=== PATIENT | female | born 1940 | race Caucasian/White ===

== ENCOUNTER 2019-09-23 06:00 | Outpatient (RCR) | payer MEDICARE, OTHER, SELFPAY | END 2019-10-19 00:01 | LOC: APT 06:00 | PROVIDERS: Family Provider Nurse Practitioner; Visit Provider Nurse Practitioner | DX: Z96.651 Presence of right artificial knee joint (principal); Z47.1 Aftercare following joint replacement surgery | CPT/HCPCS: 97110 ×4; 97163 ==

== ENCOUNTER 2019-10-20 13:42 | Outpatient (RCR) | payer MEDICARE, OTHER, SELFPAY | END 2019-11-19 23:59 | disposition home or self-care (01) | LOC: SPT 13:42 | PROVIDERS: Family Provider Nurse Practitioner; PCP Nurse Practitioner; Visit Provider Nurse Practitioner | DX: Z47.1 Aftercare following joint replacement surgery (principal); Z96.651 Presence of right artificial knee joint ==

== ENCOUNTER 2019-10-27 09:00 | Outpatient (CLI) | payer MEDICARE, OTHER, SELFPAY ==
--- NOTE | 2019-10-27 09:10 | FL_ITS ---
WS: [id number] ESOPHAGRAM TECHNIQUE: Double contrast examination was performed with thin and thick barium. Upright and GROSS imag es were obtained. CLINICAL INFORMATION: ASPIRATION PNEUMONIA COMPARISON: None. FINDINGS: Swallowing: Normal oropharyngeal phase. No evidence of aspiration or penetration. Esophagus: Moderate esophageal dysmotility with tertiary contractions and presbyesophagus. Delayed es ophageal emptying on the upright and supine position. Reflux is visualized the midesophagus. Small hi atal hernia. No evidence of high-grade stricture or mass. Gastroesophageal reflux: Present Fluoroscopy time: 2.7 minutes. FL/FL barium swallow [id number] IMPRESSION: 1. No evidence of aspiration penetration. 2. Moderate esophageal dysmotility with tertiary contractions and delayed empt john. This is seen on the upright and supine imaging. 3. Active reflux is visualized to the midesophagus. Small hiatal hernia.
== END 2019-10-27 09:01 | disposition home or self-care (01) ==
LOC: RAD 09:06
PROVIDERS: Family Provider Nurse Practitioner; PCP Nurse Practitioner; Visit Provider Internal Medicine Critical Care Medicine
DX: J69.0 Pneumonitis due to inhalation of food and vomit (principal); K44.9 Diaphragmatic hernia without obstruction or gangrene; K21.9 Gastro-esophageal reflux disease without esophagitis
CPT/HCPCS: 74220

== ENCOUNTER 2019-11-09 12:40 | Outpatient (CLI) | payer MEDICARE, OTHER, SELFPAY ==
--- NOTE | 2019-11-09 13:36 | MM_ITS ---
WS: [id number] RIGHT DIGITAL MAMMOGRAPHY WITH CAD CLINICAL INFORMATION: HX OF BREAST CA - LT MASTECTOMY Family history of breast cancer. COMPARISON: TECHNIQUE: 4 views of the right breast were obtained. FINDINGS: Scattered fibroglandular densities of the right breast. Lucent centered calcifications No suspicious focal mass, asymmetry, calcifications, or architectural distortion. No evidence of nhan gnancy. MM/[place] [id number] IMPRESSION: BI-RADS: 2-Benign FOLLOW UP: 1 Year Follow-up Recommend return to annual diagnostic mammography.
== END 2019-11-09 12:41 | disposition home or self-care (01) ==
LOC: RADSHAW 12:45
PROVIDERS: Family Provider Nurse Practitioner; PCP Nurse Practitioner; Visit Provider Nurse Practitioner
DX: Z85.3 Personal history of malignant neoplasm of breast (principal); Z90.12 Acquired absence of left breast and nipple
CPT/HCPCS: 77065

== ENCOUNTER 2019-11-10 08:46 | Outpatient (CLI) | payer MEDICARE, OTHER, SELFPAY | END 2019-11-10 08:47 | disposition home or self-care (01) | LOC: RAD 08:47 | PROVIDERS: Family Provider Nurse Practitioner; PCP Nurse Practitioner; Visit Provider Internal Medicine Critical Care Medicine | DX: J39.8 Other specified diseases of upper respiratory tract (principal); J69.0 Pneumonitis due to inhalation of food and vomit | CPT/HCPCS: 94010 ==

== ENCOUNTER 2019-12-01 13:24 | Outpatient (CLI) | payer MEDICARE, OTHER, SELFPAY ==
--- NOTE | 2019-12-01 13:41 | CT_ITS ---
WS: [id number] CT ABDOMEN PELVIS TECHNIQUE: Noncontrast CT of the abdomen and pelvis with coronal and sagittal reformatted images. CLINICAL INFORMATION: Generalized abdmen pain COMPARISON: CT April 21, 2017 DLP: 1197.[address] scans at [facility] use at least one of these dose optimization techniques: automat ed exposure control; mA and/or kV adjustment per patient size (includes targeted exams where dose is matched to clinical indication); or iterative reconstruction. FINDINGS: Noncontrast liver is normal. Normal gallbladder. Normal spleen. Normal GE junction. Slight atelectasi s in the lung bases. Several noncalcified pulmonary nodules in the right middle lobe and right lower lobe the largest measuring 4 mm. These are stable in appearance since April 2017. Calcific granuloma r ight lung base. Diffuse fatty atrophy of the pancreas. Moderate diffuse atheromatous disease involving the abdominal aorta with calcification. Mesenteric and splenic artery calcification. No upper abdominal lymphadenop athy. Slightly aneurysmal infrarenal abdominal aorta measuring 2.3 cm maximum AP dimension unchanged. Beam hardening artifact from left hip prosthesis obscures images in the pelvis. Sigmoid colon is norm al in appearance. Scattered stool in the colon. No evidence of small or large bowel obstruction. No i nguinal lymphadenopathy. Lumbar curve. Moderate spondylitic changes lumbar spine. IMPRESSION: 1. Noncontrast liver and gallbladder are normal in appearance. 2. A few noncalcified pulmonary nodules in the right middle lobe and right lung base appear stable s 2016 with the largest measuring 4 mm. Recommend 12 month follow-up. 3. Slightly aneurysmal infrarenal abdominal aorta measuring 2.3 cm in maximum AP dimension unchanged . 4. No abdominal or pelvic lymphadenopathy. 5. Left hip prosthesis obscures images in the pelvis.
[2019-12-01] MEDS: iohexol 300 mg/mL 50 mL Btl PO (14:35)
== END 2019-12-01 13:25 | disposition home or self-care (01) ==
LOC: RADWPI 13:30
PROVIDERS: Family Provider Nurse Practitioner; PCP Nurse Practitioner; Visit Provider Nurse Practitioner
DX: R91.8 Other nonspecific abnormal finding of lung field (principal); I71.4 Abdominal aortic aneurysm, without rupture
CPT/HCPCS: 74176

== ENCOUNTER → 2019-12-29 10:37 | Outpatient (BNVA) | payer MEDICARE, OTHER, SELFPAY | PROVIDERS: Family Provider Nurse Practitioner; PCP Nurse Practitioner; Visit Provider Nurse Practitioner | DX: M25.561 Pain in right knee (principal); M25.562 Pain in left knee; Z96.651 Presence of right artificial knee joint; Z89.512 Acquired absence of left leg below knee | CPT/HCPCS: 73562 ==

== ENCOUNTER → 2019-12-31 11:24 | Outpatient (BNVA) | payer MEDICARE, OTHER, SELFPAY | PROVIDERS: Family Provider Nurse Practitioner; PCP Nurse Practitioner; Visit Provider Family Medicine | DX: M21.611 Bunion of right foot (principal); M20.41 Other hammer toe(s) (acquired), right foot; S93.104A Unspecified dislocation of right toe(s), initial encounter; X58.XXXA Exposure to other specified factors, initial encounter; M81.0 Age-related osteoporosis without current pathological fracture | CPT/HCPCS: 73630; 80053; 84550; 85025 ==

== ENCOUNTER 2020-01-31 15:50 | Inpatient (IN) | payer MEDICARE, OTHER, SELFPAY ==
[2020-01-31] VITALS (8 sets, daily range): BP systolic 153–172; BP diastolic 81–113; PULSE 102–157; RESP 16–20; TEMP 36.6; O2SAT 94–98; BMI 38.9
--- NOTE | 2020-01-31 16:16 | XR_ITS ---
WS: [id number] PORTABLE CHEST HISTORY: SOB COMPARISON: 07/23/2019 Interval development of atelectasis at the LEFT lung base and a small LEFT pleural effusion. Pulmonar y vasculature is normal. No pneumothorax. Cardiac size: Mildly enlarged cardiac silhouette. Mediastinum/Aorta: Mild atherosclerosis aorta. Advanced degenerative changes at the glenohumeral joints. Prior LEFT axillary zac dissection. XR/XR chest 1V portable [id number] IMPRESSION: 1. LEFT basilar atelectasis with new small LEFT pleural effusion. 2. Mild cardiomegaly and atherosclerosis aorta.
--- NOTE | 2020-01-31 16:17 | ECG_ITS ---
Measurements Intervals [place] Rate: 98 P: [place]: 0 QRS: 4 QRSD: 91 T: 99 QT: 382 QTc: 489 ATRIAL FLUTTER with occasional PVC POSSIBLE ANTERIOR MYOCARDIAL INFARCTION , OF INDETERMINATE AGE [30 ms Q WAVE IN V3 V3/V4, OR R < 0.2 mV IN V4] Compared to ECG 07/23/2019 13:57:01 Myocardial infarct finding now present T-wave abnormality no longer present Electronically Signed On 02-01-2020 19:39:21 CDT by Lynne Starks M.D. [id number] kaitlin
--- NOTE | 2020-01-31 16:19 | ED_ITS ---
HPI - SOB/Dyspnea General: Chief Complaint: Shortness of Breath/Dyspnea Stated Complaint: chf Time Seen by Provider: 01/31/20 16:03 Source: patient Mode of arrival: EMS Limitations: no limitations History of Present Illness: HPI Narrative: 79-year-old female patient with a history of diabetes, A. fib, but who denies a history of congestive heart failure presents to the emergency department with concerns of difficulty breathing. She has had shortness of breath for the last 3 days and it is progressively worsening. She denies a fever, denies sick contacts. She has an occasional cough. This morning she has also been having very fleeting intermittent left-sided chest pain that is nonradiating. She reports weight gain from 221 pounds at the end of December to 244 pounds today. She also notices right lower extremity swelling. She has an amputation of left lower extremity. MD elicited complaint: shortness of breath Pertinent past history: COPD Onset (ago): day(s) (3) Timing: constant and progressively worsening Severity: moderate Exacerbating factors: nothing Relieving factors: nothing Known history of: COPD Associated symptoms: Reports chest pain (fleeting intermittent chest pain that started this morning.); Deny abdominal pain, dizziness, extremity pain, fever(s), hemoptysis, lightheadedness, nausea, palpitations, syncope or vomiting Review of Systems General: Reports: 10 or more systems reviewed and unremarkable except in HPI and below Const: Denies: fever Card: Reports: chest pain (fleeting intermittent chest pain that started this morning.), edema and swelling of feet/ankles; Denies: palpitations, lightheadedness, syncope or pre-syncope Resp: Reports: shortness of breath, non-productive cough and wheezing; Denies: productive cough or coughing up blood GI: Denies: abdominal pain, nausea, vomiting or difficulty swallowing : Denies: flank pain, difficulty urinating, painful urination, urinary frequency or urinary urgency Musc: Denies: extremity pain Neuro: Denies: headache, numbness in extremities, weakness in extremities, changes in sensation or dizziness PFS ED PFSH: Social History Smoking and tobacco status: never smoked Alcohol intake: never Lives independently: No Housing: Assisted Living Facility Marital status: / Current occupational status: retired History of recent travel: No Current gender identity: Female Physical Exam Const: COMMON NORMALS: no apparent distress, oriented x3 and no limitations GENERAL APPEARANCE: cooperative Resp: COMMON NORMALS: negative for clear to auscultation bilaterally AUSCULTATION: not clear to auscultation bilaterally, rales bilateral 1/[address] way up, no rhonchi and no wheezes Cardio: COMMON NORMALS: regular rhythm, S1 normal heart sound, S2 normal heart sound, no gallops and no murmurs RATE: tachycardic RHYTHM: regular rhythm HEART SOUNDS: S1 normal and S2 normal GI: COMMON NORMALS: normal to inspection, nondistended, normoactive bowel sounds, soft to palpation, non-tender and no hepatosplenomegaly PALPATION: Yes soft and Yes no hepatosplenomegaly : COMMON NORMALS: Yes no CVA tenderness BLADDER/KIDNEY EXAM: Yes no CVA tenderness Back/Pelvis: COMMON NORMALS: no CVA tenderness Extremity: GENERAL: Yes amputation (LLE) and Yes edema (2+ pitting pedal edema, RLE) Neuro: COMMON NORMALS: oriented x3 Course Consultations: Consultation #1: Dr. Nunez, hospitalist. He kindly accepted the patient to his service. Time: 20:00 Vital Signs: Vital signs: Vital Signs Temperature 97.8 F 01/31/20 15:56 Pulse Rate 125 H 01/31/20 19:51 Respiratory Rate 20 H 01/31/20 19:51 Blood Pressure 172/113 01/31/20 19:51 Pulse Oximetry 94 01/31/20 19:51 MDM - SOB/Dyspnea MDM Narrative: Medical decision making narrative: 79-year-old female patient who is a resident of an assisted living facility who presents to the emergency department with a 3-day history of shortness of breath that has been gradually worsening. She also endorses significant weight gain, about 23 pounds over a 3- week period. Evaluation in the emergency department is consistent with congestive heart failure. She is admitted for further evaluation and work-up as well as management of her condition. Medical Records: Attestation: I reviewed the patient's medical records. Lab Data: Labs: Lab Results 01/31/20 01/31/20 01/31/20 Range/Units 16:40 16:40 16:40 WBC 5.7 (4.0-10.0) 10^3/ uL RBC 4.59 (4.1-5.3) 10^6/u L Hgb 12.5 (11.5-15.3) g/dL Hct 42.3 (37.0-47.0) % MCV 92.2 (81-99) fL MCH 27.2 L (28.0-34.0) pg MCHC 29.6 L (30.0-36.0) g/dL RDW 17.1 H (12.1-15.1) % Plt Count 145 (130-400) 10^3/c mm MPV 11.0 H (7.4-10.4) fL Neut % (Auto) 75.4 % Lymph % (Auto) 16.1 % Villalba % (Auto) 7.0 % Eos % (Auto) 0.3 % Baso % (Auto) 0.9 % Neut # (Auto) 4.3 (1.8-7.7) 10^3/u L Lymph # (Auto) 0.9 (0.8-4.8) 10^3/u L Villalba # (Auto) 0.4 (0.2-0.9) 10^3/u L Eos # (Auto) 0.0 (0.0-0.8) 10^3/u L Baso # (Auto) 0.1 (0.0-0.1) 10^3/u L Nucleated RBC % (a uto) 0 % Nucleated RBCs # 0.0 /100WBC Sodium 138 (136-145) mmol/L Potassium 4.3 (3.5-5.1) mmol/L Chloride 98 (98-107) mmol/L Carbon Dioxide 28 (22-29) mmol/L Anion Gap 16.3 (5-19) BUN 11 (8-23) mg/dL Creatinine 0.8 (0.5-0.9) mg/dL Glucose 139 H (65-115) mg/dL Calculated Osmolal ity 284 L (285-295) mOsm/k g Calcium 9.3 (8.5-10.5) mg/dL Total Bilirubin 1.2 (0.15-1.2) mg/dL AST 19 (0-32) U/L ALT 9 (0-33) U/L Alkaline Phosphata se 93 (35-105) IU/L Troponin T Baselin e 18 H (0-10) ng/mL Troponin T 120 Min [place] (0-10) ng/mL Delta Troponin T (0-10) ABS# NT-Pro-B Natriuret Pep 8912 H (0-450) pg/mL Total Protein 7.2 (6.6-8.7) g/dL Albumin 3.8 (3.5-5.2) g/dL Globulin 3.4 (1.3-4.6) g/dL Influenza Type A A g (Negative) Influenza Type B A g (Negative) 01/31/20 01/31/20 Range/Units 17:07 18:11 WBC (4.0-10.0) 10^3/ uL RBC (4.1-5.3) 10^6/u L Hgb (11.5-15.3) g/dL Hct (37.0-47.0) % MCV (81-99) fL MCH (28.0-34.0) pg MCHC (30.0-36.0) g/dL RDW (12.1-15.1) % Plt Count (130-400) 10^3/c mm MPV (7.4-10.4) fL Neut % (Auto) % Lymph % (Auto) % Villalba % (Auto) % Eos % (Auto) % Baso % (Auto) % Neut # (Auto) (1.8-7.7) 10^3/u L Lymph # (Auto) (0.8-4.8) 10^3/u L Villalba # (Auto) (0.2-0.9) 10^3/u L Eos # (Auto) (0.0-0.8) 10^3/u L Baso # (Auto) (0.0-0.1) 10^3/u L Nucleated RBC % (a uto) % Nucleated RBCs # /100WBC Sodium (136-145) mmol/L Potassium (3.5-5.1) mmol/L Chloride (98-107) mmol/L Carbon Dioxide (22-29) mmol/L Anion Gap (5-19) BUN (8-23) mg/dL Creatinine (0.5-0.9) mg/dL Glucose (65-115) mg/dL Calculated Osmolal ity (285-295) mOsm/k g Calcium (8.5-10.5) mg/dL Total Bilirubin (0.15-1.2) mg/dL AST (0-32) U/L ALT (0-33) U/L Alkaline Phosphata se (35-105) IU/L Troponin T Baselin e (0-10) ng/mL Troponin T 120 Min [place] 18.07 H (0-10) ng/mL Delta Troponin T 0.07 (0-10) ABS# NT-Pro-B Natriuret Pep (0-450) pg/mL Total Protein (6.6-8.7) g/dL Albumin (3.5-5.2) g/dL Globulin (1.3-4.6) g/dL Influenza Type A A g Negative (Negative) Influenza Type B A g Negative (Negative) EKG Data^: EKG 1: Attestation: I personally reviewed and interpreted this EKG as follows: EKG Interpretation Date: 01/31/20 EKG interpretation time: 17:00 Prior EKG tracings: not available for review Interpretation: atrial fibrillation HR [address] changes EKG 2: Attestation: I personally reviewed and interpreted this EKG as follows: EKG Interpretation Date: 01/31/20 EKG interpretation time: 18:38 Prior EKG tracings: available for review Computer Generated Interpretation: unchanged from earlier, other than tachycardia EKG 3: Attestation: I personally reviewed and interpreted this EKG as follows: EKG Interpretation Date: 01/31/20 EKG interpretation time: 19:47 Prior EKG tracings: available for review Interpretation: unchanged from earlier Discharge Plan Discharge Patient Disposition: Admitted As Inpatient Clinical Impression: Congestive heart failure Condition: Stable Referrals: Rose Lester, [employer] [Primary Care Provider] - Interventions: ED Discharge Assessment Last Done: 01/31/20 20:46 Coding Level of Care Code ED Marine Engine Machinist Apprentice for Chg Fwd Exam Detailed
[2020-01-31 16:55] LABS: Basophils # 0.1 10^3/uL (0.0-0.1); Basophils % 0.9 %; Eosinophils % 0.3 %; Hematocrit 42.3 % (37.0-47.0); Hemoglobin 12.5 g/dL (11.5-15.3); Lymphocytes # 0.9 10^3/uL (0.8-4.8); Lymphocytes % 16.1 %; Mean Corpuscular HGB Conc 29.6 g/dL (30.0-36.0); Mean Corpuscular Hemoglobin 27.2 pg (28.0-34.0); Mean Corpuscular Volume 92.2 fL (81-99); Monocytes # 0.4 10^3/uL (0.2-0.9); Neutrophils # 4.3 10^3/uL (1.8-7.7); Neutrophils % 75.4 %; Nucleated Red Blood Cells % 0 %; Platelet Count 145 10^3/cmm (130-400); Red Blood Count 4.59 10^6/uL (4.1-5.3); Red Cell Distribution Width 17.1 % (12.1-15.1); White Blood Count 5.7 10^3/uL (4.0-10.0)
[2020-01-31 17:13] LABS: Troponin(5th) Baseline 18 ng/mL (0-10)
[2020-01-31 17:22] LABS: Alanine Aminotransferase 9 U/L (0-33); Albumin Level 3.8 g/dL (3.5-5.2); Alkaline Phosphatase 93 IU/L (35-105); Anion Gap 16.3 (5-19); Aspartate Amino Transferase 19 U/L (0-32); Blood Urea Nitrogen 11 mg/dL (8-23); Calcium 9.3 mg/dL (8.5-10.5); Carbon Dioxide 28 mmol/L (22-29); Chloride 98 mmol/L (98-107); Globulin 3.4 g/dL (1.3-4.6); Glucose 139 mg/dL (65-115); NT Pro B Type Natriuretic Pept 8912 pg/mL (0-450); Osmolality Calculated 284 mOsm/kg (285-295); Potassium 4.3 mmol/L (3.5-5.1); Sodium 138 mmol/L (136-145); Total Bilirubin 1.2 mg/dL (0.15-1.2); Total Protein 7.2 g/dL (6.6-8.7)
[2020-01-31 17:40] LABS: Influenza A by IFA Negative (Negative); Influenza B by IFA Negative (Negative)
--- NOTE | 2020-01-31 18:17 | ECG_ITS ---
Measurements Intervals [place] Rate: 94 P: [place]: 0 QRS: 9 QRSD: 88 T: 94 QT: 374 QTc: 469 ATRIAL FIBRILLATION WITH ABERRANT CONDUCTION OR VENTRICULAR PREMATURE COMPLEXES POSSIBLE ANTERIOR MYOCARDIAL INFARCTION , PROBABLY OLD Compared to ECG 07/23/2019 13:57:01 Aberrant conduction of supraventricular beat(s) now present Myocardial infarct finding now present Atrial flutter no longer present T-wave abnormality no longer present Electronically Signed On 02-01-2020 10:57:43 CDT by Lynne Starks M.D. [id number] kaitlin
[2020-01-31 18:35] LABS: Troponin 5 2HR 18.07 ng/mL (0-10); Troponin 5 2HR Delta 0.07 ABS# (0-10)
[2020-01-31] MEDS: FUROsemide 10 mg/mL SDV 4mL 40 MG IVP (18:47)
--- NOTE | 2020-01-31 19:56 | PC.NURSE ---
informed of pt. increased HR and HTN no orders recieved
--- NOTE | 2020-01-31 20:36 | PC.NURSE ---
assisted pt. to the bed side norma he SPO2 dropped to the 70's
--- NOTE | 2020-01-31 20:44 | PC.NURSE ---
report called to Oma STEWART on the M/S floor
--- NOTE | 2020-01-31 20:48 | PC.NURSE ---
ordered by the to hold the pr. in the ER untill he orders a CT of the chest and it is compleated.
--- NOTE | 2020-01-31 20:53 | CTR_ITS ---
PROCEDURE INFORMATION: Exam: CT Chest With Contrast Exam date and time: 01/31/2020 9:20 PM Age: 79 years old Clinical indication: Shortness of breath; Prior surgery; Surgery date: 6+ months; Additional info: SOB TECHNIQUE: Imaging protocol: Computed tomography of the chest with intravenous contrast. Total DLP: 948.83 mGy-cm Radiation optimization: All CT scans at this facility use at least one of these dose optimization techniques: automated exposure control; mA and/or kV adjustment per patient size (includes targeted exams where dose is matched to clinical indication); or iterative reconstruction. Contrast material: OMNIPAQUE 300; Contrast volume: 95 ml; Contrast route: IV; COMPARISON: CTA Chest-Pulmonary Emb [id number] 07/23/2019 12:20 PM FINDINGS: Lungs: Bibasilar atelectasis versus infiltrate. Pleural space: Moderate bilateral pleural effusions. Heart: Mild cardiomegaly. Coronary artery atherosclerotic calcifications. Aorta: Unremarkable. No aortic aneurysm. Lymph nodes: Unremarkable. No enlarged lymph nodes. Bones/joints: Right distal clavicle chronic fracture. Soft tissues: Unremarkable. CT/CT chest w con* [id number] IMPRESSION: 1. Moderate bilateral pleural effusions. 2. Bibasilar atelectasis versus infiltrate. 3. Mild cardiomegaly. 4. Coronary artery atherosclerotic calcifications. Radiation Dose CTDIVOL = (mGy): DLP = 948.83 (mGy-cm)
--- NOTE | 2020-01-31 20:54 | PM.HP ---
Providers/Chief Complaint Primary Care Provider: Rose Lester, NADYAC Chief Complaint: chf History of Present Illness Nicole Gordon is a 79 year old female with past medical history of heart failure with preserved ejection fraction echo on 05/08/2019 (showed LVH, ejection fraction 55%), mild aortic stenosis, chronic atrial fibrillation on anticoagulation with Eliquis, [id number] type 2 diabetes mellitus, hypertension, hyperlipidemia, obstructive sleep apnea on CPAP, status post left BKA with Charcot's arthropathy, GERD, history of breast cancer status post mastectomy, morbid obesity, chronic kidney disease stage II, history of aspiration pneumonitis, tracheobronchial malacia, who presents to the emergency room from assisted living facility in [facility] for complaints of shortness of breath. Patient states that she has been having shortness of breath with exertion, progressing to shortness of breath less than 10 feet, no shortness of breath at rest, has orthopnea, has paroxysmal nocturnal dyspnea, states that she has occasional wheezing, no cough, no fevers, no URI symptoms, no recent travel, no sick contacts, no known exposure to covid19. Patient states that this morning she had one episode of left-sided chest pain, lasted a few seconds, sharp, nonradiating, associate with shortness of breath, no lightheadedness, no dizziness, no nausea, no vomiting, no history of CAD, no history of stenting. Denies history of calf pain or calf swelling on the right, no history of pulmonary embolism,, no history of DVT In the emergency room, patient had episodes of A. fib with RVR, heart rates in the 120s, now is examining her, heart rates were 100-1 10, A. fib, she is requiring up to 3-4 L of oxygen, no tachypnea, no nasal flaring, no retractions, chest x-ray shows pulmonary vascular congestion BNP in the 8000 Review of Systems Const: Denies: fever, chills, fatigue or malaise Eyes: Denies: change in vision or blurry vision ENMT: Denies: nasal congestion Resp: Reports: shortness of breath and wheezing; Denies: productive cough or non-productive cough GI: Denies: abdominal pain, nausea, vomiting, vomiting blood, diarrhea, constipation, blood in stool or black tarry stool : Denies: flank pain, painful urination or urinary frequency Musc: Denies: neck pain or back pain Skin/Breast: Denies: rash Neuro: Denies: headache, dizziness or vertigo Psych: Denies: anxiety or depression Endo: Denies: excessive urination or excessive thirst Medications/Allergies Allergies Allergy/AdvReac Type Severity Reaction Status Date / Time chlorthalidone Allergy Unknown Verified 01/31/20 16:09 metformin AdvReac Severe ADR-Diarrhe Verified 12/31/19 10:25 a celecoxib [From Celebrex] AdvReac GI Verified 12/31/19 10:25 PFSH Acute PFSH: Social History Smoking and tobacco status: never smoked Alcohol intake: never Lives independently: No Housing: Assisted Living Facility Marital status: / Current occupational status: retired History of recent travel: No Current gender identity: Female Vitals/I&O/Wt Last Vital Signs Temp 97.8 F 01/31/20 15:56 Pulse 104 H 01/31/20 20:46 Resp 20 H 01/31/20 20:46 BP 168/112 01/31/20 20:46 Pulse Ox 94 01/31/20 19:51 Weight last 48 hrs Weight 109.316 kg Physical Exam Const: COMMON NORMALS: no apparent distress and oriented x3 GENERAL APPEARANCE: cooperative and comfortable HENMT: COMMON NORMALS: normocephalic HEAD & SCALP: normocephalic Eye: COMMON NORMALS: PERRL, EOMs intact bilaterally and no papilledema GENERAL EYE: normal appearance of both eyes PUPIL: Yes PERRL DIRECT OPHTHALMOSCOPY: Yes no papilledema Neck/C-Spine: COMMON NORMALS: full ROM, no lymphadenopathy, no JVD and thyroid normal THYROID: thyroid normal Lymph: LYMPHATIC: no lymphadenopathy noted Resp: COMMON NORMALS: normal respiratory effort, no retractions, no use of accessory muscles and clear to auscultation bilaterally AUSCULTATION: clear to auscultation bilaterally Cardio: COMMON NORMALS: no JVD, regular rate, regular rhythm, S1 normal heart sound, S2 normal heart sound, no gallops, no clicks and no murmurs RATE: regular rate RHYTHM: regular rhythm HEART SOUNDS: S1 normal and S2 normal GI: COMMON NORMALS: normal to inspection, nondistended, normoactive bowel sounds, soft to palpation, non-tender and no hepatosplenomegaly PALPATION: Yes soft and Yes no hepatosplenomegaly Extremity: COMMON NORMALS: normal to inspection and full ROM NARRATIVE EXTREMITY EXAM: Left BKA GENERAL: Yes edema Neuro: COMMON NORMALS: oriented x3, CN's II-XII intact bilaterally, moves all extremities and no focal motor deficits Psych: COMMON NORMALS: mental status grossly normal, thought process normal and cooperative THOUGHT PROCESS: normal thought process Data : 01/31/20 16:40 01/31/20 16:40 A&P Assessment and plan (1) Acute respiratory failure with hypoxia: -Secondary to exacerbation of heart failure with preserved ejection fraction, atrial fibrillation with RVR -Chest x-ray showing pulmonary vascular congestion, BNP 8000 Plan: -Strict I's and O's -Fluid restrictions less than 1500 cc -Daily weights -Lasix 40 mg IV twice daily -We will order CT of the chest -We will order cardiac echocardiogram -Wean oxygen as needed -PT OT Status: Acute (2) AF (atrial fibrillation): -Continue Eliquis 2.5 twice daily -Continue metoprolol 50 twice daily -I have elected not to start drip as patient's heart rates are 100s to 110s, A. fib -Start amiodarone 400 mg daily, monitor heart rates overnight, continue telemetry monitoring Status: Acute (3) Edema of amputation stump of left lower extremity: Status: Acute (4) Lives in assisted living facility: Status: Chronic (5) History of thyroid cancer: Status: Chronic (6) Tracheobronchomalacia: Status: Acute (7) Obstructive sleep apnea: Status: Chronic (8) Controlled diabetes mellitus with hyperglycemia, without long-term current use of insulin: Low-dose sliding scale Status: Chronic Qualifiers: Diabetes mellitus type: type 2 Qualified Code(s): E11.65 - Type 2 diabetes mellitus with hyperglycemia (9) Essential (primary) hypertension: Status: Chronic (10) Heart failure with preserved ejection fraction: Status: Acute Attestations Medical Necessity Statement*: Patient requires hospitalization, inpatient, greater than 2 midnights, for acute respiratory failure secondary to CHF, A. fib Coding Level of Care Code Acute Diagnostic Radiologic Technologist for [facility] Diagnoses Acute respiratory failure with hypoxia J96.01 AF (atrial fibrillation) I48.91 Edema of amputation stump of left lower extremity T87.89 Lives in assisted living facility Z59.3 History of thyroid cancer Z85.850 Tracheobronchomalacia J39.8 Obstructive sleep apnea G47.33 Controlled diabetes mellitus with hyperglycemia, without long-term current use of insulin E11.65 Diabetes mellitus type: type 2 Essential (primary) hypertension I10 Heart failure with preserved ejection fraction I50.30
--- NOTE | 2020-01-31 22:17 | ECG_ITS ---
Measurements Intervals [place] Rate: 126 P: [place]: 0 QRS: 44 QRSD: 90 T: 92 QT: 328 QTc: 476 ATRIAL FIBRILLATION WITH RAPID VENTRICULAR RESPONSE POSSIBLE ANTERIOR MYOCARDIAL INFARCTION , PROBABLY OLD Compared to ECG 07/23/2019 13:57:01 Myocardial infarct finding now present Atrial flutter no longer present Ventricular premature complex(es) no longer present T-wave abnormality no longer present Electronically Signed On 02-02-2020 10:35:18 CDT by Lynne Starks M.D. [id number]
[2020-01-31] MEDS: atorvastatin 40 mg Tablet 20 MG PO (22:29)
[2020-01-31] MEDS: gabapentin 300 mg Capsule 600 MG PO (22:29)
[2020-01-31] MEDS: aspirin 81 mg EC Tablet PO (22:29)
[2020-01-31] MEDS: amiodarone 200 mg Tablet 400 MG PO (22:29)
[2020-01-31 22:37] LABS: Troponin 5 6HR 19.79 ng/mL (0-10); Troponin 5 6HR Delta 1.79 ng/L (0-12)
[2020-01-31 22:45] LABS: Thyroid Stimulating Hormone 1.63 uIU/mL (0.27-4.20)
[2020-01-31] MEDS: HYDROcodone-acetaminophen 10-325 mg Tablet 1 TAB PO (22:53)
[2020-01-31] MEDS: trazodone 50 mg Tablet PO (22:54)
[2020-02-01] VITALS (10 sets, daily range): BP systolic 131–161; BP diastolic 73–100; PULSE 78–104; RESP 16–22; TEMP 36.6–37; O2SAT 86–97
[2020-02-01 05:17] LABS: Basophils # 0.1 10^3/uL (0.0-0.1); Basophils % 0.9 %; Eosinophils % 0.1 %; Hematocrit 43.6 % (37.0-47.0); Hemoglobin 12.7 g/dL (11.5-15.3); Lymphocytes # 1.2 10^3/uL (0.8-4.8); Lymphocytes % 17.8 %; Mean Corpuscular HGB Conc 29.1 g/dL (30.0-36.0); Mean Corpuscular Hemoglobin 27.2 pg (28.0-34.0); Mean Corpuscular Volume 93.4 fL (81-99); Mean Platelet Volume 12.3 fL (7.4-10.4); Monocytes # 0.5 10^3/uL (0.2-0.9); Monocytes % 7.8 %; Neutrophils # 4.9 10^3/uL (1.8-7.7); Neutrophils % 73.1 %; Nucleated Red Blood Cells % 0 %; Platelet Count 57 10^3/cmm (130-400); Red Blood Count 4.67 10^6/uL (4.1-5.3); White Blood Count 6.8 10^3/uL (4.0-10.0)
[2020-02-01 05:34] LABS: Estmated Average Glucose 131; Hemoglobin A1C 6.2 % (4.0-6.0)
[2020-02-01 05:35] LABS: Alanine Aminotransferase 8 U/L (0-33); Albumin Level 3.5 g/dL (3.5-5.2); Alkaline Phosphatase 87 IU/L (35-105); Anion Gap 18.6 (5-19); Blood Urea Nitrogen 9 mg/dL (8-23); Calcium 9.4 mg/dL (8.5-10.5); Carbon Dioxide 26 mmol/L (22-29); Chloride 95 mmol/L (98-107); Chol HDL Ratio 2.64 mg/dL (0.0-4.40); Cholesterol 95 mg/dL (0-200); Globulin 3.6 g/dL (1.3-4.6); Glucose 113 mg/dL (65-115); HDL Cholesterol 36 mg/dL (60-100); LDL Cholesterol Calculated 39 mg/dL (50-129); LDL HDL Ratio 1.08 RATIO (0.00-3.22); Magnesium 2.1 mg/dL (1.7-2.3); Osmolality Calculated 279 mOsm/kg (285-295); Phosphorus 3.8 mg/dL (2.5-4.5); Potassium 3.6 mmol/L (3.5-5.1); Sodium 136 mmol/L (136-145); Total Bilirubin 1.5 mg/dL (0.15-1.2); Total Protein 7.1 g/dL (6.6-8.7); Triglycerides 98 mg/dL (0-150)
[2020-02-01 05:49] LABS: Aspartate Amino Transferase 23 U/L (0-32)
--- NOTE | 2020-02-01 07:59 | P.PN_ITS ---
Subjective Subjective: Interval history: Patient known to me from previous visit, chart reviewed, had 200 mL urine output overnight. AM labs noted, including thrombocytopenia. Sitting in chair by bedside, reports poor sleep last night so trying to take a nap, otherwise no complaints though she still feels like she has quite a bit of water weight on her. Medications: Reviewed: Yes Medication Review Details: Active Medications Generic Name Dose Route Start Last Admin Trade Name Freq PRN Reason Stop Dose Admin Acetaminophen 650 mg 01/31/20 21:55 Tylenol PO Q6H PRN Mild/Mod Pain Or Temp >/= 101 Hydrocodone Bitart /Acetaminophen 1 tab 01/31/20 21:55 01/31/20 22:53 [place] 10-325 Mg PO 1 tab Q4H PRN Administration Pain Albuterol Sulfate 2.5 mg 01/31/20 21:55 01/31/20 23:20 Albuterol INHALATION 2.5 mg TID.RESPIRATORY S CH Administration Allopurinol 300 mg 02/01/20 09:00 Zyloprim PO DAILY [facility] Amiodarone HCl 400 mg 01/31/20 21:55 01/31/20 22:29 Cordarone PO 400 mg DAILY RAMÓN Administration Apixaban 2.5 mg 02/01/20 09:00 Eliquis PO BID [facility] Aspirin 81 mg 01/31/20 21:55 01/31/20 22:29 Aspirin Ec PO 81 mg DAILY [facility] Administration Atorvastatin Calci um 20 mg 01/31/20 21:55 01/31/20 22:29 Lipitor PO 20 mg BEDTIME RAMÓN Administration Atorvastatin Calci um 40 mg 01/31/20 21:55 01/31/20 22:27 Lipitor PO Not Given DAILY [facility] Calcium Carbonate 1 each 02/01/20 09:00 Oyster Shell 500 mg-Vit D 200unit PO DAILY [facility] Chlorthalidone 25 mg 02/01/20 09:00 Thalitone PO BID [facility] Dextrose 25 ml 01/31/20 22:00 D50w IVP ONCE PRN hypoglycemia prot ocol Protocol Dextrose 50 ml 01/31/20 22:00 D50w IVP PRN PRN hypoglycemia prot ocol Protocol Docusate Sodium 100 mg 02/01/20 09:00 Colace PO BID [facility] Furosemide 40 mg 02/01/20 09:00 Lasix IVP BID [facility] Gabapentin 600 mg 01/31/20 21:55 01/31/20 22:29 Neurontin PO 600 mg TID RAMÓN Administration Glucagon 1 mg 01/31/20 22:00 Glucagen IM ONCE PRN Adult Acute Hypog lycemia Prot. Protocol Dextrose 500 mls @ 100 mls /hr 01/31/20 22:00 D5w IV ONCE PRN Adult Acute Hypog lycemia Prot Protocol Insulin Aspart 0 unit 02/01/20 08:00 Novolog SUBCUT TIDWM [facility] Protocol Lisinopril 10 mg 02/01/20 09:00 Prinivil PO DAILY [facility] Metoprolol Succina te 50 mg 02/01/20 09:00 Toprol Xl PO BID [facility] Non-Formulary Medi cation 250 mg 02/01/20 09:00 Magnesium PO BID [facility] Nystatin 1 applic 01/31/20 21:55 Nystatin Powder TOPICAL QID PRN yeast Ondansetron HCl 4 mg 01/31/20 21:55 Zofran IVP Q8H PRN vomiting, or N/V if npo Potassium Chloride 10 meq 02/01/20 09:00 Klor-Con 10 PO BID [facility] Trazodone HCl 50 mg 01/31/20 22:45 01/31/20 22:54 Desyrel PO 50 mg BEDTIME RAMÓN Administration chlorthalidone Allergy (Verified 01/31/20 16:09) Unknown metformin Adverse Reaction (Severe, Verified 12/31/19 10:25) ADR-Diarrhea celecoxib [From Celebrex] Adverse Reaction (Verified 12/31/19 10:25) GI Vitals/I&O/Wt Last Vital Signs Temp 98.2 F 02/01/20 07:17 Pulse 80 02/01/20 07:17 Resp 20 H 02/01/20 07:17 BP 131/93 02/01/20 07:17 Pulse Ox 92 02/01/20 07:17 01/31/20 02/01/20 02/01/20 22:59 06:59 14:59 Intake Total 480 / 480 50 / 530 Output Total 200 / 200 Balance 480 / 480 -150 / 330 Weight last 48 hrs Weight 109.316 kg Physical Exam Const: COMMON NORMALS: no apparent distress and oriented x3 GENERAL APPEARANCE: cooperative and comfortable; not ill appearing NUTRITIONAL APPEARANCE: obese morbidly obese ORIENTATI ON/CONSCIOUSNESS: Yes awake HENMT: COMMON NORMALS: normocephalic, head/scalp atraumatic, hearing grossly normal bilaterally and moist oral mucous membranes HEAD & SCALP: normocephalic and atraumatic Eye: COMMON NORMALS: PERRL, EOMs intact bilaterally and conjunctivae normal CONJUNCTIVA: Yes conjunctivae normal PUPIL: Yes PERRL Neck/C-Spine: COMMON NORMALS: full ROM GENERAL: Yes normal visual inspection and Yes trachea midline Resp: COMMON NORMALS: normal respiratory effort, no retractions and no use of accessory muscles EFFORT & INSPECTION: Yes able to speak in complete sentences, Yes symmetric chest movement and No tachypneic AUSCULTATION: crackles OTHER: -on 2 L NC Cardio: COMMON NORMALS: regular rate, regular rhythm, S1 normal heart sound and S2 normal heart sound RATE: regular rate RHYTHM: regular rhythm HEART SOUNDS: S1 normal, S2 normal and murmur systolic GI: COMMON NORMALS: normal to inspection, nondistended, normoactive bowel sounds, soft to palpation and non-tender INSPECTION: Yes central obesity PALPATION: Yes soft Extremity: NARRATIVE EXTREMITY EXAM: -s/p L BKA, prosthetic on Neuro: COMMON NORMALS: oriented x3, moves all extremities, no focal motor deficits and no sensory deficits noted Psych: COMMON NORMALS: mental status grossly normal, thought process normal, cooperative, affect normal and speech normal SPEECH: Yes normal speech THOUGHT PROCESS: normal thought process Skin: COMMON NORMALS: no rashes or lesions noted, no jaundice, no petechiae and no mottling GENERAL SKIN EXAM: no rashes or lesions noted Data : 02/01/20 04:28 02/01/20 04:28 A&P Assessment and plan (1) Heart failure with preserved ejection fraction: -Acutely decompensated diastolic CHF as evidenced by elevated BNP, orthopnea, dyspnea, evidence of fluid overload on imaging -Repeat echo: EF=55%, moderate , moderate TR; last echo in April 2019 showed ejection fraction of 55%, mild concentric LVH, mild , trace to mild TR -Imaging reviewed including chest x-ray and CT -Continue IV diuresis with Lasix -Close monitoring of renal function and electrolytes -Vital signs stable; continue to monitor -Telemetry monitoring -Cardiac diet as tolerated -Troponins noted with no significant delta -Abrasive Grader is Dr. Starks Status: Acute Qualifiers: Heart failure chronicity: acute on chronic Qualified Code(s): I50.33 - Acute on chronic diastolic (congestive) heart failure (2) AF (atrial fibrillation): -Has known history of chronic atrial fibrillation, on admission was quite tachycardic, currently rate controlled -Telemetry monitoring -Echo as noted above -Continue to monitor vital signs -On Eliquis 2.5 twice daily for anticoagulation -Continue amiodarone and metoprolol Status: Chronic Qualifiers: Atrial fibrillation type: unspecified Qualified Code(s): I48.91 - Unspecified atrial fibrillation (3) Essential (primary) hypertension: -Vital signs currently stable, continue to monitor -Continue oral antihypertensives Status: Chronic (4) Obstructive sleep apnea: -On CPAP qhs Status: Chronic Additional A&P Information -NIDDM type II: A1c-6.2, at goal -Hyperlipidemia; on statin -OA; pain control as needed -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 Yeh -cardiac diet as tolerated -DVT ppx not needed as on Eliquis -PT/OT evaluations appreciated; recommended -Dispo: [facility] -Code status: FULL code Attestations Medical Necessity Statement*: Patient requires hospitalization for continued IV diuresis secondary to acutely decompensated CHF. Time Spent in Patient Care: Greater than 35 minutes (>than 50% of time spent in counselling and/or direct pt care on unit) . Coding Level of Care Code Acute Informatica Developer for [facility] Fwd Exam Comprehensive Diagnoses Heart failure with preserved ejection fraction I50.33 Heart failure chronicity: acute on chronic AF (atrial fibrillation) I48.91 Atrial fibrillation type: unspecified Essential (primary) hypertension I10 Obstructive sleep apnea G47.33
[2020-02-01 08:45] LABS: Glucose Point of Care 182 mg/dL (70-110)
[2020-02-01] MEDS: FUROsemide 10 mg/mL SDV 4mL 40 MG IVP ×2 (09:03→18:12)
[2020-02-01] MEDS: aspirin 81 mg EC Tablet PO (09:05)
[2020-02-01] MEDS: duloxetine 60 mg Capsule PO (09:05)
[2020-02-01] MEDS: allopurinol 300 mg Tablet PO (09:05)
[2020-02-01] MEDS: gabapentin 300 mg Capsule 600 MG PO ×3 (09:05→20:02)
[2020-02-01] MEDS: lisinopril 10 mg Tablet PO (09:05)
[2020-02-01] MEDS: amiodarone 200 mg Tablet 400 MG PO (09:05)
[2020-02-01] MEDS: docusate sodium 100 mg Capsule PO ×2 (09:05→18:12)
[2020-02-01] MEDS: metoprolol succinate ER (24 HR) 50 mg Tablet PO ×2 (09:05→18:12)
[2020-02-01] MEDS: calcium carb-vit d 500mg-200unit 1 Tablet 1 EACH PO (09:05)
[2020-02-01] MEDS: apixaban 5 mg Tablet 2.5 MG PO ×2 (09:06→18:12)
[2020-02-01] MEDS: HYDROcodone-acetaminophen 10-325 mg Tablet 1 TAB PO ×3 (09:12→20:01)
[2020-02-01 11:35] LABS: Glucose Point of Care 127 mg/dL (70-110)
--- NOTE | 2020-02-01 11:53 | PC.CHAP ---
Pastoral Care Encounter/Spiritual Assessment Type of Contact [] Declined filtering machine tender visit [] Patient/Family/Request visit [] Outpatient visit [] Follow-up visit [] Physician referral [] Code/Alert [x] Routine visit [] Staff referral [] Actively dying [] Patient sleeping [] Family support [] [] Out of room [] Palliative care [] [] Receiving care in room [] Pre-surgical visit [] Trauma [] Long length of stay [] ICU visit [] Other: Relational/Emotional Strength [] Patient feels connected with others/family/visitors/staff [] Distress [] Loneliness/isolation [] Abandonment Spirituality of Patient [x] Person of Paulina [] Attends Adventist of their Paulina [x] Believes in Prayer [] Reads Bible or Evangelical materials [] There are Spiritual issues to be addressed Sheet Cutting Operator Interventions [x] Prayer [] Active listening [] Non-anxious presence [] Spiritual/emotional support [] Crisis/trauma care [] Spiritual counseling [] Bereavement support [] Provided bereavement packet [] Provided Bible/devotional materials [] Provided toy/stuffed animal, coloring book to patient or family member [] Provided Communion [] Anointing/[place] [] Salvation [x] Completed spiritual assessment [] Other: Impact on Illness or Injury [] Angry [] Fearful [] Anxious [] Often cries [] Exhaustion [] Unable to work [] Unable to attend moravian [] Unable to walk/stand [] Unable to read [] Unable to drive [] Unable to eat/drink [] Unable to sleep [] Unable to be with family [] Patient intubated [] Other: Summary Patient feeling much stronger than yesterday. Time spent with patient 10 min
[2020-02-01 16:41] LABS: Glucose Point of Care 117 mg/dL (70-110)
[2020-02-01] MEDS: atorvastatin 40 mg Tablet 20 MG PO (20:02)
[2020-02-01] MEDS: trazodone 50 mg Tablet PO (20:03)
[2020-02-01 20:29] LABS: Glucose Point of Care 192 mg/dL (70-110)
--- NOTE | 2020-02-01 21:55 | USCV_ITS ---
Nicole Gordon Age: 79 Gender: F : 1940 Exam Date: 02/01/2020 09:03 Ordering Phys: Victor M Nunez MD Technologist: Shala Pizarro [place] [facility] [place]: [place]F BP: / HR: 87 Rhythm: Atrial fibrillation Technical Quality: Adequate MEASUREMENTS (Male / Female) Normal Values 2D ECHO LV Diastolic Diameter PLAX 2.9 cm 4.2 - 5.9 / 3.9 - 5.3 cm LV Systolic Diameter PLAX 2.4 cm LV Chamber Size 3.7 cm IVS Diastolic Thickness 1.3 cm 0.6 - 1.0 / 0.6 - 0.9 cm IVS Systolic Thickness 1.7 cm LVPW Diastolic Thickness 1.2 cm 0.6 - 1.0 / 0.6 - 0.9 cm LVPW Systolic Thickness 1.2 cm RV Chamber Size 2.6 cm LVOT Diameter 2.0 cm LV Ejection Fraction 2D Teich 33.8 % LV Ejection Fraction MOD 2C 53.4 % LV Ejection Fraction 2C AL 55.3 % LA Diameter 3.9 cm LA Width 3.5 cm LA Height 4.5 cm RA Width 3.3 cm RA Height 5.0 cm Aorta at Sinotubular Diameter 3.0 cm M-MODE LV Diastolic Diameter MM 4.2 cm 4.2 - 5.9 / 3.9 - 5.3 cm LV Systolic Diameter MM 2.8 cm LV Ejection Fraction MM Teich 62.1 % IVS Diastolic Thickness MM 1.7 cm 0.6 - 1.0 / 0.6 - 0.9 cm IVS Systolic Thickness MM 2.2 cm LVPW Diastolic Thickness MM 1.7 cm 0.6 - 1.0 / 0.6 - 0.9 cm LVPW Systolic Thickness MM 2.2 cm RV Diastolic Diameter MM 1.7 cm Aortic Annulus Diameter 3.6 cm LA Ao Ratio MM 1.1 MV E Point Septal Separation 1.0 cm DOPPLER AV Peak Velocity 188.0 cm/s LVOT Peak Velocity 70.0 cm/s AV Area Cont Eq vti 1.6 cm squared AV Area Cont Eq pk 1.2 cm squared MV Area PHT 4.8 cm squared MV E' Velocity 8.0 cm/s Mitral E to MV E' Ratio 14.4 Mitral E to LV E' Lateral Ratio 15.2 Mitral E to LV E' Septal Ratio 13.9 TR Peak Velocity 252.1 cm/s TR Peak Gradient 25.4 mmHg TR Mean Velocity 188.4 cm/s TR Mean Gradient 15.8 mmHg TR Velocity Time Integral 82.4 cm TV Peak E Velocity 75.0 cm/s Right Atrial Pressure 3.0 mmHg Pulmonary Artery Systolic Pressu 28.4 mmHg PV Peak Velocity 60.0 cm/s RV Acceleration Time 0.1 s RV Ejection Time 0.3 s RV AcT/ET 0.3 FINDINGS Left Ventricle Normal left ventricular cavity size. Normal left ventricular systolic function. Left ventricular ejection fraction is estimated at 55 %. In the presence of atrial fibrillation diastolic function cannot be assessed accurately. Right Ventricle The right ventricle is normal in size and function. Right Atrium The right atrium is normal in size. Left Atrium Moderately increased left atrial size. Mitral Valve Moderately thickened mitral valve. Severe mitral annular calcification. No mitral valve stenosis. No mitral valve regurgitation. Aortic Valve Moderate aortic valve calcification. Moderate aortic valve stenosis, mean gradient 6.9 mmHg, GARY 1.6 cm squared. No aortic valve regurgitation. Tricuspid Valve Moderate tricuspid valve regurgitation. Pulmonic Valve Structurally normal pulmonic valve without significant stenosis. There is no pulmonic regurgitation. Pericardium Normal pericardium without effusion. Aorta Normal ascending aorta dimension. CONCLUSIONS 1-Normal left ventricular cavity size. Normal left ventricular systolic function. Left ventricular ejection fraction is estimated at 55 %. In the presence of atrial fibrillation diastolic function cannot be assessed accurately. 2-Moderately increased left atrial size. 3-Moderate aortic valve calcification. Moderate aortic valve stenosis, mean gradient 6.9 mmHg, GARY 1.6 cm squared. No aortic valve regurgitation. Velocity across the aortic valve is 1.6m/s. 4-Moderately thickened mitral valve. Severe mitral annular calcification. No mitral valve stenosis. No mitral valve regurgitation. 5-Moderate tricuspid valve regurgitation. 6-There is no pericardial effusion. 7-Pulmonary artery systolic pressure is within normal limits. 8-Right atrial pressure is around 5 mm of mercury. 9-No significant change since the prior echocardiogram study of 05/10/2019. Shagufta Renee MD (Electronically Signed) Final Date: 01 February 2020 15:43 S
[2020-02-02] VITALS (13 sets, daily range): BP systolic 114–146; BP diastolic 64–84; PULSE 74–103; RESP 16–22; TEMP 36.4–37.1; O2SAT 90–97
[2020-02-02 04:28] LABS: Platelet Count 147 10^3/cmm (130-400)
[2020-02-02 04:47] LABS: Alanine Aminotransferase 8 U/L (0-33); Albumin Level 3.7 g/dL (3.5-5.2); Alkaline Phosphatase 82 IU/L (35-105); Anion Gap 14.1 (5-19); Aspartate Amino Transferase 17 U/L (0-32); Blood Urea Nitrogen 12 mg/dL (8-23); Calcium 9.4 mg/dL (8.5-10.5); Carbon Dioxide 36 mmol/L (22-29); Chloride 93 mmol/L (98-107); Glucose 88 mg/dL (65-115); Magnesium 1.9 mg/dL (1.7-2.3); Osmolality Calculated 286 mOsm/kg (285-295); Phosphorus 4.5 mg/dL (2.5-4.5); Potassium 3.1 mmol/L (3.5-5.1); Sodium 140 mmol/L (136-145); Total Bilirubin 1.6 mg/dL (0.15-1.2); Total Protein 6.7 g/dL (6.6-8.7)
[2020-02-02 06:36] LABS: Glucose Point of Care 97 mg/dL (70-110)
[2020-02-02] MEDS: allopurinol 300 mg Tablet PO (09:21)
[2020-02-02] MEDS: gabapentin 300 mg Capsule 600 MG PO ×3 (09:21→20:10)
[2020-02-02] MEDS: apixaban 5 mg Tablet 2.5 MG PO ×2 (09:21→17:23)
[2020-02-02] MEDS: metoprolol succinate ER (24 HR) 50 mg Tablet PO ×2 (09:22→17:23)
[2020-02-02] MEDS: FUROsemide 10 mg/mL SDV 4mL 40 MG IVP ×2 (09:22→17:22)
[2020-02-02] MEDS: docusate sodium 100 mg Capsule PO (09:22)
[2020-02-02] MEDS: aspirin 81 mg EC Tablet PO (09:22)
[2020-02-02] MEDS: duloxetine 60 mg Capsule PO (09:22)
[2020-02-02] MEDS: amiodarone 200 mg Tablet 400 MG PO (09:22)
[2020-02-02] MEDS: calcium carb-vit d 500mg-200unit 1 Tablet 1 EACH PO (09:22)
[2020-02-02] MEDS: lisinopril 10 mg Tablet PO (09:22)
[2020-02-02] MEDS: sennosides-docusate Tablet 2 TAB PO ×2 (10:13→17:23)
[2020-02-02] MEDS: polyethylene glycol 3350 Pkt 17 gm PO (10:13)
[2020-02-02] MEDS: lanolin oint 7 gm 1 APPLIC TOPICAL (10:14)
--- NOTE | 2020-02-02 10:44 | PC.CHAP ---
Pastoral Care Encounter/Spiritual Assessment Type of Contact [] Declined transistor tester visit [] Patient/Family/Request visit [] Outpatient visit [] Follow-up visit [] Physician referral [] Code/Alert [x] Routine visit [] Staff referral [] Actively dying [] Patient sleeping [] Family support [] [] Out of room [] Palliative care [] [] Receiving care in room [] Pre-surgical visit [] Trauma [] Long length of stay [] ICU visit [] Other: Relational/Emotional Strength [] Patient feels connected with others/family/visitors/staff [] Distress [] Loneliness/isolation [] Abandonment Spirituality of Patient [] Person of Paulina [] Attends Judaism of their Paulina [] Believes in Prayer [] Reads Bible or Scientology materials [] There are Spiritual issues to be addressed Nicker And Breaker Interventions [] Prayer [] Active listening [] Non-anxious presence [] Spiritual/emotional support [] Crisis/trauma care [] Spiritual counseling [] Bereavement support [] Provided bereavement packet [] Provided Bible/devotional materials [] Provided toy/stuffed animal, coloring book to patient or family member [] Provided Communion [] Anointing/[place] [] Salvation [x] Completed spiritual assessment [] Other: Impact on Illness or Injury [] Angry [] Fearful [] Anxious [] Often cries [] Exhaustion [] Unable to work [] Unable to attend religion [] Unable to walk/stand [] Unable to read [] Unable to drive [] Unable to eat/drink [] Unable to sleep [] Unable to be with family [] Patient intubated [] Other: Summary Checked in on Patient. Doing much better today, walked a little Time spent with patient
[2020-02-02 11:25] LABS: Glucose Point of Care 235 mg/dL (70-110)
--- NOTE | 2020-02-02 13:22 | P.PN_ITS ---
Subjective Subjective: Interval history: Had 1000 mL urine output overnight. AM labs noted, normal platelet count, slight hypokalemia. Patient seen and examined, resting in bed, no apparent distress, no acute overnight events reported. Reports feeling better but still has a bit of water weight on her. Has had some difficulty having BM so will escalate bowel regimen. Medications: Reviewed: Yes Medication Review Details: Active Medications Generic Name Dose Route Start Last Admin Trade Name Freq PRN Reason Stop Dose Admin Acetaminophen 650 mg 01/31/20 21:55 Tylenol PO Q6H PRN Mild/Mod Pain Or Temp >/= 101 Hydrocodone Bitart /Acetaminophen 1 tab 01/31/20 21:55 02/01/20 20:01 [place] 10-325 Mg PO 1 tab Q4H PRN Administration Pain Albuterol Sulfate 2.5 mg 01/31/20 21:55 02/02/20 08:21 Albuterol INHALATION 2.5 mg TID.RESPIRATORY S CH Administration Allopurinol 300 mg 02/01/20 09:00 02/02/20 09:21 Zyloprim PO 300 mg DAILY RAM[facility]N Administration Amiodarone HCl 400 mg 01/31/20 21:55 02/02/20 09:22 Cordarone PO 400 mg DAILY [facility]N Administration Apixaban 2.5 mg 02/01/20 09:00 02/02/20 09:21 Eliquis PO 2.5 mg BID RAM[facility]N Administration Aspirin 81 mg 01/31/20 21:55 02/02/20 09:22 Aspirin Ec PO 81 mg DAILY [facility]N Administration Atorvastatin Calci um 20 mg 01/31/20 21:55 02/01/20 20:02 Lipitor PO 20 mg BEDTIME RAMÓN Administration Calcium Carbonate 1 each 02/01/20 09:00 02/02/20 09:22 Oyster Shell 500 mg-Vit D 200unit PO 1 each DAILY [facility]N Administration Chlorthalidone 25 mg 02/01/20 09:00 Thalitone PO BID [facility] Dextrose 25 ml 01/31/20 22:00 D50w IVP ONCE PRN hypoglycemia prot ocol Protocol Dextrose 50 ml 01/31/20 22:00 D50w IVP PRN PRN hypoglycemia prot ocol Protocol Furosemide 40 mg 02/01/20 09:00 02/02/20 09:22 Lasix IVP 40 mg BID [facility]N Administration Gabapentin 600 mg 01/31/20 21:55 02/02/20 09:21 Neurontin PO 600 mg TID RAM[facility]N Administration Glucagon 1 mg 01/31/20 22:00 Glucagen IM ONCE PRN Adult Acute Hypog lycemia Prot. Protocol Dextrose 500 mls @ 100 mls /hr 01/31/20 22:00 D5w IV ONCE PRN Adult Acute Hypog lycemia Prot Protocol Insulin Aspart 0 unit 02/01/20 08:00 02/02/20 11:41 Novolog SUBCUT 6 unit TIDWM RAMÓN Administration Protocol Lanolin 1 applic 02/02/20 09:44 02/02/20 10:14 Lanolin Oint TOPICAL 1 applic PRN PRN Administration DRYNESS Lisinopril 10 mg 02/01/20 09:00 02/02/20 09:22 Prinivil PO 10 mg DAILY [facility]N Administration Metoprolol Succina te 50 mg 02/01/20 09:00 02/02/20 09:22 Toprol Xl PO 50 mg BID RAMÓN Administration Non-Formulary Medi cation 250 mg 02/01/20 09:00 02/02/20 09:23 Magnesium PO Not Given BID [facility]N Nystatin 1 applic 01/31/20 21:55 Nystatin Powder TOPICAL QID PRN yeast Ondansetron HCl 4 mg 01/31/20 21:55 Zofran IVP Q8H PRN vomiting, or N/V if npo Polyethylene Glyco l 17 gm 02/02/20 09:45 02/02/20 10:13 Miralax PO 17 gm DAILY RAMÓN Administration Potassium Chloride 20 meq 02/02/20 18:00 Klor-Con 10 PO BID RAMÓN Senna/Docusate Sod ium 2 tab 02/02/20 09:45 02/02/20 10:13 Senna-S PO 2 tab BID RAMÓN Administration Trazodone HCl 50 mg 01/31/20 22:45 02/01/20 20:03 Desyrel PO 50 mg BEDTIME RAMÓN Administration chlorthalidone Allergy (Verified 01/31/20 16:09) Unknown metformin Adverse Reaction (Severe, Verified 12/31/19 10:25) ADR-Diarrhea celecoxib [From Celebrex] Adverse Reaction (Verified 12/31/19 10:25) GI Vitals/I&O/Wt Last Vital Signs Temp 98.7 F 02/02/20 11:08 Pulse 79 02/02/20 11:08 Resp 18 02/02/20 11:08 BP 124/76 02/02/20 11:08 Pulse Ox 94 02/02/20 11:08 02/01/20 02/02/20 02/02/20 22:59 06:59 14:59 Intake Total 480 / 1200 240 / 1440 120 / 120 Output Total 600 / 2100 400 / 2500 Balance -120 / -900 -160 / -1060 120 / 120 Weight last 48 hrs Weight 102.739 kg Weight 109.316 kg Physical Exam Const: COMMON NORMALS: no apparent distress and oriented x3 GENERAL APPEARANCE: cooperative and comfortable; not ill appearing NUTRITIONAL APPEARANCE: obese morbidly obese ORIENTATION/CONSCIOUSNESS: Yes awake HENMT: COMMON NORMALS: normocephalic, head/scalp atraumatic, hearing grossly normal bilaterally and moist oral mucous membranes HEAD & SCALP: normocephalic and atraumatic Eye: COMMON NORMALS: PERRL, EOMs intact bilaterally and conjunctivae normal CONJUNCTIVA: Yes conjunctivae normal PUPIL: Yes PERRL Neck/C-Spine: COMMON NORMALS: full ROM GENERAL: Yes normal visual inspection and Yes trachea midline Resp: COMMON NORMALS: normal respiratory effort, no retractions and no use of accessory muscles EFFORT & INSPECTION: Yes able to speak in complete sentences, Yes symmetric chest movement and No tachypneic AUSCULTATION: crackles OTHER: -on 2 L NC Cardio: COMMON NORMALS: regular rate, regular rhythm, S1 normal heart sound and S2 normal heart sound RATE: regular rate RHYTHM: regular rhythm HEART SOUNDS: S1 normal, S2 normal and murmur systolic GI: COMMON NORMALS: normal to inspection, nondistended, normoactive bowel sounds, soft to palpation and non-tender INSPECTION: Yes central obesity PALPATION: Yes soft Extremity: NARRATIVE EXTREMITY EXAM: -s/p L BKA, prosthetic on Neuro: COMMON NORMALS: oriented x3, moves all extremities, no focal motor deficits and no sensory deficits noted Psych: COMMON NORMALS: mental status grossly normal, thought process normal, cooperative, affect normal and speech normal SPEECH: Yes normal speech THOUGHT PROCESS: normal thought process Skin: COMMON NORMALS: no rashes or lesions noted, no jaundice, no petechiae and no mottling GENERAL SKIN EXAM: no rashes or lesions noted Data : 02/02/20 04:05 02/02/20 04:05 A&P Assessment and plan (1) Heart failure with preserved ejection fraction: -Acutely decompensated diastolic CHF as evidenced by elevated BNP, orthopnea, dyspnea, evidence of fluid overload on imaging -Repeat echo: EF=55%, moderate , moderate TR; last echo in April 2019 showed ejection fraction of 55%, mild concentric LVH, mild , trace to mild TR -Imaging reviewed including chest x-ray and CT -Continue IV diuresis with Lasix -Close monitoring of renal function and electrolytes -Vital signs stable; continue to monitor -Telemetry monitoring -Cardiac diet as tolerated -Troponins noted with no significant delta -Die Casting Machine Operator is Dr. Starks Status: Acute Qualifiers: Heart failure chronicity: acute on chronic Qualified Code(s): I50.33 - Acute on chronic diastolic (congestive) heart failure (2) AF (atrial fibrillation): -Has known history of chronic atrial fibrillation, on admission was quite tachycardic, currently rate controlled -Telemetry monitoring -Echo as noted above -Continue to monitor vital signs -On Eliquis 2.5 twice daily for anticoagulation -Continue amiodarone and metoprolol Status: Chronic Qualifiers: Atrial fibrillation type: unspecified Qualified Code(s): I48.91 - Unspecified atrial fibrillation (3) Essential (primary) hypertension: -Vital signs currently stable, continue to monitor -Continue oral antihypertensives Status: Chronic (4) Obstructive sleep apnea: -On CPAP qhs Status: Chronic Additional A&P Information -NIDDM type II: A1c-6.2, at goal -Hyperlipidemia; on statin -OA; pain control as needed -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 Yeh -cardiac diet as tolerated -DVT ppx not needed as on Eliquis -PT/OT evaluations appreciated; HH recommended -Dispo: [facility] -Code status: FULL code Attestations Medical Necessity Statement*: Patient requires hospitalization for continued IV diuresis for management of acute CHF exacerbation. Time Spent in Patient Care: 16 - 35 minutes (>than 50% of time spent in counselling and/or direct pt care on unit) . Coding Level of Care Code Acute Policy Writer Sales for [facility] Fwd Exam Comprehensive Diagnoses Heart failure with preserved ejection fraction I50.33 Heart failure chronicity: acute on chronic AF (atrial fibrillation) I48.91 Atrial fibrillation type: unspecified Essential (primary) hypertension I10 Obstructive sleep apnea G47.33
[2020-02-02 16:58] LABS: Glucose Point of Care 125 mg/dL (70-110)
[2020-02-02] MEDS: atorvastatin 40 mg Tablet 20 MG PO (20:09)
[2020-02-02] MEDS: trazodone 50 mg Tablet PO (20:10)
[2020-02-02] MEDS: HYDROcodone-acetaminophen 10-325 mg Tablet 1 TAB PO (20:10)
[2020-02-02 21:26] LABS: Glucose Point of Care 203 mg/dL (70-110)
[2020-02-03] VITALS (8 sets, daily range): BP systolic 119–157; BP diastolic 74–82; PULSE 74–103; RESP 16–22; TEMP 36.4–36.9; O2SAT 84–96
[2020-02-03 05:20] LABS: Potassium 3.4 mmol/L (3.5-5.1)
[2020-02-03 06:54] LABS: Glucose Point of Care 122 mg/dL (70-110)
--- NOTE | 2020-02-03 08:58 | PC.SOCIAL ---
IM initialed explained and copy provided. Pt verbalized understanding no questions voiced.
[2020-02-03] MEDS: amiodarone 200 mg Tablet 400 MG PO (09:49)
[2020-02-03] MEDS: apixaban 5 mg Tablet 2.5 MG PO (09:52)
[2020-02-03] MEDS: aspirin 81 mg EC Tablet PO (09:52)
[2020-02-03] MEDS: gabapentin 300 mg Capsule 600 MG PO (09:53)
[2020-02-03] MEDS: allopurinol 300 mg Tablet PO (09:53)
[2020-02-03] MEDS: metoprolol succinate ER (24 HR) 50 mg Tablet PO (09:53)
[2020-02-03] MEDS: duloxetine 60 mg Capsule PO (09:53)
[2020-02-03] MEDS: FUROsemide 10 mg/mL SDV 4mL 40 MG IVP (09:54)
[2020-02-03] MEDS: lisinopril 10 mg Tablet PO (09:54)
[2020-02-03] MEDS: sennosides-docusate Tablet 2 TAB PO (09:58)
--- NOTE | 2020-02-03 10:09 | PM.DCS ---
Discharge Providers Date of Admission: 01/31/20 20:15 Date of Discharge: February 03, 2020 Attending Provider at Admission: Victor M Nunez MD Attending Provider at Discharge: Sherri Larry MD Primary Care Provider: JANET Harvey Diagnoses at Discharge Discharge Diagnosis (1) Heart failure with preserved ejection fraction: Status: Acute Qualifiers: Heart failure chronicity: acute on chronic Qualified Code(s): I50.33 - Acute on chronic diastolic (congestive) heart failure (2) AF (atrial fibrillation): Status: Chronic Qualifiers: Atrial fibrillation type: unspecified Qualified Code(s): I48.91 - Unspecified atrial fibrillation (3) Essential (primary) hypertension: Status: Chronic (4) Obstructive sleep apnea: Status: Chronic Reason for Visit Reason for Visit: Reason For Visit: chf Hospital Course Hospital Course: Patient was admitted to the medical surgical floor and started on IV diuresis secondary to acutely decompensated CHF. She has responded well to IV Lasix as evidenced by symptomatic improvement and weight loss. She has required supplemental oxygen support which she is not on at baseline so has had a home oxygen evaluation done prior to discharge. She had a repeat echo done showing an ejection fraction of 55% with moderate and moderate TR. She typically follows up with Dr. Starks as her primary authorizer and should continue to do so after discharge. She has had some issues with fitting her prosthetic on her left lower extremity stump with recommendations made by physical therapy to allow better stabilization particularly with ambulation and decrease fall risk. Plan was to continue physical therapy and occupational therapy on her return to assisted living facility but due to current coronavirus precautions this will have to hold. Patient had some mild constipation so bowel regimen escalated and continued on discharge. She was noted to have thrombocytopenia which resolved on repeat platelet count check. Patient will need to continue daily weight checks and if noted weight gain of 3-5 pounds within 24 hrs is to take extra dose of oral lasix. Discharge Summary: -Patient to follow up with primary care provider within 1 week -Patient to continue to follow up with Dr. Starks as scheduled. Physical Exam Const: COMMON NORMALS: no apparent distress and oriented x3 GENERAL APPEARANCE: cooperative and comfortable; not ill appearing NUTRITIONAL APPEARANCE: obese morbidly obese ORIENTATION/CONSCIOUSNESS: Yes awake HENMT: COMMON NORMALS: normocephalic, head/scalp atraumatic, hearing grossly normal bilaterally and moist oral mucous membranes HEAD & SCALP: normocephalic and atraumatic Eye: COMMON NORMALS: PERRL, EOMs intact bilaterally and conjunctivae normal CONJUNCTIVA: Yes conjunctivae normal PUPIL: Yes PERRL Neck/C-Spine: COMMON NORMALS: full ROM GENERAL: Yes normal visual inspection and Yes trachea midline Resp: COMMON NORMALS: normal respiratory effort, no retractions and no use of accessory muscles EFFORT & INSPECTION: Yes able to speak in complete sentences, Yes symmetric chest movement and No tachypneic AUSCULTATION: crackles OTHER: -on 2 L NC Cardio: COMMON NORMALS: regular rate, regular rhythm, S1 normal heart sound and S2 normal heart sound RATE: regular rate RHYTHM: regular rhythm HEART SOUNDS: S1 normal, S2 normal and murmur systolic GI: COMMON NORMALS: normal to inspection, nondistended, normoactive bowel sounds, soft to palpation and non-tender INSPECTION: Yes central obesity PALPATION: Yes soft Extremity: NARRATIVE EXTREMITY EXAM: -s/p L BKA, prosthetic on Neuro: COMMON NORMALS: oriented x3, moves all extremities, no focal motor deficits and no sensory deficits noted Psych: COMMON NORMALS: mental status grossly normal, thought process normal, cooperative, affect normal and speech normal SPEECH: Yes normal speech THOUGHT PROCESS: normal thought process Skin: COMMON NORMALS: no rashes or lesions noted, no jaundice, no petechiae and no mottling GENERAL SKIN EXAM: no rashes or lesions noted Discharge Data Data Completed and Pending: Completed Studies During Hospitalization Category Date Time Status CT chest w con* 7 [id number] Urgent Cat Scan 01/31/20 20:53 Completed XR chest 1V robert ble [id number] Urgent Exams 01/31/20 16:16 Completed CV echo complete* [id number] Routine Ultrasound 02/01/20 21:55 Completed Labs from last 24 hours 02/03/20 02/03/20 02/02/20 06:22 04:19 20:38 Potassium 3.4 L POC Glucose 122 203 02/02/20 02/02/20 16:39 11:06 Potassium POC Glucose 125 235 Vitals: Last Vital Signs Temp 98.4 F 02/03/20 07:26 Pulse 85 02/03/20 09:13 Resp 22 H 02/03/20 09:13 BP 157/82 04/16/20 07:26 Pulse Ox 96 02/03/20 09:13 Discharge Plan Discharge Patient Disposition: Home Health Service Condition: Stable Prescriptions: New Miralax 17 gram Powder In Packet 17 g PO DAILY 30 Days Qty: 30 RF: 0 sennosides-docusate sodium 8.6-50 mg Tablet 2 tab PO BID 30 Days Qty: 120 RF: 0 Continued albuterol sulfate 2.5 mg /3 mL (0.083 %) solution for nebulization 2.5 mg INHALATION TID RF: 0 atorvastatin 20 mg tablet 20 mg PO .at bed time RF: 0 Bystolic 5 mg tablet 5 mg PO BID RF: 0 Calcium 600 with Vitamin D3 600 mg(1,500mg) -400 unit tablet,chewable 1 tab PO DAILY RF: 0 chlorthalidone 25 mg tablet 25 mg PO BID RF: 0 docusate sodium [DOK] 100 mg capsule 100 mg PO BID RF: 0 duloxetine 60 mg capsule,delayed release(DR/EC) 60 mg PO DAILY RF: 0 glipizide 5 mg tablet 5 mg PO BID RF: 0 metoprolol succinate 50 mg tablet extended release 24 hr 50 mg PO BID RF: 0 Prenatabs FA 29-1 mg tablet 1 tab PO DAILY RF: 0 trazodone 50 mg tablet 50 mg PO DAILY RF: 0 vitamin B complex [B Complex-Vitamin B12] Tablet See Rx Instructions PO DAILY RF: 0 dextromethorphan-guaifenesin [Diabetic Tussin DM] 10-100 mg/5 mL liquid 10 ml PO Q4H PRN (Reason: Cough) RF: 0 hydrocodone-acetaminophen [Leighton] 10-325 mg tablet 1 tab PO Q4H PRN (Reason: Pain) RF: 0 nystatin 100,000 unit/gram powder 1 applic TOPICAL QID PRN (Reason: yeast) Qty: 60 RF: 2 magnesium 250 mg tablet 250 mg PO BID Qty: 60 RF: 0 lisinopril 10 mg tablet 10 mg PO DAILY Qty: 90 RF: 1 allopurinol 300 mg tablet 300 mg PO DAILY Qty: 20 RF: 0 gabapentin 300 mg capsule 600 mg PO TID RF: 0 (DME) OneTouch Ultra Blue Test Strip Strip See Rx Instructions .ROUTE .MEDSUPPLY Qty: 100 RF: 0 Eliquis 2.5 mg tablet 2.5 mg PO BID Qty: 60 RF: 2 Changed Lasix 20 mg tablet 40 mg PO DAILY 30 Days Qty: 60 RF: 0 potassium chloride [Klor-Con 10] 10 mEq tablet extended release 20 meq PO BID Qty: 60 RF: 2 Discontinued levofloxacin [Levaquin] 500 mg tablet 500 mg PO DAILY Qty: 7 RF: 0 Discharge Orders: Discharge Order (Routine); Ordered 02/03/20 Ordered By: Sherri Larry Referrals: [facility] ([facility]) [Outside] [facility] [Outside] Rose Lester, CLINICAL LABORATORY TECHNICIAN-C [Primary Care Provider] - 4-7 days (Post hospital discharge follow up. Treated for acute CHF exacerbation) Discharge Diet: Cardiac Discharge Activity: As per PT/OT instructions Patient Instructions: Polyethylene Glycol 3350 (By mouth), Laxative, Stimulant Combination (By mouth), Heart Failure (DC) Activity Restrictions/Additional Instructions: -Please weigh resident daily and if noted weight gain of 3-5 pounds within 24 hrs, please give extra 20 mg dose of oral Lasix -Resident needs continued fall precautions Discharge Attestations Time Spent in Discharge Care*: greater than 30 min Specific Discharge Activities: Specific discharge activities: educating patient, discussing with foster care case manager/social workers/dc planners, documenting/other paperwork and evaluating patient/reviewing data Status at Discharge: Cognitive status at discharge: cognitively intact, Behavioral status at discharge: cooperative, Functional status at discharge: other assisted ambulation (has prosthetic for LLE BKA) Overall status at discharge: patient is progressing back to baseline Quality Metrics Clinical Quality Measures During this hospital stay, did patient experience: None Coding Level of Care Code Acute Partition Assembly Machine Operator for Tracy Fwwang Diagnoses Heart failure with preserved ejection fraction I50.33 Heart failure chronicity: acute on chronic AF (atrial fibrillation) I48.91 Atrial fibrillation type: unspecified Essential (primary) hypertension I10 Obstructive sleep apnea G47.33
[2020-02-03] MEDS: HYDROcodone-acetaminophen 10-325 mg Tablet 1 TAB PO (10:25)
[2020-02-03 10:59] LABS: Glucose Point of Care 225 mg/dL (70-110)
--- NOTE | 2020-02-03 14:14 | PC.OT ---
OT NOTE: OT TREATMENT ATTEMPTED IN A.M. PATIENT STATES THAT SHE IS TIRED AND DID NOT SLEEP WELL. REQUESTED P.M. TREATMENT. OT TREATMENT ATTEMPTED IN P.M.; PATIENT IS IN PROCESS OF D/C BACK TO ASSISTED LIVING FACILITY. THEREFORE, NO THERAPY PROVIDED TODAY.
== END 2020-02-03 14:45 | disposition home health service (06) | DRG 291 ==
LOC: ER 20:53 → MEDSURG 21:10
PROVIDERS: Admitting Provider Family Medicine; Emergency Provider Family Medicine; Family Provider Nurse Practitioner; PCP Nurse Practitioner; Visit Provider Family Medicine
DX: I13.0 Hypertensive heart and chronic kidney disease with heart failure and stage 1 through stage 4 chronic kidney disease, or unspecified chronic kidney disease (principal); I50.33 Acute on chronic diastolic (congestive) heart failure; J96.01 Acute respiratory failure with hypoxia; I48.20 Chronic atrial fibrillation, unspecified; N18.2 Chronic kidney disease, stage 2 (mild); E11.22 Type 2 diabetes mellitus with diabetic chronic kidney disease; E11.65 Type 2 diabetes mellitus with hyperglycemia; I08.2 Rheumatic disorders of both aortic and tricuspid valves; Z79.01 Long term (current) use of anticoagulants; E78.5 Hyperlipidemia, unspecified; G47.33 Obstructive sleep apnea (adult) (pediatric); Z89.512 Acquired absence of left leg below knee; K21.9 Gastro-esophageal reflux disease without esophagitis; Z85.3 Personal history of malignant neoplasm of breast; Z90.12 Acquired absence of left breast and nipple; E66.01 Morbid (severe) obesity due to excess calories; Z68.37 Body mass index [BMI] 37.0-37.9, adult; T87.89 Other complications of amputation stump; Z85.850 Personal history of malignant neoplasm of thyroid; Z79.891 Long term (current) use of opiate analgesic; H40.9 Unspecified glaucoma; M19.90 Unspecified osteoarthritis, unspecified site; D69.6 Thrombocytopenia, unspecified; J39.8 Other specified diseases of upper respiratory tract
CPT/HCPCS: 12345; 36415; 36416; 71045; 71260; 80053; 80061; 82962; 83036; 83735; 83880; 84100; 84132; 84443; 84484; 85025; 85049; 87804; 93005; 93306; 94640; 94660; 96372; 96374; 96375; 97110; 97116; 97162; 97166; 97535; 99284; A9281; J1815; J1940; J7611

== ENCOUNTER 2020-02-11 12:25 | Emergency (ER) | payer MEDICARE, OTHER, SELFPAY ==
[2020-02-11 12:32] VITALS: BP 169/100; PULSE 94; RESP 16; TEMP 36.9; O2SAT 96; BMI 35.6
--- NOTE | 2020-02-11 12:39 | W.ED.SOB ---
HPI - SOB/Dyspnea General: Chief Complaint: Shortness of Breath/Dyspnea Stated Complaint: SOB Time Seen by Provider: 02/11/20 12:39 Source: patient Mode of arrival: ambulatory Limitations: no limitations History of Present Illness: HPI Narrative: Patient comes in today for complaints of an episode of significant shortness of breath. Patient states she had gotten up went to the bathroom, came back and sat down, took her regular morning medication, and then was doing her albuterol breathing treatment. While taking the albuterol breathing treatment patient became shaky and felt disoriented. At that time patient notified nursing staff in the residential care center that she lives. Patient then reports that she does not recall what happened until then EMS arrived. As the patient came to the emergency room she became more aware and has returned to normal. Patient has a history of coronary artery disease, CHF, diabetes, takes routine anticoagulant, takes medication for gout. Patient was recently in the hospital and was discharged on the for exacerbation of CHF and A. fib with RVR. Patient appears well. Patient appears in no pain at this time. Review of Systems General: Reports: 10 or more systems reviewed and unremarkable except in HPI and below PFS ED PFSH: Social History Smoking and tobacco status: never smoked Alcohol intake: never Lives independently: No Housing: Assisted Living Facility Marital status: / Current occupational status: retired History of recent travel: No Current gender identity: Female Physical Exam Const: COMMON NORMALS: no apparent distress and oriented x3 GENERAL APPEARANCE: cooperative HENMT: COMMON NORMALS: normocephalic, TM's normal bilaterally and external nose normal HEAD & SCALP: normal to inspection and normocephalic NOSE: external nose normal TYMPANIC MEMBRANE: TM's normal bilaterally MOUTH: oral and palatal mucosa normal THROAT: posterior oropharynx normal Eye: GENERAL EYE: normal appearance of both eyes Neck/C-Spine: COMMON NORMALS: full ROM Lymph: LYMPHATIC: no lymphadenopathy noted Chest: COMMONS NORMALS: inspection of chest normal Resp: COMMON NORMALS: normal respiratory effort EFFORT & INSPECTION: Yes able to speak in complete sentences Cardio: COMMON NORMALS: regular rate and regular rhythm RATE: regular rate RHYTHM: regular rhythm GI: COMMON NORMALS: non-tender : COMMON NORMALS: Yes no CVA tenderness BLADDER/KIDNEY EXAM: Yes no CVA tenderness Back/Pelvis: COMMON NORMALS: no CVA tenderness and thoracic and lumbar spine normal to inspection Extremity: COMMON NORMALS: normal to inspection (left lower leg amputee) Neuro: COMMON NORMALS: oriented x3 and moves all extremities Psych: COMMON NORMALS: mental status grossly normal and cooperative Skin: COMMON NORMALS: no rashes or lesions noted GENERAL SKIN EXAM: no rashes or lesions noted Course Vital Signs: Vital signs: Vital Signs Temperature 98.5 F 02/11/20 12:32 Pulse Rate 85 02/11/20 13:40 Respiratory Rate 16 02/11/20 13:40 Blood Pressure 144/79 02/11/20 13:40 Pulse Oximetry 99 02/11/20 13:40 MDM - SOB/Dyspnea MDM Narrative: Medical decision making narrative: Ms. Nicole Gordon comes in today for complaints of an episode of near syncope. Patient is described an event after going to the bathroom and then coming back and sitting down and doing a breathing treatment. After that patient became shaky and lost consciousness. Patient recovered prior to arrival to the emergency department. Patient denied any chest pain or difficulty breathing. Patient has had a recent adjustment of her furosemide for an exacerbation of CHF. Exam was normal for patient. Patient had good lung sounds. Normal vital signs. EKG showed atrial fib which is normal for patient. Patient does use oxygen routinely at 2 L per nasal cannula and her O2 sats were in the upper 90s. Differential diagnosis includes but not limited to ACS, CVA, syncope or near syncope, adverse drug effect. Chest x-ray was normal. CT scan of the head was normal for age. Laboratory values noted a sodium 135 potassium of 3.3 glucose 193. Hemoglobin hematocrit was 14 and 47. Troponin remains level at 25, at 0 and 2-hour marlene. Suspect patient had a vasovagal event most likely due to her change in her furosemide on the increased dose. I recommended that the patient decrease her furosemide back to 20 mg/day. And follow-up with primary care in 1 week. Patient reported understanding of care plan and need for follow-up. Lab Data: Labs: Lab Results 02/11/20 02/11/20 02/11/20 Range/Units 13:22 13:22 13:22 WBC 7.7 (4.0-10.0) 10^3/ uL RBC 5.48 H (4.1-5.3) 10^6/u L Hgb 14.6 (11.5-15.3) g/dL Hct 47.5 H (37.0-47.0) % MCV 86.7 (81-99) fL MCH 26.6 L (28.0-34.0) pg MCHC 30.7 (30.0-36.0) g/dL RDW 15.0 (12.1-15.1) % Plt Count 166 (130-400) 10^3/c mm MPV 10.7 H (7.4-10.4) fL Neut % (Auto) 78.6 % Lymph % (Auto) 12.7 % [place] % (Auto) 7.3 % Eos % (Auto) 0.5 % Baso % (Auto) 0.5 % Neut # (Auto) 6.0 (1.8-7.7) 10^3/u L Lymph # (Auto) 1.0 (0.8-4.8) 10^3/u L [place] # (Auto) 0.6 (0.2-0.9) 10^3/u L Eos # (Auto) 0.0 (0.0-0.8) 10^3/u L Baso # (Auto) 0.0 (0.0-0.1) 10^3/u L Nucleated RBC % (a uto) 0 % Nucleated RBCs # 0.0 /100WBC Sodium 135 L (136-145) mmol/L Potassium 3.3 L (3.5-5.1) mmol/L Chloride 89 L (98-107) mmol/L Carbon Dioxide 32 H (22-29) mmol/L Anion Gap 17.3 (5-19) BUN 17 (8-23) mg/dL Creatinine 1.0 H (0.5-0.9) mg/dL Glucose 163 H (65-115) mg/dL Calculated Osmolal ity 280 L (285-295) mOsm/k g Calcium 9.4 (8.5-10.5) mg/dL Total Bilirubin 0.8 (0.15-1.2) mg/dL AST 21 (0-32) U/L ALT 10 (0-33) U/L Alkaline Phosphata se 99 (35-105) IU/L Troponin T Baselin e 25 H (0-10) ng/mL Troponin T 120 Min tlingit & haida (0-10) ng/mL NT-Pro-B Natriuret Pep 1389 H (0-450) pg/mL Total Protein 7.5 (6.6-8.7) g/dL Albumin 3.8 (3.5-5.2) g/dL Globulin 3.7 (1.3-4.6) g/dL 02/11/20 Range/Units 15:25 WBC (4.0-10.0) 10^3/ uL RBC (4.1-5.3) 10^6/u L Hgb (11.5-15.3) g/dL Hct (37.0-47.0) % MCV (81-99) fL MCH (28.0-34.0) pg MCHC (30.0-36.0) g/dL RDW (12.1-15.1) % Plt Count (130-400) 10^3/c mm MPV (7.4-10.4) fL Neut % (Auto) % Lymph % (Auto) % [place] % (Auto) % Eos % (Auto) % Baso % (Auto) % Neut # (Auto) (1.8-7.7) 10^3/u L Lymph # (Auto) (0.8-4.8) 10^3/u L [place] # (Auto) (0.2-0.9) 10^3/u L Eos # (Auto) (0.0-0.8) 10^3/u L Baso # (Auto) (0.0-0.1) 10^3/u L Nucleated RBC % (a uto) % Nucleated RBCs # /100WBC Sodium (136-145) mmol/L Potassium (3.5-5.1) mmol/L Chloride (98-107) mmol/L Carbon Dioxide (22-29) mmol/L Anion Gap (5-19) BUN (8-23) mg/dL Creatinine (0.5-0.9) mg/dL Glucose (65-115) mg/dL Calculated Osmolal ity (285-295) mOsm/k g Calcium (8.5-10.5) mg/dL Total Bilirubin (0.15-1.2) mg/dL AST (0-32) U/L ALT (0-33) U/L Alkaline Phosphata se (35-105) IU/L Troponin T Baselin e (0-10) ng/mL Troponin T 120 Min tling[place] & haida 25.30 H (0-10) ng/mL NT-Pro-B Natriuret Pep (0-450) pg/mL Total Protein (6.6-8.7) g/dL Albumin (3.5-5.2) g/dL Globulin (1.3-4.6) g/dL EKG Data^: EKG 1: Attestation: I personally reviewed and interpreted this EKG as follows: (Compared to ECG 01/31/2020 19:46:58 T-wave abnormality now present Possible ischemia now present Myocardial infarct finding still present) EKG 2: Attestation: I personally reviewed and interpreted this EKG as follows: (1426, a-fib, irregular 86 bpm, no ST elevation, occasion pvc, no change from prior EKG) Discharge Plan Discharge Patient Disposition: Home, Self-Care Clinical Impression: Vasovagal near syncope Adverse effect of drug or medicament Qualifiers: Encounter type: initial encounter Qualified Code(s): T50.905A - Adverse effect of unspecified drugs, medicaments and biological substances, initial encounter Condition: Stable Prescriptions: New furosemide 20 mg tablet 20 mg PO DAILY Qty: 30 RF: 0 No Action albuterol sulfate 2.5 mg /3 mL (0.083 %) solution for nebulization 2.5 mg INHALATION TID RF: 0 atorvastatin 20 mg tablet 20 mg PO BEDTIME RF: 0 Bystolic 5 mg tablet 5 mg PO BID RF: 0 Calcium 600 with Vitamin D3 600 mg(1,500mg) -400 unit tablet,chewable 1 tab PO DAILY RF: 0 chlorthalidone 25 mg tablet 25 mg PO BID RF: 0 docusate sodium [DOK] 100 mg capsule 100 mg PO BID RF: 0 duloxetine 60 mg capsule,delayed release(DR/EC) 60 mg PO DAILY RF: 0 glipizide 5 mg tablet 5 mg PO BID RF: 0 Prenatabs FA 29-1 mg tablet 1 tab PO DAILY RF: 0 trazodone 50 mg tablet 50 mg PO DAILY RF: 0 vitamin B complex [B Complex-Vitamin B12] Tablet See Rx Instructions PO DAILY RF: 0 dextromethorphan-guaifenesin [Diabetic Tussin DM] 10-100 mg/5 mL liquid 10 ml PO Q4H PRN (Reason: Cough) RF: 0 hydrocodone-acetaminophen [Trinity] 10-325 mg tablet 1 tab PO Q4H PRN (Reason: Pain) RF: 0 nystatin 100,000 unit/gram powder 1 applic TOPICAL QID PRN (Reason: yeast) Qty: 60 RF: 2 magnesium 250 mg tablet 250 mg PO BID Qty: 60 RF: 0 lisinopril 10 mg tablet 10 mg PO DAILY Qty: 90 RF: 1 allopurinol 300 mg tablet 300 mg PO DAILY Qty: 20 RF: 0 Eliquis 2.5 mg tablet 2.5 mg PO BID Qty: 60 RF: 2 Klor-Con 10 10 mEq tablet extended release 20 meq PO BID 90 Days Qty: 360 RF: 1 gabapentin 300 mg capsule 600 mg PO TID 90 Days Qty: 540 RF: 0 acetaminophen 325 mg Tablet 325 mg PO QID PRN (Reason: Pain) RF: 0 pantoprazole 20 mg Tablet,Delayed Release (Dr/Ec) 20 mg PO BID RF: 0 peg 3350-electrolytes 240-22.72-6.72 -5.84 gram Recon Soln See Rx Instructions .ROUTE .COMPLEX RF: 0 sennosides-docusate sodium 8.6-50 mg Tablet 2 tab PO BID 30 Days Qty: 120 RF: 0 furosemide [Lasix] 20 mg tablet 40 mg PO DAILY 30 Days Qty: 60 RF: 0 Discharge Orders: Discharge Order (Routine); Ordered 02/11/20 Ordered By: Charli Finnegan Referrals: Rose Lester, ELECTRICAL DISCHARGE MACHINE OPERATOR-C [Primary Care Provider] - Discharge Diet: Usual diet Discharge Activity: Increase activity as tolerated Patient Instructions: Syncope (ED) Activity Restrictions/Additional Instructions: Stop furosemide 40 mg. Start furosemide 20 mg daily. Maintain routine medications otherwise as directed. Take time getting up and moving slowly. Use walker with ambulation. Activity as tolerated. Return to the emergency room for chest pain or shortness of breath, or new concerns. Follow-up with primary care in 1 week. Coding Level of Care Code ED Grab Jack Worker for Martg Fwd Exam Comprehensive
--- NOTE | 2020-02-11 12:40 | ECG_ITS ---
Measurements Intervals [place] Rate: 92 P: NC: 0 QRS: -32 QRSD: 94 T: 145 QT: 380 QTc: 470 ATRIAL FIBRILLATION WITH ABERRANT CONDUCTION OR VENTRICULAR PREMATURE COMPLEXES MINIMAL VOLTAGE CRITERIA FOR LVH, CONSIDER NORMAL VARIANT [MEETS CRITERIA IN ONE OF: R(aVL), S(V1), R(V5), R(V5/V6)+S(V1)] POSSIBLE ANTERIOR MYOCARDIAL INFARCTION [30 ms Q WAVE IN V3/V4, OR R < 0.2 mV V4], OF INDETERMINATE AGE INFERIOR MYOCARDIAL INFARCTION [40+ ms Q WAVE AND/OR ST/T ABNORMALITY IN II/aV II/aVF] MODERATE T-WAVE ABNORMALITY, CONSIDER LATERAL ISCHEMIA [-0.1+ mV T WAVE IN I/ Compared to ECG 01/31/2020 19:46:58 T-wave abnormality now present Possible ischemia now present Myocardial infarct finding still present Electronically Signed On 02-11-2020 15:01:54 CDT by Santana Silva M.D. [id number] f
--- NOTE | 2020-02-11 12:40 | XR_ITS ---
WS: [id number] CHEST XRAY TECHNIQUE: Portable chest. CLINICAL INFORMATION: sob COMPARISON: January 31, 2020 FINDINGS: Heart: Cardiomegaly. Lungs: Mild chronic emphysematous changes. Surgical clips left axilla. Improved small left pleural ef fusion. No focal pneumonia. Bones: Osteopenia. Degenerative arthritis bilateral shoulders. XR/XR chest 1V portable [id number] IMPRESSION: 1. Cardiomegaly with improved tiny left pleural effusion.
[2020-02-11 12:41] VITALS: BP 151/81; PULSE 96; RESP 18; O2SAT 96
--- NOTE | 2020-02-11 12:52 | CT_ITS ---
WS: [id number] CT HEAD TECHNIQUE: Noncontrast CT of the head obtained from the skullbase to the vertex. CLINICAL INFORMATION: syncope COMPARISON: December 29, 2018 DLP: 726.[address] scans at [facility] use at least one of these dose optimization techniques: automat ed exposure control; mA and/or kV adjustment per patient size (includes targeted exams where dose is matched to clinical indication); or iterative reconstruction. FINDINGS: No evidence of intracranial hemorrhage or mass effect. Ventricular system and basal cisterns are ramirez nt. Mild small vessel changes with moderate parenchymal volume loss. Chronic lacunar infarcts in the left lateral basal ganglia. No extra-axial fluid collections. No evidence of mass or mass effect. Nor mal jara-white differentiation. Paranasal sinuses and mastoid air cells are well aerated. .Normal visualized soft tissues. CT/CT head wo con* [id number] IMPRESSION: 1. No evidence of intracranial hemorrhage or mass effect. 2. Mild small vessel changes with moderate parenchymal volume loss. 3. No acute intracranial findings.
[2020-02-11 13:27] LABS: Basophils % 0.5 %; Eosinophils % 0.5 %; Hematocrit 47.5 % (37.0-47.0); Hemoglobin 14.6 g/dL (11.5-15.3); Lymphocytes % 12.7 %; Mean Corpuscular HGB Conc 30.7 g/dL (30.0-36.0); Mean Corpuscular Hemoglobin 26.6 pg (28.0-34.0); Mean Corpuscular Volume 86.7 fL (81-99); Mean Platelet Volume 10.7 fL (7.4-10.4); Monocytes # 0.6 10^3/uL (0.2-0.9); Monocytes % 7.3 %; Neutrophils % 78.6 %; Nucleated Red Blood Cells % 0 %; Platelet Count 166 10^3/cmm (130-400); Red Blood Count 5.48 10^6/uL (4.1-5.3); White Blood Count 7.7 10^3/uL (4.0-10.0)
[2020-02-11 13:40] VITALS: BP 144/79; PULSE 85; RESP 16; O2SAT 99
[2020-02-11 13:49] LABS: Troponin(5th) Baseline 25 ng/mL (0-10)
[2020-02-11 13:58] LABS: Alanine Aminotransferase 10 U/L (0-33); Albumin Level 3.8 g/dL (3.5-5.2); Alkaline Phosphatase 99 IU/L (35-105); Anion Gap 17.3 (5-19); Aspartate Amino Transferase 21 U/L (0-32); Blood Urea Nitrogen 17 mg/dL (8-23); Calcium 9.4 mg/dL (8.5-10.5); Carbon Dioxide 32 mmol/L (22-29); Chloride 89 mmol/L (98-107); Creatinine Clr Calc Pharmacy 52.7116; Globulin 3.7 g/dL (1.3-4.6); Glucose 163 mg/dL (65-115); NT Pro B Type Natriuretic Pept 1389 pg/mL (0-450); Osmolality Calculated 280 mOsm/kg (285-295); Potassium 3.3 mmol/L (3.5-5.1); Sodium 135 mmol/L (136-145); Total Bilirubin 0.8 mg/dL (0.15-1.2); Total Protein 7.5 g/dL (6.6-8.7)
--- NOTE | 2020-02-11 14:40 | ECG_ITS ---
Measurements Intervals [place] Rate: 86 P: HI: 0 QRS: -32 QRSD: 98 T: 145 QT: 388 QTc: 466 ATRIAL FIBRILLATION WITH ABERRANT CONDUCTION OR VENTRICULAR PREMATURE COMPLEXES MINIMAL VOLTAGE CRITERIA FOR LVH, CONSIDER NORMAL VARIANT [MEETS CRITERIA IN ONE OF: R(aVL), S(V1), R(V5), R(V5/V6)+S(V1)] SEPTAL MYOCARDIAL INFARCTION , PROBABLY OLD [40+ ms Q WAVE IN V1/V2] INFERIOR MYOCARDIAL INFARCTION , PROBABLY OLD [40+ ms Q WAVE AND/OR ST/T ABN ABNORMALITY IN II/aVF] MODERATE T-WAVE ABNORMALITY, CONSIDER LATERAL ISCHEMIA [-0.1+ mV T WAVE IN I/ I/aVL/V5/V6] Compared to ECG 01/31/2020 19:46:58 T-wave abnormality now present Possible ischemia now present Myocardial infarct finding still present Electronically Signed On 02-11-2020 15:04:44 CDT by Santana Silva M.D. [id number]
[2020-02-11 16:27] VITALS: BP 151/98; PULSE 94; RESP 16; O2SAT 98
== END 2020-02-11 17:15 | disposition home or self-care (01) ==
PROVIDERS: Emergency Provider Nurse Practitioner Family; Family Provider Nurse Practitioner; PCP Nurse Practitioner
DX: R55 Syncope and collapse (principal); T50.905A Adverse effect of unspecified drugs, medicaments and biological substances, initial encounter; Z79.01 Long term (current) use of anticoagulants; Z79.84 Long term (current) use of oral hypoglycemic drugs
CPT/HCPCS: 12345; 36415; 70450; 71045; 80053; 83880; 84484; 85025; 93005; 99282; 99284

== ENCOUNTER → 2020-02-24 10:35 | Outpatient (BNVA) | payer MEDICARE, OTHER, SELFPAY | PROVIDERS: Family Provider Nurse Practitioner; PCP Nurse Practitioner; Visit Provider Podiatrist Foot & Ankle Surgery | DX: M79.671 Pain in right foot (principal); M77.31 Calcaneal spur, right foot | CPT/HCPCS: 73630 ==

== ENCOUNTER 2020-02-24 14:17 | Outpatient (CLI) | payer MEDICARE, OTHER, SELFPAY | END 2020-02-24 14:18 | disposition home or self-care (01) | LOC: SPT 14:19 | PROVIDERS: Family Provider Nurse Practitioner; PCP Nurse Practitioner; Visit Provider Podiatrist Foot & Ankle Surgery | DX: Z46.89 Encounter for fitting and adjustment of other specified devices (principal); S93.324D Dislocation of tarsometatarsal joint of right foot, subsequent encounter; X58.XXXD Exposure to other specified factors, subsequent encounter; M79.671 Pain in right foot; M77.31 Calcaneal spur, right foot | CPT/HCPCS: 73630; L4361 ==

== ENCOUNTER → 2020-03-09 14:36 | Outpatient (BNVA) | payer MEDICARE, OTHER, SELFPAY | PROVIDERS: Family Provider Nurse Practitioner; PCP Nurse Practitioner; Visit Provider Podiatrist Foot & Ankle Surgery | DX: S93.324D Dislocation of tarsometatarsal joint of right foot, subsequent encounter (principal); X58.XXXD Exposure to other specified factors, subsequent encounter; M25.374 Other instability, right foot; Z91.81 History of falling; R60.0 Localized edema | CPT/HCPCS: 73630 ==

== ENCOUNTER → 2020-04-20 10:56 | Outpatient (BNVA) | payer MEDICARE, OTHER, SELFPAY | PROVIDERS: Family Provider Nurse Practitioner; PCP Nurse Practitioner; Visit Provider Podiatrist Foot & Ankle Surgery | DX: M19.071 Primary osteoarthritis, right ankle and foot (principal); M25.374 Other instability, right foot; M79.671 Pain in right foot | CPT/HCPCS: 73630 ==

== ENCOUNTER → 2020-05-11 12:50 | Outpatient (BNVA) | payer MEDICARE, OTHER, SELFPAY | PROVIDERS: Family Provider Nurse Practitioner; PCP Nurse Practitioner; Visit Provider Internal Medicine Cardiovascular Disease | DX: I50.9 Heart failure, unspecified (principal); E11.65 Type 2 diabetes mellitus with hyperglycemia; I48.91 Unspecified atrial fibrillation; G47.33 Obstructive sleep apnea (adult) (pediatric); I11.0 Hypertensive heart disease with heart failure; E87.6 Hypokalemia | CPT/HCPCS: 80053; 80061; 83036; 83735; 83880 ==

== ENCOUNTER → 2020-06-01 13:51 | Outpatient (BNVA) | payer MEDICARE, OTHER, SELFPAY | PROVIDERS: Family Provider Nurse Practitioner; PCP Nurse Practitioner; Visit Provider Podiatrist Foot & Ankle Surgery | DX: S93.324A Dislocation of tarsometatarsal joint of right foot, initial encounter (principal); S93.326A Dislocation of tarsometatarsal joint of unspecified foot, initial encounter; M25.374 Other instability, right foot; Z91.81 History of falling; Z89.512 Acquired absence of left leg below knee | CPT/HCPCS: 73630 ==

== ENCOUNTER → 2020-06-05 10:33 | Outpatient (BNVA) | payer MEDICARE, OTHER, SELFPAY | PROVIDERS: Family Provider Nurse Practitioner; PCP Nurse Practitioner; Visit Provider Nurse Practitioner | DX: M25.511 Pain in right shoulder (principal); E11.65 Type 2 diabetes mellitus with hyperglycemia; E87.6 Hypokalemia; I10 Essential (primary) hypertension; M25.512 Pain in left shoulder | CPT/HCPCS: 73030; 80048 ==

== ENCOUNTER → 2020-06-28 14:13 | Outpatient (BNVA) | payer MEDICARE, OTHER, SELFPAY | PROVIDERS: Family Provider Nurse Practitioner; PCP Nurse Practitioner; Referring Provider Nurse Practitioner; Visit Provider Dermatology | DX: L57.0 Actinic keratosis (principal); Z12.83 Encounter for screening for malignant neoplasm of skin; L82.1 Other seborrheic keratosis; D18.01 Hemangioma of skin and subcutaneous tissue; Z85.828 Personal history of other malignant neoplasm of skin | CPT/HCPCS: 17000; 17003; 99203 ==

== ENCOUNTER → 2020-09-06 13:35 | Outpatient (BNVA) | payer MEDICARE, OTHER, SELFPAY | PROVIDERS: Family Provider Nurse Practitioner; PCP Nurse Practitioner; Visit Provider Nurse Practitioner | DX: E11.65 Type 2 diabetes mellitus with hyperglycemia (principal); I10 Essential (primary) hypertension | CPT/HCPCS: 80053; 80061; 83036; 83735; 84443 ==

== ENCOUNTER → 2020-11-06 15:55 | Outpatient (BNVA) | payer MEDICARE, OTHER, SELFPAY | PROVIDERS: Family Provider Nurse Practitioner; PCP Nurse Practitioner; Visit Provider Internal Medicine Cardiovascular Disease | DX: I48.91 Unspecified atrial fibrillation (principal); I50.33 Acute on chronic diastolic (congestive) heart failure; I95.2 Hypotension due to drugs; E78.5 Hyperlipidemia, unspecified; R19.7 Diarrhea, unspecified; G47.33 Obstructive sleep apnea (adult) (pediatric); E11.65 Type 2 diabetes mellitus with hyperglycemia | CPT/HCPCS: 80048; 83735 ==

== ENCOUNTER → 2020-11-28 11:13 | Outpatient (BNVA) | payer MEDICARE, OTHER, SELFPAY | PROVIDERS: Family Provider Nurse Practitioner; PCP Nurse Practitioner; Visit Provider Nurse Practitioner | DX: E11.65 Type 2 diabetes mellitus with hyperglycemia (principal) | CPT/HCPCS: 80048 ==

== ENCOUNTER 2020-12-18 17:05 | Outpatient (CLI) | payer MEDICARE, OTHER, SELFPAY ==
--- NOTE | 2020-12-18 17:30 | MR_ITS ---
WS: [id number] MRI RIGHT SHOULDER HISTORY: M25.511 - Pain in right shoulder COMPARISON: 12/18/2009, radiograph 06/05/2020. TECHNIQUE: Multiplanar sequences of the shoulder joint are submitted. Severe degenerative changes at the AC joint. Loss of the normal cortex along the joint surfaces along with increased soft tissue and fluid and hypertrophic bone formation. Deformity of the distal clavic le from a prior fracture which is only partially healed. There is fibrous connection and partial bony healing across the clavicle fracture. Hypertrophic bone extends towards the rotator cuff with signif icant impingement from both the AC joint hypertrophy and the healing fracture hypertrophic response. Normal biceps tendon at the bicipital groove is no longer present. There is increase fluid in the bic eps tendon sheath. Biceps tendon appears torn and/or displaced. There is marked bony hypertrophy surr ounding the entire humeral head. This includes the bicipital groove. Severe narrowing of the glenohumeral joint with remodeling. Severe hypertrophic bone formation surrou nding the humeral head. Moderate joint effusion with numerous loose bodies. Complete loss of the norm al glenoid. Torn retracted supraspinatus tendon medial to the superior humeral head. There is no iden tifiable distal supraspinatus, infraspinatus or subscapularis tendons. MR/MR shoulder RT wo con* [id number] IMPRESSION: 1. Severe degenerative changes at the glenohumeral joint. There is marked bony hypertrophy surrounding the humeral head with remodeling of the humeral head a nd glenoid. 2. Complete tears with retraction involving the tendons of the rotator cuff. T hese findings were also described in 2010. 3. Dislocated and/or torn biceps tendon with tenosynovitis. 4. Joint effusion with loose bodies and synovial hypertrophy. 5. Partial remodeling of the distal clavicle fracture. Hypertrophic bone forma tion and also encroaching upon the rotator cuff.
== END 2020-12-18 17:06 | disposition home or self-care (01) ==
LOC: RADSHAW 17:10
PROVIDERS: PCP Nurse Practitioner; Visit Provider Nurse Practitioner
DX: S42.031A Displaced fracture of lateral end of right clavicle, initial encounter for closed fracture (principal); M25.411 Effusion, right shoulder; S46.011A Strain of muscle(s) and tendon(s) of the rotator cuff of right shoulder, initial encounter; X58.XXXA Exposure to other specified factors, initial encounter
CPT/HCPCS: 73221

== ENCOUNTER 2021-01-15 11:37 | Outpatient (CLI) | payer MEDICARE, OTHER, SELFPAY ==
--- NOTE | 2021-01-15 11:56 | MM_ITS ---
WS: [id number] DIAGNOSTIC RIGHT DIGITAL MAMMOGRAM WITH CAD HISTORY: HX OF BREAST CA;LT MAST COMPARISON: 11/09/2019, 08/18/2018 Technique: CC, MLO and ML views. Breast composition: There are scattered areas of fibroglandular density. No suspicious masses or joy cifications or interval change. There is a benign calcification in the lateral RIGHT breast. MM/[place] [id number] IMPRESSION: BI-RADS: 2-Benign FOLLOW UP: 1 Year Follow-up
== END 2021-01-15 11:38 | disposition home or self-care (01) ==
PROVIDERS: PCP Nurse Practitioner; Visit Provider Nurse Practitioner
DX: Z85.3 Personal history of malignant neoplasm of breast (principal); Z90.12 Acquired absence of left breast and nipple
CPT/HCPCS: 77065

== ENCOUNTER → 2021-02-07 13:15 | Outpatient (BNVA) | payer MEDICARE, OTHER, SELFPAY | PROVIDERS: PCP Nurse Practitioner; Visit Provider Nurse Practitioner | DX: E11.65 Type 2 diabetes mellitus with hyperglycemia (principal); M79.18 Myalgia, other site | CPT/HCPCS: 80053; 80061; 83036; 84443 ==

== ENCOUNTER → 2021-04-25 09:51 | Outpatient (BNVA) | payer MEDICARE, OTHER, SELFPAY | PROVIDERS: PCP Nurse Practitioner; Visit Provider Podiatrist Foot & Ankle Surgery | DX: M79.671 Pain in right foot (principal); M21.41 Flat foot [pes planus] (acquired), right foot; M20.41 Other hammer toe(s) (acquired), right foot; E11.65 Type 2 diabetes mellitus with hyperglycemia; Z89.512 Acquired absence of left leg below knee; M25.374 Other instability, right foot; S93.324D Dislocation of tarsometatarsal joint of right foot, subsequent encounter; X50.1XXD Overexertion from prolonged static or awkward postures, subsequent encounter | CPT/HCPCS: 73630 ==

== ENCOUNTER → 2021-05-02 14:55 | Outpatient (BNVA) | payer MEDICARE, OTHER, SELFPAY | PROVIDERS: PCP Nurse Practitioner; Visit Provider Nurse Practitioner | DX: I11.0 Hypertensive heart disease with heart failure (principal); I50.9 Heart failure, unspecified; R60.9 Edema, unspecified; E11.65 Type 2 diabetes mellitus with hyperglycemia; E87.6 Hypokalemia | CPT/HCPCS: 80053; 83036; 83880; 85025 ==

== ENCOUNTER → 2021-05-23 14:47 | Outpatient (BNVA) | payer MEDICARE, OTHER, SELFPAY | PROVIDERS: PCP Nurse Practitioner; Visit Provider Podiatrist Foot & Ankle Surgery | DX: M79.671 Pain in right foot (principal); M20.41 Other hammer toe(s) (acquired), right foot; M21.41 Flat foot [pes planus] (acquired), right foot; M25.374 Other instability, right foot; S93.324D Dislocation of tarsometatarsal joint of right foot, subsequent encounter; X50.1XXD Overexertion from prolonged static or awkward postures, subsequent encounter; E11.65 Type 2 diabetes mellitus with hyperglycemia | CPT/HCPCS: 73630 ==

== ENCOUNTER → 2021-07-18 13:45 | Outpatient (BNVA) | payer MEDICARE, OTHER, SELFPAY | PROVIDERS: PCP Nurse Practitioner; Visit Provider Podiatrist Foot & Ankle Surgery | DX: M79.671 Pain in right foot (principal); M20.41 Other hammer toe(s) (acquired), right foot; M21.41 Flat foot [pes planus] (acquired), right foot; M25.374 Other instability, right foot; S93.324A Dislocation of tarsometatarsal joint of right foot, initial encounter; X58.XXXA Exposure to other specified factors, initial encounter | CPT/HCPCS: 73630 ==

== ENCOUNTER → 2021-07-26 14:27 | Outpatient (BNVA) | payer MEDICARE, OTHER, SELFPAY | PROVIDERS: PCP Nurse Practitioner; Visit Provider Nurse Practitioner | DX: E11.65 Type 2 diabetes mellitus with hyperglycemia (principal); I10 Essential (primary) hypertension | CPT/HCPCS: 80053; 83036; 84443 ==

== ENCOUNTER 2021-08-05 22:22 | Emergency (ER) | payer MEDICARE, OTHER, SELFPAY ==
[2021-08-05 22:29] VITALS: BP 147/88; PULSE 89; RESP 22; TEMP 37.4; O2SAT 95; BMI 35.5
--- NOTE | 2021-08-05 22:38 | ECG_ITS ---
[facility] Test Date: 2021-08-05 Pat Name: Nicole Gordon Department: Room: Gender: Female Senior Graphic Designer: : 1940 Requested By: Young Ya Order Number: [id number] Debra MD: Lynne Starks M.D. Measurements Intervals [place] Rate: 83 P: 84 [place]: 207 QRS: -33 QRSD: 89 T: 58 QT: 385 QTc: 453 Interpretive Statements SINUS RHYTHM LEFT AXIS DEVIATION [QRS AXIS < -30] LOW QRS VOLTAGE IN PRECORDIAL LEADS [QRS DEFLECTION < 1.0 mV IN CHEST LEADS] POSSIBLE ANTERIOR MYOCARDIAL INFARCTION , OF INDETERMINATE AGE Compared to ECG 02/11/2020 14:26:45 Left-axis deviation now present Low QRS voltage now present Atrial fibrillation no longer present Ventricular premature complex(es) no longer present T-wave abnormality no longer present Possible ischemia no longer present Myocardial infarct finding still present Electronically Signed On 08-06-2021 19:22:52 CDT by Lynne Starks M.D. [id number]
--- NOTE | 2021-08-05 22:38 | XRR_ITS ---
PROCEDURE INFORMATION: Exam: XR Chest Exam date and time: 08/05/2021 10:38 PM Age: 81 years old Clinical indication: Dyspnea; Patient HX: Covid +; Additional info: SOB TECHNIQUE: Imaging protocol: XR of the chest. Views: 1 view. COMPARISON: CR XR chest 1V portable [id number] 02/11/2020 12:42 PM FINDINGS: Lungs: Some strandy opacities are present in the lower hemithoraces, left more prominent than right likely representing atelectasis. Pleural spaces: The left hemidiaphragm is obscured likely secondary to a small left pleural effusion. Heart/Mediastinum: Unremarkable. No cardiomegaly. Bones/joints: Degenerative joint disease of the glenohumeral joints bilaterally. Probable posttraumatic changes of the right clavicle. XR/XR chest 1V portable [id number] IMPRESSION: 1. Probable small left pleural effusion 2. Strandy opacities in lower hemithoraces, left prominent than right likely representing atelectasis. Radiation Dose CTDIVOL = (mGy): DLP = (mGy-cm)
[2021-08-05 22:39] VITALS: O2SAT 94
--- NOTE | 2021-08-05 22:41 | ED_ITS ---
HPI - COVID General: Chief Complaint: COVID symptoms Stated Complaint: low o2, covid positive Time Seen by Provider: 08/05/21 22:23 Source: patient Mode of arrival: ambulatory Limitations: no limitations Triage information: Has fever, cough or shortness of breath . Exposure to COVID + person last 14 days History of Present Illness: HPI Narrative: 81-year-old female states that over the last 2 days had a slight cough body aches and some dyspnea. States she had a positive rapid Covid test at assisted living today. States they checked her oxygen with a spot check tonight was 88%. So she decided to come in. Her pulse ox here is 87% on room air. She is in no distress. She denies any vomiting or diarrhea. Denies any chest pain. COVID 19 common symptoms: positive chills, non-productive cough, dyspnea and body aches; negative fever(s), headache(s), throat pain, nausea, vomiting or diarrhea COVID 19 other sytmptoms: negative chest pain COVID Results: SARS-CoV-2 Antigen (Rapid) Positive (Negative) H 08/05/21 23:30 08/05/21 Review of Systems Const: Reports: chills and body aches; Denies: fever(s) Eyes: Denies: blurry vision or eye discomfort ENMT: Denies: throat pain or dental pain Card: Denies: chest pain Resp: Reports: dyspnea and non-productive cough GI: Denies: abdominal pain, nausea, vomiting or diarrhea : Denies: dysuria Musc: Denies: neck pain or back pain Skin/Breast: Denies: rash Neuro: Denies: headache(s) Psych: Denies: depression Zain/Lymph: Denies: easy bruising All/Imm: Denies: urticaria PFS ED PFSH: Medical History Acute respiratory failure with hypoxia Adverse effect of drug or medicament AF (atrial fibrillation) Arteriosclerotic coronary artery disease Aspiration pneumonia Bronchospasm Thais infection Chronic GERD Controlled diabetes mellitus with hyperglycemia, without long-term current use of insulin A1C 8.22 April 2020 A1C 6.20 August 2020 A1C 7.23 January 2021 Dyslipidemia Essential (primary) hypertension Gastroparesis due to secondary diabetes Generalized abdominal tenderness History of nonmelanoma skin cancer Irritable bowel syndrome with diarrhea Lives in assisted living facility Myofascial pain syndrome Neuropathic pain Obstructive sleep apnea CPAP Vasovagal near syncope Vitamin D insufficiency Surgical History H/O left mastectomy H/O partial thyroidectomy LEFT SIDE History of amputation of left foot History of arthroplasty of right knee History of colonoscopy 2018 at [facility] History of thyroid cancer TSH 2.56 07/2019 History of total left hip arthroplasty Family History Other CAD (coronary artery disease) Cancer Chronic kidney disease (CKD) Diabetes Social History Smoking and tobacco status: never smoked Second hand smoke exposure: No Smoking risk assessment/counseling performed?: No Alcohol intake: never Desire information about alcohol rehabilitation?: No Counseling given: No Desire information about substance/drug rehabilitation?: No Counseling given: No Adopted: No Caregiver/support person: Yes Lives independently: No Household members: other Housing: Assisted Living Facility Marital status: / Number of children: 2 service: No Current occupational status: retired Pets and animals: No History of recent travel: No Current gender identity: Female Physical Exam Const: COMMON NORMALS: no acute distress, patient oriented x3 and healthy appearing HENMT: COMMON NORMALS: normocephalic and atraumatic HEAD & SCALP: normocephalic and atraumatic Eye: COMMON NORMALS: Equal, round and reactive pupils present and EOMs intact bilaterally PUPIL: Yes Equal, round and reactive pupils present Neck/C-Spine: COMMON NORMALS: full ROM and supple Chest: COMMONS NORMALS: normal inspection of the chest and normal palpation of entire chest wall Resp: COMMON NORMALS: normal respiratory effort, No retractions, No use of accessory muscles and clear to auscultation bilaterally AUSCULTATION: clear to auscultation bilaterally Cardio: COMMON NORMALS: regular rate, regular rhythm and No murmurs present (Cardio) RATE: regular rate RHYTHM: regular rhythm GI: COMMON NORMALS: Normal to inspection, nondistended, normoactive bowel sounds present, Soft to palpation, non-tender and no masses PALPATION: Yes Soft to palpation Extremity: COMMON NORMALS: normal to inspection and full ROM Neuro: COMMON NORMALS: patient oriented x3, moves all extremities and no focal motor deficits Psych: COMMON NORMALS: mental status grossly normal, Normal thought process present and cooperative THOUGHT PROCESS: Normal thought process present Skin: COMMON NORMALS: no rashes or lesions noted and no wounds GENERAL SKIN EXAM: no rashes or lesions noted Course Vital Signs: Vital signs: Vital Signs Temperature 99.0 F 08/05/21 23:38 Pulse Rate 86 08/06/21 02:00 Respiratory Rate 22 H 08/06/21 02:00 Blood Pressure 142/80 08/06/21 02:00 Pulse Oximetry 94 08/06/21 02:00 MDM - COVID MDM Narrative: Medical decision making narrative: Patient presents here with COVID-19. Patient is requiring 3 L oxygen but is in no distress. Her D-dimer here is negative chest x-ray shows no infiltrates at this time. Will prescribe her albuterol inhaler at home and discharged on home oxygen. She is return if she has any worsening. She understands agrees the plan. Lab Data: Labs: Lab Results 08/05/21 08/05/21 08/05/21 22:47 23:10 23:10 WBC Cancelled Corrected WBC Cancelled RBC Cancelled Hgb Cancelled Hct Cancelled MCV Cancelled MCH Cancelled MCHC Cancelled RDW Cancelled Plt Count Cancelled MPV Cancelled Gran % Cancelled Neut % (Auto) Cancelled Lymph % (Auto) Cancelled [place] % (Auto) Cancelled Eos % (Auto) Cancelled Baso % (Auto) Cancelled Neut # (Auto) Cancelled Lymph # (Auto) Cancelled [place] # (Auto) Cancelled Eos # (Auto) Cancelled Baso # (Auto) Cancelled Absolute Gran (aut o) Cancelled Nucleated RBC % (a uto) Cancelled Nucleated RBCs # Cancelled PT INR D-Dimer Specimen Type Arterial Sample Site Radial, right ABG pH 7.46 H (7.35-7.45) ABG pCO2 42.5 mmHg mmHg (35-45) ABG pO2 64.6 mmHg L mmHg (80.0-100.0) ABG HCO3 30.2 mmol/L H mmo l/L (22-26) ABG Base Excess 5.7 mmol/L H mmol /L (-2.0-2.0) Jose Test Pos Hematocrit 40.1 % % (37-47) O2 Delivery Device Nc O2 Liters/Min 2.0 % % Multicultural Services Librarian ID ellpe Sodium Cancelled Potassium Cancelled Chloride Cancelled Carbon Dioxide Cancelled Anion Gap Cancelled BUN Cancelled Creatinine Cancelled GFR Calculation Cancelled Glucose Cancelled Calculated Osmolal ity Cancelled Calcium Cancelled Total Bilirubin Cancelled AST Cancelled ALT Cancelled Alkaline Phosphata se Cancelled C-Reactive Protein Cancelled NT-Pro-B Natriuret Pep Cancelled Total Protein Cancelled Albumin Cancelled Globulin Cancelled SARS-CoV-2 Ag (Rap id) 08/05/21 08/05/21 08/06/21 23:10 23:30 00:05 WBC 5.0 10^3/uL 10^3/ uL (4.0-10.0) Corrected WBC RBC 4.36 10^6/uL 10^6 /uL (4.1-5.3) Hgb 12.7 g/dL g/dL (11.5-15.3) Hct 41.3 % % (37.0-47.0) MCV 94.7 fl fl (81-99) MCH 29.1 pg pg (28.0-34.0) MCHC 30.8 g/dL g/dL (30.0-36.0) RDW 13.4 % % (12.1-15.1) Plt Count 113 10^3/cmm L 10 ^3/cmm (130-400) MPV 11.6 fL H fL (7.4-10.4) Gran % Neut % (Auto) 61.4 % % Lymph % (Auto) 23.9 % % [place] % (Auto) 12.5 % % Eos % (Auto) 1.4 % % Baso % (Auto) 0.6 % % Neut # (Auto) 3.09 10^3/uL 10^3 /uL (1.8-7.7) Lymph # (Auto) 1.2 10^3/uL 10^3/ uL (0.8-4.8) [place] # (Auto) 0.6 10^3/uL 10^3/ uL (0.2-0.9) Eos # (Auto) 0.1 10^3/uL 10^3/ uL (0.0-0.8) Baso # (Auto) 0.0 10^3/uL 10^3/ uL (0.0-0.1) Absolute Gran (aut o) Nucleated RBC % (a uto) 0 % % Nucleated RBCs # 0.0 /100WBC /100W BC PT 16.80 SECONDS H S ECONDS (12.1-14.9) INR 1.33 H (0.8-1.2) D-Dimer 0.58 ug/mIFEU ug/ mIFEU (0-0.59) Specimen Type Sample Site ABG pH ABG pCO2 ABG pO2 ABG HCO3 ABG Base Excess Jose Test Hematocrit O2 Delivery Device O2 Liters/Min Multicultural Services Librarian ID Sodium Potassium Chloride Carbon Dioxide Anion Gap BUN Creatinine GFR Calculation Glucose Calculated Osmolal ity Calcium Total Bilirubin AST ALT Alkaline Phosphata se C-Reactive Protein NT-Pro-B Natriuret Pep Total Protein Albumin Globulin SARS-CoV-2 Ag (Rap id) Positive H (Negative) 08/06/21 00:05 WBC Corrected WBC RBC Hgb Hct MCV MCH MCHC RDW Plt Count MPV Gran % Neut % (Auto) Lymph % (Auto) [place] % (Auto) Eos % (Auto) Baso % (Auto) Neut # (Auto) Lymph # (Auto) [place] # (Auto) Eos # (Auto) Baso # (Auto) Absolute Gran (aut o) Nucleated RBC % (a uto) Nucleated RBCs # PT INR D-Dimer Specimen Type Sample Site ABG pH ABG pCO2 ABG pO2 ABG HCO3 ABG Base Excess Jose Test Hematocrit O2 Delivery Device O2 Liters/Min Multicultural Services Librarian ID Sodium 134 mmol/L L mmol /L (136-145) Potassium 4.1 mmol/L mmol/L (3.5-5.1) Chloride 95 mmol/L L mmol/ L (98-107) Carbon Dioxide 29 mmol/L mmol/L (22-29) Anion Gap 14.1 (5-19) BUN 14 mg/dL mg/dL (8-23) Creatinine 0.9 mg/dL mg/dL (0.5-0.9) GFR Calculation Not Reportable Glucose 152 mg/dL H mg/dL (65-115) Calculated Osmolal ity 281 mOsm/kg L mOs m/kg (285-295) Calcium 8.2 mg/dL L mg/dL (8.5-10.5) Total Bilirubin 0.5 mg/dL mg/dL (0.15-1.2) AST 16 U/L U/L (0-32) ALT 9 U/L U/L (0-33) Alkaline Phosphata se 99 IU/L IU/L (35-105) C-Reactive Protein 48.7 mg/L H mg/L (0.0-4.9) NT-Pro-B Natriuret Pep 1022 pg/mL H pg/m L (0-450) Total Protein 5.9 g/dL L g/dL (6.6-8.7) Albumin 3.8 g/dL g/dL (3.5-5.2) Globulin 2.1 g/dL g/dL (1.3-4.6) SARS-CoV-2 Ag (Rap id) Imaging Data: CXR: Attestation: I personally reviewed and interpreted this imaging study as follows: Radiologist's impression: [address] [address] XRay Report Signed Patient: Nicole Gordon Unit #: [id number] : 1940 Age/Sex: 81 / F ADM Date: 08/05/21 Loc: ER Room/Bed: Attending Dr: Ordering Provider/Ordering MD: Young Ya MD Date of Service: 08/05/21 Procedure(s): XR chest 1V portable [id number] Accession Number(s): [id number] Report Number: [id number] PROCEDURE INFORMATION: Exam: XR Chest Exam date and time: 08/05/2021 10:38 PM Age: 81 years old Clinical indication: Dyspnea; Patient HX: Covid +; Additional info: SOB TECHNIQUE: Imaging protocol: XR of the chest. Views: 1 view. COMPARISON: CR XR chest 1V portable [id number] 02/11/2020 12:42 PM FINDINGS: Lungs: Some strandy opacities are present in the lower hemithoraces, left more prominent than right likely representing atelectasis. Pleural spaces: The left hemidiaphragm is obscured likely secondary to a small left pleural effusion. Heart/Mediastinum: Unremarkable. No cardiomegaly. Bones/joints: Degenerative joint disease of the glenohumeral joints bilaterally. Probable posttraumatic changes of the right clavicle. XR/XR chest 1V portable [id number] IMPRESSION: 1. Probable small left pleural effusion 2. Strandy opacities in lower hemithoraces, left prominent than right likely representing atelectasis. Radiation Dose CTDIVOL = (mGy): DLP = (mGy-cm) Dictated By: Michele Pathak MD Signed By: Michele Pathak MD Signed Date/Time: 08/06/217 DD/ EKG Data: EKG 1: Attestation: I personally reviewed and interpreted this EKG as follows: EKG interpretation date: 08/05/21 EKG interpretation time: 23:06 Interpretation: nsr hr [address] or t wave abnormalities qrs 89 qtc 425 COVID Results: SARS-CoV-2 Antigen (Rapid) Positive (Negative) H 08/05/21 23:30 08/05/21 Discharge Plan Discharge Patient Disposition: Home Clinical Impression: COVID-19 Condition: Stable Prescriptions: New albuterol sulfate 90 mcg/actuation HFA aerosol inhaler 2 inh INHALATION Q6H PRN (Reason: shortness of breath or wheezing) Qty: 8 RF: 0 No Action Calcium 600 with Vitamin D3 600 mg(1,500mg) -400 unit tablet,chewable 1 tab PO DAILY RF: 0 Prenatabs FA 29-1 mg tablet 1 tab PO DAILY RF: 0 vitamin B complex [B Complex-Vitamin B12] Tablet See Rx Instructions PO DAILY RF: 0 dextromethorphan-guaifenesin [Diabetic Tussin DM] 10-100 mg/5 mL liquid 10 ml PO Q4H PRN (Reason: Cough) RF: 0 (DME) CAM WALKER Qty: 1 RF: 0 (DME) [place] boot Qty: 1 RF: 0 (DME) Diabetic shoes See Rx Instructions .Route .MEDSUPPLY Qty: 1 RF: 0 (DME) Diabetic shoes See Rx Instructions .ROUTE .MEDSUPPLY Qty: 1 RF: 0 polyethylene glycol 3350 [Miralax] 17 gram/dose powder 17 gm PO DAILY PRN (Reason: constipation) RF: 0 omega-3 fatty acids [Fish Oil Concentrate] 1,000 mg capsule 1,000 mg PO DAILY RF: 0 nystatin 100,000 unit/gram powder 1 applic TOPICAL QID PRN (Reason: yeast) Qty: 60 RF: 2 lidocaine 5 % adhesive patch,medicated 2 patch topical DAILY Qty: 180 RF: 1 trazodone 50 mg tablet 50 mg PO DAILY Qty: 90 RF: 1 allopurinol 300 mg tablet 300 mg PO DAILY Qty: 90 RF: 1 atorvastatin 20 mg tablet 20 mg PO BEDTIME Qty: 90 RF: 1 duloxetine 60 mg capsule,delayed release(DR/EC) 60 mg PO BID Qty: 180 RF: 1 furosemide [Lasix] 20 mg tablet 40 mg PO DAILY 90 Days Qty: 180 RF: 1 gabapentin 300 mg capsule 600 mg PO TID 90 Days Qty: 540 RF: 1 glipizide 5 mg tablet 5 mg PO BID Qty: 180 RF: 1 Bystolic 5 mg tablet 5 mg PO BID Qty: 180 RF: 1 pantoprazole 20 mg tablet,delayed release (DR/EC) 20 mg PO BID Qty: 180 RF: 1 Lumigan 0.01 % drops 1 drp ophthalmic (eye) .at bedtime RF: 0 (DME) CAM Boot to the right See Rx Instructions .Route .MEDSUPPLY Qty: 1 RF: 0 sennosides-docusate sodium 8.6-50 mg tablet 2 tab PO BID 30 Days Qty: 120 RF: 2 Hold Instructions: Order Change (DME) [id number] repair prosthetic See Rx Instructions .Route .MEDSUPPLY Qty: 1 RF: 0 diphenhydramine HCl [Benadryl] 25 mg capsule 25 mg PO Q6H PRN (Reason: itching) Qty: 30 RF: 0 albuterol sulfate 2.5 mg /3 mL (0.083 %) solution for nebulization 2.5 mg continuous nebulization TID Qty: 75 RF: 2 (DME) nebulizers Misc See Rx Instructions .ROUTE .MEDSUPPLY Qty: 1 RF: 0 triamcinolone acetonide 0.1 % ointment 1 applic TOPICAL TID Qty: 80 RF: 0 spironolactone 25 mg tablet 25 mg PO DAILY Qty: 90 RF: 3 IBgard 90 mg capsule,delayed,extend.release 90 mg PO TID PRN (Reason: abdominal discomfort) Qty: 90 RF: 0 (DME) DipityTouch Ultra Blue Test Strip Strip See Rx Instructions .ROUTE .MEDSUPPLY Qty: 100 RF: 5 potassium chloride 10 mEq capsule, extended release 20 meq PO DAILY Qty: 360 RF: 0 Ozempic 0.25 mg or 0.5 mg(2 mg/1.5 mL) pen injector 0.25 mg SUBCUT .weekly Qty: 1.5 RF: 2 Eliquis 2.5 mg tablet 2.5 mg PO BID Qty: 180 RF: 3 acetaminophen 325 mg Tablet 325 mg PO QID PRN (Reason: Pain) RF: 0 Discharge Orders: Discharge ED (Routine); Ordered 08/06/21 Ordered By: Young Ya Other Ambulatory Orders: DME: Oxygen (Order) Location: None Selected Ordered By: Young Ya Referrals: Rose Lester, ANIMAL ASSISTANT-C [Primary Care Provider] - Discharge Diet: Advance as tolerated Discharge Activity: Resume usual activity Patient Instructions: Viral Syndrome (ED) Coding Level of Care Code ED Shipper for Tracy Fwd Exam Comprehensive
[2021-08-05] MEDS: acetaminophen 325 mg Tablet 650 MG PO (23:00)
[2021-08-05] MEDS: albuterol 8 gm MDI 2 PUFF INHALATION (23:06)
[2021-08-05 23:07] VITALS: PULSE 85; RESP 20; O2SAT 96
[2021-08-05 23:13] LABS: ABG PCO2 42.5 mmHg (35-45); ABG PH Result 7.46 (7.35-7.45); Arterial Blood Gas Hematocrit 40.1 % (37-47); Base Excess ABG 5.7 mmol/L (-2.0-2.0); Blood Gas Allen Test Pos; Blood Gas Sample Site Radial, right; Blood Gas Sample Type Arterial; HCO3 ABG 30.2 mmol/L (22-26); Oxygen Device NC; PO2 ABG 64.6 mmHg (80.0-100.0)
[2021-08-05] MEDS: dexamethasone 4 mg/mL INJ 6 MG IVP (23:15)
[2021-08-05 23:38] VITALS: BP 146/88; PULSE 94; RESP 22; TEMP 37.2; O2SAT 94
[2021-08-06 00:19] LABS: INR 1.33 (0.8-1.2)
[2021-08-06 00:22] LABS: D Dimer 0.58 ug/mIFEU (0-0.59)
[2021-08-06 00:24] LABS: Basophils % 0.6 %; Eosinophils # 0.1 10^3/uL (0.0-0.8); Eosinophils % 1.4 %; Hematocrit 41.3 % (37.0-47.0); Hemoglobin 12.7 g/dL (11.5-15.3); Lymphocytes # 1.2 10^3/uL (0.8-4.8); Lymphocytes % 23.9 %; Mean Corpuscular HGB Conc 30.8 g/dL (30.0-36.0); Mean Corpuscular Hemoglobin 29.1 pg (28.0-34.0); Mean Corpuscular Volume 94.7 fl (81-99); Mean Platelet Volume 11.6 fL (7.4-10.4); Monocytes # 0.6 10^3/uL (0.2-0.9); Monocytes % 12.5 %; Neutrophils # 3.09 10^3/uL (1.8-7.7); Neutrophils % 61.4 %; Nucleated Red Blood Cells % 0 %; Platelet Count 113 10^3/cmm (130-400); Red Blood Count 4.36 10^6/uL (4.1-5.3); Red Cell Distribution Width 13.4 % (12.1-15.1)
[2021-08-06 00:42] LABS: SARS Covid-2 Antigen Positive (Negative)
[2021-08-06 00:46] LABS: Alanine Aminotransferase 9 U/L (0-33); Albumin Level 3.8 g/dL (3.5-5.2); Alkaline Phosphatase 99 IU/L (35-105); Anion Gap 14.1 (5-19); Aspartate Amino Transferase 16 U/L (0-32); Blood Urea Nitrogen 14 mg/dL (8-23); C Reactive Protein 48.7 mg/L (0.0-4.9); Calcium 8.2 mg/dL (8.5-10.5); Carbon Dioxide 29 mmol/L (22-29); Chloride 95 mmol/L (98-107); Globulin 2.1 g/dL (1.3-4.6); Glucose 152 mg/dL (65-115); NT Pro B Type Natriuretic Pept 1022 pg/mL (0-450); Osmolality Calculated 281 mOsm/kg (285-295); Potassium 4.1 mmol/L (3.5-5.1); Sodium 134 mmol/L (136-145); Total Bilirubin 0.5 mg/dL (0.15-1.2); Total Protein 5.9 g/dL (6.6-8.7)
[2021-08-06 02:00] VITALS: BP 142/80; PULSE 86; RESP 22; O2SAT 94
== END 2021-08-06 02:05 | disposition home or self-care (01) ==
PROVIDERS: Emergency Provider Emergency Medicine; PCP Nurse Practitioner
DX: U07.1 COVID-19 (principal); Z79.84 Long term (current) use of oral hypoglycemic drugs; Z79.01 Long term (current) use of anticoagulants; E11.9 Type 2 diabetes mellitus without complications; E78.5 Hyperlipidemia, unspecified; I10 Essential (primary) hypertension; Z85.850 Personal history of malignant neoplasm of thyroid
CPT/HCPCS: 36600; 71045; 80053; 82803; 83880; 85025; 85378; 85610; 86140; 87426; 93005; 94640; 96374; 99283; J1100; J3535

== ENCOUNTER → 2021-08-13 13:35 | Outpatient (BNVA) | payer MEDICARE, OTHER, SELFPAY | PROVIDERS: PCP Nurse Practitioner; Visit Provider Nurse Practitioner | DX: R04.2 Hemoptysis (principal); Z90.12 Acquired absence of left breast and nipple; R91.8 Other nonspecific abnormal finding of lung field | CPT/HCPCS: 71046; 80053; 85025 ==

== ENCOUNTER 2021-08-31 09:50 | Outpatient (CLI) | payer MEDICARE, OTHER, SELFPAY ==
--- NOTE | 2021-08-31 10:30 | CT_ITS ---
WS: [id number] CTA scan of the chest with IV contrast. Additional two-dimensional coronal and sagittal reconstructio n and MIP images was performed. 08/31/2021 Clinical Data: U07.1 - COVID-19 Comparison: CT chest, 01/31/2020. DLP: 770.[address] scans at [facility] use at least one of these dose optimization techniques: automated e xposure control; mA and/or kV adjustment per patient size (includes targeted exams where dose is matc hed to clinical indication); or iterative reconstruction. Findings: The central pulmonary arteries and peripheral pulmonary arteries fill normally with no evidence of in traluminal filling defects. No pulmonary embolic disease is noted. There is minimal bilateral patchy opacity which may represent improving pneumonia or atelectasis. No nodules, masses or effusions are seen. The heart is enlarged with no pericardial effusion. There is coronary artery calcification The pulmonary arterial system and thoracic aorta demonstrate no dila tations. There is calcification in the wall of the descending thoracic aorta. There is no axillary or significant mediastinal adenopathy. The thyroid gland shows normal enhancement. The trachea bifurcat es into the bronchi. 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 There is degenerative change of the thoracic vertebral bodies. The upper abdomen shows no abnormalities. The visualized liver, spleen, pancreas, gallbladder, adrena l glands and superior poles of the kidneys are not remarkable. CT/CT angio chest PE protcl [id number] Impression: 1. Patchy atelectasis or minimal groundglass pneumonia which has improved. 2. Negative for pulmonary embolic disease. 3. Cardiomegaly.
[2021-08-31] MEDS: iohexol 350 mg/mL 100 mL Btl IV (11:15)
== END 2021-08-31 09:51 | disposition home or self-care (01) ==
PROVIDERS: PCP Nurse Practitioner; Visit Provider Nurse Practitioner
DX: U07.1 COVID-19 (principal); I51.7 Cardiomegaly
CPT/HCPCS: 71275; Q9967

== ENCOUNTER → 2021-12-26 12:04 | Outpatient (BNVA) | payer MEDICARE, OTHER, SELFPAY | PROVIDERS: PCP Nurse Practitioner; Visit Provider Nurse Practitioner | DX: E11.65 Type 2 diabetes mellitus with hyperglycemia (principal); I10 Essential (primary) hypertension | CPT/HCPCS: 80053; 80061; 83036 ==

== ENCOUNTER → 2022-01-29 13:52 | Outpatient (BNVA) | payer MEDICARE, OTHER, SELFPAY | PROVIDERS: PCP Nurse Practitioner; Visit Provider Internal Medicine Cardiovascular Disease | DX: E78.5 Hyperlipidemia, unspecified (principal); G47.33 Obstructive sleep apnea (adult) (pediatric); E11.65 Type 2 diabetes mellitus with hyperglycemia; Z79.84 Long term (current) use of oral hypoglycemic drugs; I48.91 Unspecified atrial fibrillation; I50.33 Acute on chronic diastolic (congestive) heart failure; I50.9 Heart failure, unspecified | CPT/HCPCS: 99214 ==

== ENCOUNTER 2022-02-20 15:02 | Outpatient (CLI) | payer MEDICARE, OTHER, SELFPAY ==
--- NOTE | 2022-02-20 15:14 | MM_ITS ---
WS: [id number] RIGHT 3D TOMOSYNTHESIS DIGITAL MAMMOGRAPHY WITH CAD CLINICAL INFORMATION: Z85.3 - Personal history of malignant neoplasm of breast COMPARISON: January 15, 2021 TECHNIQUE: 3 views of the right breast were obtained. FINDINGS: Scattered fibroglandular densities of the right breast. Punctate and lucent centered calcifications. Vascular calcification. No suspicious focal mass, asymmetry, calcifications, or architectural distortion. No evidence of nhan gnancy. MM/[place] [id number] IMPRESSION: BI-RADS: 2-Benign FOLLOW UP: 1 Year Follow-up Recommend return to annual screening mammography.
== END 2022-02-20 15:03 | disposition home or self-care (01) ==
LOC: RAD 15:09
PROVIDERS: PCP Nurse Practitioner; Visit Provider Nurse Practitioner
DX: Z85.3 Personal history of malignant neoplasm of breast (principal)
CPT/HCPCS: 77061

== ENCOUNTER → 2022-03-04 11:41 | Outpatient (BNVA) | payer MEDICARE, OTHER, SELFPAY | PROVIDERS: PCP Nurse Practitioner; Visit Provider Nurse Practitioner | DX: E11.65 Type 2 diabetes mellitus with hyperglycemia (principal); R58 Hemorrhage, not elsewhere classified | CPT/HCPCS: 80053; 83036; 85025 ==

== ENCOUNTER → 2022-03-07 15:19 | Outpatient (BNVA) | payer MEDICARE, OTHER, SELFPAY | PROVIDERS: PCP Nurse Practitioner; Visit Provider Podiatrist Foot & Ankle Surgery | DX: M79.671 Pain in right foot (principal); M25.571 Pain in right ankle and joints of right foot; E11.65 Type 2 diabetes mellitus with hyperglycemia; I10 Essential (primary) hypertension; I48.91 Unspecified atrial fibrillation; Z89.512 Acquired absence of left leg below knee | CPT/HCPCS: 73600; 73630; 99214 ==

== ENCOUNTER → 2022-04-17 11:41 | Outpatient (BNVA) | payer MEDICARE, OTHER, SELFPAY | PROVIDERS: PCP Nurse Practitioner; Visit Provider Podiatrist Foot & Ankle Surgery | DX: M79.671 Pain in right foot (principal); E11.65 Type 2 diabetes mellitus with hyperglycemia; I10 Essential (primary) hypertension; I48.91 Unspecified atrial fibrillation; Z89.512 Acquired absence of left leg below knee; K21.9 Gastro-esophageal reflux disease without esophagitis; E78.5 Hyperlipidemia, unspecified | CPT/HCPCS: 99213 ==

== ENCOUNTER → 2022-05-22 08:25 | Outpatient (BNVA) | payer MEDICARE, OTHER, SELFPAY | PROVIDERS: PCP Nurse Practitioner; Visit Provider Nurse Practitioner | DX: E11.65 Type 2 diabetes mellitus with hyperglycemia (principal); I10 Essential (primary) hypertension; I50.9 Heart failure, unspecified | CPT/HCPCS: 80053; 80061; 83036; 85025 ==

== ENCOUNTER → 2022-05-29 14:32 | Outpatient (BNVA) | payer MEDICARE, OTHER, SELFPAY | PROVIDERS: PCP Nurse Practitioner; Visit Provider Nurse Practitioner | DX: M25.551 Pain in right hip (principal) | CPT/HCPCS: 73502 ==

== ENCOUNTER → 2022-06-18 13:01 | Outpatient (BNVA) | payer MEDICARE, OTHER, SELFPAY | PROVIDERS: PCP Nurse Practitioner; Visit Provider Podiatrist Foot & Ankle Surgery | DX: E11.65 Type 2 diabetes mellitus with hyperglycemia (principal); Z89.512 Acquired absence of left leg below knee | CPT/HCPCS: 99213; 99214 ==

== ENCOUNTER → 2022-11-05 13:42 | Outpatient (BNVA) | payer MEDICARE, OTHER, SELFPAY | PROVIDERS: PCP Nurse Practitioner; Visit Provider Internal Medicine Cardiovascular Disease | DX: E11.65 Type 2 diabetes mellitus with hyperglycemia (principal); Z79.84 Long term (current) use of oral hypoglycemic drugs; Z89.512 Acquired absence of left leg below knee; R55 Syncope and collapse; I48.91 Unspecified atrial fibrillation; I11.0 Hypertensive heart disease with heart failure; I50.30 Unspecified diastolic (congestive) heart failure; Z79.01 Long term (current) use of anticoagulants | CPT/HCPCS: 99214; Q3014 ==

== ENCOUNTER → 2022-11-08 11:47 | Outpatient (BNVA) | payer MEDICARE, OTHER, SELFPAY | PROVIDERS: PCP Nurse Practitioner; Visit Provider Family Medicine | DX: E11.65 Type 2 diabetes mellitus with hyperglycemia (principal); I10 Essential (primary) hypertension | CPT/HCPCS: 80053; 80061; 83036; 84443; 85025 ==

== ENCOUNTER → 2022-11-11 12:32 | Outpatient (BNVA) | payer MEDICARE, OTHER, SELFPAY | PROVIDERS: PCP Nurse Practitioner; Visit Provider Nurse Practitioner Family | DX: M25.571 Pain in right ankle and joints of right foot (principal) | CPT/HCPCS: 73610; 73630 ==

== ENCOUNTER → 2023-01-16 13:52 | Outpatient (BNVA) | payer MEDICARE, OTHER, SELFPAY | PROVIDERS: PCP Nurse Practitioner; Visit Provider Podiatrist Foot & Ankle Surgery | DX: E11.65 Type 2 diabetes mellitus with hyperglycemia (principal); Z89.512 Acquired absence of left leg below knee | CPT/HCPCS: 11720 ==

== ENCOUNTER → 2023-03-25 11:11 | Outpatient (BNVA) | payer MEDICARE, OTHER, SELFPAY | PROVIDERS: PCP Nurse Practitioner; Visit Provider Nurse Practitioner | DX: N39.0 Urinary tract infection, site not specified (principal) | CPT/HCPCS: 81000; 87077; 87086; 87184 ==

== ENCOUNTER → 2023-04-02 09:11 | Outpatient (BNVA) | payer MEDICARE, OTHER, SELFPAY | PROVIDERS: PCP Nurse Practitioner; Visit Provider Nurse Practitioner | DX: E11.65 Type 2 diabetes mellitus with hyperglycemia (principal) | CPT/HCPCS: 80053; 80061; 83036; 84443; 85025 ==

== ENCOUNTER → 2023-04-28 15:52 | Outpatient (BNVA) | payer MEDICARE, OTHER, SELFPAY | PROVIDERS: PCP Nurse Practitioner; Visit Provider Podiatrist Foot & Ankle Surgery | DX: E11.8 Type 2 diabetes mellitus with unspecified complications (principal); L60.3 Nail dystrophy; E11.65 Type 2 diabetes mellitus with hyperglycemia; M14.671 Charcot's joint, right ankle and foot; Z89.512 Acquired absence of left leg below knee | CPT/HCPCS: 11720; 73630; 99214 ==

== ENCOUNTER 2023-05-05 11:34 | Outpatient (CLI) | payer MEDICARE, OTHER, SELFPAY ==
--- NOTE | 2023-05-05 11:42 | MM_ITS ---
WS: [id number] VIEWS: MLO, CC, and ML views of the right breast. 3D digital tomosynthesis is also included in this exam. Comparison made with prior exam of . Findings: There appears to be a new partially obscured 8 mm nodular density in the lateral right breast at abou t the 9:00 position. This nodule is at mid depth level. No suspicious calcification or architectural distortion is seen. No other changes in the right breast since the prior study. Regional ultrasound a s well as spot compression views of the right breast are suggested for clarification.There are scatte red areas of fibroglandular density in the right breast. The left breast is surgically absent. MM/[place] [id number] Impression: BI-RADS: 0-Incomplete: Need additional imaging evaluation FOLLOW-UP: See Report This mammogram was also analyzed by the Computer Aided Detection System R2 Imag e Medical Billing Coder.
== END 2023-05-05 11:35 | disposition home or self-care (01) ==
PROVIDERS: PCP Nurse Practitioner; Visit Provider Nurse Practitioner
DX: Z85.3 Personal history of malignant neoplasm of breast (principal); Z90.12 Acquired absence of left breast and nipple; N63.15 Unspecified lump in the right breast, overlapping quadrants; R42 Dizziness and giddiness; Z79.899 Other long term (current) drug therapy; I48.91 Unspecified atrial fibrillation; I50.9 Heart failure, unspecified; E78.5 Hyperlipidemia, unspecified; G47.33 Obstructive sleep apnea (adult) (pediatric); E11.65 Type 2 diabetes mellitus with hyperglycemia; Z79.01 Long term (current) use of anticoagulants; Z79.84 Long term (current) use of oral hypoglycemic drugs; Z89.512 Acquired absence of left leg below knee; I10 Essential (primary) hypertension
CPT/HCPCS: 77061; 85025; 99214; G0279

== ENCOUNTER 2023-06-02 11:49 | Outpatient (CLI) | payer MEDICARE, OTHER, SELFPAY ==
--- NOTE | 2023-06-02 11:53 | MM_ITS ---
WS: [id number] RIGHT 3D TOMOSYNTHESIS DIGITAL MAMMOGRAPHY WITH CAD CLINICAL INFORMATION: ABNORMAL MAMMO HISTORY: Additional views. Callback. COMPARISON: 05/05/2023 TECHNIQUE: 2 views of the right breast were obtained. FINDINGS: Scattered fibroglandular densities of the right breast. Incidental punctate calcification. Stable juan earing 5 mm nodule just lateral to the nipple anterior depth right breast. Ultrasound is pending. ULTRASOUND BREAST RIGHT TECHNIQUE: Ultrasound right breast focused area of concern. CLINICAL INFORMATION: ABNORMAL MAMMO FINDINGS: Ultrasound right breast 9 o'clock and 10:00 position at the [place]. Shadowing irregular hypoechoic le ike measuring 8.8 x 4.0 x 5.7 mm 4 cm from the nipple. This is indeterminate and recommend further e valuation with ultrasound-guided biopsy. IMPRESSION: MM/[place] [id number] BI-RADS: 4-Suspicious Finding-Biopsy Should Be Considered FOLLOW UP: US Guided Biopsy Recommended Recommend further evaluation with ultrasound-guided biopsy
== END 2023-06-02 11:50 | disposition home or self-care (01) ==
PROVIDERS: PCP Nurse Practitioner; Visit Provider Nurse Practitioner
DX: R92.8 Other abnormal and inconclusive findings on diagnostic imaging of breast (principal)
CPT/HCPCS: 76642; 77061; G0279

== ENCOUNTER 2023-06-18 14:16 | Outpatient (CLI) | payer MEDICARE, OTHER, SELFPAY ==
--- NOTE | 2023-06-18 14:45 | US_ITS ---
WS: [id number] ULTRASOUND-GUIDED RIGHT BREAST BIOPSY CLINICAL INFORMATION: R92.8 - Other abnormal and inconclusive findings on diagn... COMPARISON: 06/02/2023 FINDINGS: The procedure including risks, benefits, and complications were discussed with the patient who agreed to proceed. Using sterile technique patient was prepped and draped in the usual sterile fashion. Aft er 1% lidocaine utilizing real-time ultrasound guidance 6 14-gauge cores were obtained of the RIGHT b reast lesion at the 10 o'clock position 4 cm from the nipple. Subsequently a titanium clip was placed in the biopsy cavity. No immediate complications. Pathology demonstrates Right breast, mass at 10:00 position, 4.0 cm from nipple, needle core biopsy: 1. Infiltrating carcinoma, moderately differentiated. 2. Approximately 60% of tissue volume submitted involved by invasive neoplasm. 3. Nuclear Grade 2. 4. Suspicious for lymphovascular invasion. IMPRESSION: 1. Uncomplicated ultrasound-guided RIGHT breast biopsy. 2. The pathology demonstrates moderately differentiated infiltrating carcinoma. 3. Recommend Breast surgery consultation. 4. Breast prognostic profile is pending. US/[place] [id number] BI-RADS: 6-Known Biopsy-Proven Malignancy FOLLOW UP: Surgical Biopsy Recommended
[2023-06-26 07:16] LABS: Breast Profile ER,PR,HER2,Ki-6 See Report
== END 2023-06-18 14:17 | disposition home or self-care (01) ==
LOC: RAD 14:17
PROVIDERS: PCP Nurse Practitioner; Visit Provider Nurse Practitioner
DX: C50.411 Malignant neoplasm of upper-outer quadrant of right female breast (principal); R92.8 Other abnormal and inconclusive findings on diagnostic imaging of breast
CPT/HCPCS: 19083; 88305; 88361; 88374

== ENCOUNTER 2023-07-15 15:08 | Oncology outpatient (recurring) (ONCR) | payer MEDICARE, OTHER, SELFPAY | END 2023-07-19 23:59 | disposition home or self-care (01) | PROVIDERS: PCP Nurse Practitioner; Visit Provider Internal Medicine Medical Oncology | DX: C50.911 Malignant neoplasm of unspecified site of right female breast (principal); Z17.0 Estrogen receptor positive status [ER+]; Z90.11 Acquired absence of right breast and nipple | CPT/HCPCS: 99205 ==

== ENCOUNTER 2023-08-11 13:32 | Outpatient (CLI) | payer MEDICARE, OTHER, SELFPAY ==
[2023-08-11 13:57] LABS: Add Urine Microscopic? NO; Charge for UA Resulting for Rev
--- NOTE | 2023-08-11 14:00 | US_ITS ---
WS: [id number] RENAL ULTRASOUND HISTORY: R35.0 - Frequency of micturition COMPARISON: 09/15/2016 TECHNIQUE: 2-D and color Doppler imaging of the kidney submitted. Right kidney: 9.4 cm x 4.4 cm x 4.8 cm. Cortex: 1.2 cm Normal size kidney. There is very minimal cortical thinning in the upper pole. No hydronephrosis. No mass. Left kidney: 10.7 cm x 4.7 cm x 4.2 cm. Cortex: 1.2 cm Normal echogenicity with no hydronephrosis or mass. Aorta: Normal. Urinary Bladder: Nondistended. IMPRESSION: 1. Normal size kidneys with no hydronephrosis. 2. Very minimal cortical thinning upper pole RIGHT kidney. Similar to the prior examination from 2015 .
[2023-08-11 14:08] LABS: Bilirubin Urine Neg (Negative); Blood Urine Neg (Negative); Glucose Urine UA Norm (Normal); Ketones Urine Negative (Negative); Leukocyte Esterase Urine Negative (Negative); Nitrate Urine Negative (Negative); Protein Urine Neg (Negative); Urine Appearance Clear (CLEAR); Urine Color Yellow (Yellow); Urobilinogen Urine Norm (Negative); pH Urine 5 (5-7)
[2023-08-11 14:21] LABS: Estmated Average Glucose 134; Hemoglobin A1C 6.3 % (4.0-6.0)
[2023-08-11 14:35] LABS: Alanine Aminotransferase 11 U/L (0-33); Albumin Level 4.3 g/dL (3.5-5.2); Alkaline Phosphatase 111 U/L (35-105); Anion Gap 10.6 (5-19); Aspartate Amino Transferase 15 U/L (0-32); Blood Urea Nitrogen 13 mg/dL (8-23); Calcium 9.6 mg/dL (8.5-10.5); Carbon Dioxide 33 mmol/L (22-29); Chloride 98 mmol/L (98-107); Chol HDL Ratio 2.85 mg/dL (0.0-4.40); Cholesterol 114 mg/dL (0-200); Globulin 2.4 g/dL (1.3-4.6); Glucose 163 mg/dL (65-115); HDL Cholesterol 40 mg/dL (60-100); LDL Cholesterol Calculated 26 mg/dL (50-129); Osmolality Calculated 288 mOsm/kg (285-295); Potassium 4.6 mmol/L (3.5-5.1); Sodium 137 mmol/L (136-145); Total Bilirubin 0.4 mg/dL (0.15-1.2); Total Protein 6.7 g/dL (6.6-8.7); Triglycerides 239 mg/dL (0-150); VLDL Cholestrol Calculation 48 mg/dL (0-30)
== END 2023-08-11 13:33 | disposition home or self-care (01) ==
LOC: RAD 13:35
PROVIDERS: PCP Nurse Practitioner; Visit Provider Nurse Practitioner
DX: R35.0 Frequency of micturition; E11.65 Type 2 diabetes mellitus with hyperglycemia; Z79.899 Other long term (current) drug therapy
CPT/HCPCS: 36415; 76770; 80053; 80061; 81003; 83036; 84443

== ENCOUNTER 2023-09-10 13:01 | Oncology outpatient (recurring) (ONCR) | payer MEDICARE, OTHER, SELFPAY ==
[2023-08-26 13:32] VITALS: BP 95/58; PULSE 52; RESP 16; TEMP 36.3; O2SAT 90
[2023-08-26 13:51] LABS: Basophils % 0.3 %; Eosinophils # 0.1 10^3/uL (0.0-0.8); Hematocrit 41.2 % (36-47); Lymphocytes # 1.6 10^3/uL (0.8-4.8); Lymphocytes % 26.8 %; Mean Corpuscular HGB Conc 30.8 g/dL (30-55); Mean Corpuscular Hemoglobin 27.9 pg (27-33); Mean Corpuscular Volume 90.5 fl (85-98); Monocytes # 0.5 10^3/uL (0.2-0.9); Monocytes % 7.7 %; Neutrophils # 3.83 10^3/uL (1.8-7.7); Neutrophils % 63.7 %; Nucleated Red Blood Cells % 0 %; Platelet Count 144 10^3/cmm (157-399); Red Blood Count 4.55 10^6/uL (3.85-5.65); Red Cell Distribution Width 14.2 % (12.1-15.1); White Blood Count 6.01 10^3/uL (3.29-11.43)
[2023-08-26 14:10] LABS: Alanine Aminotransferase 8 U/L (0-33); Albumin Level 3.8 g/dL (3.5-5.2); Alkaline Phosphatase 110 U/L (35-105); Anion Gap 12.6 (5-19); Aspartate Amino Transferase 16 U/L (0-32); Blood Urea Nitrogen 15 mg/dL (8-23); Calcium 9.5 mg/dL (8.5-10.5); Carbon Dioxide 34 mmol/L (22-29); Chloride 99 mmol/L (98-107); Globulin 2.4 g/dL (1.3-4.6); Glucose 107 mg/dL (65-115); Osmolality Calculated 293 mOsm/kg (285-295); Potassium 4.6 mmol/L (3.5-5.1); Sodium 141 mmol/L (136-145); Total Bilirubin 0.4 mg/dL (0.15-1.2); Total Protein 6.2 g/dL (6.6-8.7)
== END 2023-09-18 23:59 | disposition home or self-care (01) ==
PROVIDERS: Internal Medicine Medical Oncology; PCP Nurse Practitioner; Visit Provider Specialist
DX: Z53.9 Procedure and treatment not carried out, unspecified reason (principal)
CPT/HCPCS: 36415; 80053; 85025; 99214

== ENCOUNTER 2023-09-23 14:37 | Outpatient (CLI) | payer MEDICARE, OTHER, SELFPAY ==
--- NOTE | 2023-09-23 12:30 | PETR_ITS ---
PROCEDURE INFORMATION: Exam: PET/CT Skull Base to Mid-thigh Exam date and time: 09/23/2023 1:08 PM Age: 83 years old Clinical indication: Symptoms: Breast cancer right. History of ultrasound guided right breast biopsy 06/18/2023. LABS AND CLINICAL REPORTS: Glucose: 103 mg/dl Treatment strategy for malignancy (PET staging): Initial Staging (PI) TECHNIQUE: Imaging protocol: Following at least four-hour fasting and following the injection of radiopharmaceutical, low dose CT images were obtained. Then, PET images were obtained. Attenuation corrected images were constructed using the CT scan. Fused images of PET and CT were reviewed. The standardized uptake values (SUV) reported below are maximum values within a region of interest, expressed in gm/ml. Exam includes orbital meatal line to mid-thigh. Radiopharmaceutical: 12.84 mCi F-18 FDG (Fluorodeoxyglucose), IV. Time of imaging post radiopharmaceutical administration: 1 hour Injection site: Right antecubital COMPARISON: CT angio chest PE protcl [id number] 08/31/2021 11:05 AM, right breast ultrasound-guided biopsy 06/18/2023 FINDINGS: Limitations: The examination is slightly technically suboptimal secondary to the scan to injection time outside of recommended parameters (45-75 minutes). Reported scan to injection time of 40.45 minutes. Injection to scan times outside of recommended parameters can result in decreased PET sensitivity and limit the utility of comparison of SUV values to prior or subsequent exams. Brain: Visualized brain has normal physiologic uptake. Paranasal sinuses: Elevated uptake within mild mucosal thickening in the ethmoid sinuses on the left is noted, likely inflammatory or infectious in origin, SUV max 5.0. Salivary glands: No abnormal uptake. Elevated uptake in the bilateral palatine tonsils is noted, likely infectious or inflammatory. Pharynx: Uptake in the bilateral palatine tonsils is noted, SUV max 9.2 on the right and 7.5 on the left, likely inflammatory or infectious in etiology. Larynx: No abnormal uptake. Thyroid: The right thyroid lobe is absent. A non radiotracer avid nodule in the left thyroid lobe measuring less than 1 cm is present. No abnormal uptake. Lungs, pleura and trachea: No abnormal uptake within the lungs. A solid non radiotracer avid 3 mm right upper lobe nodule on series 3, image 70 is present and there is a non radiotracer avid solid right lower lobe 5-6 mm nodule on series 3, image 88. A 3-4 mm nodule in the right middle lobe is noted posteriorly and inferiorly on series 3, image 97 without abnormal uptake. A non radiotracer avid similar 2-3 mm left apical nodule is noted medially on series 3, image 60. These nodules are similar compared with 08/31/2021 Heart: Normal physiologic uptake. Mediastinal space: No abnormal uptake. Liver: No abnormal uptake. Gallbladder and bile ducts: No abnormal uptake. Pancreas: No abnormal uptake. Spleen: No abnormal uptake. Adrenal glands: No abnormal uptake. Kidneys and ureters: Normal physiologic uptake. Stomach and bowel: No abnormal uptake. Vasculature: No abnormal uptake. Lymph nodes: Elevated uptake in lymph nodes posterior to the bilateral submandibular glands is noted measuring 1.2 x 0.6 cm on the right on series 3 image 33, SUV max 3.3 and 9 mm on the left on series 3, image 29, SUV max 3.4. Bones/joints: No abnormal uptake in the visualized axial and appendicular skeleton. Postoperative changes of lateral plate and screw fixation and intramedullary shantanu placement in the left femur are noted with postoperative changes of total left hip arthroplasty.The bones appear demineralized. Degenerative changes in the spine are present. Extensive appearing bilateral glenohumeral joint primary osteoarthritic changes. Old ununited fracture of the distal right clavicle. Soft tissues: Postoperative changes of left mastectomy and left axillary lymph node dissection are present. Surgical clips in the right breast are present adjacent to an ovoid region of non radiotracer avid soft tissue density measuring 2.4 x 1.3 cm on series 3, image 100. Benign-appearing right pterygoid muscle uptake is noted, SUV max 4.6, likely inflammatory. Asymmetric uptake in the anterior muscular compartment of the right thigh is noted without evidence of a discrete lesion on the CT images, SUV max 5.7. Muscular uptake in the inferior neck is noted posteriorly and appears physiologic or inflammatory without evidence of a discrete lesion on the CT images. There is benign-appearing uptake in the deltoid musculature on the left. METRICS: Mediastinal blood pool: SUV max 2.3 PET/PET skulltothigh INITIAL [id number] IMPRESSION: 1. Postoperative changes in the right breast are noted without elevated uptake and postoperative changes of left mastectomy are noted with no evidence of abnormal uptake in the operative bed. 2. Small mildly radiotracer avid cervical lymph nodes are noted bilaterally. Although malignancy cannot be entirely excluded, this uptake may be related to infectious or inflammatory involvement. 3. Small bilateral non radiotracer avid solid pulmonary nodules are similar in appearance compared with at least 08/31/2021. Lack of uptake favors a benign etiology however assessment of small nodules can be limited by PET-CT. 4. Additional nonurgent findings as detailed above.
== END 2023-09-23 14:38 | disposition home or self-care (01) ==
LOC: RAD 14:37
PROVIDERS: PCP Nurse Practitioner; Visit Provider Specialist
DX: C50.911 Malignant neoplasm of unspecified site of right female breast (principal); Z90.12 Acquired absence of left breast and nipple; R93.89 Abnormal findings on diagnostic imaging of other specified body structures; R91.8 Other nonspecific abnormal finding of lung field
CPT/HCPCS: 78815; A9552

== ENCOUNTER 2023-09-25 12:29 | Oncology outpatient (recurring) (ONCR) | payer MEDICARE, OTHER, SELFPAY ==
[2023-09-25 12:43] VITALS: BP 113/65; PULSE 81; TEMP 36.2; O2SAT 93
[2023-09-25 12:58] LABS: Basophils % 0.5 %; Eosinophils # 0.1 10^3/uL (0.0-0.8); Eosinophils % 1.3 %; Hematocrit 43.5 % (36-47); Lymphocytes # 1.8 10^3/uL (0.8-4.8); Lymphocytes % 20.4 %; Mean Corpuscular Hemoglobin 27.7 pg (27-33); Mean Corpuscular Volume 89.3 fl (85-98); Mean Platelet Volume 10.2 fL (7.4-10.4); Monocytes # 0.7 10^3/uL (0.2-0.9); Monocytes % 8.3 %; Neutrophils # 5.98 10^3/uL (1.8-7.7); Nucleated Red Blood Cells % 0 %; Platelet Count 198 10^3/cmm (157-399); Red Blood Count 4.87 10^6/uL (3.85-5.65); White Blood Count 8.66 10^3/uL (3.29-11.43)
[2023-09-25 13:15] LABS: Alanine Aminotransferase 9 U/L (0-33); Alkaline Phosphatase 108 U/L (35-105); Anion Gap 13.1 (5-19); Aspartate Amino Transferase 16 U/L (0-32); Blood Urea Nitrogen 14 mg/dL (8-23); Calcium 9.7 mg/dL (8.5-10.5); Carbon Dioxide 32 mmol/L (22-29); Chloride 96 mmol/L (98-107); Globulin 3.1 g/dL (1.3-4.6); Glucose 170 mg/dL (65-115); Osmolality Calculated 286 mOsm/kg (285-295); Potassium 5.1 mmol/L (3.5-5.1); Sodium 136 mmol/L (136-145); Total Bilirubin 0.4 mg/dL (0.15-1.2); Total Protein 7.1 g/dL (6.6-8.7)
[2023-09-25 15:10] LABS: CA 15-3 31.3 U/mL (0-25)
== END 2023-10-19 23:59 | disposition home or self-care (01) ==
LOC: ONCMED 12:30
PROVIDERS: Internal Medicine Hematology & Oncology; PCP Nurse Practitioner; Visit Provider Specialist
DX: C50.911 Malignant neoplasm of unspecified site of right female breast (principal); Z85.3 Personal history of malignant neoplasm of breast; Z17.0 Estrogen receptor positive status [ER+]; Z79.899 Other long term (current) drug therapy; Z78.0 Asymptomatic menopausal state; I48.91 Unspecified atrial fibrillation
CPT/HCPCS: 36415; 80053; 85025; 86300; 99204; 99214

== ENCOUNTER 2023-11-12 14:24 | Outpatient (CLI) | payer MEDICARE, OTHER, SELFPAY ==
--- NOTE | 2023-11-12 14:30 | XR_ITS ---
WS: [id number] DEXA (DUAL ENERGY X-RAY ABSORPTIOMETRY) Bone mineral density was performed using a [employer] machine. HISTORY: screening COMPARISON: 04/04/2014 Lumbar spine BMD (L1-L4): 1.491 g/cm2 T score: 2.6 Z score: 3.6 Total hip BMD: Right: 1.081. T score: 0.6 Z score: 2.3 10 year probability of a major osteoporotic fracture is 16.0%. Compared to the prior study from 04/04/2014. Lumbar spine bone mineral density has increased by 8.9%. Bilateral hips bone mineral density has decreased by 0.4%. IMPRESSION: NORMAL BONE MINERAL DENSITY based upon the WHO classification for females.
== END 2023-11-12 14:25 | disposition home or self-care (01) ==
LOC: RAD 14:25
PROVIDERS: PCP Nurse Practitioner; Visit Provider Internal Medicine Hematology & Oncology
DX: Z13.820 Encounter for screening for osteoporosis (principal); Z78.0 Asymptomatic menopausal state; C50.411 Malignant neoplasm of upper-outer quadrant of right female breast; I48.91 Unspecified atrial fibrillation; E11.40 Type 2 diabetes mellitus with diabetic neuropathy, unspecified; I10 Essential (primary) hypertension; Z85.850 Personal history of malignant neoplasm of thyroid; Z90.12 Acquired absence of left breast and nipple; Z85.3 Personal history of malignant neoplasm of breast; Z17.0 Estrogen receptor positive status [ER+]; Z79.811 Long term (current) use of aromatase inhibitors; Z79.01 Long term (current) use of anticoagulants; Z79.899 Other long term (current) drug therapy; Z89.612 Acquired absence of left leg above knee
CPT/HCPCS: 77080; 99214

== ENCOUNTER → 2023-11-24 13:27 | Outpatient (BNVA) | payer MEDICARE, OTHER, SELFPAY | PROVIDERS: PCP Nurse Practitioner; Visit Provider Nurse Practitioner Family | DX: I48.91 Unspecified atrial fibrillation (principal); Z79.01 Long term (current) use of anticoagulants; I11.0 Hypertensive heart disease with heart failure; I50.33 Acute on chronic diastolic (congestive) heart failure; I25.10 Atherosclerotic heart disease of native coronary artery without angina pectoris | CPT/HCPCS: 99214 ==

== ENCOUNTER → 2024-01-07 09:37 | Outpatient (BNVA) | payer MEDICARE, OTHER, SELFPAY | PROVIDERS: PCP Nurse Practitioner; Visit Provider Nurse Practitioner Family | DX: D48.5 Neoplasm of uncertain behavior of skin (principal); L57.0 Actinic keratosis; L82.0 Inflamed seborrheic keratosis; L57.8 Other skin changes due to chronic exposure to nonionizing radiation; D22.4 Melanocytic nevi of scalp and neck; L81.4 Other melanin hyperpigmentation; Z85.828 Personal history of other malignant neoplasm of skin | CPT/HCPCS: 11102; 17000; 17110; 99213 ==

== ENCOUNTER → 2024-01-19 10:12 | Outpatient (BNVA) | payer MEDICARE, OTHER, SELFPAY | PROVIDERS: PCP Nurse Practitioner; Visit Provider Surgery | DX: L98.9 Disorder of the skin and subcutaneous tissue, unspecified (principal) | CPT/HCPCS: 99204 ==

== ENCOUNTER 2024-02-05 08:31 | Day surgery (SDC) | payer MEDICARE, OTHER, SELFPAY ==
[2024-02-05] VITALS (7 sets, daily range): BP systolic 111–145; BP diastolic 59–71; PULSE 75–80; RESP 16–18; TEMP 36.5–36.6; O2SAT 94–99; BMI 31.9
--- NOTE | 2024-02-05 08:57 | ANES.PREANE2 ---
Pre-Anesthetic Assessment Height/Weight: Height 1.68 m Operation Date: 02/05/24 10:00 Proposed Procedures p Excision Mass/Lesion/Cyst Lower Extremit/ excision of right leg malignant lesion 85633, Z85.828(Right) - Ray Rueda, DO Social No alcohol and No tobacco Exam alert, oriented x 3, clear to auscultation bilaterally and regular rate & rhythm Airway Submandibular: within normal limits Cervical ROM: within normal limits Mallampati: Class I Dentition: false Pulmonary None reported CV/HEM Atrial Fibrillation Hepatic None reported Metabolic Diabetes Mellitus Anesthetic Plan ASA status: 3 Anesthesia: MAC Risk of > 500 ml blood loss (7ml/kg in children): No Medications/Allergies Home Medications Medication Instructions Recorded Confirmed Last Taken Type vits,calcium no.78-iron 1 tab PO DAILY 11/05/19 02/04/24 02/04/24 History fumarate-folic acid 29 mg-1 mg tablet (Prenatabs FA) vitamin B complex (B 500 tab PO DAILY 11/05/19 02/04/24 02/04/24 History Complex-Vitamin B12 tablet) acetaminophen 325 mg tablet 325 mg PO QID PRN Pain 02/11/20 02/04/24 Unknown History omega-3 fatty acids 1,000 mg 1,000 mg PO DAILY 11/06/20 02/04/24 02/04/24 History capsule (Fish Oil Concentrate) polyethylene glycol 3350 17 17 gm PO DAILY PRN constipation 11/15/20 02/04/24 02/04/24 History gram/dose oral powder (Miralax) bimatoprost 0.01 % eye drops 1 drp ophthalmic (eye) .at bedtime 03/21/21 02/04/24 02/03/24 History (Lumigan) hydrocodone 10 mg-acetaminophen 1 tab PO BID PRN Pain 01/29/22 02/04/24 02/04/24 History 325 mg tablet blood sugar diagnostic (OneTouch #100 strips 08/20/22 01/23/24 Unknown Rx Ultra Test strips) triamcinolone acetonide 0.1 % 1 applic topical TID PRN itching 09/25/22 02/04/24 Unknown Rx topical ointment #80 grams Heavy Duty Wheelchair K0006 #1 ea 10/26/22 01/23/24 Unknown Rx sennosides 8.6 mg-docusate sodium 2 tab PO BID 30 days #120 tabs 10/26/22 02/04/24 02/04/24 Rx 50 mg tablet Diabetic shoes with inserts #1 ea 11/05/22 01/23/24 Unknown Rx Lactobacillus rhamnosus GG 20 20 cell (0 x 20 billion cell) PO 03/28/23 02/04/24 02/04/24 Rx billion cell capsule (Probiotic .2 times day 30 days #60 caps [employer]) spironolactone 25 mg tablet 25 mg PO DAILY #90 tabs 05/06/23 02/04/24 02/04/24 Rx lidocaine 5 % topical patch 2 patch topical DAILY #180 ea 05/28/23 02/04/24 02/04/24 Rx nebivolol 5 mg tablet (Bystolic) 2.5 mg (1/2 x 5 mg) PO .PM #90 tabs 05/28/23 02/04/24 02/04/24 Rx nystatin 100,000 unit/gram topical 1 applic topical QID PRN yeast #60 10/31/23 02/04/24 Unknown Rx powder grams [id number] repair prosthetic #1 ea 11/11/23 01/23/24 Unknown Rx [id number] repair prosthetic #1 ea 11/11/23 01/23/24 Unknown Rx allopurinol 300 mg tablet 300 mg PO DAILY #90 tabs 11/23/23 02/04/24 02/04/24 Rx apixaban 2.5 mg tablet (Eliquis) 2.5 mg PO BID #180 tabs 11/23/23 02/04/24 02/02/24 Rx atorvastatin 20 mg tablet 20 mg PO BEDTIME #90 tabs 11/23/23 02/04/24 02/03/24 Rx duloxetine 60 mg capsule,delayed 60 mg PO BID #180 caps 11/23/23 02/04/24 02/04/24 Rx release furosemide 20 mg tablet (Lasix) See Rx Instructions PO .COMPLEX 11/23/23 02/04/24 02/04/24 Rx #135 tabs gabapentin 300 mg capsule 600 mg (2 x 300 mg) PO TID 90 days 11/23/23 02/04/24 02/04/24 Rx #540 caps pantoprazole 20 mg tablet,delayed 20 mg PO BID #180 tabs 02/02/1002/04/24 02/04/24 Rx release potassium chloride 10 mEq 20 meq (2 x 10 mEq) PO BID #360 11/23/23 02/04/24 02/04/24 Rx capsule,extended release caps semaglutide 0.25 mg or 0.5 mg (2 0.5 mg (0.374 mL) SUBCUT .weekly 11/23/23 02/04/24 01/28/24 Rx mg/1.5 mL) subcutaneous pen #9 mL injector (Ozempic) sucralfate 1 gram tablet (Carafate) 1 g PO .COMPLEX #360 tabs 12/24/23 02/04/24 02/04/24 Rx ascorbic acid (vitamin C) 500 mg 500 mg PO BID 02/04/24 02/04/24 02/04/24 History tablet (Vitamin C) cholecalciferol (vitamin D3) 50 50 mcg PO DAILY 02/04/24 02/04/24 02/04/24 History mcg (2,000 unit) capsule (Vitamin D3) trazodone 50 mg tablet 50 mg PO BEDTIME 02/04/24 02/04/24 02/03/24 History zinc 15 mg tablet 15 mg PO DAILY 02/04/24 02/04/24 02/04/24 History Allergies Allergy/AdvReac Type Severity Reaction Status Date / Time chlorthalidone Allergy Unknown Verified 02/04/24 11:34 metformin AdvReac Severe ADR-Diarrhe Verified 02/04/24 11:34 a celecoxib [From Celebrex] AdvReac GI Verified 02/04/24 11:34 [facility] Anesthesia Medical History Difficulty sleeping Gastroparesis due to secondary diabetes Myofascial pain syndrome Bronchospasm History of nonmelanoma skin cancer Neuropathic pain Adverse effect of drug or medicament Vasovagal near syncope Acute respiratory failure with hypoxia Lives in assisted living facility Generalized abdominal tenderness Obstructive sleep apnea CPAP Aspiration pneumonia Arteriosclerotic coronary artery disease AF (atrial fibrillation) Vitamin D insufficiency Controlled diabetes mellitus with hyperglycemia, without long-term current use of insulin A1C 8.22 April 2020 A1C 6.20 August 2020 A1C 7.23 January 2021 Chronic GERD Essential (primary) hypertension Dyslipidemia Irritable bowel syndrome with diarrhea Thais infection Surgical History History of lumpectomy of right breast 2022 [facility] History of thyroid cancer TSH 2.56 07/2019 History of colonoscopy 2018 at [facility] History of arthroplasty of right knee History of amputation of left foot H/O left mastectomy H/O partial thyroidectomy LEFT SIDE History of total left hip arthroplasty Family History Other CAD (coronary artery disease) Cancer Chronic kidney disease (CKD) Diabetes History of thyroid cancer Social History Smoking and tobacco/nicotine status: never used tobacco/nicotine Second hand smoke exposure: No Alcohol intake: never Substance/Drug Use: never Adopted: No Caregiver/support person: Yes Lives independently: No Household members: other Housing: Assisted Living Facility Marital status: / Number of children: 2 service: No Current occupational status: retired Pets and animals: No Do you think of yourself as: Straight/Heterosexual Current gender identity: Female Data Anesthesia Cardiac Studies: Echocardiogram Ultrasound 02/01/20
[2024-02-05 08:59] LABS: Glucose Point of Care 150 mg/dL (70-110)
[2024-02-05] MEDS: sodium chloride 0.9% 1,000 ML 30 ML IV (09:07)
--- NOTE | 2024-02-05 09:09 | W.PM.OPSUD ---
Surgery/Procedure H&P Update DATE OF PROCEDURE: February 05, 2024 DATE H&P PERFORMED: 01/19/24 H&P UPDATE INFORMATION: I have reviewed H&P completed within last 30 days, I have examined patient prior to procedure and No changes to prior documentation PLANNED PROCEDURE: Operation Date: 02/05/24 10:00 Proposed Procedures p Excision Mass/Lesion/Cyst Lower Extremit/ excision of right leg malignant lesion 92604, Z85.828(Right) - Ray Rueda DO
[2024-02-05] MEDS: ceFAZolin 2,000 MG in sodium chloride 0.9% (plus) 50 ML 100 MG IV (09:18)
[2024-02-05] MEDS: lidocaine-epi 2% PF 1:200,000 20 mL SDV 40 ML XX (10:08)
--- NOTE | 2024-02-05 13:57 | ANE.PACU2 ---
Inpatient post-anesthesia follow up: Vital signs: Temperature 97.7 F Pulse Rate 75 Respiratory Rate 18 Blood Pressure 145/71 Pulse Oximetry 94 Oxygen Delivery Me thod Room Air Oxygen Flow Rate Fraction of Inspir ed Oxygen Hydration adequate: Yes Nausea and vomiting: No Mental status: Baseline Additional Comments: no apparent anesthetic complications noted
--- NOTE | 2024-02-19 05:09 | P.OP_ITS ---
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 This type of carcinoma has a high recurrence risk and requires wide local excision. The risks and benefits of the procedure, including but not limited to, bleeding, infection, scar, numbness, pain, recurrence, poor wound healing, were explained to the patient. She is understanding of the risks and wished to proceed. Procedure: Patient was wheeled operative room placed in OR table in the supine position. General endotracheal intubation was achieved by department anesthesia. A timeout was performed. All present were in agreement. The right leg was inspected prepped and draped in usual sterile fashion. Pretibial region of the right leg there was a 2.5 cm scar from previous shave biopsy of a pilomatrix carcinoma. An excision was marked to have a 1 cm margin. 2% lidocaine with epinephrine was used to anesthetize the planned incision area. An elliptical excision measuring 4.5 x 7.5 cm was made with a 10 blade scalpel. Electrocautery was used and cut mode to cut through the dermis and an cautery mode to cut through the subcutaneous fascia. Anterior was marked with a stitch and specimen was passed off to go to pathology and permanent formalin. Hemostasis was achieved electrocautery. This was a large excision and required a complex closure. Fasciocutaneous flaps were created x2 with electrocautery, superiorly and inferiorly, 4 cm in each direction, creating flaps thick enough to maintain good blood flow, approximately 1 cm in thickness. Still the skin came together under tension. 2-0 nylon sutures were used in a vertical mattress fashion to attempt to approximate the tissue. Originally the tissue did not come together all the way. Temporary sutures were placed to allow for creep of the tissue. 3-0 nylon sutures were then used to approximate the edges of the excision in a vertical mattress interrupted fashion. As I got closer to the center of the closure, the tissue had sufficient laxity for closure. The stay sutures were removed and 2-0 nylon sutures were used to approximate the tissue in the center in an interrupted vertical mattress fashion. A few simple sutures were placed with 3- 0 nylon. The edges of the skin came together well and the area was washed and dried. Sterile bandage was applied. Patient tolerated procedure well.
== END 2024-02-05 11:53 | disposition home or self-care (01) ==
PROVIDERS: Family Provider Dermatology; PCP Nurse Practitioner; Visit Provider Surgery
PROC: (CPT 14301; principal; 2024-02-05 09:50)
DX: C44.792 Other specified malignant neoplasm of skin of right lower limb, including hip (principal); I48.91 Unspecified atrial fibrillation; K21.9 Gastro-esophageal reflux disease without esophagitis; G47.33 Obstructive sleep apnea (adult) (pediatric); I10 Essential (primary) hypertension; E11.65 Type 2 diabetes mellitus with hyperglycemia; E78.5 Hyperlipidemia, unspecified
CPT/HCPCS: 14301; 36416; 82962; 88304; J0690; J2704; J3010; J3490; J7030

== ENCOUNTER 2024-02-11 11:28 | Oncology outpatient (recurring) (ONCR) | payer MEDICARE, OTHER, SELFPAY ==
[2024-02-11 12:23] LABS: Basophils % 0.5 %; Eosinophils # 0.1 10^3/uL (0.0-0.8); Eosinophils % 1.1 %; Hematocrit 40.7 % (36-47); Lymphocytes # 1.8 10^3/uL (0.8-4.8); Lymphocytes % 27.8 %; Mean Corpuscular HGB Conc 30.7 g/dL (30-55); Mean Corpuscular Volume 91.3 fl (85-98); Mean Platelet Volume 10.5 fL (7.4-10.4); Monocytes # 0.5 10^3/uL (0.2-0.9); Monocytes % 7.8 %; Neutrophils # 4.08 10^3/uL (1.8-7.7); Neutrophils % 62.5 %; Nucleated Red Blood Cells % 0 %; Platelet Count 150 10^3/cmm (157-399); Red Blood Count 4.46 10^6/uL (3.85-5.65); Red Cell Distribution Width 14.6 % (12.1-15.1); White Blood Count 6.52 10^3/uL (3.29-11.43)
[2024-02-11 12:53] LABS: Alanine Aminotransferase 10 U/L (0-33); Albumin Level 3.8 g/dL (3.5-5.2); Alkaline Phosphatase 121 U/L (35-105); Anion Gap 10.7 (5-19); Aspartate Amino Transferase 20 U/L (0-32); Blood Urea Nitrogen 12 mg/dL (8-23); CA 15-3 31.2 U/mL (0-25); Carbon Dioxide 32 mmol/L (22-29); Chloride 98 mmol/L (98-107); Globulin 2.6 g/dL (1.3-4.6); Glucose 131 mg/dL (65-115); Osmolality Calculated 284 mOsm/kg (285-295); Potassium 4.7 mmol/L (3.5-5.1); Sodium 136 mmol/L (136-145); Total Bilirubin 0.5 mg/dL (0.15-1.2); Total Protein 6.4 g/dL (6.6-8.7)
== END 2024-02-17 23:59 | disposition home or self-care (01) ==
PROVIDERS: Nurse Practitioner Family; Family Provider Dermatology; PCP Nurse Practitioner; Visit Provider Specialist
DX: C50.911 Malignant neoplasm of unspecified site of right female breast (principal); Z85.3 Personal history of malignant neoplasm of breast; Z17.0 Estrogen receptor positive status [ER+]; Z79.899 Other long term (current) drug therapy; Z78.0 Asymptomatic menopausal state; I48.91 Unspecified atrial fibrillation; Z53.9 Procedure and treatment not carried out, unspecified reason
CPT/HCPCS: 36415; 80053; 85025; 86300; 99214

== ENCOUNTER → 2024-02-20 10:28 | Outpatient (BNVA) | payer MEDICARE, OTHER, SELFPAY | PROVIDERS: Family Provider Dermatology; PCP Nurse Practitioner; Visit Provider Surgery | DX: Z85.828 Personal history of other malignant neoplasm of skin (principal) | CPT/HCPCS: 99214 ==

== ENCOUNTER 2024-02-20 23:24 | Emergency (ER) | payer MEDICARE, OTHER, SELFPAY ==
[2024-02-20 23:26] VITALS: BP 139/73; PULSE 88; RESP 16; TEMP 36.9; O2SAT 96; BMI 32.4
--- NOTE | 2024-02-20 23:59 | ED_ITS ---
HPI - Wound/Laceration General: Chief Complaint: Wound/Laceration Stated Complaint: right leg open wound Time Seen by Provider: 02/20/24 23:29 Source: patient Mode of arrival: EMS Limitations: no limitations History of Present Illness: Patient is a nice 83-year-old female who presents to the ED today for evaluation of a wound dehiscence. 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 Patient was seen by her surgeon, Dr. Rueda earlier today and had her drain and sutures removed. Patient states later that evening she was going to the restroom and believes when she pulled down her pants she accidentally rubbed the wound causing it to dehisce. Onset (ago): hour(s) Extremity Location: Right: lower leg Place: home Patient tetanus UTD: Yes Context: accidental Associated symptoms: Reports no associated symptoms Treatments prior to arrival: bandage Review of Systems Skin/Breast: Reports: other (right lower leg wound dehiscence) [facility] ED PFSH: Medical History Difficulty sleeping Gastroparesis due to secondary diabetes Myofascial pain syndrome Bronchospasm History of nonmelanoma skin cancer Neuropathic pain Adverse effect of drug or medicament Vasovagal near syncope Acute respiratory failure with hypoxia Lives in assisted living facility Generalized abdominal tenderness Obstructive sleep apnea CPAP Aspiration pneumonia Arteriosclerotic coronary artery disease AF (atrial fibrillation) Vitamin D insufficiency Controlled diabetes mellitus with hyperglycemia, without long-term current use of insulin A1C 8.22 April 2020 A1C 6.20 August 2020 A1C 7.23 January 2021 Chronic GERD Essential (primary) hypertension Dyslipidemia Irritable bowel syndrome with diarrhea Thais infection Surgical History History of lumpectomy of right breast 2022 [facility] History of thyroid cancer TSH 2.56 07/2019 History of colonoscopy 2017 at [facility] History of arthroplasty of right knee History of amputation of left foot H/O left mastectomy H/O partial thyroidectomy LEFT SIDE History of total left hip arthroplasty Family History Other CAD (coronary artery disease) Cancer Chronic kidney disease (CKD) Diabetes History of thyroid cancer Social History Smoking and tobacco/nicotine status: never used tobacco/nicotine Second hand smoke exposure: No Alcohol intake: never Substance/Drug Use: never Adopted: No Caregiver/support person: Yes Lives independently: No Household members: other Housing: Assisted Living Facility Marital status: / Number of children: 2 service: No Current occupational status: retired Pets and animals: No Do you think of yourself as: Straight/Heterosexual Current gender identity: Female Physical Exam Const: COMMON NORMALS: no acute distress, patient oriented x3, no limitations, alert and well nourished Extremity: RIGHT LOWER EXTREMITY: Yes lower leg OTHER: Large wound dehiscence right lateral aspect lower leg Neuro: COMMON NORMALS: patient oriented x3 SENSORIUM/ORIENTATION: Yes alert Procedures Laceration Laceration 1: Site: lower extremity Side (If applicable): right Size (cm): 8.0 Description: clean and other (large incisional wound) Depth: involves muscle layer Local Anesthetic: lidocaine 1% and lidocaine 2% Amount of anesthesia used (mL): 6.0 Pre-repair: wound explored and irrigated extensively Skin layer closed with: nylon Size (cm): 3-0 Number of sutures: 11 Technique: simple, interrupted Course 2 Consultations: Consultation #1: Dr. Rueda-recommends copious irrigation with chlorhexidine and repair with 3- 0 nylon sutures with large margin bites to attempt to reapproximate tissue; recommends placing her on Bactrim DS Vital Signs: Vital signs: Vital Signs Temperature 98.4 F 02/20/24 23:26 Pulse Rate 80 02/21/24 00:00 Respiratory Rate 18 02/21/24 00:00 Blood Pressure 128/66 02/21/24 00:00 Pulse Oximetry 94 02/21/24 00:00 Oxygen Delivery Me thod Room Air 02/21/24 00:00 MDM - Wound/Laceration Medical Decision Making Wound was copiously irrigated with an entire bottle of sterile water/chlorhexidine. Wound was approximated as best as possible with 3-0 nylon sutures as recommended by general surgeon. Will have her follow-up with his office next week. She will be placed on Bactrim. Strict precautions given at home to attempt prevention of another wound dehiscence. No radiology studies performed this visit Discharge Plan Discharge Patient Disposition: Home Clinical Impression: Dehiscence of wound of skin Qualifiers: Encounter type: initial encounter Qualified Code(s): T81.30XA - Disruption of wound, unspecified, initial encounter Condition: Stable Prescriptions: New Bactrim DS 800-160 mg tablet 1 tab PO BID 7 Days Qty: 14 0RF No Action Prenatabs FA 29-1 mg tablet 1 tab PO DAILY Hold Instructions: Patient No Longer Taking vitamin B complex [B Complex-Vitamin B12] Tablet 500 tab PO DAILY Hold Instructions: Patient No Longer Taking polyethylene glycol 3350 [Miralax] 17 gram/dose powder 17 gm PO DAILY PRN (Reason: constipation) omega-3 fatty acids [Fish Oil Concentrate] 1,000 mg capsule 1,000 mg PO DAILY Hold Instructions: Patient No Longer Taking Lumigan 0.01 % drops 1 drp ophthalmic (eye) .at bedtime hydrocodone-acetaminophen 10-325 mg tablet 1 tab PO BID PRN (Reason: Pain) Hold Instructions: Resume on 02/10/24. (DME) Diabetic shoes with inserts See Rx Instructions .Route .MEDSUPPLY Qty: 1 0RF Rx Instructions: As directed by HOME Probiotic Digestive Care 20 billion cell capsule 20 cell PO .2 times day 30 Days Qty: 60 0RF Bystolic 5 mg tablet 2.5 mg PO .PM Qty: 90 0RF triamcinolone acetonide 0.1 % ointment 1 applic TOPICAL TID PRN (Reason: itching) Qty: 80 1RF Rx Instructions: apply on arms, back and legs (DME) Heavy Duty Wheelchair K0006 See Rx Instructions .Route .MEDSUPPLY Qty: 1 0RF Rx Instructions: As directed sennosides-docusate sodium 8.6-50 mg tablet 2 tab PO BID 30 Days Qty: 120 2RF Hold Instructions: Order Change allopurinol 300 mg tablet 300 mg PO DAILY Qty: 90 1RF Eliquis 2.5 mg tablet 2.5 mg PO BID Qty: 180 1RF Hold Instructions: Resume on 02/08/24. atorvastatin 20 mg tablet 20 mg PO BEDTIME Qty: 90 1RF duloxetine 60 mg capsule,delayed release(DR/EC) 60 mg PO BID Qty: 180 1RF furosemide [Lasix] 20 mg tablet See Rx Instructions PO .COMPLEX Qty: 135 1RF Hold Instructions: Patient No Longer Taking Rx Instructions: alternate 40mg with 20mg daily PO; gabapentin 300 mg capsule 600 mg PO TID 90 Days Qty: 540 1RF pantoprazole 20 mg tablet,delayed release (DR/EC) 20 mg PO BID Qty: 180 1RF potassium chloride 10 mEq capsule, extended release 20 meq PO BID Qty: 360 1RF Ozempic 0.25 mg or 0.5 mg(2 mg/1.5 mL) pen injector 0.5 mg SUBCUT .weekly Qty: 9 2RF sucralfate [Carafate] 1 gram tablet 1 g PO .COMPLEX Qty: 360 1RF Rx Instructions: 1 g PO before meals and bedtime; (DME) OneTouch Ultra Test Strip See Rx Instructions .ROUTE .COMPLEX Qty: 100 5RF Dose Instruction: USE ONE STRIP DAILY Rx Instructions: USE ONE STRIP DAILY spironolactone 25 mg tablet 25 mg PO DAILY Qty: 90 3RF nystatin 100,000 unit/gram powder 1 applic TOPICAL QID PRN (Reason: yeast) Qty: 60 2RF (DME) l7520 repair prosthetic See Rx Instructions .Route .MEDSUPPLY Qty: 1 0RF Rx Instructions: As directed repair and supply's of prosthetic of leg npi [id number] 99 months (DME) l7520 repair prosthetic See Rx Instructions .Route .MEDSUPPLY Qty: 1 0RF Rx Instructions: As directed repair and supply's of prosthetic of leg npi [id number] 99 months lidocaine 5 % adhesive patch,medicated 2 patch topical DAILY Qty: 180 1RF Rx Instructions: leave on most painful area for up to 12 hrs anastrozole 1 mg tablet See Rx Instructions .ROUTE .COMPLEX Qty: 30 2RF Dose Instruction: TAKE ONE TABLET BY MOUTH DAILY Rx Instructions: TAKE ONE TABLET BY MOUTH DAILY acetaminophen 325 mg Tablet 325 mg PO QID PRN (Reason: Pain) Hold Instructions: Resume on 02/10/24. trazodone 50 mg tablet 50 mg PO BEDTIME Vitamin C 500 mg Tablet 500 mg PO BID Vitamin D3 50 mcg (2,000 unit) Capsule 50 mcg PO DAILY zinc 15 mg Tablet 15 mg PO DAILY hydrocodone-acetaminophen 10-325 mg tablet 1 tab PO Q4H PRN (Reason: pain) Qty: 30 0RF Discharge Orders: Discharge ED (Routine); Ordered 02/21/24 Ordered By: Rita Mccarthy Referrals: Rose Lester, [employer] [Primary Care Provider] - Patient Instructions: Wound Dehiscence (ED) Activity Restrictions/Additional Instructions: Keep wound clean with warm soap and water and monitor for signs of infection such as redness, swelling, purulent drainage, fevers. Please seek medical reevaluation if these occur. You need to be extremely careful over the next week in regards to your wound/sutures to another wound dehiscence. We will have case management set you up with a follow-up appointment with Dr. Rueda to again reassess your wound and remove sutures when appropriate. I have sent an antibiotic to [facility] (pharmacy on file). You need to pick this up tomorrow and start immediately. Coding Level of Care Code ED Machine Shorthand Reporter for Tracy Jerry
[2024-02-21] VITALS: BP 128/66; PULSE 80; RESP 18; O2SAT 94
[2024-02-21 01:27] VITALS: BP 125/76; PULSE 78; RESP 20; O2SAT 96
--- NOTE | 2024-02-23 07:37 | DCPLANNER ---
Message sent to General Surgery for Follow up Wound -Dehiscence
== END 2024-02-21 01:30 | disposition home or self-care (01) ==
PROVIDERS: Emergency Provider Physician Assistant; PCP Nurse Practitioner
DX: T81.31XA Disruption of external operation (surgical) wound, not elsewhere classified, initial encounter (principal); Z79.01 Long term (current) use of anticoagulants; Z79.85 Long-term (current) use of injectable non-insulin antidiabetic drugs; Z85.850 Personal history of malignant neoplasm of thyroid; I25.10 Atherosclerotic heart disease of native coronary artery without angina pectoris; E11.9 Type 2 diabetes mellitus without complications; I10 Essential (primary) hypertension; E78.5 Hyperlipidemia, unspecified
CPT/HCPCS: 12004; 99283

== ENCOUNTER → 2024-02-26 10:21 | Outpatient (BNVA) | payer MEDICARE, OTHER, SELFPAY | PROVIDERS: PCP Nurse Practitioner; Visit Provider Surgery | DX: Z85.828 Personal history of other malignant neoplasm of skin (principal) | CPT/HCPCS: 99024 ==

== ENCOUNTER → 2024-03-05 09:00 | Outpatient (BNVA) | payer MEDICARE, OTHER, SELFPAY | PROVIDERS: PCP Nurse Practitioner; Visit Provider Thoracic Surgery (Cardiothoracic Vascular Surgery) | DX: T81.31XD Disruption of external operation (surgical) wound, not elsewhere classified, subsequent encounter (principal); Y83.8 Other surgical procedures as the cause of abnormal reaction of the patient, or of later complication, without mention of misadventure at the time of the procedure | CPT/HCPCS: 11042; 99213 ==

== ENCOUNTER → 2024-03-12 10:41 | Outpatient (BNVA) | payer MEDICARE, OTHER, SELFPAY | PROVIDERS: PCP Nurse Practitioner; Visit Provider Thoracic Surgery (Cardiothoracic Vascular Surgery) | DX: I96 Gangrene, not elsewhere classified (principal); T81.31XD Disruption of external operation (surgical) wound, not elsewhere classified, subsequent encounter; Y83.8 Other surgical procedures as the cause of abnormal reaction of the patient, or of later complication, without mention of misadventure at the time of the procedure | CPT/HCPCS: 11042 ==

== ENCOUNTER → 2024-03-19 11:06 | Outpatient (BNVA) | payer MEDICARE, OTHER, SELFPAY | PROVIDERS: PCP Nurse Practitioner; Visit Provider Thoracic Surgery (Cardiothoracic Vascular Surgery) | DX: I96 Gangrene, not elsewhere classified (principal); T81.31XD Disruption of external operation (surgical) wound, not elsewhere classified, subsequent encounter; Y83.8 Other surgical procedures as the cause of abnormal reaction of the patient, or of later complication, without mention of misadventure at the time of the procedure | CPT/HCPCS: 11042; A6237; A6250 ==

== ENCOUNTER → 2024-03-23 09:18 | Outpatient (BNVA) | payer MEDICARE, OTHER, SELFPAY | PROVIDERS: PCP Nurse Practitioner; Visit Provider Thoracic Surgery (Cardiothoracic Vascular Surgery) | DX: T81.31XD Disruption of external operation (surgical) wound, not elsewhere classified, subsequent encounter (principal); Y83.8 Other surgical procedures as the cause of abnormal reaction of the patient, or of later complication, without mention of misadventure at the time of the procedure | CPT/HCPCS: 97597; 97605 ==

== ENCOUNTER → 2024-03-26 09:16 | Outpatient (BNVA) | payer MEDICARE, OTHER, SELFPAY | PROVIDERS: PCP Nurse Practitioner; Visit Provider Thoracic Surgery (Cardiothoracic Vascular Surgery) | DX: T81.31XD Disruption of external operation (surgical) wound, not elsewhere classified, subsequent encounter (principal); Y83.8 Other surgical procedures as the cause of abnormal reaction of the patient, or of later complication, without mention of misadventure at the time of the procedure | CPT/HCPCS: A6237; A6250 ==

== ENCOUNTER → 2024-04-02 10:23 | Outpatient (BNVA) | payer MEDICARE, OTHER, SELFPAY | PROVIDERS: PCP Nurse Practitioner; Visit Provider Thoracic Surgery (Cardiothoracic Vascular Surgery) | DX: T81.31XD Disruption of external operation (surgical) wound, not elsewhere classified, subsequent encounter (principal); Y83.8 Other surgical procedures as the cause of abnormal reaction of the patient, or of later complication, without mention of misadventure at the time of the procedure | CPT/HCPCS: 97597; A6237; A6250 ==

== ENCOUNTER 2024-04-06 16:30 | Oncology outpatient (recurring) (ONCR) | payer MEDICARE, OTHER, SELFPAY ==
[2024-04-06] MEDS: iohexol 350 mg/mL 500 mL Btl (per mL) PO (16:08)
[2024-04-06] MEDS: iohexol 350 mg/mL 500 mL Btl (per mL) IV (16:29)
--- NOTE | 2024-04-06 16:30 | CTR_ITS ---
PROCEDURE INFORMATION: Exam: CT Abdomen And Pelvis With Contrast Exam date and time: 04/06/2024 4:23 PM Age: 83 years old Clinical indication: Patient HX: HX of breast and skin cancer, . change in bowel habit, diarrhea and blood in stool x 2 weeks; Additional info: R19.4 - change in bowel habit TECHNIQUE: Imaging protocol: Computed tomography of the abdomen and pelvis with contrast. Radiation optimization: All CT scans at this facility use at least one of these dose optimization techniques: automated exposure control; mA and/or kV adjustment per patient size (includes targeted exams where dose is matched to clinical indication); or iterative reconstruction. Contrast material: OMNI 350; Contrast volume: 100 ml; Contrast route: INTRAVENOUS (IV); COMPARISON: PT PET skull to thigh INIT [id number] 09/23/2023 1:08 PM RADIATION DOSE METRICS: Total DLP (mGy-cm): 750.16 FINDINGS: Lungs: Bibasilar atelectasis. Liver: Normal appearance of the liver. Gallbladder and bile ducts: Cholelithiasis. Pancreas: No ductal dilation. Spleen: Unremarkable. Adrenal glands: Unremarkable. Kidneys and ureters: Scattered low density foci in the kidneys, too small to accurately characterize but statistically favored benign. No hydronephrosis. Stomach and bowel: No obstruction. No mucosal thickening. Appendix: No evidence of appendicitis. Intraperitoneal space: No free air. No significant fluid collection. Vasculature: Severe atherosclerotic calcifications. Lymph nodes: No enlarged lymph nodes. Urinary bladder: Unremarkable as visualized. Reproductive: Unremarkable as visualized. Bones/joints: Status post left hip arthroplasty and ORIF. No acute fracture. Moderate degenerative changes of the spine. Soft tissues: Unremarkable. CT/CT abdomen pelvis w con* [id number] IMPRESSION: No acute findings.
== END 2024-04-18 23:59 | disposition home or self-care (01) ==
LOC: RAD 04-08 08:47 → ONCMED 05-04 07:31
PROVIDERS: PCP Nurse Practitioner; Visit Provider Nurse Practitioner
DX: C50.911 Malignant neoplasm of unspecified site of right female breast (principal); Z85.3 Personal history of malignant neoplasm of breast; Z17.0 Estrogen receptor positive status [ER+]; Z79.899 Other long term (current) drug therapy; Z78.0 Asymptomatic menopausal state; I48.91 Unspecified atrial fibrillation; Z53.9 Procedure and treatment not carried out, unspecified reason; R19.4 Change in bowel habit
CPT/HCPCS: 74177; Q9967

== ENCOUNTER → 2024-04-09 10:09 | Outpatient (BNVA) | payer MEDICARE, OTHER, SELFPAY | PROVIDERS: PCP Nurse Practitioner; Visit Provider Thoracic Surgery (Cardiothoracic Vascular Surgery) | DX: T81.31XD Disruption of external operation (surgical) wound, not elsewhere classified, subsequent encounter (principal); Y83.8 Other surgical procedures as the cause of abnormal reaction of the patient, or of later complication, without mention of misadventure at the time of the procedure | CPT/HCPCS: 97597; 97605; A6237; A6250 ==

== ENCOUNTER → 2024-04-16 10:27 | Outpatient (BNVA) | payer MEDICARE, OTHER, SELFPAY | PROVIDERS: PCP Nurse Practitioner; Visit Provider Thoracic Surgery (Cardiothoracic Vascular Surgery) | DX: T81.31XD Disruption of external operation (surgical) wound, not elsewhere classified, subsequent encounter (principal); Y83.8 Other surgical procedures as the cause of abnormal reaction of the patient, or of later complication, without mention of misadventure at the time of the procedure | CPT/HCPCS: 97597; A6021 ==

== ENCOUNTER → 2024-04-23 11:00 | Outpatient (BNVA) | payer MEDICARE, OTHER, SELFPAY | PROVIDERS: PCP Nurse Practitioner; Visit Provider Nurse Practitioner Family | DX: T81.31XD Disruption of external operation (surgical) wound, not elsewhere classified, subsequent encounter (principal); Y83.8 Other surgical procedures as the cause of abnormal reaction of the patient, or of later complication, without mention of misadventure at the time of the procedure | CPT/HCPCS: 97597; A6021 ==

== ENCOUNTER → 2024-05-04 09:13 | Outpatient (BNVA) | payer MEDICARE, OTHER, SELFPAY | PROVIDERS: PCP Nurse Practitioner; Visit Provider Nurse Practitioner | DX: E11.65 Type 2 diabetes mellitus with hyperglycemia (principal) | CPT/HCPCS: 80053; 80061; 82607; 83036; 84439; 84443; 84481 ==

== ENCOUNTER → 2024-05-07 11:31 | Outpatient (BNVA) | payer MEDICARE, OTHER, SELFPAY | PROVIDERS: PCP Nurse Practitioner; Visit Provider Thoracic Surgery (Cardiothoracic Vascular Surgery) | DX: Z09 Encounter for follow-up examination after completed treatment for conditions other than malignant neoplasm (principal); Z87.2 Personal history of diseases of the skin and subcutaneous tissue | CPT/HCPCS: 99212 ==

== ENCOUNTER 2024-05-28 11:40 | Outpatient (CLI) | payer MEDICARE, OTHER, SELFPAY ==
--- NOTE | 2024-05-28 11:54 | XRR_ITS ---
PROCEDURE INFORMATION: Exam: XR Lumbosacral Spine Exam date and time: 05/28/2024 11:59 AM Age: 84 years old Clinical indication: Low back pain; Prior surgery; Surgery date: 6+ months; Surgery type: Left hip replaced, left femur orif; Patient HX: HX of breast cancer; Additional info: M54.50 - low back pain, unspecified TECHNIQUE: Imaging protocol: Radiologic exam of the lumbosacral spine. Views: 2 or 3 views. COMPARISON: CR XR hip RT 2-3V wo/w pel* [id number] 05/28/2024 11:59 AM FINDINGS: Bones/joints: Paia leftward mid lumbar curvature. Previous left hip replacement. Diffuse degenerative disc disease and facet arthropathy. Mild retrolisthesis L3-L4 and L4-L5. No acute fracture. Soft tissues: Unremarkable. XR/XR lumbar spine 2-3V* [id number] IMPRESSION: Diffuse degenerative changes but no acute bony abnormality seen.
--- NOTE | 2024-05-28 11:54 | XRR_ITS ---
PROCEDURE INFORMATION: Exam: XR Right Hip Exam date and time: 05/28/2024 11:59 AM Age: 84 years old Clinical indication: Hip pain; Right hip; Additional info: M54.50 - low back pain, unspecified TECHNIQUE: Imaging protocol: Radiologic exam of the right hip. Views: 1 view hip with pelvis when performed. COMPARISON: CT abdomen pelvis w con* [id number] 04/06/2024 4:23 PM FINDINGS: Bones/joints: Previous left hip replacement. Mild degenerative changes of the right hip. Degenerative changes visualized lower lumbar spine. No fracture. Soft tissues: Unremarkable. XR/XR hip RT 2-3V wo/w pel* [id number] IMPRESSION: No acute findings.
== END 2024-05-28 11:41 | disposition home or self-care (01) ==
LOC: RAD 11:46
PROVIDERS: PCP Nurse Practitioner; Visit Provider Nurse Practitioner
DX: M54.50 Low back pain, unspecified (principal); Z96.642 Presence of left artificial hip joint; M51.36 Other intervertebral disc degeneration, lumbar region; M47.816 Spondylosis without myelopathy or radiculopathy, lumbar region; M43.16 Spondylolisthesis, lumbar region
CPT/HCPCS: 72100; 73502

== ENCOUNTER 2024-06-02 12:56 | Oncology outpatient (recurring) (ONCR) | payer MEDICARE, OTHER, SELFPAY ==
[2024-06-02 13:30] LABS: Basophils % 0.6 %; Eosinophils # 0.1 10^3/uL (0.0-0.8); Eosinophils % 1.1 %; Hematocrit 40.9 % (36-47); Lymphocytes # 1.6 10^3/uL (0.8-4.8); Lymphocytes % 24.6 %; Mean Corpuscular HGB Conc 30.8 g/dL (30-55); Mean Corpuscular Hemoglobin 28.2 pg (27-33); Mean Corpuscular Volume 91.5 fl (85-98); Mean Platelet Volume 10.8 fL (7.4-10.4); Monocytes # 0.5 10^3/uL (0.2-0.9); Monocytes % 7.6 %; Neutrophils # 4.34 10^3/uL (1.8-7.7); Neutrophils % 65.8 %; Nucleated Red Blood Cells % 0 %; Platelet Count 149 10^3/cmm (157-399); Red Blood Count 4.47 10^6/uL (3.85-5.65); Red Cell Distribution Width 14.3 % (12.1-15.1); White Blood Count 6.59 10^3/uL (3.29-11.43)
[2024-06-02 13:53] LABS: Alanine Aminotransferase 10 U/L (0-33); Albumin Level 3.8 g/dL (3.5-5.2); Alkaline Phosphatase 120 U/L (35-105); Aspartate Amino Transferase 16 U/L (0-32); Blood Urea Nitrogen 13 mg/dL (8-23); CA 15-3 28.3 U/mL (0-25); Calcium 9.2 mg/dL (8.5-10.5); Carbon Dioxide 31 mmol/L (22-29); Chloride 99 mmol/L (98-107); Globulin 2.6 g/dL (1.3-4.6); Glucose 142 mg/dL (65-115); Osmolality Calculated 289 mOsm/kg (285-295); Sodium 138 mmol/L (136-145); Total Bilirubin 0.6 mg/dL (0.15-1.2); Total Protein 6.4 g/dL (6.6-8.7)
[2024-06-02 13:54] LABS: Anion Gap 12.4 (5-19); Potassium 4.4 mmol/L (3.5-5.1)
== END 2024-06-19 23:59 | disposition home or self-care (01) ==
PROVIDERS: Nurse Practitioner Family; PCP Nurse Practitioner; Visit Provider Nurse Practitioner
DX: C50.911 Malignant neoplasm of unspecified site of right female breast (principal); Z85.3 Personal history of malignant neoplasm of breast; Z79.899 Other long term (current) drug therapy; Z78.0 Asymptomatic menopausal state
CPT/HCPCS: 36415; 80053; 85025; 86300; 99214

== ENCOUNTER → 2024-06-23 10:47 | Outpatient (BNVA) | payer MEDICARE, OTHER, SELFPAY | PROVIDERS: PCP Nurse Practitioner; Visit Provider Nurse Practitioner | DX: N39.0 Urinary tract infection, site not specified (principal); E11.65 Type 2 diabetes mellitus with hyperglycemia | CPT/HCPCS: 81000; 87086 ==

== ENCOUNTER 2024-06-24 13:37 | Inpatient (IN) | payer MEDICARE, OTHER, SELFPAY ==
[2024-06-24] VITALS (8 sets, daily range): BP systolic 88–126; BP diastolic 53–77; PULSE 88–125; RESP 16–30; TEMP 37.1–37.2; O2SAT 90–96; BMI 37.0; BMI 34.7
--- NOTE | 2024-06-24 13:40 | ECG_ITS ---
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 Measurements Intervals [place] Rate: 126 P: 0 IA: 0 QRS: -32 QRSD: 89 T: 70 QT: 286 QTc: 415 Interpretive Statements ATRIAL FIBRILLATION WITH RAPID VENTRICULAR RESPONSE LOW QRS VOLTAGE IN PRECORDIAL LEADS [QRS DEFLECTION < 1.0 mV IN CHEST LEADS] INFERIOR MYOCARDIAL INFARCTION , PROBABLY OLD [40+ ms Q WAVE AND/OR ST/T ABNORMALITY IN II/aVF] ANTEROSEPTAL MYOCARDIAL INFARCTION , OF INDETERMINATE AGE [40+ ms Q WAVE IN V1-V4] Compared to ECG 08/05/2021 23:06:21 Sinus rhythm no longer present Left-axis deviation no longer present Myocardial infarct finding still present Electronically Signed On 06-24-2024 14:41:50 CDT by Andrew Raman M.D. [id number]
--- NOTE | 2024-06-24 13:40 | XR_ITS ---
WS: [id number] Examination: XR chest 1V portable [id number] Reason for Exam: dyspnea/cough Date: 06/24/2024 Comparison: 08/13/2021 Findings: The heart is enlarged. The mediastinum not widened. There is no pulmonary edema. There is no pleural effusion. No dense consolidation is identified Previous surgical changes of the left mastectomy are noted. Surgical clips are also noted in the left axilla and over the right breast Severe chronic changes of the shoulders are noted. XR/XR chest 1V portable [id number] Impression: There is cardiomegaly without acute lung process.
--- NOTE | 2024-06-24 13:41 | ED_ITS ---
HPI - Weakness 2 General: Chief complaint: Weakness Stated complaint: weakness Time Seen by Provider: 06/24/24 13:40 History of Present Illness: 84-year-old female presents emergency ro om from the group home increasingly weak for the last couple of days. She has not been getting up and getting around normally she does do some of her own transfers and ambulation. Patient has some mild right lower right leg edema in addition to generalized weakness she states for the last 2 days she has had a rapid heart rate. She has a known history of atrial fibrillation is on Eliquis. She is on Bystolic as well as the anticoagulant. No other negative ionotropic. No chest pain at this time. Associated symptoms: Denies chest pain, chills, dysuria or fever(s) Review of Systems 2 Const: Reports: fatigue and malaise; Denies: fever(s) or chills Card: Reports: palpitations and dyspnea on exertion; Denies: chest pain Resp: Denies: dyspnea GI: Denies: abdominal pain : Denies: dysuria, urinary frequency or urinary urgency Musc: Denies: neck pain or back pain Skin/Breast: Denies: rash PFSH ED 2 PFSH: Medical History Difficulty sleeping Gastroparesis due to secondary diabetes Myofascial pain syndrome Bronchospasm History of nonmelanoma skin cancer Neuropathic pain Adverse effect of drug or medicament Vasovagal near syncope Acute respiratory failure with hypoxia Lives in assisted living facility Generalized abdominal tenderness Obstructive sleep apnea CPAP Aspiration pneumonia Arteriosclerotic coronary artery disease AF (atrial fibrillation) Vitamin D insufficiency Controlled diabetes mellitus with hyperglycemia, without long-term current use of insulin A1C 8.22 April 2020 A1C 6.20 August 2020 A1C 7.23 January 2021 Chronic GERD Essential (primary) hypertension Dyslipidemia Irritable bowel syndrome with diarrhea Thais infection Surgical History History of lumpectomy of right breast 2022 [facility] History of thyroid cancer TSH 2.56 07/2019 History of colonoscopy 2018 at [facility] History of arthroplasty of right knee History of amputation of left foot H/O left mastectomy H/O partial thyroidectomy LEFT SIDE History of total left hip arthroplasty Family History Other CAD (coronary artery disease) Cancer Chronic kidney disease (CKD) Diabetes History of thyroid cancer Social History Smoking and tobacco/nicotine status: never used tobacco/nicotine Second hand smoke exposure: No Alcohol intake: never Substance/Drug Use: never Adopted: No Caregiver/support person: Yes Lives independently: No Household members: other Housing: Assisted Living Facility Marital status: / Number of children: 2 service: No Current occupational status: retired Pets and animals: No Do you think of yourself as: Straight/Heterosexual Current gender identity: Female Physical Exam 2 Const: GENERAL APPEARANCE: cooperative ORIENTATION/CONSCIOUSNESS: Yes awake, Yes oriented to person, Yes oriented to place and Yes oriented to time HENMT: COMMON NORMALS: normocephalic, atraumatic and hearing grossly normal bilaterally HEAD & SCALP: normocephalic and atraumatic Resp: COMMON NORMALS: normal respiratory effort, No retractions, No use of accessory muscles and clear to auscultation bilaterally AUSCULTATION: clear to auscultation bilaterally Cardio: COMMON NORMALS: No murmurs present (Cardio) RATE: tachycardic R HYTHM: abnormal rhythm irregularly irregular GI: COMMON NORMALS: Soft to palpation and No hepatosplenomegaly present A USCULTATION: Yes normoactive bowel sounds PALPATION: Yes Soft to palpation, No Tenderness to palpation present (GI), No Guarding due to palpation present (GI) and Yes No hepatosplenomegaly present Extremity: COMMON NORMALS: normal to inspection, capillary refill normal and no calf tenderness OTHER: 1+ edema lower extremities Neuro: SENSORIUM/ORIENTATION: Yes oriented to person, Yes oriented to place and Yes oriented to time Skin: COMMON NORMALS: no rashes or lesions noted GENERAL SKIN EXAM: no rashes or lesions noted Course 2 Vital Signs: Vital signs: Vital Signs Temperature 99.0 F 06/24/24 13:38 Pulse Rate 107 H 06/24/24 16:11 Respiratory Rate 16 06/24/24 15:51 Blood Pressure 104/53 06/24/24 16:11 Pulse Oximetry 91 06/24/24 16:11 Oxygen Delivery Me thod Nasal Cannula 06/24/24 15:51 Oxygen Flow Rate 3 06/24/24 15:51 MDM - Weakness Medical Decision Making A-fib with rapid ventricular response new onset. Discussed with hospitalist who started on Cardizem rate is improved. Will admit due to titrated up to 7.5. Patient is currently on Eliquis has been on Bystolic in the past may need medication adjustment Dr. Peterson will see the patient. Additionally she has mild acute kidney injury and some hyperkalemia she is given a small dose of IV fluids at 500 mL and a single dose of calcium chloride Dr. Tena will manage further. Lab Data 06/24/24 13:55 06/24/24 13:55 Radiology Impressions Chest X-Ray 06/24/24 13:40 Impression: There is cardiomegaly without acute lung process. Laboratory Results WBC 10.27 10^3/uL (3.29-11.43) 06/24/24 13:55 RBC 4.39 10^6/uL (3.85-5.65) 06/24/24 13:55 Hgb 12.20 g/dL (11.27-16.99) 06/24/24 13:55 Hct 39.3 % (36-47) 06/24/24 13:55 MCV 89.5 fl (85-98) 06/24/24 13:55 MCH 27.8 pg (27-33) 06/24/24 13:55 MCHC 31.0 g/dL (30-55) 06/24/24 13:55 RDW 14.5 % (12.1-15.1) 06/24/24 13:55 Plt Count 122 10^3/cmm (157-399) L 06/24/24 13:55 MPV 11.0 fL (7.4-10.4) H 06/24/24 13:55 Neut % (Auto) 83.3 % 06/24/24 13:55 Lymph % (Auto) 8.5 % 06/24/24 13:55 [place] % (Auto) 7.3 % 06/24/24 13:55 Eos % (Auto) 0.1 % 06/24/24 13:55 Baso % (Auto) 0.4 % 06/24/24 13:55 Neut # (Auto) 8.56 10^3/uL (1.8-7.7) H 06/24/24 13:55 Lymph # (Auto) 0.9 10^3/uL (0.8-4.8) 06/24/24 13:55 [place] # (Auto) 0.8 10^3/uL (0.2-0.9) 06/24/24 13:55 Eos # (Auto) 0.0 10^3/uL (0.0-0.8) 06/24/24 13:55 Baso # (Auto) 0.0 10^3/uL (0.0-0.1) 06/24/24 13:55 Nucleated RBC % (auto) 0 % 06/24/24 13:55 Nucleated RBCs # 0.0 /100WBC 06/24/24 13:55 Sodium 131 mmol/L (136-145) L 06/24/24 13:55 Potassium 5.6 mmol/L (3.5-5.1) H 06/24/24 13:55 Chloride 93 mmol/L (98-107) L 06/24/24 13:55 Carbon Dioxide 27 mmol/L (22-29) 06/24/24 13:55 Anion Gap 16.6 (5-19) 06/24/24 13:55 BUN 37 mg/dL (8-23) H 06/24/24 13:55 Creatinine 1.5 mg/dL (0.5-0.9) H 06/24/24 13:55 GFR Calculation Not Reportable 06/24/24 13:55 Glucose 185 mg/dL (65-115) H 06/24/24 13:55 POC Glucose 176 mg/dL (70-110) H 06/24/24 16:46 Calculated Osmolality 285 mOsm/kg (285-295) 06/24/24 13:55 Calcium 9.2 mg/dL (8.5-10.5) 06/24/24 13:55 Magnesium 1.6 mg/dL (1.7-2.3) L 06/24/24 13:55 Total Bilirubin 0.7 mg/dL (0.15-1.2) 06/24/24 13:55 AST 15 U/L (0-32) 06/24/24 13:55 ALT 9 U/L (0-33) 06/24/24 13:55 Alkaline Phosphatase 113 U/L (35-105) H 06/24/24 13:55 Troponin T Baseline 92 ng/L (0-10) H 06/24/24 13:55 Troponin T 120 Minute 78.66 ng/L (0-10) H 06/24/24 16:11 Delta Troponin T -13.34 ABS# (0-10) L 06/24/24 16:11 Total Protein 6.2 g/dL (6.6-8.7) L 06/24/24 13:55 Albumin 3.1 g/dL (3.5-5.2) L 06/24/24 13:55 Globulin 3.1 g/dL (1.3-4.6) 06/24/24 13:55 TSH 1.43 uIU/mL (0.27-4.20) 06/24/24 13:55 All radiology interpretation(s) finalized by discharge Discharge Plan Discharge Patient Disposition: Admitted As Inpatient Admit Provider: Billy Peterson Clinical Impression: Atrial fibrillation with RVR, Acute kidney injury, Hyperkalemia Condition: Stable Coding Level of Care Code ED Burr Bench Operator for Chg Fwd Related Data Home Medications Medication Instructions Recorded Confirmed vits,calcium no.78-iron 1 tab PO DAILY 11/05/19 06/02/24 fumarate-folic acid 29 mg-1 mg tablet (Prenatabs FA) vitamin B complex (B 500 tab PO DAILY 11/05/19 06/02/24 Complex-Vitamin B12 tablet) acetaminophen 325 mg tablet 325 mg PO QID PRN Pain 02/11/20 06/02/24 omega-3 fatty acids 1,000 mg 1,000 mg PO DAILY 11/06/20 06/02/24 capsule (Fish Oil Concentrate) polyethylene glycol 3350 17 17 gm PO DAILY PRN constipation 11/15/20 06/02/24 gram/dose oral powder (Miralax) bimatoprost 0.01 % eye drops 1 drp ophthalmic (eye) .at bedtime 03/21/21 06/02/24 (Lumigan) hydrocodone 10 mg-acetaminophen 1 tab PO BID PRN Pain 01/29/22 06/02/24 325 mg tablet ascorbic acid (vitamin C) 500 mg 500 mg PO BID 02/04/24 06/02/24 tablet (Vitamin C) cholecalciferol (vitamin D3) 50 50 mcg PO DAILY 04/17/24 08/14/24 mcg (2,000 unit) capsule (Vitamin D3) zinc 15 mg tablet 15 mg PO DAILY 02/04/24 06/02/24 carboxymethylcellulose sodium 0.5 1 drp ophthalmic (eye) DAILY PRN 06/02/24 06/02/24 % eye drops in a dropperette cyanocobalamin (vitamin B-12) 500 500 mcg PO DAILY 06/02/24 06/02/24 mcg tablet dextromethorphan-guaifenesin 10 10 ml PO Q4H PRN 06/02/24 06/02/24 mg-100 mg/5 mL oral liquid (Diabetic Tussin DM) furosemide 40 mg tablet 40 mg PO DAILY 06/02/24 06/02/24 simethicone 80 mg chewable tablet 80 mg PO Q6H PRN 06/02/24 06/02/24 (Gas Relief (simethicone)) Previous Rx's Medication Instructions Recorded blood sugar diagnostic (OneTouch #100 strips 08/20/22 Ultra Test strips) triamcinolone acetonide 0.1 % 1 applic topical TID PRN itching 09/25/22 topical ointment #80 grams Heavy Duty Wheelchair K0006 #1 ea 10/26/22 sennosides 8.6 mg-docusate sodium 2 tab PO BID 30 days #120 tabs 10/26/22 50 mg tablet Diabetic shoes with inserts #1 ea 11/05/22 Lactobacillus rhamnosus GG 20 20 cell (0 x 20 billion cell) PO 03/28/23 billion cell capsule (Probiotic .2 times day 30 days #60 caps Digestive Care) nystatin 100,000 unit/gram topical 1 applic topical QID PRN yeast #60 10/31/23 powder grams [id number] repair prosthetic #1 ea 11/11/23 [id number] repair prosthetic #1 ea 11/11/23 allopurinol 300 mg tablet 300 mg PO DAILY #90 tabs 04/30/24 atorvastatin 20 mg tablet 20 mg PO BEDTIME #90 tabs 04/30/24 duloxetine 60 mg capsule,delayed 60 mg PO BID #180 caps 04/30/24 release furosemide 20 mg tablet (Lasix) See Rx Instructions PO .COMPLEX 04/30/24 #135 tabs gabapentin 300 mg capsule 600 mg (2 x 300 mg) PO TID 90 days 04/30/24 #540 caps lidocaine 5 % topical patch 2 patch topical DAILY #180 ea 04/30/24 nebivolol 5 mg tablet (Bystolic) 2.5 mg (1/2 x 5 mg) PO .PM #90 tabs 04/30/24 pantoprazole 20 mg tablet,delayed 20 mg PO BID #180 tabs 04/30/24 release potassium chloride 10 mEq 20 meq (2 x 10 mEq) PO BID #360 04/30/24 capsule,extended release caps semaglutide 0.25 mg or 0.5 mg (2 0.5 mg (0.374 mL) SUBCUT .weekly 04/30/24 mg/1.5 mL) subcutaneous pen #9 mL injector (Ozempic) sucralfate 1 gram tablet (Carafate) 1 g PO .COMPLEX #360 tabs 04/30/24 trazodone 50 mg tablet 50 mg PO BEDTIME #90 tabs 04/30/24 apixaban 2.5 mg tablet (Eliquis) 2.5 mg PO BID #180 tabs 05/01/24 pregabalin 75 mg capsule (Lyrica) 75 mg PO DAILY #90 caps 05/12/24 spironolactone 25 mg tablet 25 mg PO DAILY #90 tabs 05/18/24 anastrozole 1 mg tablet See Rx Instructions .Route 06/02/24 .COMPLEX #30 tabs Allergies Allergy/AdvReac Type Severity Reaction Status Date / Time chlorthalidone Allergy Unknown Verified 06/02/24 15:55 metformin AdvReac Severe ADR-Diarrhe Verified 06/02/24 15:55 a celecoxib [From Celebrex] AdvReac GI Verified 06/02/24 15:55
[2024-06-24] MEDS: dilTIAZem 5 mg/mL SDV 5 mL 20 MG IVP (14:06)
[2024-06-24 14:08] LABS: Basophils % 0.4 %; Eosinophils % 0.1 %; Hematocrit 39.3 % (36-47); Lymphocytes # 0.9 10^3/uL (0.8-4.8); Lymphocytes % 8.5 %; Mean Corpuscular Hemoglobin 27.8 pg (27-33); Mean Corpuscular Volume 89.5 fl (85-98); Monocytes # 0.8 10^3/uL (0.2-0.9); Monocytes % 7.3 %; Neutrophils # 8.56 10^3/uL (1.8-7.7); Neutrophils % 83.3 %; Nucleated Red Blood Cells % 0 %; Platelet Count 122 10^3/cmm (157-399); Red Blood Count 4.39 10^6/uL (3.85-5.65); Red Cell Distribution Width 14.5 % (12.1-15.1); White Blood Count 10.27 10^3/uL (3.29-11.43)
[2024-06-24] MEDS: dilTIAZem 100 MG in sodium chloride 0.9% (add-van) 100 ML IV (14:09)
--- NOTE | 2024-06-24 14:25 | PC.NURSE ---
PATIENT PLACED ON 2 L NC FOR COMFORT PER PATIENT.
[2024-06-24 14:31] LABS: Alanine Aminotransferase 9 U/L (0-33); Albumin Level 3.1 g/dL (3.5-5.2); Alkaline Phosphatase 113 U/L (35-105); Anion Gap 16.6 (5-19); Aspartate Amino Transferase 15 U/L (0-32); Blood Urea Nitrogen 37 mg/dL (8-23); Calcium 9.2 mg/dL (8.5-10.5); Carbon Dioxide 27 mmol/L (22-29); Chloride 93 mmol/L (98-107); Creatinine Clr Calc Pharmacy 31.7307; Globulin 3.1 g/dL (1.3-4.6); Glucose 185 mg/dL (65-115); Osmolality Calculated 285 mOsm/kg (285-295); Potassium 5.6 mmol/L (3.5-5.1); Sodium 131 mmol/L (136-145); Total Bilirubin 0.7 mg/dL (0.15-1.2); Total Protein 6.2 g/dL (6.6-8.7)
[2024-06-24] MEDS: sodium chloride 0.9% 500 ML 250 ML IV (14:57)
[2024-06-24] MEDS: calcium chloride 10% Syr 10 mL 1 GM IVP (14:57)
--- NOTE | 2024-06-24 15:12 | ECG_ITS ---
[facility] Test Date: 2024-06-24 Pat Name: Nicole Gordon Department: Room: Gender: Female [employer]: : 1940 Requested By: Billy Sutton Order Number: [id number] Debra MD: Andrew Raman M.D. Measurements Intervals [place] Rate: 107 P: 0 OK: 0 QRS: -29 QRSD: 93 T: 79 QT: 299 QTc: 400 Interpretive Statements ATRIAL FIBRILLATION WITH RAPID VENTRICULAR RESPONSE LOW QRS VOLTAGE IN PRECORDIAL LEADS [QRS DEFLECTION < 1.0 mV IN CHEST LEADS] ANTEROSEPTAL MYOCARDIAL INFARCTION , OF INDETERMINATE AGE [40+ ms Q WAVE IN V1-V4] Compared to ECG 06/24/2024 13:48:09 No significant changes Electronically Signed On 06-24-2024 16:08:18 CDT by Andrew Raman M.D. [email or web address]
--- NOTE | 2024-06-24 15:20 | USCV_ITS ---
Nicole Gordon Age: 84 Gender: F : 1940 Exam Date: 06/24/2024 20:21 Ordering Phys: Billy Peterson MD Technologist: MONA Exam Location: [facility] [place] Indication: arrythmia, history of atrial fibrillation BP: 126 / 77 HR: 97 Rhythm: Atrial fibrillation Technical Quality: Adequate MEASUREMENTS (Male / Female) Normal Values 2D ECHO LV Diastolic Diameter PLAX 4.0 cm 4.2 - 5.9 / 3.9 - 5.3 cm IVS Diastolic Thickness 1.3 cm 0.6 - 1.0 / 0.6 - 0.9 cm IVS Systolic Thickness 1.6 cm LVPW Diastolic Thickness 1.7 cm 0.6 - 1.0 / 0.6 - 0.9 cm LVPW Systolic Thickness 1.6 cm LVOT Diameter 2.3 cm LV Ejection Fraction 2D Teich 50.4 % LV Ejection Fraction MOD 4C 65.9 % LV Ejection Fraction MOD 2C 37.6 % LV Ejection Fraction 2C AL 37.0 % LA Diameter 4.9 cm Aorta at Sinotubular Diameter 3.0 cm IVC Diameter 1.5 cm M-MODE LA Ao Ratio MM 1.5 AV Cusp Separation MM 1.1 cm DOPPLER AV Peak Velocity 159.0 cm/s LVOT Peak Velocity 49.0 cm/s AV Area Cont Eq vti 1.2 cm squared AV Area Cont Eq pk 1.2 cm squared MV Peak Velocity 131.0 cm/s MV Area PHT 3.2 cm squared Mitral E to A Ratio 0.0 TV Peak Velocity 292.0 cm/s TR Peak Velocity 316.0 cm/s TR Peak Gradient 39.9 mmHg TV Peak E Velocity 68.0 cm/s Right Atrial Pressure 10.0 mmHg Pulmonary Artery Systolic Pressu 49.9 mmHg PV Peak Velocity 76.0 cm/s FINDINGS Left Ventricle Mobile echodensity in the LV cavity, most likely represent calcified chordal structurenormal left ventricular size and systolic function, EF 60% (visual).mild left ventricular hypertrophy. Grade III/IV diastolic dysfunction (restrictive filling pattern), severely elevated filling pressures. Right Ventricle The right ventricle is normal in size and function. Right Atrium Mildly increased right atrial size. Left Atrium Mildly increased left atrial size. Mitral Valve Mildly thickened mitral valve. Aortic Valve Mild aortic valve calcification. Trace aortic valve regurgitation. Tricuspid Valve Mild tricuspid valve regurgitation. Estimated pulmonary artery peak systolic pressure 50 mmHg-mild pulmonary hypertension Pulmonic Valve No gross abnormalities noted Pericardium No pericardial effusion. Aorta Normal aortic annulus size. IVC Normal inferior vena cava. CONCLUSIONS Normal left ventricular size and systolic function, EF 60% (visual).mild left ventricular hypertrophy. Grade III/IV diastolic dysfunction (restrictive filling pattern), severely elevated filling pressures. Mild biatrial enlargement. Mildly thickened mitral valve. Mild aortic valve calcification. Trace aortic valve regurgitation. Mild tricuspid valve regurgitation. Estimated pulmonary artery peak systolic pressure 50 mmHg-mild pulmonary hypertension. There is no pericardial effusion. Mobile echodensity in the LV cavity, most likely represent calcified chordal structure. Compared to the study from 05/10/2019, there may not be a significant change Dr Ina Clay MD FAC (Electronically Signed) Final Date: 25 June 2024 11:17 S
[2024-06-24 15:39] LABS: Troponin(5th) Baseline 92 ng/L (0-10)
--- NOTE | 2024-06-24 15:43 | P.HP_ITS ---
Providers/Chief Complaint 2 Admitting Physician: Billy Peterson MD, hospitalist Primary Care Provider: Rose Lester, JANET Chief Complaint: weakness History of Present Illness Nicole Gordon is a 84 year old female with history of breast cancer, left below the knee amputation, atrial fibrillation, coronary disease, hypertension, and others that presents with 2 days history of decreased p.o. intake, subjective fever, occasional chest discomfort that is hard to describe, and confusion. Some testing at the facility demonstrated a negative influenza, and a negative urine dip. History is somewhat difficult to obtain from the patient, but she denies any specific pain right now. She does admit that she was significantly short of breath. On arrival to the emergency department she was in atrial fibrillation with rapid ventricular rate. Heart rate was around 126. Temperature was 99, she required 3 L of oxygen, and blood pressure was slightly low. Son is present, who assists with history. He reports she has no sores, has taken no falls, and is normally on no oxygen. Review of Systems 2 General: Reports: 10 or more systems reviewed and unremarkable except in HPI and below Card: Reports: chest pain Resp: Reports: dyspnea Medications/Allergies Home Medications Medication Instructions Recorded Confirmed Last Taken Type vits,calcium no.78-iron 1 tab PO DAILY 11/05/19 06/02/24 02/04/24 History fumarate-folic acid 29 mg-1 mg tablet (Prenatabs FA) vitamin B complex (B 500 tab PO DAILY 11/05/19 06/02/24 02/04/24 History Complex-Vitamin B12 tablet) acetaminophen 325 mg tablet 325 mg PO QID PRN Pain 02/11/20 06/02/24 Unknown History omega-3 fatty acids 1,000 mg 1,000 mg PO DAILY 11/06/20 06/02/24 02/04/24 History capsule (Fish Oil Concentrate) polyethylene glycol 3350 17 17 gm PO DAILY PRN constipation 11/15/20 06/02/24 02/04/24 History gram/dose oral powder (Miralax) bimatoprost 0.01 % eye drops 1 drp ophthalmic (eye) .at bedtime 03/21/21 06/02/24 02/03/24 History (Lumigan) hydrocodone 10 mg-acetaminophen 1 tab PO BID PRN Pain 01/29/22 06/02/24 02/04/24 History 325 mg tablet blood sugar diagnostic (OneTouch #100 strips 08/20/22 06/02/24 Unknown Rx Ultra Test strips) triamcinolone acetonide 0.1 % 1 applic topical TID PRN itching 09/25/22 06/02/24 Unknown Rx topical ointment #80 grams Heavy Duty Wheelchair K0006 #1 ea 10/26/22 06/02/24 Unknown Rx sennosides 8.6 mg-docusate sodium 2 tab PO BID 30 days #120 tabs 10/26/22 06/02/24 02/04/24 Rx 50 mg tablet Diabetic shoes with inserts #1 ea 11/05/22 06/02/24 Unknown Rx Lactobacillus rhamnosus GG 20 20 cell (0 x 20 billion cell) PO 03/28/23 06/02/24 02/04/24 Rx billion cell capsule (Probiotic .2 times day 30 days #60 caps Digestive Care) nystatin 100,000 unit/gram topical 1 applic topical QID PRN yeast #60 10/31/23 06/02/24 Unknown Rx powder grams [id number] repair prosthetic #1 ea 11/11/23 06/02/24 Unknown Rx [id number] repair prosthetic #1 ea 11/11/23 06/02/24 Unknown Rx ascorbic acid (vitamin C) 500 mg 500 mg PO BID 02/04/24 06/02/24 02/04/24 History tablet (Vitamin C) cholecalciferol (vitamin D3) 50 50 mcg PO DAILY 02/04/24 06/02/24 02/04/24 History mcg (2,000 unit) capsule (Vitamin D3) zinc 15 mg tablet 15 mg PO DAILY 02/04/24 06/02/24 02/04/24 History allopurinol 300 mg tablet 300 mg PO DAILY #90 tabs 04/30/24 06/02/24 Unknown Rx atorvastatin 20 mg tablet 20 mg PO BEDTIME #90 tabs 04/30/24 06/02/24 Unknown Rx duloxetine 60 mg capsule,delayed 60 mg PO BID #180 caps 04/30/24 06/02/24 Unknown Rx release furosemide 20 mg tablet (Lasix) See Rx Instructions PO .COMPLEX 04/30/24 06/02/24 Unknown Rx #135 tabs gabapentin 300 mg capsule 600 mg (2 x 300 mg) PO TID 90 days 04/30/24 06/02/24 Unknown Rx #540 caps lidocaine 5 % topical patch 2 patch topical DAILY #180 ea 04/30/24 06/02/24 Unknown Rx nebivolol 5 mg tablet (Bystolic) 2.5 mg (1/2 x 5 mg) PO .PM #90 tabs 04/30/24 06/02/24 Unknown Rx pantoprazole 20 mg tablet,delayed 20 mg PO BID #180 tabs 04/30/24 06/02/24 Unknown Rx release potassium chloride 10 mEq 20 meq (2 x 10 mEq) PO BID #360 04/30/24 06/02/24 Unknown Rx capsule,extended release caps semaglutide 0.25 mg or 0.5 mg (2 0.5 mg (0.374 mL) SUBCUT .weekly 04/30/24 06/02/24 Unknown Rx mg/1.5 mL) subcutaneous pen #9 mL injector (Ozempic) sucralfate 1 gram tablet (Carafate) 1 g PO .COMPLEX #360 tabs 04/30/24 06/02/24 Unknown Rx trazodone 50 mg tablet 50 mg PO BEDTIME #90 tabs 04/30/24 06/02/24 Unknown Rx apixaban 2.5 mg tablet (Eliquis) 2.5 mg PO BID #180 tabs 05/01/24 06/02/24 Unknown Rx pregabalin 75 mg capsule (Lyrica) 75 mg PO DAILY #90 caps 05/12/24 06/02/24 Unknown Rx spironolactone 25 mg tablet 25 mg PO DAILY #90 tabs 05/18/24 05/24/24 Unknown Rx anastrozole 1 mg tablet See Rx Instructions .Route 06/02/24 06/02/24 Unknown Rx .COMPLEX #30 tabs carboxymethylcellulose sodium 0.5 1 drp ophthalmic (eye) DAILY PRN 06/02/24 06/02/24 Unknown History % eye drops in a dropperette cyanocobalamin (vitamin B-12) 500 500 mcg PO DAILY 06/02/24 06/02/24 Unknown History mcg tablet dextromethorphan-guaifenesin 10 10 ml PO Q4H PRN 06/02/24 06/02/24 Unknown History mg-100 mg/5 mL oral liquid (Diabetic Tussin DM) furosemide 40 mg tablet 40 mg PO DAILY 06/02/24 06/02/24 Unknown History simethicone 80 mg chewable tablet 80 mg PO Q6H PRN 06/02/24 06/02/24 Unknown History (Gas Relief (simethicone)) Allergies Allergy/AdvReac Type Severity Reaction Status Date / Time chlorthalidone Allergy Unknown Verified 06/02/24 15:55 metformin AdvReac Severe ADR-Diarrhe Verified 06/02/24 15:55 a celecoxib [From Celebrex] AdvReac GI Verified 06/02/24 15:55 PFSH Acute 2 PFSH: Medical History Difficulty sleeping Gastroparesis due to secondary diabetes Myofascial pain syndrome Bronchospasm History of nonmelanoma skin cancer Neuropathic pain Adverse effect of drug or medicament Vasovagal near syncope Acute respiratory failure with hypoxia Lives in assisted living facility Generalized abdominal tenderness Obstructive sleep apnea CPAP Aspiration pneumonia Arteriosclerotic coronary artery disease AF (atrial fibrillation) Vitamin D insufficiency Controlled diabetes mellitus with hyperglycemia, without long-term current use of insulin A1C 8.22 April 2020 A1C 6.20 August 2020 A1C 7.23 January 2021 Chronic GERD Essential (primary) hypertension Dyslipidemia Irritable bowel syndrome with diarrhea Thais infection Surgical History History of lumpectomy of right breast 2022 [facility] History of thyroid cancer TSH 2.56 07/2019 History of colonoscopy 2018 at [facility] History of arthroplasty of right knee History of amputation of left foot H/O left mastectomy H/O partial thyroidectomy LEFT SIDE History of total left hip arthroplasty Family History Other CAD (coronary artery disease) Cancer Chronic kidney disease (CKD) Diabetes History of thyroid cancer Social History Smoking and tobacco/nicotine status: never used tobacco/nicotine Second hand smoke exposure: No Alcohol intake: never Substance/Drug Use: never Adopted: No Caregiver/support person: Yes Lives independently: No Household members: other Housing: Assisted Living Facility Marital status: / Number of children: 2 service: No Current occupational status: retired Pets and animals: No Do you think of yourself as: Straight/Heterosexual Current gender identity: Female Vitals/I&O/Wt Last Vital Signs Temp 99.0 F 06/24/24 13:38 Pulse 106 H 06/24/24 15:12 Resp 16 06/24/24 15:12 BP 105/61 06/24/24 15:12 Pulse Ox 92 06/24/24 15:12 O2 Del Method Nasal Cannula 06/24/24 15:12 O2 Flow Rate 3 06/24/24 15:12 06/24/24 06/24/24 06/24/24 06:59 14:59 22:59 Intake Total Balance Weight last 48 hrs Weight 101.151 kg Physical Exam 2 Narrative: General exam is a white female, who seems somewhat sleepy but can awaken and recognize her son. Slight confusion/some confusion is noted. She is getting a 250 cc bolus of normal saline currently. HEENT: Atraumatic normocephalic. Oropharynx somewhat dry Neck is supple no lymphadenopathy thyromegaly Cardiovascular irregular, irregular with accelerated rate, currently about 110 on 7.5 mg/h of Cardizem Lungs clear Abdomen is soft nontender obese with no obvious organomegaly exam is deferred Extremities no cyanosis clubbing or edema, cap refill brisk. Left below the knee amputation is noted Skin no rash Neuro confused but no focal deficits Data 06/24/24 13:55 06/24/24 13:55 Other Labs: LFTs are normal calcium is normal, albumin 3.1 I have ordered a troponin and EKG series I have ordered a urinalysis. Urine dip yesterday unrevealing I have ordered a respiratory panel Chest x-ray by my review demonstrates no infiltrate, cardiomegaly, atherosclerotic disease Initial EKG by my review demonstrates a heart rate around 125, left axis deviation, atrial fibrillation with rapid ventricular rate, nonspecific ST-T wave changes. There are Q waves noted anteriorly A&P Assessment and plan (1) AF (atrial fibrillation): Patient presents with atrial fibrillation with rapid ventricular rate She has been placed on a Cardizem drip with some improvement in right Etiology of her decompensation is not yet known. Typically her heart rate appears to be controlled with nebivolol. Differential diagnosis includes dehydration secondary to acute illness, electrolyte abnormalities, renal failure. Metoprolol 25 mg twice daily, holding nebivolol Continue apixaban Qualifiers: Atrial fibrillation type: unspecified Qualified Code(s): I48.91 - Unspecified atrial fibrillation (2) Hypoxia: Patient with hypoxia. She does not appear fluid overloaded on exam or by x-ray. This brings up the question of possible COVID. Respiratory panel Rocephin empirically Urinalysis (3) Acute kidney injury: Patient with acute kidney injury Hold diuretics Bolus being given in the emergency department Continue normal saline at 50 cc an hour on the floor, monitoring closely for fluid overload Place Doll CBC, BMP daily (4) Hyperkalemia: Patient with hyperkalemia Calcium was given in the ER I think this will come down with simple hydration and improvement of kidney function Recheck at approximately 1730 Hold Aldactone (5) Thrombocytopenia: Patient with history of thrombocytopenia Continue to monitor (6) Aortic stenosis: Check echocardiogram (7) Controlled diabetes mellitus with hyperglycemia, without long-term current use of insulin: Sliding scale insulin Qualifiers: Diabetes mellitus type: type 2 Qualified Code(s): E11.65 - Type 2 diabetes mellitus with hyperglycemia (8) Acute encephalopathy: Patient with acute encephalopathy Monitor for improvement No focal neurologic signs with stroke expected Monitor closely for improvement Neurochecks Hold sedating medications with the exception of Neurontin which I will lower the dose significantly. Trazodone and pregabalin being held. Plan Multiple other medical problems as outlined in past medical history Full code Aideequis will suffice for DVT prophylaxis Attestations 2 Medical Necessity Statement*: Will require greater than 2 midnight stay for evaluation and treatment of acute illness with atrial fibrillation with rapid ventricular rate. Diagnoses Atrial fibrillation, unspecified type I48.91 Atrial fibrillation type: unspecified Hypoxia R09.02 Acute kidney injury N17.9 Hyperkalemia E87.5 Thrombocytopenia D69.6 Aortic stenosis I35.0 Controlled type 2 diabetes mellitus with hyperglycemia, without long-term current use of insulin E11.65 Diabetes mellitus type: type 2 Acute encephalopathy G93.40 Time Spent (min) 56
[2024-06-24 15:54] LABS: Magnesium 1.6 mg/dL (1.7-2.3); Thyroid Stimulating Hormone 1.43 uIU/mL (0.27-4.20)
[2024-06-24 16:40] LABS: Troponin 5 2HR 78.66 ng/L (0-10)
[2024-06-24 16:44] LABS: Troponin 5 2HR Delta -13.34 ABS# (0-10)
[2024-06-24 16:49] LABS: Glucose Point of Care 176 mg/dL (70-110)
[2024-06-24] MEDS: sodium chloride 0.9% 1,000 ML 50 ML IV (17:08)
[2024-06-24] MEDS: cefTRIAXone 1,000 mg SDV 1000 MG IVP (17:09)
[2024-06-24] MEDS: magnesium sulfate premix 2 GM/50 ML PIGGYBACK IV (17:09)
[2024-06-24 17:23] LABS: Procalcitonin 17.05 ng/mL (0-0.5)
[2024-06-24] MEDS: apixaban 5 mg Tablet 2.5 MG PO (17:39)
[2024-06-24] MEDS: insulin lispro 100 unit/1 mL SUBCUT ×2 (17:39→21:25)
[2024-06-24] MEDS: duloxetine 60 mg Capsule PO (17:39)
[2024-06-24 17:56] LABS: Adenovirus Not Detected (NOT DETECT); Chlamydia Pneumoniae Not Detected (NOT DETECT); Coronavirus 229E,HKU1,NL63,OC4 Not Detected (NOT DETECT); Human Metapneumovirus Not Detected (NOT DETECT); Human Rhinovirus/Enterovirus Detected (NOT DETECT); Influenza A Not Detected (NOT DETECT); Influenza A H1 Not Detected (NOT DETECT); Influenza A H1-2009 Not Detected (NOT DETECT); Influenza A H3 Not Detected (NOT DETECT); Influenza B Not Detected (NOT DETECT); Mycoplasma Pneumoniae Not Detected (NOT DETECT); Parainfluenza Virus Type 1 Not Detected (NOT DETECT); Parainfluenza Virus Type 2 Not Detected (NOT DETECT); Parainfluenza Virus Type 3 Not Detected (NOT DETECT); Parainfluenza Virus Type 4 Not Detected (NOT DETECT); Respiratory Syncytial Virus A Not Detected (NOT DETECT); Respiratory Syncytial Virus B Not Detected (NOT DETECT); SARS-COV-2 Not Detected (NOT DETECT)
[2024-06-24 18:17] LABS: Potassium 5.5 mmol/L (3.5-5.1)
[2024-06-24 18:18] LABS: Bilirubin Urine Negative (Negative); Blood Urine Negative (Negative); Glucose Urine UA Negative (Normal); Ketones Urine Negative (Negative); Leukocyte Esterase Urine 2+ (Negative); Nitrate Urine Negative (Negative); Protein Urine Trace (Negative); Specific Gravity, Urine 1.009 (1.005-1.030); Urine Appearance Clear (CLEAR); Urine Color Yellow (Yellow); Urobilinogen Urine 0.2 mg/dL (Negative); pH Urine 5.5 (5-7)
[2024-06-24 18:35] LABS: Add Urine Culture? Yes; Bacteria Urine 3+ /hpf; RBC Urine 0-4 /hpf (0-2); WBC Urine 55-80 /hpf (0-5)
[2024-06-24 20:49] LABS: Glucose Point of Care 270 mg/dL (70-110)
[2024-06-24] MEDS: gabapentin 100 mg Capsule PO (21:25)
[2024-06-24] MEDS: metoprolol tartrate 25 mg Tablet PO (21:25)
[2024-06-24] MEDS: atorvastatin 40 mg Tablet 20 MG PO (21:26)
[2024-06-24] MEDS: dilTIAZem 100 MG in sodium chloride 0.9% (add-van) 100 ML 7.5 MG IV (22:49)
[2024-06-24] MEDS: acetaminophen 325 mg Tablet 650 MG PO (22:50)
[2024-06-25] VITALS (9 sets, daily range): BP systolic 99–138; BP diastolic 46–78; PULSE 73–111; RESP 15–19; TEMP 36.5–37.7; O2SAT 95–97
[2024-06-25 04:23] LABS: Basophils % 0.3 %; Eosinophils % 0.1 %; Hematocrit 34.9 % (36-47); Lymphocytes # 0.8 10^3/uL (0.8-4.8); Lymphocytes % 8.8 %; Mean Corpuscular HGB Conc 31.2 g/dL (30-55); Mean Corpuscular Hemoglobin 27.3 pg (27-33); Mean Corpuscular Volume 87.3 fl (85-98); Mean Platelet Volume 11.9 fL (7.4-10.4); Monocytes % 11.4 %; Neutrophils # 6.88 10^3/uL (1.8-7.7); Neutrophils % 78.9 %; Nucleated Red Blood Cells % 0 %; Platelet Count 111 10^3/cmm (157-399); Red Cell Distribution Width 14.5 % (12.1-15.1); White Blood Count 8.72 10^3/uL (3.29-11.43)
[2024-06-25 04:45] LABS: Alanine Aminotransferase 8 U/L (0-33); Albumin Level 2.7 g/dL (3.5-5.2); Alkaline Phosphatase 114 U/L (35-105); Anion Gap 14.8 (5-19); Aspartate Amino Transferase 15 U/L (0-32); Blood Urea Nitrogen 31 mg/dL (8-23); Calcium 8.7 mg/dL (8.5-10.5); Carbon Dioxide 25 mmol/L (22-29); Chloride 92 mmol/L (98-107); Creatinine Clr Calc Pharmacy 35.5235; Globulin 2.7 g/dL (1.3-4.6); Glucose 184 mg/dL (65-115); Osmolality Calculated 275 mOsm/kg (285-295); Potassium 4.8 mmol/L (3.5-5.1); Sodium 127 mmol/L (136-145); Total Bilirubin 0.6 mg/dL (0.15-1.2); Total Protein 5.4 g/dL (6.6-8.7)
[2024-06-25 04:49] LABS: Procalcitonin 11.61 ng/mL (0-0.5)
[2024-06-25 06:23] LABS: Glucose Point of Care 175 mg/dL (70-110)
[2024-06-25] MEDS: allopurinol 300 mg Tablet PO (09:41)
[2024-06-25] MEDS: gabapentin 100 mg Capsule PO (09:41)
[2024-06-25] MEDS: apixaban 5 mg Tablet 2.5 MG PO ×2 (09:41→17:30)
[2024-06-25] MEDS: duloxetine 60 mg Capsule PO ×2 (09:41→17:30)
[2024-06-25] MEDS: anastrozole 1 mg Tablet PO (09:41)
[2024-06-25] MEDS: pantoprazole DR 40 mg Tablet PO (09:41)
[2024-06-25] MEDS: metoprolol tartrate 25 mg Tablet PO ×2 (09:45→20:19)
[2024-06-25] MEDS: insulin lispro 100 unit/1 mL SUBCUT ×3 (09:45→20:35)
--- NOTE | 2024-06-25 10:30 | P.PN_ITS ---
Subjective 2 Subjective: Nicole reports she is doing a little bit better. Family is at bedside. She is able to respond quickly to my questions. She states she is having quite a bit of neuropathic pain and would like some of her medicine readded. Medications: Reviewed: Yes Vitals/I&O/Wt Last Vital Signs Temp 99.8 F H 06/25/24 07:56 Pulse 77 06/25/24 07:56 Resp 18 06/25/24 07:56 BP 100/52 06/25/24 07:56 Pulse Ox 96 06/25/24 04:00 O2 Del Method Nasal Cannula 06/25/24 04:00 O2 Flow Rate 3 06/25/24 04:00 06/24/24 06/25/24 06/25/24 22:59 06:59 14:59 Intake Total 1366.000 / 1370.000 15.041 / 1385.041 Output Total 800 / 800 750 / 1550 Balance 566.000 / 570.000 -734.959 / -164.959 Weight last 48 hrs Weight 95.6 kg Weight 94.602 kg Weight 101.151 kg Physical Exam 2 Narrative: General exam no distress Neck is supple no lymphadenopathy thyromegaly Cardiovascular irregular, irregular with controlled rate Lungs clear Abdomen is soft nontender obese with no obvious organomegaly exam is deferred Extremities no cyanosis clubbing or edema, cap refill brisk. Left below the knee amputation is noted Urinary Catheter Management: Doll: Cath Placed During This Visit: yes Reason for Continuing Indwelling Catheter: Accurate Measurement of Urinary Output in Critically Ill Patients Urinary Catheter Date of Insertion: 06/24/24 Urinary Catheter Time of Insertion: 15:00 Data 06/25/24 03:48 06/25/24 03:48 Micro: Microbiology 06/24/24 17:21 Blood Culture - Preliminary Blood SPECIMEN COLLECTED 06/24/24 16:11 Blood Culture - Preliminary Blood SPECIMEN COLLECTED A&P Assessment and plan (1) AF (atrial fibrillation): Patient presents with atrial fibrillation with rapid ventricular rate She has been placed on a Cardizem drip. This has not been weaned off. Metoprolol was started, and rate is now under control. Etiology of her decompensation is not yet known. Typically her heart rate appears to be controlled with nebivolol. Differential diagnosis includes dehydration secondary to acute illness, electrolyte abnormalities, renal failure. Continue apixaban Qualifiers: Atrial fibrillation type: unspecified Qualified Code(s): I48.91 - Unspecified atrial fibrillation (2) Hypoxia: Patient with hypoxia. She does not appear fluid overloaded on exam or by x-ray. This brings up the question of possible COVID. Respiratory panel demonstrated enterovirus/rhinovirus Rocephin empirically was initiated Urinalysis demonstrates UTI, awaiting culture (3) Acute kidney injury: Patient with acute kidney injury Diuretics held She is improved. Can discontinue Doll. Bladder scans. Recheck BMP tomorrow (4) Hyperkalemia: Patient with hyperkalemia Calcium was given in the ER Resolved Hold Aldactone (5) Thrombocytopenia: Patient with history of thrombocytopenia Continue to monitor Stable (6) Aortic stenosis: Check echocardiogram (7) Controlled diabetes mellitus with hyperglycemia, without long-term current use of insulin: Sliding scale insulin Qualifiers: Diabetes mellitus type: type 2 Qualified Code(s): E11.65 - Type 2 diabetes mellitus with hyperglycemia (8) Acute encephalopathy: Patient with acute encephalopathy This is improved Increase Neurontin to 300 mg 3 times daily She can have her hydrocodone back for her chronic pain Continue to hold Lyrica (9) UTI (urinary tract infection): Urine culture Rocephin IV Plan Hyponatremia. Discontinue fluids at this time. Multiple other medical problems as outlined in past medical history Full code Eliquis will suffice for DVT prophylaxis Attestations 2 Medical Necessity Statement*: Needs continued hospital stay for IV antibiotics related to UTI, close follow-up with atrial fibrillation with rapid ventricular rate Diagnoses Atrial fibrillation, unspecified type I48.91 Atrial fibrillation type: unspecified Hypoxia R09.02 Acute kidney injury N17.9 Hyperkalemia E87.5 Thrombocytopenia D69.6 Aortic stenosis I35.0 Controlled type 2 diabetes mellitus with hyperglycemia, without long-term current use of insulin E11.65 Diabetes mellitus type: type 2 Acute encephalopathy G93.40 UTI (urinary tract infection) N39.0 Time Spent (min) 24
[2024-06-25] MEDS: HYDROcodone-acetaminophen 5-325 mg Tablet 1 TAB PO (10:40)
[2024-06-25] MEDS: sennosides-docusate Tablet 2 TAB PO ×2 (10:40→17:30)
[2024-06-25 12:01] LABS: Glucose Point of Care 167 mg/dL (70-110)
[2024-06-25] MEDS: cefTRIAXone 1,000 mg SDV 1000 MG IVP (14:52)
[2024-06-25] MEDS: gabapentin 300 mg Capsule PO ×2 (14:53→20:19)
[2024-06-25 17:06] LABS: Glucose Point of Care 128 mg/dL (70-110)
[2024-06-25 20:16] LABS: Glucose Point of Care 171 mg/dL (70-110)
[2024-06-25] MEDS: atorvastatin 40 mg Tablet 20 MG PO (20:18)
[2024-06-26] VITALS (9 sets, daily range): BP systolic 95–135; BP diastolic 60–82; PULSE 96–135; RESP 14–18; TEMP 36.6–37.3; O2SAT 94–99
[2024-06-26 04:59] LABS: Basophils % 0.5 %; Eosinophils # 0.1 10^3/uL (0.0-0.8); Eosinophils % 0.7 %; Hematocrit 38.4 % (36-47); Lymphocytes # 0.8 10^3/uL (0.8-4.8); Lymphocytes % 9.5 %; Mean Corpuscular Hemoglobin 27.7 pg (27-33); Mean Corpuscular Volume 89.3 fl (85-98); Mean Platelet Volume 11.7 fL (7.4-10.4); Monocytes # 1.1 10^3/uL (0.2-0.9); Monocytes % 13.2 %; Neutrophils # 6.17 10^3/uL (1.8-7.7); Neutrophils % 75.6 %; Nucleated Red Blood Cells % 0 %; Platelet Count 115 10^3/cmm (157-399); Red Cell Distribution Width 14.7 % (12.1-15.1); White Blood Count 8.17 10^3/uL (3.29-11.43)
[2024-06-26 05:17] LABS: Alanine Aminotransferase 12 U/L (0-33); Albumin Level 2.7 g/dL (3.5-5.2); Alkaline Phosphatase 115 U/L (35-105); Blood Urea Nitrogen 26 mg/dL (8-23); Carbon Dioxide 26 mmol/L (22-29); Chloride 94 mmol/L (98-107); Creatinine Clr Calc Pharmacy 46.1805; Globulin 3.3 g/dL (1.3-4.6); Glucose 151 mg/dL (65-115); Magnesium 1.9 mg/dL (1.7-2.3); Osmolality Calculated 280 mOsm/kg (285-295); Sodium 131 mmol/L (136-145); Total Bilirubin 0.6 mg/dL (0.15-1.2)
[2024-06-26 05:24] LABS: Anion Gap 15.4 (5-19); Aspartate Amino Transferase 32 U/L (0-32); Potassium 4.4 mmol/L (3.5-5.1)
[2024-06-26 06:27] LABS: Glucose Point of Care 171 mg/dL (70-110)
[2024-06-26] MEDS: apixaban 5 mg Tablet 2.5 MG PO ×2 (08:47→17:14)
[2024-06-26] MEDS: insulin lispro 100 unit/1 mL SUBCUT ×4 (08:48→21:49)
[2024-06-26] MEDS: HYDROcodone-acetaminophen 5-325 mg Tablet 1 TAB PO ×2 (08:48→17:15)
[2024-06-26] MEDS: gabapentin 300 mg Capsule PO ×3 (08:48→20:20)
[2024-06-26] MEDS: sennosides-docusate Tablet 2 TAB PO ×2 (08:48→17:14)
[2024-06-26] MEDS: allopurinol 300 mg Tablet PO (08:48)
[2024-06-26] MEDS: metoprolol tartrate 25 mg Tablet PO ×2 (08:48→20:20)
[2024-06-26] MEDS: duloxetine 60 mg Capsule PO ×2 (08:48→17:14)
[2024-06-26] MEDS: anastrozole 1 mg Tablet PO (08:48)
[2024-06-26] MEDS: pantoprazole DR 40 mg Tablet PO (08:48)
[2024-06-26 11:18] LABS: Glucose Point of Care 220 mg/dL (70-110)
[2024-06-26] MEDS: cefTRIAXone 1,000 mg SDV 1000 MG IVP (14:24)
--- NOTE | 2024-06-26 15:19 | P.PN_ITS ---
Subjective 2 Subjective: Feeling better today. Denies chest pain, dyspnea or dysuria. Has been able to eat a little. Says that she has not had a BM in a few days. Medications: Reviewed: Yes Vitals/I&O/Wt Last Vital Signs Temp 97.8 F 06/26/24 12:00 Pulse 112 H 06/26/24 12:00 Resp 16 06/26/24 12:00 BP 96/82 06/26/24 12:00 Pulse Ox 94 06/26/24 12:00 O2 Del Method Nasal Cannula 06/26/24 12:00 O2 Flow Rate 3 06/26/24 00:00 06/26/24 06/26/24 06/26/24 06:59 14:59 22:59 Intake Total 240 / 1386.667 Output Total 400 / 1250 450 / 450 Balance -160 / 136.667 -450 / -450 Weight last 48 hrs Weight 205 lb 7.533 oz Weight 210 lb 12.191 oz Weight 208 lb 9 oz Physical Exam 2 Narrative: General: Cooperative patient in no apparent distress. Well developed. HEENT: Normocephalic, Atraumatic. External ears normal. Nasal passages patent without drainage. MMM. Heart: Irregularly irregular rhythm with rate of 106bpm currently. Resp: LCTA. No respiratory distress, no use of accessory muscles. Abd: Soft, non-tender. Non-distended. Extremities: No edema. Skin: No rash or lesions on exposed areas. Neuro: No focal motor or sensory loss. Gait is normal. Urinary Catheter Management: Doll: Cath Placed During This Visit: yes, but has since been removed by the nurse Reason for Continuing Indwelling Catheter: Accurate Measurement of Urinary Output in Critically Ill Patients Urinary Catheter Date of Insertion: 06/24/24 Urinary Catheter Time of Insertion: 15:00 Date Urinary Catheter Removed: 06/25/24 Time Urinary Catheter Discontinued: 11:38 Data 06/26/24 03:55 06/26/24 03:55 Micro: Microbiology 06/24/24 15:59 Urine Culture - Preliminary Urine,Clean Catch Gram Negative Rods 06/24/24 17:21 Blood Culture - Preliminary Blood NEGATIVE TO DATE 06/24/24 16:11 Blood Culture - Preliminary Blood NEGATIVE TO DATE A&P Assessment and plan (1) AF (atrial fibrillation): Patient presents with atrial fibrillation with rapid ventricular rate She has been placed on a Cardizem drip. This has not been weaned off. Metoprolol was started, and rate is now under control. Etiology of her decompensation is not yet known. Typically her heart rate appears to be controlled with nebivolol. Differential diagnosis includes dehydration secondary to acute illness, electrolyte abnormalities, renal failure. Continue apixaban Qualifiers: Atrial fibrillation type: unspecified Qualified Code(s): I48.91 - Unspecified atrial fibrillation (2) Hypoxia: Patient with hypoxia. She does not appear fluid overloaded on exam or by x-ray. This brings up the question of possible COVID. Respiratory panel demonstrated enterovirus/rhinovirus Rocephin empirically was initiated Urinalysis demonstrates UTI, awaiting culture (3) Acute kidney injury: Patient with acute kidney injury Diuretics held She is improved. Can discontinue Doll. Bladder scans. Recheck BMP tomorrow (4) Hyperkalemia: Patient with hyperkalemia Calcium was given in the ER Resolved Hold Aldactone (5) Thrombocytopenia: Patient with history of thrombocytopenia Continue to monitor Stable (6) Aortic stenosis: Check echocardiogram (7) Controlled diabetes mellitus with hyperglycemia, without long-term current use of insulin: Sliding scale insulin Qualifiers: Diabetes mellitus type: type 2 Qualified Code(s): E11.65 - Type 2 diabetes mellitus with hyperglycemia (8) Acute encephalopathy: Patient with acute encephalopathy This is improved Increase Neurontin to 300 mg 3 times daily She can have her hydrocodone back for her chronic pain Continue to hold Lyrica (9) UTI (urinary tract infection): Urine culture Rocephin IV Plan PLAN FOR TODAY: Continue close inpatient monitoring. Rate is still adequately controlled. Continue metoprolol. Currently at 25mg BID. BP is low end, but stable for now. Continue Rocephin for Treatment of UTI. Symptoms have resolved. Culture grew E. coli, sensitive to Rocephin. Blood cultures negative today. She has no longer than encephalopathic. Continue sliding scale insulin for diabetes. Sugars have been adequately controlled. Echo showed EF of 60%, mild ventricular hypertrophy with grade 3/4 diastolic dysfunction, mild pulmonary hypertension with pressure of 50mmHg, mobile echodensity in the left ventricular cavity, which was thought to represent a calcified chordal structure. She also had mild tricuspid regurgitation and trace aortic valve regurgitation. Platelets remain low. Currently at 115. Recheck a.m. labs. Continue home medications for other medical conditions. Code Status: Full IVF: None DVT PPx: Eliquis GI PPx: Protonix ABx: Rocephin Diet: Cardiac consistent carb Discharge plan: Home/Assisted Living. Attestations 2 Medical Necessity Statement*: Needs continued hospital stay for IV antibiotics related to UTI, close follow-up with atrial fibrillation with rapid ventricular rate Coding Level of Care Code Acute Code for Chg Fwd Moderate MDM includes number and complexity of problems actively addressed during encounter, amount and/or complexity of data reviewed/ordered and described risk of complication, morbidity or mortality of management as documented Diagnoses Atrial fibrillation, unspecified type I48.91 Atrial fibrillation type: unspecified Hypoxia R09.02 Acute kidney injury N17.9 Hyperkalemia E87.5 Thrombocytopenia D69.6 Aortic stenosis I35.0 Controlled type 2 diabetes mellitus with hyperglycemia, without long-term current use of insulin E11.65 Diabetes mellitus type: type 2 Acute encephalopathy G93.40 UTI (urinary tract infection) N39.0
[2024-06-26 17:10] LABS: Glucose Point of Care 174 mg/dL (70-110)
[2024-06-26] MEDS: atorvastatin 40 mg Tablet 20 MG PO (20:19)
[2024-06-26 21:27] LABS: Glucose Point of Care 191 mg/dL (70-110)
[2024-06-27] VITALS (9 sets, daily range): BP systolic 93–118; BP diastolic 52–79; PULSE 56–120; RESP 12–19; TEMP 36.6–36.9; O2SAT 96–100
[2024-06-27 06:26] LABS: Glucose Point of Care 130 mg/dL (70-110)
[2024-06-27] MEDS: anastrozole 1 mg Tablet PO (08:21)
[2024-06-27] MEDS: sennosides-docusate Tablet 2 TAB PO (08:22)
[2024-06-27] MEDS: apixaban 5 mg Tablet 2.5 MG PO ×2 (08:22→18:35)
[2024-06-27] MEDS: allopurinol 300 mg Tablet PO (08:22)
[2024-06-27] MEDS: gabapentin 300 mg Capsule PO ×3 (08:22→20:26)
[2024-06-27] MEDS: pantoprazole DR 40 mg Tablet PO (08:22)
[2024-06-27] MEDS: duloxetine 60 mg Capsule PO ×2 (08:22→18:36)
[2024-06-27] MEDS: metoprolol tartrate 25 mg Tablet PO ×2 (08:22→11:44)
[2024-06-27 09:55] LABS: Basophils % 0.5 %; Eosinophils # 0.1 10^3/uL (0.0-0.8); Eosinophils % 0.8 %; Hematocrit 41.8 % (36-47); Lymphocytes % 11.1 %; Mean Corpuscular HGB Conc 31.1 g/dL (30-55); Mean Corpuscular Hemoglobin 27.3 pg (27-33); Mean Corpuscular Volume 87.8 fl (85-98); Mean Platelet Volume 11.3 fL (7.4-10.4); Monocytes % 11.5 %; Neutrophils # 6.55 10^3/uL (1.8-7.7); Neutrophils % 75.5 %; Nucleated Red Blood Cells % 0 %; Platelet Count 147 10^3/cmm (157-399); Red Blood Count 4.76 10^6/uL (3.85-5.65); Red Cell Distribution Width 14.7 % (12.1-15.1); White Blood Count 8.67 10^3/uL (3.29-11.43)
[2024-06-27 10:23] LABS: Alanine Aminotransferase 15 U/L (0-33); Alkaline Phosphatase 106 U/L (35-105); Aspartate Amino Transferase 26 U/L (0-32); Blood Urea Nitrogen 18 mg/dL (8-23); C Reactive Protein 120.8 mg/L (0.0-4.9); Calcium 8.7 mg/dL (8.5-10.5); Carbon Dioxide 28 mmol/L (22-29); Chloride 99 mmol/L (98-107); Creatinine Clr Calc Pharmacy 55.9725; Globulin 3.4 g/dL (1.3-4.6); Glucose 238 mg/dL (65-115); Osmolality Calculated 296 mOsm/kg (285-295); Sodium 138 mmol/L (136-145); Total Bilirubin 0.6 mg/dL (0.15-1.2); Total Protein 6.4 g/dL (6.6-8.7)
[2024-06-27] MEDS: dilTIAZem 30 mg Tablet PO ×3 (11:45→22:57)
[2024-06-27 11:49] LABS: Glucose Point of Care 249 mg/dL (70-110)
[2024-06-27] MEDS: insulin lispro 100 unit/1 mL SUBCUT ×3 (12:35→20:25)
[2024-06-27] MEDS: fixodent 39 gm Tube 1 APPLIC DENTAL (12:35)
[2024-06-27] MEDS: cefTRIAXone 1,000 mg SDV 1000 MG IVP (15:05)
[2024-06-27 17:39] LABS: Glucose Point of Care 179 mg/dL (70-110)
--- NOTE | 2024-06-27 18:43 | P.PN_ITS ---
Subjective 2 Subjective: Reports that she feels pretty tired today. She denies any chest pain, but does still have some intermittent shortness of breath. Says she has been eating a little bit. Vitals/I&O/Wt Last Vital Signs Temp 97.8 F 06/27/24 16:00 Pulse 86 06/27/24 16:00 Resp 18 06/27/24 16:00 BP 110/54 06/27/24 16:00 Pulse Ox 96 06/27/24 11:57 O2 Del Method Nasal Cannula 06/27/24 11:57 O2 Flow Rate 3 06/26/24 00:00 06/27/24 06/27/24 06/27/24 06:59 14:59 22:59 Intake Total 120 / 120 Output Total 0 / 450 Balance 0 / -450 120 / 120 Weight last 48 hrs Weight 198 lb 10.184 oz Weight 205 lb 7.533 oz Physical Exam 2 Narrative: General: Cooperative patient in no apparent distress. Well developed. HEENT: Normocephalic, Atraumatic. External ears normal. Nasal passages patent without drainage. MMM. Heart: Irregularly irregular Rhythm with elevated rate. Resp: LCTA. No respiratory distress, no use of accessory muscles. Abd: Soft, non-tender. Non-distended. Extremities: No edema. Skin: No rash or lesions on exposed areas. Neuro: No focal motor or sensory loss. Gait is normal. Urinary Catheter Management: Doll: Cath Placed During This Visit: yes, but has since been removed by the nurse Reason for Continuing Indwelling Catheter: Accurate Measurement of Urinary Output in Critically Ill Patients Urinary Catheter Date of Insertion: 06/24/24 Urinary Catheter Time of Insertion: 15:00 Date Urinary Catheter Removed: 06/25/24 Time Urinary Catheter Discontinued: 11:38 Data 06/27/24 09:48 06/27/24 09:48 Micro: Microbiology 06/24/24 15:59 Urine Culture - Final Urine,Clean Catch Escherichia coli A&P Assessment and plan (1) AF (atrial fibrillation): Qualifiers: Atrial fibrillation type: unspecified Qualified Code(s): I48.91 - Unspecified atrial fibrillation (2) Hypoxia: (3) Acute kidney injury: (4) Hyperkalemia: (5) Thrombocytopenia: (6) Aortic stenosis: (7) Controlled diabetes mellitus with hyperglycemia, without long-term current use of insulin: Qualifiers: Diabetes mellitus type: type 2 Qualified Code(s): E11.65 - Type 2 diabetes mellitus with hyperglycemia (8) Acute encephalopathy: (9) UTI (urinary tract infection): Plan PLAN FOR TODAY: Continue close inpatient monitoring. Rate remains labile. Continue metoprolol. Will add a low-dose diltiazem to her regimen to see if this will help to control her rate. May need to switch to extended release prior to discharge. Metoprolol dose currently at 25mg BID. Blood pressure is stable. Continue Rocephin for Treatment of UTI. Symptoms have resolved. Culture grew E. coli, sensitive to Rocephin. Today is day 4 of Rocephin. Blood cultures negative today. She has no longer than encephalopathic. Continue sliding scale insulin for diabetes. Sugars have been adequately controlled. Echo showed EF of 60%, mild ventricular hypertrophy with grade 3/4 diastolic dysfunction, mild pulmonary hypertension with pressure of 50mmHg, mobile echodensity in the left ventricular cavity, which was thought to represent a calcified chordal structure. She also had mild tricuspid regurgitation and trace aortic valve regurgitation. Platelets improved to 147. Recheck a.m. labs. Continue home medications for other medical conditions. Code Status: Full IVF: None DVT PPx: Eliquis GI PPx: Protonix ABx: Rocephin Diet: Cardiac consistent carb Discharge plan: Home/Assisted Living. Attestations 2 Medical Necessity Statement*: Needs continued hospital stay for IV antibiotics related to UTI, close follow-up with atrial fibrillation with rapid ventricular rate Coding Level of Care Code Acute Code for Chg Fwd Moderate MDM includes number and complexity of problems actively addressed during encounter, amount and/or complexity of data reviewed/ordered and described risk of complication, morbidity or mortality of management as documented Diagnoses Atrial fibrillation, unspecified type I48.91 Atrial fibrillation type: unspecified Hypoxia R09.02 Acute kidney injury N17.9 Hyperkalemia E87.5 Thrombocytopenia D69.6 Aortic stenosis I35.0 Controlled type 2 diabetes mellitus with hyperglycemia, without long-term current use of insulin E11.65 Diabetes mellitus type: type 2 Acute encephalopathy G93.40 UTI (urinary tract infection) N39.0
[2024-06-27 20:09] LABS: Glucose Point of Care 208 mg/dL (70-110)
[2024-06-27] MEDS: HYDROcodone-acetaminophen 5-325 mg Tablet 1 TAB PO (20:27)
[2024-06-27] MEDS: atorvastatin 40 mg Tablet 20 MG PO (20:27)
[2024-06-27] MEDS: metoprolol tartrate 25 mg Tablet 50 MG PO (20:27)
[2024-06-28] VITALS (7 sets, daily range): BP systolic 96–119; BP diastolic 57–84; PULSE 81–106; RESP 15–20; TEMP 36.9–37.1; O2SAT 88–98
[2024-06-28] MEDS: nystatin powder 15 gm Btl 1 APPLIC TOPICAL ×2 (00:08→11:02)
[2024-06-28] MEDS: dilTIAZem 30 mg Tablet PO ×2 (04:03→11:01)
[2024-06-28 04:12] LABS: Basophils # 0.1 10^3/uL (0.0-0.1); Basophils % 0.7 %; Eosinophils # 0.1 10^3/uL (0.0-0.8); Eosinophils % 1.4 %; Hematocrit 39.1 % (36-47); Lymphocytes # 1.7 10^3/uL (0.8-4.8); Lymphocytes % 18.1 %; Mean Corpuscular HGB Conc 30.7 g/dL (30-55); Mean Corpuscular Volume 87.9 fl (85-98); Mean Platelet Volume 10.9 fL (7.4-10.4); Monocytes # 1.2 10^3/uL (0.2-0.9); Monocytes % 12.8 %; Neutrophils # 6.08 10^3/uL (1.8-7.7); Neutrophils % 66.1 %; Nucleated Red Blood Cells % 0 %; Platelet Count 160 10^3/cmm (157-399); Red Blood Count 4.45 10^6/uL (3.85-5.65); Red Cell Distribution Width 14.7 % (12.1-15.1); White Blood Count 9.19 10^3/uL (3.29-11.43)
[2024-06-28 05:02] LABS: Alanine Aminotransferase 18 U/L (0-33); Albumin Level 3.2 g/dL (3.5-5.2); Alkaline Phosphatase 111 U/L (35-105); Anion Gap 14.7 (5-19); Aspartate Amino Transferase 29 U/L (0-32); Blood Urea Nitrogen 16 mg/dL (8-23); Calcium 8.7 mg/dL (8.5-10.5); Carbon Dioxide 31 mmol/L (22-29); Chloride 98 mmol/L (98-107); Creatinine Clr Calc Pharmacy 55.9725; Globulin 2.9 g/dL (1.3-4.6); Glucose 167 mg/dL (65-115); Magnesium 1.6 mg/dL (1.7-2.3); Osmolality Calculated 295 mOsm/kg (285-295); Potassium 3.7 mmol/L (3.5-5.1); Sodium 140 mmol/L (136-145); Total Bilirubin 0.5 mg/dL (0.15-1.2); Total Protein 6.1 g/dL (6.6-8.7)
[2024-06-28 06:55] LABS: Glucose Point of Care 181 mg/dL (70-110)
[2024-06-28] MEDS: duloxetine 60 mg Capsule PO (09:06)
[2024-06-28] MEDS: pantoprazole DR 40 mg Tablet PO (09:06)
[2024-06-28] MEDS: apixaban 5 mg Tablet 2.5 MG PO (09:06)
[2024-06-28] MEDS: allopurinol 300 mg Tablet PO (09:06)
[2024-06-28] MEDS: gabapentin 300 mg Capsule PO ×2 (09:06→14:32)
[2024-06-28] MEDS: anastrozole 1 mg Tablet PO (09:06)
[2024-06-28] MEDS: insulin lispro 100 unit/1 mL SUBCUT ×2 (09:06→13:20)
[2024-06-28] MEDS: metoprolol tartrate 25 mg Tablet 50 MG PO (09:13)
[2024-06-28 12:51] LABS: Glucose Point of Care 182 mg/dL (70-110)
--- NOTE | 2024-06-28 13:01 | P.DS_ITS ---
Discharge Providers Date of Admission: 06/24/24 16:51 Date of Discharge: June 28, 2024 Attending Provider at Admission: Billy Peterson MD Attending Provider at Discharge: Shagufta Jenkins MD Primary Care Provider: JANET Harvey Diagnoses at Discharge Discharge Diagnosis (1) AF (atrial fibrillation): Status: Chronic Qualifiers: Atrial fibrillation type: unspecified Qualified Code(s): I48.91 - Unspecified atrial fibrillation (2) Hypoxia: Status: Acute (3) Acute kidney injury: Status: Acute (4) Hyperkalemia: Status: Acute (5) Thrombocytopenia: Status: Acute (6) Aortic stenosis: Status: Acute (7) Controlled diabetes mellitus with hyperglycemia, without long-term current use of insulin: Status: Chronic Qualifiers: Diabetes mellitus type: type 2 Qualified Code(s): E11.65 - Type 2 diabetes mellitus with hyperglycemia Permanent problem details: A1C 8.22 April 2020 A1C 6.20 August 2020 A1C 7.23 January 2021 (8) Acute encephalopathy: Status: Acute (9) UTI (urinary tract infection): Status: Acute Reason for Visit Reason for Visit: weakness Hospital Course Hospital Course Pleasant 84-year-old female who was admitted for management evaluation of UTI and A-fib RVR. She also had some PRISCILLA that improved after holding her diuretics. Echo showed diastolic dysfunction. She came from assisted living. For her A- fib RVR she was put on Coreg 120 mg Cartia twice a day regimen along Eliquis. Discontinue nebivolol. For her UTI she will need Macrobid, she remained afebrile no leukocytosis no sign of sepsis. She will be given magnesium supplements at the time of discharge as well. She uses wheelchair for ambulation history of left below-knee amputation, A-fib, and history of breast cancer. Physical Exam Narrative: Awake and alert A-fib Pleasant cooperative GCS 15 Urinary Catheter Management: Doll: Cath Placed During This Visit: yes, but has since been removed by the nurse Reason for Continuing Indwelling Catheter: Accurate Measurement of Urinary Output in Critically Ill Patients Urinary Catheter Date of Insertion: 06/24/24 Urinary Catheter Time of Insertion: 15:00 Date Urinary Catheter Removed: 06/25/24 Time Urinary Catheter Discontinued: 11:38 Discharge Data Studies Completed and Pending Completed Studies During Hospitalization Category Date Time Status XR chest 1V portable [id number] Stat Exams 06/24/24 13:40 Completed CV. echo complete* [id number] Routine Ultrasound 06/24/24 15:20 Completed Pending at discharge Category Date Time Status Blood Culture Stat Lab 06/24/24 17:21 Results Radiology Impressions Chest X-Ray 06/24/24 13:40 Impression: There is cardiomegaly without acute lung process. Laboratory Results WBC 9.19 10^3/uL (3.29-11.43) 06/28/24 03:37 RBC 4.45 10^6/uL (3.85-5.65) 06/28/24 03:37 Hgb 12.00 g/dL (11.27-16.99) 06/28/24 03:37 Hct 39.1 % (36-47) 06/28/24 03:37 MCV 87.9 fl (85-98) 06/28/24 03:37 MCH 27.0 pg (27-33) 06/28/24 03:37 MCHC 30.7 g/dL (30-55) 06/28/24 03:37 RDW 14.7 % (12.1-15.1) 06/28/24 03:37 Plt Count 160 10^3/cmm (157-399) 06/28/24 03:37 MPV 10.9 fL (7.4-10.4) H 06/28/24 03:37 Neut % (Auto) 66.1 % 06/28/24 03:37 Lymph % (Auto) 18.1 % 06/28/24 03:37 [place] % (Auto) 12.8 % 06/28/24 03:37 Eos % (Auto) 1.4 % 06/28/24 03:37 Baso % (Auto) 0.7 % 06/28/24 03:37 Neut # (Auto) 6.08 10^3/uL (1.8-7.7) 06/28/24 03:37 Lymph # (Auto) 1.7 10^3/uL (0.8-4.8) 06/28/24 03:37 [place] # (Auto) 1.2 10^3/uL (0.2-0.9) H 06/28/24 03:37 Eos # (Auto) 0.1 10^3/uL (0.0-0.8) 06/28/24 03:37 Baso # (Auto) 0.1 10^3/uL (0.0-0.1) 06/28/24 03:37 Nucleated RBC % (auto) 0 % 06/28/24 03:37 Nucleated RBCs # 0.0 /100WBC 06/28/24 03:37 Sodium 140 mmol/L (136-145) 06/28/24 03:37 Potassium 3.7 mmol/L (3.5-5.1) 06/28/24 03:37 Chloride 98 mmol/L (98-107) 06/28/24 03:37 Carbon Dioxide 31 mmol/L (22-29) H 06/28/24 03:37 Anion Gap 14.7 (5-19) 06/28/24 03:37 BUN 16 mg/dL (8-23) 06/28/24 03:37 Creatinine 0.8 mg/dL (0.5-0.9) 06/28/24 03:37 GFR Calculation Not Reportable 06/28/24 03:37 Glucose 167 mg/dL (65-115) H 06/28/24 03:37 POC Glucose 182 mg/dL (70-110) H 06/28/24 12:30 Calculated Osmolality 295 mOsm/kg (285-295) 06/28/24 03:37 Calcium 8.7 mg/dL (8.5-10.5) 06/28/24 03:37 Magnesium 1.6 mg/dL (1.7-2.3) L 06/28/24 03:37 Total Bilirubin 0.5 mg/dL (0.15-1.2) 06/28/24 03:37 AST 29 U/L (0-32) 06/28/24 03:37 ALT 18 U/L (0-33) 06/28/24 03:37 Alkaline Phosphatase 111 U/L (35-105) H 06/28/24 03:37 Troponin T Baseline 92 ng/L (0-10) H 06/24/24 13:55 Troponin T 120 Minute 78.66 ng/L (0-10) H 06/24/24 16:11 Delta Troponin T -13.34 ABS# (0-10) L 06/24/24 16:11 C-Reactive Protein 86.0 mg/L (0.0-4.9) H 06/28/24 03:37 Total Protein 6.1 g/dL (6.6-8.7) L 06/28/24 03:37 Albumin 3.2 g/dL (3.5-5.2) L 06/28/24 03:37 Globulin 2.9 g/dL (1.3-4.6) 06/28/24 03:37 Procalcitonin 1.50 ng/mL (0-0.5) H 06/28/24 03:37 TSH 1.43 uIU/mL (0.27-4.20) 06/24/24 13:55 Urine Color Yellow (Yellow) 06/24/24 15:59 Urine Appearance Clear (CLEAR) 06/24/24 15:59 Urine pH 5.5 (5-7) 06/24/24 15:59 Ur Specific [place] 1.009 (1.005-1.030) 06/24/24 15:59 Urine Protein Trace (Negative) A 06/24/24 15:59 Urine Glucose (UA) Negative (Normal) 06/24/24 15:59 Urine Ketones Negative (Negative) 06/24/24 15:59 Urine Blood Negative (Negative) 06/24/24 15:59 Urine Nitrate Negative (Negative) 06/24/24 15:59 Urine Bilirubin Negative (Negative) 06/24/24 15:59 Urine Urobilinogen 0.2 mg/dL (Negative) 06/24/24 15:59 Ur Leukocyte Esterase 2+ (Negative) A 06/24/24 15:59 Urine RBC 0-4 /hpf (0-2) H 06/24/24 15:59 Urine WBC 55-80 /hpf (0-5) H 06/24/24 15:59 Ur Squamous Epith Cells None /hpf (0-5) 06/24/24 15:59 Amorphous Sediment Not Reportable 06/24/24 15:59 Urine Bacteria 3+ /hpf (NONE) H 06/24/24 15:59 Urine Mucus None /hpf 06/24/24 15:59 Adenovirus (PCR) Not detected (NOT DETECT) 06/24/24 15:50 C. pneumoniae DNA (PCR) Not detected (NOT DETECT) 06/24/24 15:50 Coronavirus 229E (PCR) Not detected (NOT DETECT) 06/24/24 15:50 Human Metapneumovir PCR Not detected (NOT DETECT) 06/24/24 15:50 Influenza A (H1) PCR Not detected (NOT DETECT) 06/24/24 15:50 Influ A (H1/09) PCR Not detected (NOT DETECT) 06/24/24 15:50 Influenza A (H3) PCR Not detected (NOT DETECT) 06/24/24 15:50 Influenza Type A (PCR) Not detected (NOT DETECT) 06/24/24 15:50 Influenza Type B (PCR) Not detected (NOT DETECT) 06/24/24 15:50 M. pneumoniae (PCR) Not detected (NOT DETECT) 06/24/24 15:50 Parainfluenza 1 (PCR) Not detected (NOT DETECT) 06/24/24 15:50 Parainfluenza 2 (PCR) Not detected (NOT DETECT) 06/24/24 15:50 Parainfluenza 3 (PCR) Not detected (NOT DETECT) 06/24/24 15:50 Parainfluenza 4 (PCR) Not detected (NOT DETECT) 06/24/24 15:50 RSV Type A (PCR) Not detected (NOT DETECT) 06/24/24 15:50 RSV Type B (PCR) Not detected (NOT DETECT) 06/24/24 15:50 Entero/Rhino (PCR) Detected (NOT DETECT) A 06/24/24 15:50 SARS-CoV-2 (PCR) Not detected (NOT DETECT) 06/24/24 15:50 Vitals Last Vital Signs Temp 98.7 F 06/28/24 08:30 Pulse 104 H 06/28/24 08:30 Resp 15 06/28/24 08:30 BP 119/65 06/28/24 08:30 Pulse Ox 88 L 06/28/24 10:32 O2 Del Method Nasal Cannula 06/28/24 08:30 O2 Flow Rate 2 06/28/24 10:32 Discharge Plan Discharge Patient Disposition: Xfer SNF Condition: Stable Prescriptions: New diltiazem HCl [Cartia XT] 120 mg capsule,extended release 24hr 120 mg PO BID Qty: 60 4RF nitrofurantoin monohyd/m-cryst [Macrobid] 100 mg capsule 100 mg PO BID 5 Days Qty: 10 0RF Rx Instructions: must administer with a meal/food magnesium 200 mg tablet 200 mg PO BID Qty: 20 1RF Continued Prenatabs FA 29-1 mg tablet 1 tab PO DAILY Hold Instructions: Patient No Longer Taking [place] 0.01 % drops 1 drp ophthalmic (eye) .at bedtime hydrocodone-acetaminophen 10-325 mg tablet 1 tab PO BID PRN (Reason: Pain) Hold Instructions: Resume on 02/10/24. anastrozole 1 mg tablet See Rx Instructions .ROUTE .COMPLEX Qty: 30 6RF Dose Instruction: TAKE ONE TABLET BY MOUTH DAILY Rx Instructions: TAKE ONE TABLET BY MOUTH DAILY cyanocobalamin (vitamin B-12) 500 mcg tablet 500 mcg PO DAILY carboxymethylcellulose sodium 0.5 % dropperette 1 drp ophthalmic (eye) DAILY PRN (Reason: Dry Eyes) dextromethorphan-guaifenesin [Diabetic Tussin DM] 10-100 mg/5 mL liquid 10 ml PO Q4H PRN (Reason: Cough) simethicone [Gas Relief (simethicone)] 80 mg tablet,chewable 80 mg PO Q6H PRN (Reason: Gas) allopurinol 300 mg tablet 300 mg PO DAILY Qty: 90 1RF atorvastatin 20 mg tablet 20 mg PO BEDTIME Qty: 90 1RF duloxetine 60 mg capsule,delayed release(DR/EC) 60 mg PO BID Qty: 180 1RF gabapentin 300 mg capsule 600 mg PO TID 90 Days Qty: 540 1RF lidocaine 5 % adhesive patch,medicated 2 patch topical DAILY Qty: 180 1RF Rx Instructions: leave on most painful area for up to 12 hrs pantoprazole 20 mg tablet,delayed release (DR/EC) 20 mg PO BID Qty: 180 1RF Ozempic 0.25 mg or 0.5 mg(2 mg/1.5 mL) pen injector 0.5 mg SUBCUT .weekly Qty: 9 2RF trazodone 50 mg tablet 50 mg PO BEDTIME Qty: 90 1RF Eliquis 2.5 mg tablet 2.5 mg PO BID Qty: 180 1RF Hold Instructions: Resume on 02/08/24. triamcinolone acetonide 0.1 % ointment 1 applic TOPICAL TID PRN (Reason: itching) Qty: 80 1RF Rx Instructions: apply on arms, back and legs (DME) Heavy Duty Wheelchair K0006 See Rx Instructions .Route .MEDSUPPLY Qty: 1 0RF Rx Instructions: As directed sennosides-docusate sodium 8.6-50 mg tablet 2 tab PO BID 30 Days Qty: 120 2RF Hold Instructions: Order Change (DME) OneTouch Ultra Test Strip See Rx Instructions .ROUTE .COMPLEX Qty: 100 5RF Dose Instruction: USE ONE STRIP DAILY Rx Instructions: USE ONE STRIP DAILY nystatin 100,000 unit/gram powder 1 applic TOPICAL QID PRN (Reason: yeast) Qty: 60 2RF (DME) [id number] repair prosthetic See Rx Instructions .Route .MEDSUPPLY Qty: 1 0RF Rx Instructions: As directed repair and supply's of prosthetic of leg npi [id number] 99 months acetaminophen 325 mg Tablet 325 mg PO QID PRN (Reason: Pain) Hold Instructions: Resume on 02/10/24. ascorbic acid (vitamin C) [Vitamin C] 500 mg Tablet 500 mg PO BID cholecalciferol (vitamin D3) [Vitamin D3] 50 mcg (2,000 unit) Capsule 5,000 unit PO DAILY zinc 15 mg Tablet 50 mg PO DAILY ClearLax 17 gram Powder In Packet 17 g PO DAILY Caltrate 600 plus D 600 mg-20 mcg (800 unit) Tablet,Chewable 1 tab PO DAILY Carafate 1 gram tablet 1 g PO DIRECTED Rx Instructions: 1 g PO before meals and bedtime; Lyrica 75 mg capsule 75 mg PO BID Probiotic Digestive Care 20 billion cell capsule 30 cell PO BID Held furosemide 40 mg tablet 40 mg PO EVERY OTHER DAY Hold Instructions: Resume on 07/12/24. potassium chloride 10 mEq capsule, extended release 10 meq PO BID Hold Instructions: Resume on 07/12/24. Discontinued omega-3 fatty acids [Fish Oil Concentrate] 1,000 mg capsule 1,000 mg PO DAILY Hold Instructions: Patient No Longer Taking Bystolic 5 mg tablet 2.5 mg PO .PM Qty: 90 1RF spironolactone 25 mg tablet 25 mg PO DAILY Qty: 90 3RF Lasix 20 mg tablet 20 mg PO EVERY OTHER DAY Rx Instructions: alternate 40mg with 20mg daily PO; Discharge Orders: Discharge Order (Routine); Ordered 06/28/24 Ordered By: Shagufta Jenkins Referrals: Rose Lester, PHLEBOTOMY COORDINATOR-C [Primary Care Provider] - Patient Instructions: Nitrofurantoin (By mouth) (Furadantin), Diltiazem (By mouth), A-fib (Atrial Fibrillation) (DC), Acute Kidney Injury (DC), Urinary Tract Infection in Women (DC), Hyperkalemia (DC) Discharge Attestations Time Spent in Discharge Care*: greater than 30 min Status at Discharge: Cognitive status at discharge: cognitively intact , Behavioral status at discharge: cooperative , Quality Metrics Clinical Quality Measures [ No reported AMI, CVA or VTE this stay] Coding Level of Care Code Acute Code for Chg Fwd Diagnoses Atrial fibrillation, unspecified type I48.91 Atrial fibrillation type: unspecified Hypoxia R09.02 Acute kidney injury N17.9 Hyperkalemia E87.5 Thrombocytopenia D69.6 Aortic stenosis I35.0 Controlled type 2 diabetes mellitus with hyperglycemia, without long-term current use of insulin E11.65 Diabetes mellitus type: type 2 Acute encephalopathy G93.40 UTI (urinary tract infection) N39.0
[2024-06-28] MEDS: magnesium oxide 400 mg tablet PO (13:19)
[2024-06-28] MEDS: dilTIAZem ER (24HR) 120 mg Capsule PO (13:19)
--- NOTE | 2024-06-28 13:23 | PC.SOCIAL ---
IMM Updated Updated pt on IMM. No questions voiced. Provided pt a copy. Initialed, dated, & timed copy in chart.
[2024-06-28] MEDS: amiodarone 200 mg Tablet 400 MG PO (14:32)
--- NOTE | 2024-06-28 14:44 | PC.NURSE ---
discharge meds called in to [facility] pt stated her mail delivery for new meds takes awhile to be delivered, she would like me to call this pharmacy for a month supply.
--- NOTE | 2024-06-28 15:04 | PC.NURSE ---
called pharmacy and talked to chetna beckham in regards to amiodarone dose instruction from hospitalist. Verified to take 400 mg twice a day for 7 days then 400 mg daily.
== END 2024-06-28 17:14 | disposition intermediate care facility (04) | DRG 308 ==
LOC: ER 13:54 → CSU 16:51
PROVIDERS: Family Medicine; Admitting Provider Internal Medicine; Emergency Provider Family Medicine; PCP Nurse Practitioner; Visit Provider Internal Medicine
DX: I48.91 Unspecified atrial fibrillation (principal); G93.41 Metabolic encephalopathy; N17.9 Acute kidney failure, unspecified; N39.0 Urinary tract infection, site not specified; R09.02 Hypoxemia; E87.5 Hyperkalemia; D69.6 Thrombocytopenia, unspecified; I35.0 Nonrheumatic aortic (valve) stenosis; E11.40 Type 2 diabetes mellitus with diabetic neuropathy, unspecified; I25.10 Atherosclerotic heart disease of native coronary artery without angina pectoris; I10 Essential (primary) hypertension; G47.33 Obstructive sleep apnea (adult) (pediatric); K21.9 Gastro-esophageal reflux disease without esophagitis; E78.5 Hyperlipidemia, unspecified; E55.9 Vitamin D deficiency, unspecified; K58.9 Irritable bowel syndrome, unspecified; Z89.512 Acquired absence of left leg below knee; Z79.85 Long-term (current) use of injectable non-insulin antidiabetic drugs; Z85.3 Personal history of malignant neoplasm of breast; Z79.01 Long term (current) use of anticoagulants
CPT/HCPCS: 36415; 36416; 71045; 80053; 81001; 82962; 83735; 84132; 84145; 84443; 84484; 85025; 86140; 87040; 87077; 87086; 87186; 87400; 87486; 87581; 87633; 93005; 93306; 94760; 96365; 96366; 96372; 96375; 97110; 97116; 97162; 97530; 99285; J0696; J1815; J3475; J3490; J7030; J7040; J8999

== ENCOUNTER → 2024-07-19 15:06 | Outpatient (BNVA) | payer MEDICARE, OTHER, SELFPAY | PROVIDERS: PCP Nurse Practitioner; Visit Provider Nurse Practitioner | DX: E11.9 Type 2 diabetes mellitus without complications (principal); I48.91 Unspecified atrial fibrillation; I10 Essential (primary) hypertension; E11.65 Type 2 diabetes mellitus with hyperglycemia | CPT/HCPCS: 80053; 80061; 82607; 83036; 84443; 85025 ==

== ENCOUNTER → 2024-07-20 09:41 | Outpatient (BNVA) | payer MEDICARE, OTHER, SELFPAY | PROVIDERS: PCP Nurse Practitioner; Visit Provider Nurse Practitioner | DX: I10 Essential (primary) hypertension (principal); R00.0 Tachycardia, unspecified | CPT/HCPCS: 83735; 84439 ==

== ENCOUNTER → 2024-11-08 14:51 | Outpatient (BNVA) | payer MEDICARE, OTHER, SELFPAY | PROVIDERS: PCP Nurse Practitioner; Visit Provider Internal Medicine Cardiovascular Disease | DX: I48.91 Unspecified atrial fibrillation (principal); I10 Essential (primary) hypertension; I73.9 Peripheral vascular disease, unspecified; Z89.512 Acquired absence of left leg below knee; Z79.01 Long term (current) use of anticoagulants | CPT/HCPCS: 99214 ==

== ENCOUNTER 2024-12-02 12:10 | Oncology outpatient (recurring) (ONCR) | payer MEDICARE, OTHER, SELFPAY ==
[2024-12-02 13:03] LABS: Basophils # 0.1 10^3/uL (0.0-0.1); Basophils % 0.5 %; Eosinophils # 0.1 10^3/uL (0.0-0.8); Eosinophils % 0.5 %; Hematocrit 43.3 % (36-47); Lymphocytes % 20.9 %; Mean Corpuscular HGB Conc 30.5 g/dL (30-55); Mean Corpuscular Hemoglobin 26.9 pg (27-33); Mean Corpuscular Volume 88.2 fl (85-98); Mean Platelet Volume 10.4 fL (7.4-10.4); Monocytes # 0.6 10^3/uL (0.2-0.9); Monocytes % 6.7 %; Neutrophils # 6.81 10^3/uL (1.8-7.7); Nucleated Red Blood Cells % 0 %; Platelet Count 174 10^3/cmm (157-399); Red Blood Count 4.91 10^6/uL (3.85-5.65); Red Cell Distribution Width 17.9 % (12.1-15.1); White Blood Count 9.59 10^3/uL (3.29-11.43)
[2024-12-02 13:24] LABS: Alanine Aminotransferase 32 U/L (0-33); Alkaline Phosphatase 114 U/L (35-105); Anion Gap 13.9 (5-19); Aspartate Amino Transferase 39 U/L (0-32); Blood Urea Nitrogen 23 mg/dL (8-23); Calcium 9.8 mg/dL (8.5-10.5); Carbon Dioxide 32 mmol/L (22-29); Chloride 94 mmol/L (98-107); Creatinine Clr Calc Pharmacy 38.1856; Globulin 2.8 g/dL (1.3-4.6); Glucose 133 mg/dL (65-115); Osmolality Calculated 286 mOsm/kg (285-295); Potassium 4.9 mmol/L (3.5-5.1); Sodium 135 mmol/L (136-145); Total Bilirubin 0.6 mg/dL (0.15-1.2); Total Protein 6.8 g/dL (6.6-8.7)
== END 2024-12-17 23:59 | disposition home or self-care (01) ==
PROVIDERS: Nurse Practitioner Family; PCP Nurse Practitioner; Visit Provider Nurse Practitioner
DX: C50.911 Malignant neoplasm of unspecified site of right female breast (principal); Z17.0 Estrogen receptor positive status [ER+]; Z85.3 Personal history of malignant neoplasm of breast; Z79.811 Long term (current) use of aromatase inhibitors; Z90.12 Acquired absence of left breast and nipple; M21.332 Wrist drop, left wrist; M21.331 Wrist drop, right wrist
CPT/HCPCS: 36415; 80053; 85025; 99214

== ENCOUNTER 2025-01-09 05:09 | Emergency (ER) | payer MEDICARE, OTHER, SELFPAY ==
[2025-01-09 05:12] VITALS: BP 125/58; PULSE 71; RESP 18; TEMP 35.8; O2SAT 89; BMI 30.9
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
--- NOTE | 2025-01-09 05:24 | W.ED.FALL ---
HPI - Fall General: Chief Complaint: Fall Stated Complaint: FALL Time Seen by Provider: 01/09/25 05:13 Source: patient and EMS Mode of arrival: EMS Limitations: no limitations History of Present Illness: 84-year-old female here from residential states she had got up to go to the bathroom this morning and fell she hit her head on the toilet she does have a contusion to left forehead denies any loss conscious she states she does have a headache along with some neck pain denies any other injuries from the fall denies any hip pain. Associated symptoms-after fall: Reports headache(s) and neck pain; Denies abdominal pain or chest pain Related Data Home Medications ?Medication ?Instructions ?Recorded ?Confirmed vits,calcium no.78-iron 1 tab PO DAILY 11/05/19 12/31/24 fumarate-folic acid 29 mg-1 mg tablet (Prenatabs FA) acetaminophen 325 mg tablet 325 mg PO QID PRN Pain 02/11/20 12/31/24 bimatoprost 0.01 % eye drops 1 drp ophthalmic (eye) .at bedtime 03/21/21 12/31/24 (Lumigan) hydrocodone 10 mg-acetaminophen 1 tab PO BID PRN Pain 01/29/22 12/31/24 325 mg tablet ascorbic acid (vitamin C) 500 mg 500 mg PO BID 02/04/24 12/31/24 tablet (Vitamin C) cholecalciferol (vitamin D3) 50 5,000 unit PO DAILY 02/04/24 12/31/24 mcg (2,000 unit) capsule (Vitamin D3) carboxymethylcellulose sodium 0.5 1 drp ophthalmic (eye) DAILY PRN 06/02/24 12/31/24 % eye drops in a dropperette Dry Eyes dextromethorphan-guaifenesin 10 10 ml PO Q4H PRN Cough 06/02/24 12/31/24 mg-100 mg/5 mL oral liquid (Diabetic Tussin DM) simethicone 80 mg chewable tablet 80 mg PO Q6H PRN Gas 06/02/24 12/31/24 (Gas Relief (simethicone)) Lactobacillus rhamnosus GG 20 30 cell PO BID 06/24/24 12/31/24 billion cell capsule (Probiotic Digestive Care) calcium 600 mg (as carbonate)-vit 1 tab PO DAILY 06/24/24 12/31/24 D3 20 mcg (800 unit) chewable tablet (Caltrate plus D) polyethylene glycol 3350 17 gram 17 g PO DAILY 06/24/24 12/31/24 oral powder packet (ClearLax) potassium chloride 10 mEq 10 meq PO BID 06/24/24 12/31/24 capsule,extended release sucralfate 1 gram tablet (Carafate) 1 g PO DIRECTED 06/24/24 12/31/24 spironolactone 25 mg tablet 25 mg PO DAILY 11/08/24 12/31/24 Previous Rx's ?Medication ?Instructions ?Recorded Heavy Duty Wheelchair K0006 #1 ea 10/26/22 sennosides 8.6 mg-docusate sodium 2 tab PO BID 30 days #120 tabs 10/26/22 50 mg tablet [id number] repair prosthetic #1 ea 11/11/23 diltiazem HCl 120 mg 120 mg PO BID #60 caps 06/28/24 capsule,extended release 24 hr (Cartia XT) blood sugar diagnostic (OneTouch #100 strips 07/24/24 Ultra Test strips) blood-glucose meter (OneTouch #1 ea 07/24/24 Ultra2 Meter) mupirocin 2 % topical ointment 1 applic topical BID #22 grams 08/05/24 furosemide 40 mg tablet 40 mg PO .every other day #90 tabs 11/08/24 amiodarone 200 mg tablet 400 mg (2 x 200 mg) PO DAILY #180 12/02/24 tabs anastrozole 1 mg tablet See Rx Instructions .Route 12/06/24 .COMPLEX #30 tabs albuterol sulfate 2.5 mg/3 mL 2.5 mg (3 mL) inhalation .two 12/07/24 (0.083 %) solution for nebulization times day PRN shortness of breath or wheezing #75 mL budesonide 0.5 mg/2 mL suspension 0.5 mg (2 mL) inhalation BID #60 mL 12/07/24 for nebulization (Pulmicort) allopurinol 300 mg tablet 300 mg PO DAILY #90 tabs 12/31/24 apixaban 2.5 mg tablet (Eliquis) 2.5 mg PO BID #180 tabs 12/31/24 atorvastatin 20 mg tablet 20 mg PO BEDTIME #90 tabs 12/31/24 duloxetine 60 mg capsule,delayed 60 mg PO BID #180 caps 12/31/24 release gabapentin 300 mg capsule 600 mg (2 x 300 mg) PO TID 90 days 12/31/24 #540 caps lidocaine 5 % topical patch 2 patch topical DAILY #180 ea 12/31/24 linaclotide 290 mcg capsule 290 mcg PO QAM #90 caps 12/31/24 (Linzess) nystatin 100,000 unit/gram topical 1 applic topical QID PRN yeast #60 12/31/24 powder grams pantoprazole 20 mg tablet,delayed 20 mg PO BID #180 tabs 12/31/24 release semaglutide 1 mg/dose (4 mg/3 mL) 1 mg (0.75 mL) SUBCUT .weekly #9 mL 12/31/24 subcutaneous pen injector (Ozempic) trazodone 50 mg tablet 50 mg PO BEDTIME #90 tabs 12/31/24 Allergies Allergy/AdvReac Type Severity Reaction Status Date / Time chlorthalidone Allergy Unknown Verified 01/09/25 05:14 metformin AdvReac Severe ADR-Diarrhe Verified 01/09/25 05:14 a celecoxib (From Celebrex) AdvReac GI Verified 01/09/25 05:14 Review of Systems Const: Denies: fever(s), chills, body aches or change in appetite Eyes: Denies: blurry vision or eye discomfort ENMT: Denies: throat pain or dental pain Card: Denies: chest pain Resp: Denies: dyspnea GI: Denies: abdominal pain, nausea, vomiting or diarrhea Musc: Reports: neck pain; Denies: back pain Skin/Breast: Denies: rash Neuro: Reports: headache(s) PFSH ED PFSH: Medical History PAD (peripheral artery disease) Controlled diabetes mellitus with hyperglycemia, without long-term current use of insulin A1C 8.22 April 2020 A1C 6.20 August 2020 A1C 7.23 January 2021 AF (atrial fibrillation) UTI (urinary tract infection) Hyperkalemia Acute kidney injury Atrial fibrillation with RVR Acute encephalopathy Aortic stenosis Thrombocytopenia Hyperkalemia Acute kidney injury Hypoxia Difficulty sleeping Gastroparesis due to secondary diabetes Myofascial pain syndrome Bronchospasm History of nonmelanoma skin cancer Neuropathic pain Adverse effect of drug or medicament Vasovagal near syncope Acute respiratory failure with hypoxia Lives in assisted living facility Generalized abdominal tenderness Obstructive sleep apnea CPAP Aspiration pneumonia Arteriosclerotic coronary artery disease Vitamin D insufficiency Chronic GERD Essential (primary) hypertension Dyslipidemia Irritable bowel syndrome with diarrhea Thais infection Surgical History History of lumpectomy of right breast 2022 [facility] History of thyroid cancer TSH 2.56 07/2019 History of colonoscopy 2017 at [facility] History of arthroplasty of right knee History of amputation of left foot H/O left mastectomy H/O partial thyroidectomy LEFT SIDE History of total left hip arthroplasty Family History Other CAD (coronary artery disease) Cancer Chronic kidney disease (CKD) Diabetes History of thyroid cancer Social History Smoking and tobacco/nicotine status: never used tobacco/nicotine Second hand smoke exposure: No Alcohol intake: never Substance/Drug Use: never Adopted: No Caregiver/support person: Yes Lives independently: No Household members: other Housing: Assisted Living Facility Marital status: / Number of children: 2 service: No Current occupational status: retired Pets and animals: No Do you think of yourself as: Straight/Heterosexual Current gender identity: Female Physical Exam Const: COMMON NORMALS: no acute distress, patient oriented x3 and healthy appearing HENMT: COMMON NORMALS: normocephalic HEAD & SCALP: normocephalic OTHER: Contusion noted to left forehead and hematoma Eye: COMMON NORMALS: Equal, round and reactive pupils present and EOMs intact bilaterally PUPIL: Yes Equal, round and reactive pupils present Neck/C-Spine: COMMON NORMALS: full ROM and supple Chest: COMMONS NORMALS: normal inspection of the chest Resp: COMMON NORMALS: normal respiratory effort, No retractions, No use of accessory muscles and clear to auscultation bilaterally AUSCULTATION: clear to auscultation bilaterally Cardio: COMMON NORMALS: regular rate, regular rhythm and No murmurs present (Cardio) RATE: regular rate RHYTHM: regular rhythm GI: COMMON NORMALS: Normal to inspection, nondistended, normoactive bowel sounds present, Soft to palpation, non-tender and no masses PALPATION: Yes Soft to palpation Extremity: COMMON NORMALS: normal to inspection and full ROM Neuro: COMMON NORMALS: patient oriented x3, moves all extremities and no focal motor deficits Psych: COMMON NORMALS: mental status grossly normal, Normal thought process present and cooperative THOUGHT PROCESS: Normal thought process present Skin: COMMON NORMALS: no rashes or lesions noted and no wounds GENERAL SKIN EXAM: no rashes or lesions noted Course Vital Signs: Vital signs: Vital Signs Temperature 96.4 F L 01/09/25 05:12 Pulse Rate 71 01/09/25 05:12 Respiratory Rate 18 01/09/25 05:12 Blood Pressure 125/58 01/09/25 05:12 Pulse Oximetry 89 L 01/09/25 05:12 Oxygen Delivery Me thod Room Air 01/09/25 05:12 MDM - Fall Medical Decision Making 84-year-old female here after a fall she does have a closed head injury contusion noted on exam imaging here is normal no other injuries noted on exam she stable for discharge back to residential Medical Records I reviewed the patient's medical records. Lab Data Radiology Impressions Cervical Spine CT 01/09/25 05:24 IMPRESSION: 1. No fracture or evidence of acute traumatic injury. 2. Degenerative spondylosis as described. Head CT 01/09/25 05:24 IMPRESSION: No acute intracranial findings. All radiology interpretation(s) finalized by discharge Discharge Plan Discharge Patient Disposition: Home Clinical Impression: Closed head injury, Fall Condition: Stable Prescriptions: No Action Prenatabs FA 29-1 mg tablet 1 tab PO DAILY Lumigan 0.01 % drops 1 drp ophthalmic (eye) .at bedtime hydrocodone-acetaminophen 10-325 mg tablet 1 tab PO BID PRN (Reason: Pain) carboxymethylcellulose sodium 0.5 % dropperette 1 drp ophthalmic (eye) DAILY PRN (Reason: Dry Eyes) dextromethorphan-guaifenesin [Diabetic Tussin DM] 10-100 mg/5 mL liquid 10 ml PO Q4H PRN (Reason: Cough) simethicone [Gas Relief (simethicone)] 80 mg tablet,chewable 80 mg PO Q6H PRN (Reason: Gas) budesonide [Pulmicort] 0.5 mg/2 mL suspension for nebulization 0.5 mg inhalation BID Qty: 60 0RF albuterol sulfate 2.5 mg /3 mL (0.083 %) solution for nebulization 2.5 mg inhalation .two times day PRN (Reason: shortness of breath or wheezing) Qty: 75 0RF Linzess 290 mcg capsule 290 mcg PO QAM Qty: 90 0RF Rx Instructions: Stop Relistor allopurinol 300 mg tablet 300 mg PO DAILY Qty: 90 1RF Eliquis 2.5 mg tablet 2.5 mg PO BID Qty: 180 1RF atorvastatin 20 mg tablet 20 mg PO BEDTIME Qty: 90 1RF duloxetine 60 mg capsule,delayed release(DR/EC) 60 mg PO BID Qty: 180 1RF gabapentin 300 mg capsule 600 mg PO TID 90 Days Qty: 540 1RF lidocaine 5 % adhesive patch,medicated 2 patch topical DAILY Qty: 180 1RF Rx Instructions: leave on most painful area for up to 12 hrs nystatin 100,000 unit/gram powder 1 applic TOPICAL QID PRN (Reason: yeast) Qty: 60 2RF pantoprazole 20 mg tablet,delayed release (DR/EC) 20 mg PO BID Qty: 180 1RF Ozempic 1 mg/dose (4 mg/3 mL) pen injector 1 mg SUBCUT .weekly Qty: 9 1RF trazodone 50 mg tablet 50 mg PO BEDTIME Qty: 90 1RF (DME) Heavy Duty Wheelchair K0006 See Rx Instructions .Route .MEDSUPPLY Qty: 1 0RF Rx Instructions: As directed sennosides-docusate sodium 8.6-50 mg tablet 2 tab PO BID 30 Days Qty: 120 2RF spironolactone 25 mg tablet 25 mg PO DAILY furosemide 40 mg tablet 40 mg PO .every other day Qty: 90 0RF Rx Instructions: change [facility] cardiology [place] l7520 repair prosthetic See Rx Instructions .Route .MEDSUPPLY Qty: 1 0RF Rx Instructions: As directed repair and supply's of prosthetic of leg npi [id number] 99 months [place] blood-glucose meter [OneTouch Ultra2 Meter] [facility] See Rx Instructions .Route Qty: 1 0RF Rx Instructions: As directed [place] OneTouch Ultra Test Strip See Rx Instructions .ROUTE .COMPLEX Qty: 100 5RF Dose Instruction: USE ONE STRIP DAILY Rx Instructions: USE ONE STRIP DAILY mupirocin 2 % ointment 1 applic topical BID Qty: 22 0RF amiodarone 200 mg tablet 400 mg PO DAILY Qty: 180 3RF anastrozole 1 mg tablet See Rx Instructions .ROUTE .COMPLEX Qty: 30 6RF Dose Instruction: TAKE ONE TABLET BY MOUTH DAILY Rx Instructions: TAKE ONE TABLET BY MOUTH DAILY acetaminophen 325 mg Tablet 325 mg PO QID PRN (Reason: Pain) ascorbic acid (vitamin C) [Vitamin C] 500 mg Tablet 500 mg PO BID cholecalciferol (vitamin D3) [Vitamin D3] 50 mcg (2,000 unit) Capsule 5,000 unit PO DAILY ClearLax 17 gram Powder In Packet 17 g PO DAILY Caltrate 600 plus D 600 mg-20 mcg (800 unit) Tablet,Chewable 1 tab PO DAILY potassium chloride 10 mEq capsule, extended release 10 meq PO BID Carafate 1 gram tablet 1 g PO DIRECTED Rx Instructions: 1 g PO before meals and bedtime; Probiotic Digestive Care 20 billion cell capsule 30 cell PO BID Cartia XT 120 mg capsule,extended release 24hr 120 mg PO BID Qty: 60 4RF Discharge Orders: Discharge ED (Routine); Ordered 01/09/25 Ordered By: Young Ya Referrals: Rose Lester, CHILLER TENDER-C [Primary Care Provider] - Discharge Diet: Advance as tolerated Discharge Activity: Resume usual activity Patient Instructions: Head Injury (ED) Print Language: Andorran Coding Level of Care Code ED Med Spec for Tracy Jerry
[2025-01-09 05:49] VITALS: PULSE 75; RESP 16; O2SAT 92
[2025-01-09 06:19] VITALS: BP 136/64; PULSE 69; RESP 18; O2SAT 93
[2025-01-09 06:29] VITALS: BP 127/74; PULSE 68; RESP 18; O2SAT 92
--- NOTE | 2025-01-09 07:32 | PC.PHAR ---
patient is from [facility]
== END 2025-01-09 08:36 | disposition home or self-care (01) ==
PROVIDERS: Emergency Provider Emergency Medicine; PCP Nurse Practitioner
DX: S09.8XXA Other specified injuries of head, initial encounter (principal); W19.XXXA Unspecified fall, initial encounter; Z79.01 Long term (current) use of anticoagulants; Z85.850 Personal history of malignant neoplasm of thyroid; E78.5 Hyperlipidemia, unspecified; I10 Essential (primary) hypertension; Z85.828 Personal history of other malignant neoplasm of skin; E11.9 Type 2 diabetes mellitus without complications; I25.10 Atherosclerotic heart disease of native coronary artery without angina pectoris
CPT/HCPCS: 70450; 72125; 99284

== ENCOUNTER 2025-01-11 11:13 | Outpatient (CLI) | payer MEDICARE, OTHER, SELFPAY ==
--- NOTE | 2025-01-11 11:16 | XRR_ITS ---
PROCEDURE INFORMATION: Exam: XR Lumbosacral Spine Exam date and time: 01/11/2025 11:35 AM Age: 84 years old Clinical indication: Pain and injury or trauma; Blunt trauma (contusions or hematomas); Low back pain; Injury date: 2 weeks ago; Injury details: Fall x2 weeks, posterior hip pain; Prior surgery; Surgery date: 6+ months; Surgery type: Hip replacemnt L, and shantanu in femur; HX of breast and thyroid cancer; Additional info: M54.50 - low back pain, unspecified TECHNIQUE: Imaging protocol: Radiologic exam of the lumbosacral spine. Views: 2 or 3 views. COMPARISON: CR XR lumbar spine 2-3V* [id number] 05/28/2024 11:59 AM FINDINGS: Bones/joints: Levocurvature of the lumbar spine and mild reverse listhesis at L4-L5 again seen . Marked degenerative changes are again seen from L3-L4 through L5-S1. There is a partial fusion L1 through L3. Stable mild wedge deformity of the L1 vertebral body. Degenerative change of the lower lumbar spine facet joints. Incomplete imaging of the left hip replacement. Soft tissues: Vascular calcifications noted in the soft tissues. Gastrointestinal tract: Abundant colonic gas and stool. XR/XR lumbar spine 2-3V* [id number] IMPRESSION: Marked degenerative changes of the lumbar spine as detailed above without significant change. No acute fracture or dislocation.
--- NOTE | 2025-01-11 11:16 | XR_ITS ---
WS: [id number] Exam: XR hip LT 2-3V wo/w pel* [id number] Date/Time of Exam: 01/11/2025 11:31 AM Reason For Exam: M54.50 - Low back pain, unspecified Comparison 05/28/2024. Total hip arthroplasty is in place remaining in satisfactory position. No sign of loosening or fracture. Long cortical plate along the lateral margin of the LEFT femur. No sign of hardware complication. XR/XR hip LT 2-3V wo/w pel* [id number] IMPRESSION: 1. Intact LEFT total hip arthroplasty without change or complication since the last exam.
[2025-01-11 12:10] LABS: Estmated Average Glucose 140; Hemoglobin A1C 6.5 % (4.0-6.0)
== END 2025-01-11 11:14 | disposition home or self-care (01) ==
LOC: LAB 11:14
PROVIDERS: PCP Nurse Practitioner; Visit Provider Nurse Practitioner
DX: M54.50 Low back pain, unspecified (principal); M79.605 Pain in left leg; Z91.81 History of falling; E11.65 Type 2 diabetes mellitus with hyperglycemia; W19.XXXA Unspecified fall, initial encounter; Z85.3 Personal history of malignant neoplasm of breast; Z85.850 Personal history of malignant neoplasm of thyroid; M43.8X6 Other specified deforming dorsopathies, lumbar region; M43.16 Spondylolisthesis, lumbar region; M47.896 Other spondylosis, lumbar region; M47.897 Other spondylosis, lumbosacral region; Z98.890 Other specified postprocedural states; M48.56XD Collapsed vertebra, not elsewhere classified, lumbar region, subsequent encounter for fracture with routine healing; R93.89 Abnormal findings on diagnostic imaging of other specified body structures
CPT/HCPCS: 36415; 72100; 73502; 83036

== ENCOUNTER → 2025-03-10 13:24 | Outpatient (BNVA) | payer MEDICARE, OTHER, SELFPAY | PROVIDERS: PCP Nurse Practitioner; Visit Provider Nurse Practitioner | DX: R19.5 Other fecal abnormalities (principal) | CPT/HCPCS: 82270 ==

== ENCOUNTER 2025-05-08 11:59 | Emergency (ER) | payer MEDICARE, OTHER, MEDICAID, SELFPAY ==
--- OUTSIDE RECORDS SUMMARY | 2025-05-08 12:05 | XMS_ITS | Encounter Summary ---
Author Organization [facility] Address [address] [place] [address] Care Team Providers Care Shop Welder Name Role Phone Nguyễn Lua MD Primary Care Provider [phone] Reason for Visit * Reason Onset Date Comments Needs Appointment 07/08/2024 Encounter Details Date Type Department Care Team (Late st Contact Info) Description 07/08/2024 Telephone [facility] [address] [place] [id number] Provider, Abstract NO ADDRESS ON FILE Needs Appointment Social History Tobacco Use Types Packs/Day Years Used Date Smoking Tobacco: Never Smokeless Tobacco: Never Alcohol Use Standard Drinks/Week Comments No 0 (1 standard drink = 0.6 oz pur e alcohol) Comments No Sex and Gender Information Value Date Recorded Sex Assigned at Not on file Legal 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 * Telephone Encounter - Steven Flores - 07/08/2024 10:27 AM CDT [facility] Call Center Communications Consult (Provider) Caller: Savanah Relation to Patient: Daughter PHI (Y/N): y MESSAGE Calling to schedule referral Cardiology Road Machine Runner: Maryoma documented in this encounter Plan of Treatment Upcoming Encounters Date Type Department Care Team (Late st Contact Info) Description 05/19/2025 9:40 AM CDT Office Visit [facility] Int [place] [place] [address] Nguyễn Lua MD [address] [place] [address] 07/13/2025 11:00 AM CDT Office Visit [facility] Endocrinology [facility] [address] [place] [address] Bertha Swenson MD [address] [place] [address] 08/17/2025 1:30 PM CDT Appointment [facility] [address] [place] [address] Mando Pagan MD [address] [place] [address] 08/17/2025 3:40 PM CDT Office Visit [facility] Breast Surgery [address] [place] [address] Sharron Jackson NP [address] [place] [address] 01/24/2026 1:15 PM CDT Office Visit [facility] Neurology - [place] [address] [place] [address] Kristel Martinez MD [address] [place] [phone] documented as of this encounter Visit Diagnoses Not on filedocumented in this encounter Care Teams Shop Welder Relationship Specialty Start Date End Date Nguyễn Lua MD [address] [place] [phone] PCP - General Internal Medicine 10/21/24 documented as of this encounter
--- OUTSIDE RECORDS SUMMARY | 2025-05-08 12:05 | XMS_ITS | Encounter Summary ---
Author Organization [facility] Address [address] [place] [address] Care Team Providers Care General Scrap Worker Name Role Phone Nguyễn Lua MD Primary Care Provider Reason for Visit * Reason Onset Date Comments Referral 07/06/2024 Encounter Details Date Type Department Care Team (Late st Contact Info) Description 07/06/2024 Telephone [facility] [address] [facility] [address] [facility] [address] [place] [phone] Provider, Abstract NO ADDRESS ON FILE Referral Social History Tobacco Use Types Packs/Day Years Used Date Smoking Tobacco: Never Smokeless Tobacco: Never Alcohol Use Standard Drinks/Week Comments No 0 (1 standard drink = 0.6 oz pur e alcohol) Comments No Sex and Gender Information Value Date Recorded Sex Assigned at Not on file Legal Sex Female 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 * Telephone Encounter - Silvana Doran - 07/06/2024 9:15 AM CDT [facility] Call Center Communications Provider: Consult , daughter Savanah SANABRIA yes MESSAGE Ready to schedule Cardiology Consultants Intern: Silvana Doran, PSR documented in this encounter Plan of Treatment Upcoming Encounters Date Type Department Care Team (Late st Contact Info) Description 05/19/2025 9:40 AM CDT Office Visit [facility] Int [address] [place] [address] Nguyễn Lua MD [address] [place] [address] 07/13/2025 11:00 AM CDT Office Visit [facility] Endocrinology [place] [address] [place] [address] Bertha Swenson MD [address] [place] [address] 08/17/2025 1:30 PM CDT Appointment [facility] [address] [place] [address] Mando Pagan MD [address] [place] [address] 08/17/2025 3:40 PM CDT Office Visit [facility] Breast Surgery [address] [address] [place] [address] Sharron Jackson NP [address] [place] [address] 01/24/2026 1:15 PM CDT Office Visit [facility] Neurology - [place] [address] [place] [address] Kristel Martinez MD [address] [place] [address] documented as of this encounter Visit Diagnoses Not on filedocumented in this encounter Additional Health Concerns Infection Onset Date Last Indicated Resolved Time R/O COVID-19 07/07/2024 07/07/2024 07/07/2024 11:1 0 AM CDT documented as of this encounter Care Teams General Scrap Worker Relationship Specialty Start Date End Date Nguyễn Lua MD [address] [place] [address] PCP - General Internal Medicine 10/21/24 documented as of this encounter
--- OUTSIDE RECORDS SUMMARY | 2025-05-08 12:05 | XMS_ITS | Clinical Summary ---
Author Organization [facility] de Address [address] [place] [address] Phone Care Team Providers Care Patient Access Director Name Role Phone Nguyễn Lua MD Primary Care Provider [phone] Allergies Active Allergy Reactions Criticality Noted Date Comments Celecoxib Other (See Comments) 05/18/2014 Low blood count Chlorthalidone Other (See Comments) High 06/16/2015 Patient states medication caused sodium and potassium to go low Metformin Hcl Diarrhea Medium 03/31/2019 Medications apixaban (ELIQUIS) 5 mg tablet Take 2.5 mg by mouth 2 times daily. 9 Active gabapentin (NEURONTIN) 300 mg capsule Take 2 Capsules (600 mg) by mouth 3 times daily. 540 Capsule 3 9 Active blood sugar diagnostic (OneTouch Ultra Blue Test Strip) Strip 1 Each by See Admin Instructions route daily. 0 Active ALBUTEROL INHALATION Take by inhalation. 9 Active allopurinoL (ZYLOPRIM) 300 mg tablet Take 300 mg by mouth daily. 0 Active nebivoloL (Bystolic) 5 mg Tablet 5 mg daily. Give half tab 2.5mg po every evening* May hold if BP<100/70 MMHG 0 Active potassium chloride (MICRO-K EXTENCAPS) 10 mEq Extended Release capsule Take 20 mEq by mouth 2 times daily. Take 2 cap BID 0 Active semaglutide 0.25 mg or 0.5 mg(2 mg/1.5 mL) Pen Injector Inject 0.5 mg by subcutaneous injection every 7 days. Uses Wednesdays 0 Active polyethylene glycol 3350 (MIRALAX) 17 gram/dose PowderIndication s:Constipation, unspecified constipation type 1 tsp daily in 4 ounces of water 527 Gram 3 1 Active acetaminophen (TYLENOL) 325 mg tablet Take 325 mg by mouth every 6 hours as needed. Give 2 tabs po Q six hrs prn 1 Active dextromethorphan -guaiFENesin 10-100 mg/5 mL Liquid Take 10 mL by mouth every 4 hours as needed for Cough. 1 Active otlhu-0-UPO-EPA- fish oil 1,000 mg Capsule Take by mouth daily. 1 Active PNV Comb No.07-Iqnp-Eczpb Acid (Prenatabs FA) 29-1 mg Tablet Take by mouth daily. 1 Active diphenhydrAMINE (BENADRYL) 25 mg tablet Take 25 mg by mouth every 6 hours as needed for Allergies. 1 Active atorvastatin (LIPITOR) 20 mg tablet Take 20 mg by mouth daily at bedtime. Active Lidocaine 4 % Adhesive Patch, Medicated Apply 1 Patch to affected area every 24 hours. Pt uses lidocaine 5% patch daily. Active bimatoprost (LUMIGAN) 0.03 % solution 1 Drop daily at bedtime. Active nystatin (NYSTOP) 100,000 unit/gram powder Apply to affected area 4 times daily as needed for Wound Care. Active traZODone (DESYREL) 50 mg tablet Take 50 mg by mouth daily at bedtime. Active pantoprazole (PROTONIX) 20 mg Tablet, Delayed Release (E.C.)Indication s:Bloating,Early satiety,Nausea Take 1 Tablet (20 mg) by mouth daily. 90 Tablet 1 1 Active Additional Information Patient taking differently:20 mg OralTWO TIMES DAILY, Reported on 01/18/2025 metoclopramide HCl (REGLAN) 5 mg tabletIndication s:Abdominal distension (gaseous),Early satiety TAKE ONE TABLET BY MOUTH TWICE DAILY BEFORE MEALS. DO NOT TAKE FOR 7 DAYS BEFORE YOUR GASTRIC EMPTY STUDY 60 Tablet 3 1 Active Advanced Probiotic 625 mg (10 billion cell) CapsuleIndicatio ns:Constipation, unspecified TAKE TWO CAPSULES BY MOUTH DAILY 60 Capsule 3 1 Active Additional Information Patient taking differently: culturelle, Reported on 01/18/2025 DULoxetine (CYMBALTA) 60 mg Capsule, Delayed Release(E.C.) Take 1 Capsule (60 mg) by mouth daily. 90 Capsule 1 1 Active Additional Information Patient taking differently:60 mg OralTWO TIMES DAILY, Reported on 01/18/2025 docusate sodium (COLACE) 100 mg capsule Take 200 mg by mouth 2 times daily. 7 Active Miscellaneous Medical SupplyIndication s:Status post below knee amputation of left lower extremity bread slicer machine sock evaluate and adjustments. 1 Each 0 7 Active Miscellaneous Medical Supply Wheelchair. 1 Each 0 5 Active mv-mn/iron/folic acid/herb 190 (VITAMIN D3 COMPLETE ORAL) Take 1 Tablet by mouth daily. 6 Active calcium as carbonate (CALTRATE) 1,500 mg (600 mg elemental) Tablet Take 600 mg by mouth daily. 6 Active cyanocobalamin (VITAMIN B-12) 100 mcg tablet Take 500 mcg by mouth daily . 6 Active glipiZIDE (GLUCOTROL) 5 mg tablet Take 5 mg by mouth 2 times daily with meals. 6 Active simethicone (Gas Relief 80, simethicone,) 80 mg Tablet, Chewable CHEW ONE TABLET BY MOUTH EVERY 6 HOURS NEEDED FOR GAS 120 Tablet 3 Active furosemide (LASIX) 40 mg tablet Take 40 mg by mouth every other day. Alternates with 20mg dose Active HYDROcodone-acet aminophen (NORCO) 10-325 mg TabletIndication s:Malignant neoplasm of upper-outer quadrant of right breast in female, estrogen receptor positive (CMS/HCC) Take 0.5-1 Tablets by mouth every 6 hours as needed for Pain. Max Daily Amount: 4 Tablets 10 Tablet 08/15/2023 12:03 PM CDT 3 Active Miscellaneous Medical Supply Custom molded plastizote orthotic with diabetic shoes 1 Each 4 Active anastrozole (ARIMIDEX) 1 mg tablet Take 1 mg by mouth daily. Active amiodarone (CORDARONE) 200 mg tablet Take 200 mg by mouth daily. Active calcium-vitamin D3 (CALTRATE 600+D) 600 mg-5 mcg (200 unit) Tablet Take 1 Tablet by mouth. Active diltiaZEM (CARDIZEM CD) 120 mg Controlled Delivery 24 hour capsule Take 120 mg by mouth daily. Active Magnesium 200 mg Tablet Take 200 mg by mouth 2 times daily. Active tamsulosin (FLOMAX) 0.4 mg capsule Take 0.4 mg by mouth daily. Active sucralfate (CARAFATE) 1 gram tablet Take 1 Gram by mouth 4 times daily before meals and at bedtime. Active ZINC GLUCONATE ORAL Take by mouth. Activ e Active Problems Problem Noted Date Diagnosed Date Rt breast Ca - s/p lump & attempted SNbx () 07/08/2023 Cancer Staging:Clinical stage from 07/08/2023:Stage IA(cT1c, cN0, cM0, G2, ER+, MA+, HER2-) - Signed by Mando Pagan MD on 07/08/2023 A-fib 04/01/2019 Periprosthetic fracture of femur at tip of prost hesis left 04/01/2019 S/P BKA (below knee amputation) unilateral, left 09/17/2017 Obesity (BMI 30.0-34.9) 08/27/2017 Chronic constipation 08/27/2017 Preoperative general physical examination 2016 GOLDIE on CPAP 08/27/2017 Gastroesophageal reflux disease 08/27/2017 Dyslipidemia 08/27/2017 Essential hypertension 08/27/2017 Cellulitis of foot, right 11/08/2015 Hallux valgus of right foot 07/09/2014 Heel spur 07/09/2014 Other hammer toe (acquired) 07/09/2014 Closed dislocation of metatarsophalangeal (joint ) 07/09/2014 Carpal tunnel syndrome 05/12/2013 Cubital tunnel syndrome on right 05/12/2013 HX: breast cancer - s/p Lt mast & ALND ( - 1999) 06/03/2011 Post-operative nausea and vomiting Resolved Problems Problem Noted Date Diagnosed Date Resolved Date Depression 08/27/2017 10/21/2024 Diabetic ulcer of left foot associated with type 2 diabetes mellitus 11/14/2015 10/23/2024 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/2015 10/23/2024 Neuropathy in diabetes 06/24/201410/23 Encounters Date Type Department Care Team Description 05/03/2025 Orders Only [facility] Int Sleep Number-Lloyd Gianfranco [address] [place] [address] Nguyễn Lua MD Dyslipidemia (Primary Dx) 05/03/2025 Orders Only [facility] Int Med-[facility] [address] [place] [address] Nguyễn Lua MD 03/15/2025 External Device Data STL ABSTRACTION Provider, Abstract 02/24/2025 2:40 PM CDT Office Visit [facility] Breast Surgery [address] [place] [id number] Sharron Jackson NP Rt breast Ca - s/p lump & attempted SNbx (08/15/23) (Primary Dx) from Last 3 Months Immunizations Immunization Administration Dates Next Due (SPIKEVAX) (12 YRS UP PRIMAR Y SERIES) COVID-19 VACCINE - MRNA-1273(PF) 100 MCG/0.5 ML IM SUSP 11/27/2020,10/30/2020 (TDVAX)(7 YRS UP) TETANUS AN D DIPHTHERIA TOXOIDS, ADSORBED (2 LF OF TETANUS TOXOID AND 2 LF OF DIPHTHERIA TOXOID), 0.5ML (PF), IM 12/17/2006 INFLUENZA VACCINE QUADRIVALENT 6 MOS UP PF IM ,08/05/2019 Influenza, Unspecified Formulation 10/20/2001, Td(adult) Unspecified Formulation 12/18/2001 Family History Medical History Relation Name Comments Colon Cancer Brother Healthy Daughter Lee Heart Disease Father Breast Cancer Mother Heart Disease Mother Breast Cancer Paternal Grandmother unk ag e Breast Cancer Sister Ovarian Cancer Neg Hx Pancreatic Cancer Neg Hx Uterine or Endometrial Cance r, Not Including Cervical Neg Hx Relation Name Status Comments Brother Daughter Lee Alive Father Mother Paternal Grandfather Paternal Grandmother Sister Son Beau Alive Social History Tobacco Use Types Packs/Day Years Used Date Smoking Tobacco: Never Smokeless Tobacco: Never Tobacco Cessation:Counseling Given: Not Answered Alcohol Use Standard Drinks/Week Comments No 0 (1 standard drink = 0.6 oz pur e alcohol) Comments No Sex and Gender Information Value Date Recorded Sex Assigned at Not on file Legal Sex Female 2:14 AM [employer] Gender Identity Not on file Sexual Orientation Not on file Last Filed Vital Signs Vital Sign Reading Time Taken Comments Blood Pressure 124/74 02/24/2025 2:16 PM CDT Pulse 68 01/18/2025 12:33 PM CDT Temperature 36.7 C (98 F) 07/07/2024 10:20 AM CDT Respiratory Rate 16 07/07/2024 5:15 PM CDT Oxygen Saturation 98% 02/24/2025 2:16 PM CDT Inhaled Oxygen Concentration - - Weight 91.6 kg (202 lb) 02/24/2025 2:16 PM CDT Height 165.1 cm (5' 5 ) 02/24/2025 2:16 PM CDT Body Mass Index 33.61 02/24/2025 2:16 PM CDT Plan of Treatment Upcoming Encounters Date Type Department Care Team (Late st Contact Info) Description 05/19/2025 9:40 AM CDT [facility] [address] [place] [address] Nguyễn Lua MD [address] [place] [phone] 07/13/2025 11:00 AM CDT Office Visit [facility] Endocrinology [facility] [address] [place] [address] Bertha Swenson MD [address] [place] [phone] 08/17/2025 1:30 PM CDT Appointment [facility] [address] [place] [address] Mando Pagan MD [address] [place] [address] 08/17/2025 3:40 PM CDT Office Visit [facility] Breast Surgery [address] [place] [address] Sharron Jackson NP [address] [place] [address] 01/24/2026 1:15 PM CDT Office Visit [facility] Neurology - [place] [address] [place] [address] Kristel Martinez MD [address] [place] [address] Health Maintenance Due Date Last Done Comments DIABETES MICROALBUMIN ANNUAL SCREEN 1958 PNEUMOCOCCAL VACCINE 50+ YEA RS (1 of 2 - PCV) 1957 Traditional Medicare (ACO) A nnual Wellness Visit 1957 ZOSTER VACCINE (1 of 2) 1988 DTAP/TDAP/TD VACCINES (1 - Tdap) 12/18/2006 12/17/19 07, 12/18/2001 RSV VACCINE (60+ or ) (1 - 1-dose 75+ series) 2013 DIABETES ANNUAL FOOT EXAM 11/14/2016 11/14/2015 COLORECTAL SCREENING 2022 2017 COVID-19 Vaccine (4 - 2023-2 5 season) 2024 06/14/2022, 11/27/2020, 10/30/2020 DIABETES HBA1C Q 6 MONTHS 04/15/20252023, 07/19/2024, 07/19/2024, Additional history exists INFLUENZA VACCINE (#1) 2025 , 07/26/2021, 08/05/2019 LDL CHOLESTEROL ANNUAL 07/19/2025 07/19/2024 DIABETES ANNUAL RETINAL EXAM 08/16/2025, 01/29/2022, 01/22/2021, Additional history exists DIABETES: A1C (Auto Order) 10/15/202510/15, 07/19/2024, 07/19/2024, Additional history exists OSTEOPOROSIS SCREENING 11/12/2028 11/12/2023, 2013 Medical Devices Implanted Type Area Routeman Device Identifier Shelf Expiration Date Model / Serial / Lot Cable W/Crimp Ss 1.7 X 750mm 298.801.01s - [id number] Implanted:Qty: 1 on 04/02/2019 by Rodriguez Be MD Cable Left: Leg SYNTHES STRATEC 08/19/2023 298.801. 0 1S / / [id number] Cable W/Crimp Ss 1.7 X 750mm 298.801.01s - [id number] Implanted:Qty: 1 on 04/02/2019 by Rodriguez Be MD Cable Left: Leg SYNTHES [employer]ATEC 06/19/2023 298.801. 0 1S / / [id number] Cable W/Crimp Ss 1.7 X 750mm 298.801.01s - [id number] Implanted:Qty: 1 on 04/02/2019 by Rodriguez Be MD Cable Left: Leg [employer]ES [employer]ATEC 06/19/2023 298.801. 0 1S / / [id number] Cable W/Crimp Ss 1.7 X 750mm 298.801.01s - [id number] Implanted:Qty: 1 on 04/02/2019 by Rodriguez Be MD Cable Left: Leg SYNTHES [employer]ATEC 07/19/2023 298.801. 0 1S / / [id number] Clip Ligating Horizon Med Ti [id number] - Csc - [id number] Implanted:Qty: 1 on 08/15/2023 by Mando Pagan MD at [facility] Clip Right: Breast TELEFLEX- WECK CLOSURE SYS [id number] 04/14/2028 [id number] / / [id number] Pin Cerclage Threaded 4.5mm 298.803s - [id number] Implanted:Qty: 1 on 04/02/2019 by Rodriguez Be MD Pin Left: Leg SYNTHES [employer]ATEC 02/16/2025 298.803S / / [id number] Plate Lcp Brd Crv 20h 4.5mm 226.702s - [id number] Implanted:Qty: 1 on 04/02/2019 by Rodriguez Be MD Plate Left: Leg SYN[employer]ES [employer]ATEC 07/19/2027 226.702S / / [id number] Screw St Loc 5.0x38mm 212.213 - [id number] Implanted:Qty: 1 on 04/02/2019 by Rodriguez Be MD Screw Left: Leg SYNTHES STRATEC 212.213 / / [id number] Loc 5.0x40mm 212.214 - [id number] Implanted:Qty: 1 on 04/02/2019 by Rodriguez Be MD Screw Left: Leg SYNTHES [employer]ATEC 212.214 / / [id number] Loc 5.0x55mm 212.220 - [id number] Implanted:Qty: 2 on 04/02/2019 by Rodriguez Be MD Screw Left: Leg SYNTHES [employer]ATEC 212.220 / / [id number] 4.5x40mm 214.840 - [id number] Implanted:Qty: 2 on 04/02/2019 by Rodriguez Be MD Screw Left: Leg SYNTHES [employer]ATEC 214.840 / / [id number] 4.5x56mm 214.856 - [id number] Implanted:Qty: 1 on 04/02/2019 by Rodriguez Be MD Screw Left: Leg SYNTHES STRATEC 214.856 / / [id number] Procedures Procedure Name Priority Date/Time Associated Diagnosis Comments LIPID PANEL Routine 07/19/2024 HEMOGLOBIN A1C Routine 07/19/2024 from Last 3 Months or Most Recently Relevant to Health Maintenance Results * HEMOGLOBIN A1C (07/19/2024) ABSTRACTED HGB A1C 7.0 % Blood 07/19/2024 Rose Lester NP CHEMISTRY ORDERABLES Final Result * LIPID PANEL (07/19/2024) ABSTRACTED CHOLESTEROL 134 ABSTRACTED TRIGLYCERIDE 210 ABSTRACTED HDL 46 ABSTRACTED LDL CALCULATED 46 Blood 07/19/2024 Rose Lester NP CHEMISTRY ORDERABLES Final Result from Last 3 Months or Most Recently Relevant to Health Maintenance Insurance [employer] [employer] PART A AND B RX [employer]ANS (INTERNAL) [facility] Advance Directives For more information, please contact: [phone] Documents on File Type Date Recorded Patient Electrician Telephone Expl anation Advance Directive POA 06/01/2021 10:28 AM Advance Directive POA * Full Code (Latest Code Status on File) Date Activated Date Inactivated Comments 05/31/2021 8:13 AM 05/31/2021 2:18 PM Care Teams Patient Access Director Relationship Specialty Start Date End Date Nguyễn Lua MD [address] [address] PCP - General Internal Medicine 10/21/24
--- OUTSIDE RECORDS SUMMARY | 2025-05-08 12:05 | XMS_ITS | Patient Health Record ---
Author Organization [facility] Address [address] [place], [place] [address] Care Team Providers Care Sales Marketing Director Name Role Phone Rose Lester APN Primary Care Provider Gerald Banks MD, Arik Unavailable [phone] Kriti Carlos Unavailable [phone] Allergies Allergen (clinical drug ingredient) Drug/Non Drug Allergy documented on EMR Reaction Allergy Type Onset Date Status chlorthalidone Unknown Drug Allergy Ac tive metformin metformin Unknown Drug Allergy Active celecoxib Celebrex Unknown Drug Allergy Active Reason For Referral Reason Evaluation for possi ble treatment (clinic closing due to provider's detention) Diagnosis 1 Vertebrogenic low ba ck pain (M54.51) Diagnosis 2 Spinal stenosis, lum bar region with neurogenic claudication (M48.062) Diagnosis 3 Spondylosis without myelopathy or radiculopathy, lumbar region (M47.816) Referral Organization [facility] Referring Provider First Name Arik Referring Provider Last Name Darren Referring Provider Speciality Pain Manag ement Referred Provider Jamie Thayer Referred Provider Specialty Pain Managem ent General Notes Melinda Alejandro 10/2024 01:51:49 PM >FAXED TODAY. Referral Priority Routine Referral Appointment Date 05/17/2025 Medications Medication SIG (Take, Route, Frequency, Duration) Notes Start Date End Date Status Diabetic Tuss 100 mg/5 mL 10 mL orally every 4 hours Active anastrozole 1 mg 1 tab(s) orally once a day for 30 day(s) Active pantoprazole 20 mg 1 tab orally two glo es daily Active amiodarone 200 mg 1 tab(s) orally once a day for 30 day(s) Active Ozempic 2 mg/1.5 mL (0.25 mg or 0.5 mg dose) as directed subcutaneously once a week Active Banophen 25 mg 1 cap orally every 6 hours Active potassium chloride 10 mEq 1 cap orally 2 times a day Active atorvastatin 20 mg 1 tab orally at bedtime Active polyethylene glycol 3350 - as directed orally once a day for 7 day(s) Active Bystolic 5 mg 1 tab orally two glo es daily Active Plus Active budesonide 0.5 mg/2 mL 2 mL by nebulizer 2 times a day Active pregabalin 75 mg 1 cap(s) orally 2 times a day Active acetaminophen-hydrocodo ne 325 mg-10 mg 1 tab orally Q4H prn pain (max 4/day; hold within 4H of planned sleep) for 28 days Do not fill prior to 04/11/25. ICD-10: G89.29 03/08/2025 Active Centrum Silver Ultra Women's Therapeutic Multiple Vitamins with Minerals 1 tab orally once a day Active acetaminophen-hydrocodo ne 325 mg-10 mg 1 tab orally Q4H prn pain (max 4/day; hold within 4H of planned sleep) for 28 days Do not fill prior to 05/09/25. ICD-10: G89.29 03/08/2025 Active Calcium 600+D 600 mg-800 intl units orally as directed Acti ve Relistor 150 mg 3 tab(s) orally once a day (in the morning) Active Zinc 140 mg (as elemental zinc 50 mg) 1 tab orally once a day Active Narcan 4 mg/0.1 mL as directed intranasally once 08/15/2020 Active anastrozole 1 mg TAKE ONE TABLET BY MOUTH DAILY for 30 Days Active allopurinol 300 mg 1 tab orally once a day Active Nystop 535904 units/g 1 juan applied topically 3 times a day for 14 day(s) Active nebivolol 5 mg 1 tab(s) orally once a day Active acetaminophen-hydrocodo ne 325 mg-10 mg 1 tab orally Q4H prn pain (max 4/day; hold within 4H of planned sleep) for 28 days Do not fill prior to 03/14/25. ICD-10: G89.29 03/08/2025 Active albuterol 2.5 mg/3 mL (0.083%) 3 mL by nebulizer every 6 hours for 30 day(s) Active erythromycin ophthalmic 0.5% 1 juan in each affected eye 4 times a day for 10 day(s) Active traZODone 50 mg 1 tab orally at bedtime Active Eliquis 2.5 mg 1 tab orally 2 times a day Active tamsulosin 0.4 mg 1 cap(s) orally once a day for 30 day(s) Active gabapentin 300 mg 2 caps po orally 3 times a day Active Vitamin B12 2500 mcg orally as directed Active furosemide 20 mg 1 tab orally alterna te every other day with 40 mg tab Active Triamcinolone Acetonide Topical 0.1% as directed Active Lidocaine 5% PLO Transdermal gel As directed As directed qid for 30 days Active Vitamin D3 50 mcg 1 cap(s) orally once a day for 30 day(s) Active glipiZIDE 5 mg 1 tab orally 2 times a day, as directed Active Vitamin C 500 mg 1 tab(s) orally once a day for 30 day(s) Active acetaminophen 325 mg 2 tabs orally every 6 hours Active magnesium citrate 100 mg 1 cap(s) orally once a day Active Lumigan 0.01% 1 gtt in each affect ed eye once a day (in the evening) for 30 day(s) Active Senexon-S 50 mg-8.6 mg 2 tabs orally two times daily Active Robafen DM 20 mg-200 mg/10 mL 10 mL orally every 4 hours Active DULoxetine 60 mg 1 cap po orally BID Active sucralfate 1 g 1 tab(s) orally 4 times a day (before meals and at bedtime) for 30 day(s) Active dilTIAZem 120 mg/12 hours 1 cap(s) orally every 12 hours for 30 day(s) Active spironolactone 25 mg 1 tab orally once a day Active Social History Tobacco Use: Social History Observation Description Date Details (start date - stop date) Never Smoker NA - NA Tobacco use: Question Answer Notes : nonsmoker AUDIT-C (Standard) Question Answer Notes Did you have a drink containing alcohol in the p ast year? No Points 0 Interpretation Negative Problems Problem Type SNOMED Code ICD Code Onset Dates Problem Status W/U Status Risk Notes Problem Solitary sacroiliitis (248165196) Sacroiliitis, not elsewhere classified (M46.1) Active confirmed Problem Low back pain (981188912) Low back pain (M54.5) Active confirmed Problem Lumbosacral spondylosis without myelopathy (78682504) Spondylosis without myelopathy or radiculopathy, lumbar region (M47.816) Active confirmed Problem High risk drug monitoring status (074245490) intermediate (current) use of opiate analgesic (Z79.891) Active confirmed Problem Enthesopathy (15298501) Enthesopathy, unspecified (M77.9) Active confirmed Problem Hypersomnia (40893876) Hypersomnia, unspecified (G47.10) Active confirmed Problem Obstructive sleep apnea syndrome (38933253) Obstructive sleep apnea (adult) (pediatric) (G47.33) Active confirmed Problem Chronic pain (84416339) Other chronic pain (G89.29) Active confirmed Problem Spinal stenosis of lumbar region (07376265) Spinal stenosis, lumbar region (M48.06) Active confirmed Problem Radiculopathy due to lumbar intervertebral disc disorder (634292035262698) Intervertebral disc disorders with radiculopathy, lumbar region (M51.16) Active confirmed Problem Closed fracture of lumbar vertebra without spinal cord injury (75414654) Wedge compression fracture of first lumbar vertebra, initial encounter for closed fracture (S32.010A) Active confirmed Problem Wedge fracture of lumbar vertebra (947936836) Wedge compression fracture of first lumbar vertebra, subsequent encounter for fracture with routine healing (S32.010D) Active confirmed Problem Closed fracture of second lumbar vertebra (9450943457529319 6) Unspecified fracture of second lumbar vertebra, initial encounter for closed fracture (S32.029A) Active confirmed Problem Long-term current use of drug therapy (351261662) Other senior living (current) drug therapy (Z79.899) Active confirmed Problem Drug-induced constipation (61829061) Drug induced constipation (K59.03) Active confirmed Problem Neurogenic claudication (199311796) Spinal stenosis, lumbar region with neurogenic claudication (M48.062) Active confirmed Problem Pain in lumbar spine (338742750) Vertebrogenic low back pain (M54.51) Active confirmed Vital Signs Temperature 97.1 degrees Fahrenheit 03/08/2025 Ramya ent reported weight due to fall risk Blood pressure diastolic 69 mm Hg 03/08/2025 Pat ient reported weight due to fall risk Oximetry 92 % 03/08/2025 Patient reporte d weight due to fall risk Height 66 in 03/08/2025 Patient reporte d weight due to fall risk Blood pressure systolic 121 mm Hg 03/08/2025 Ramya ent reported weight due to fall risk Weight 203 lbs 03/08/2025 Patient reporte d weight due to fall risk BMI 32.76 kg/m2 03/08/2025 Patient reporte d weight due to fall risk Encounters Encounter Location Date Provider Diagnosis [facility] [address] [place], [place] [id number] 06/02/2024 Kirti Weiss Vertebrogenic low ba ck pain M54.51 ; Other chronic pain G89.29 and Obstructive sleep apnea (adult) (pediatric) G47.33 [facility] [address] [place], [place] [id number] 07/28/2024 Arik Banks Vertebrogenic low ba ck pain M54.51 ; Other chronic pain G89.29 and Obstructive sleep apnea (adult) (pediatric) G47.33 [facility] [address] [place], [place] [id number] 09/21/2024 Arik Banks Vertebrogenic low ba ck pain M54.51 ; Other chronic pain G89.29 and Obstructive sleep apnea (adult) (pediatric) G47.33 [facility] [address] [place], [place] [id number] 11/16/2024 Arik Banks Vertebrogenic low ba ck pain M54.51 ; Other chronic pain G89.29 and Obstructive sleep apnea (adult) (pediatric) G47.33 [facility] [address] [place], [place] [id number] 01/11/2025 Arik Banks Vertebrogenic low ba ck pain M54.51 ; Other chronic pain G89.29 and Obstructive sleep apnea (adult) (pediatric) G47.33 [facility] [address] [place], [place] [id number] 03/08/2025 Arik Banks Vertebrogenic low ba ck pain M54.51 ; Other chronic pain G89.29 and Obstructive sleep apnea (adult) (pediatric) G47.33 [facility] [address] [place], [place] [id number] 02/16/2025 Arik Banks Assessments Encounter Date Diagnosis (ICD Code) Assessment Notes Treatment Notes Treatment Clinical Notes Section Notes 11/16/2024 Vertebrogenic low back pain (ICD-10 - M54.51) Chronic axial lumbosacral spine pain. 03/08/2025 Vertebrogenic low back pain (ICD-10 - M54.51) Chronic axial lumbosacral spine pain. 09/21/2024 Other chronic pain (ICD-10 - G89.29) Patient reports that taking her pain medication allows her to get to and from all of her doctors appointments with greater ease; in / out of her son's truck. Plan to continue oral opioid medication management. 09/21/2024 Vertebrogenic low back pain (ICD-10 - M54.51) Chronic axial lumbosacral spine pain. 07/28/2024 Vertebrogenic low back pain (ICD-10 - M54.51) Chronic axial lumbosacral spine pain. 06/02/2024 Vertebrogenic low back pain (ICD-10 - M54.51) Chronic axial lumbosacral spine pain. 01/11/2025 Vertebrogenic low back pain (ICD-10 - M54.51) Chronic axial lumbosacral spine pain. 01/11/2025 Other chronic pain (ICD-10 - G89.29) Patient reports that taking her pain medication allows her to get to participate in facility activities. Plan to continue oral opioid medication management. 06/02/2024 Obstructive sleep apnea (adult) (pediatric) (ICD-10 - G47.33) Patient confirms consistent nightly use of her CPAP device. 06/02/2024 Other chronic pain (ICD-10 - G89.29) Patient reports that taking her pain medication allows her to participate in facility activities. Plan to continue oral opioid medication management. 07/28/2024 Obstructive sleep apnea (adult) (pediatric) (ICD-10 - G47.33) Patient confirms consistent nightly use of her CPAP device. 07/28/2024 Other chronic pain (ICD-10 - G89.29) Patient reports that taking her pain medication allows her to get to and from all of her doctors appointments with greater ease. Plan to continue oral opioid medication management. 09/21/2024 Obstructive sleep apnea (adult) (pediatric) (ICD-10 - G47.33) Patient confirms consistent nightly use of her CPAP device. 11/16/2024 Other chronic pain (ICD-10 - G89.29) Patient reports that taking her pain medication allows her to get to participate in facility activities. Plan to continue oral opioid medication management. 03/08/2025 Other chronic pain (ICD-10 - G89.29) Patient reports that taking her pain medication allows her to get to participate in facility activities. Plan to continue oral opioid medication at today's visit. 11/16/2024 Obstructive sleep apnea (adult) (pediatric) (ICD-10 - G47.33) Patient confirms consistent nightly use of her CPAP device. 03/08/2025 Obstructive sleep apnea (adult) (pediatric) (ICD-10 - G47.33) Patient confirms consistent nightly use of her CPAP device. 01/11/2025 Obstructive sleep apnea (adult) (pediatric) (ICD-10 - G47.33) Patient confirms consistent nightly use of her CPAP device. Patient has not been able to wear her device since recent falls; too much pain / pressure on injured left side of her face. 07/28/2024 Other Patient was seen curbside today due to a near fall when her son picked her up at the [facility]. She fell backwards out of his truck as she was getting in. He was there to catch her but she continues to feel very shaky. She denies any new aches or pains at this time. The service was provided by ASHU Macedo, as part of the ongoing care plan established by Arik Banks MD, who was present in the office for direct supervision during the encounter. 09/21/2024 Other The service was provided by ASHU Macedo, as part of the ongoing care plan established by Arik Banks MD, who was present in the office for direct supervision during the encounter. 01/11/2025 Other The service was provided by ASHU Macedo, as part of the ongoing care plan established by Arik Banks MD, who was present in the office for direct supervision during the encounter. 03/08/2025 Other The service was provided by ASHU Macedo, as part of the ongoing care plan established by Arik Banks MD, who was present in the office for direct supervision during the encounter. Patient was provided with a letter at today's visit informing patient that this clinic is closing due to Dr. Tompson's detention; see scanned document. Terminal prescriptions were given to the patient along with tapering instructions. 11/16/2024 Other The service was provided by ASHU Macedo, as part of the ongoing care plan established by Arik Banks MD, who was present in the office for direct supervision during the encounter. 06/02/2024 Other Plan Of Treatment No Information Insurance Providers Payer Name Payer Address Payer Phone Subscriber Number Group Number Insured Name Patient Relationship to Insured Coverage Start Date Coverage End Date [employer] Medicare Part B Claims Department [address] [address] [place] [address] [id number] Nicole Gordon Self - patient is the insured [employer] [address] [address] [place] [address] [phone] [id number] Nicole Gordon Self - patient is the insured Medical (General) History Medical History History ICD Code Chronic pain Low back pain, radiation into both legs Lumbar spondylosis, disc disease and spi nal stenosis Compression fracture(s), upper lumbar Sacroiliitis Left shoulder pain Bilateral foot deformity Foot deformity, left / Charcot's joint o f left foot / foot pain Abrasion, left ankle Right hand pain Afib, multiple hospitalizations Pneumonias, multiple hospitaliztions Dyslipidemia Goiter, multinodular Peripheral artery disease Right lung nodule Osteopenia Cholecystitis Hypomagnesemia Gastroesophageal reflux disesae Glaucoma Hypertension Diabetes mellitus Hematuria Irritable bowel syndrome Thyroid cancer Peripheral neuropathy Breast cancer Diabetic neuropathy Skin lesion of the right leg Bronchitis Skin bulla Gastroparesis COVID-19 (08/05/21) Sleep apnea Obesity, mild Surgical History Surgery Date(Month/Year) Thyroidectomy Deviated septum surgery, 1983 Right total knee replacement, 1997 Left total mastectomy, 1999 Left total hip replacement x 2013 Left BKA, performed at [facility] in [place], [place], 09/02/17 ORIF of left femur, performed at [facility] in [place], [place], 03/2019 Lumpectomy, right breast, performed at [facility] in [place], [place], 08/15/23 Excision of skin cancer, rig ht lower extremity, performed at [facility] by Dr. Rueda, 02/05/24 Hospitalization History Reason Date(Month/Year) UTI and Afib, treated at [facility], 06/2024 Fluid retention, treated at [facility], 01/2020 Pneumonia, treated at [facility], 07/2019 Afib, fractured clavicle, treated at [facility] , 12/31/18-01/03/19 Pneumonia x 2
--- OUTSIDE RECORDS SUMMARY | 2025-05-08 12:05 | XMS_ITS | Encounter Summary ---
Author Organization [facility] Address [address] [place] [address] Care Team Providers Care Data Processing Specialist Name Role Phone Nguyễn Lua MD Primary Care Provider [phone] Encounter Details Date Type Department Care Team (Late st Contact Info) Description 05/03/2025 Orders Only [facility] [employer] [address] [place] [address] Nguyễn Lua MD [address] [place] [address] Social History Tobacco Use Types Packs/Day Years Used Date Smoking Tobacco: Never Smokeless Tobacco: Never Alcohol Use Standard Drinks/Week Comments No 0 (1 standard drink = 0.6 oz pur e alcohol) Comments No Sex and Gender Information Value Date Recorded Sex Assigned at Not on file Legal Sex Female 2:14 AM ANNUAL GIVING DIRECTOR Gender Identity Not on file Sexual Orientation Not on file documented as of this encounter Plan of Treatment Upcoming Encounters Date Type Department Care Team (Late st Contact Info) Description 05/19/2025 9:40 AM CDT Office Visit [facility] [employer] [address] [place] [address] Nguyễn Lua MD [address] [place] [address] 07/13/2025 11:00 AM CDT Office Visit [facility] Endocrinology [facility] [address] [place] [address] Bertha Swenson MD [address] [place] [address] 08/17/2025 1:30 PM CDT Appointment [facility] Breast [facility] [address] [place] [address] Mando Pagan MD [address] [place] [address] 08/17/2025 3:40 PM CDT Office Visit [facility] Breast Surgery [address] [place] [address] Sharron Jackson NP [address] [place] [address] 01/24/2026 1:15 PM CDT Office Visit [facility] Neurology [facility] [address] [place] [address] Kristel Martinez MD [address] [place] [address] documented as of this encounter Visit Diagnoses Not on filedocumented in this encounter Additional Health Concerns Assessment Noted Time PHQ-9 Depression Total Score: 1 10/21/19 10:32 AM ANNUAL GIVING DIRECTOR documented as of this encounter Care Teams Data Processing Specialist Relationship Specialty Start Date End Date Nguyễn Lua MD [address] [place] [address] PCP - General Internal Medicine 10/21/24 documented as of this encounter
--- OUTSIDE RECORDS SUMMARY | 2025-05-08 12:05 | XMS_ITS | Encounter Summary ---
Author Organization [facility] Address [address] [place] [address] Care Team Providers Care Mold Mechanic Name Role Phone Nguyễn Lua MD Primary Care Provider [phone] Encounter Details Date Type Department Care Team (Late st Contact Info) Description 05/03/2025 Orders Only [facility] [employer] [address] [place] [address] Nguyễn Lua MD [address] [place] [address] Dyslipidemia (Primary Dx) Social History Tobacco Use Types Packs/Day Years Used Date Smoking Tobacco: Never Smokeless Tobacco: Never Alcohol Use Standard Drinks/Week Comments No 0 (1 standard drink = 0.6 oz pur e alcohol) Comments No Sex and Gender Information Value Date Recorded Sex Assigned at Not on file Legal Sex Female 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 Gender Identity Not on file Sexual Orientation Not on file documented as of this encounter Plan of Treatment Upcoming Encounters Date Type Department Care Team (Late st Contact Info) Description 05/19/2025 9:40 AM CDT Office Visit [facility] [employer] [address] [place] [address] Nguyễn Lua MD [address] [place] [address] 07/13/2025 11:00 AM CDT Office Visit [facility] Endocrinology [facility] [address] [place] [address] Bertha Swenson MD [address] [place] [address] 08/17/2025 1:30 PM CDT Appointment [facility] Breast [place] [address] [place] [address] Mando Pagan MD [address] [place] [address] 08/17/2025 3:40 PM CDT Office Visit [facility] Breast Surgery [address] [place] [address] Sharron Jackson NP [address] [place] [address] 01/24/2026 1:15 PM CDT Office Visit [facility] [place] [address] [place] [address] Kristel Martinez MD [address] [place] [address] Scheduled Orders Name Type Priority Associated Diagnoses Orde r Schedule CBC WITH DIFFERENTIAL Lab Routine Dyslipidemia Expected: 05/03/2025, Expires: 05/03/2026 COMPREHENSIVE METABOLIC PANEL Lab Routine Dyslipidemia Expected: 05/03/2025, Expires: 05/03/2026 LIPID PANEL Lab Routine Dyslipidemia Expected: 05/03/2025, Expires: 05/03/2026 documented as of this encounter Visit Diagnoses Diagnosis Dyslipidemia- Primary Other and unspecified hyperlipidemia documented in this encounter Additional Health Concerns Assessment Noted Time PHQ-9 Depression Total Score: 1 01/02/20 25 10:32 AM MANUFACTURING SALES REPRESENTATIVE documented as of this encounter Care Teams Mold Mechanic Relationship Specialty Start Date End Date Nguyễn Lua MD [address] [facility] [address] [place] [address] PCP - General Internal Medicine 10/21/24 documented as of this encounter
[2025-05-08 12:12] VITALS: BP 113/61; PULSE 68; RESP 18; TEMP 36.8; O2SAT 96; BMI 31.4
--- NOTE | 2025-05-08 12:50 | USR_ITS ---
PROCEDURE INFORMATION: Exam: US Duplex Right Lower Extremity Veins, Limited Exam date and time: 05/08/2025 1:13 PM Age: 84 years old Clinical indication: Edema, localized; Lower extremity, right; Additional info: Redness and swelling, rule out dvt TECHNIQUE: Imaging protocol: Real-time duplex ultrasound of the right extremity with 2-D jara scale, color Doppler flow and spectral waveform analysis including responses to compression and other maneuvers (when performed) with image documentation. Limited exam was focused on the right lower extremity veins. COMPARISON: US renal BI* [id number] 08/11/2023 1:44 PM FINDINGS: Right deep veins: Unremarkable. The common femoral, femoral, proximal profunda femoral, popliteal, posterior tibial and peroneal veins are patent without thrombus. Normal Doppler waveforms. Normal compressibility and/or augmentation response. Superficial veins: Greater saphenous vein at the saphenofemoral junction is patent without thrombus. Soft tissues: Unremarkable. US/[place] [id number] IMPRESSION: No sonographic evidence of deep vein thrombosis.
[2025-05-08 13:12] VITALS: BP 113/58
[2025-05-08 14:36] VITALS: BP 121/97
--- NOTE | 2025-05-08 15:02 | PC.NURSE ---
PT REQUESTED TO TAKE HER EVENING PAIN PILL, NURSE NOTIFIED PROVIDER. PROVIDER STATED PT CAN TAKE HER PAIN PILL WHEN SHE IS D/C AND SENT HOME. PT UPDATED.
[2025-05-08 16:11] VITALS: BP 128/76; PULSE 68; O2SAT 98
--- NOTE | 2025-05-08 18:33 | W.ED.EXTPRO ---
HPI - Extremity Problem General: Chief complaint: Extremity Problem,Nontraumatic Stated complaint: R leg pain, swelling, discoloration Time Seen by Provider: 05/08/25 12:33 History of Present Illness: Ms. Moody presents to the emergency department with concerns about her leg. She reports experiencing some discomfort and swelling in her leg, particularly in one specific area that she indicates as kind of right here. The patient mentions that the affected area kind of hurts when touched. Ms. Moody notes that she has been experiencing increased swelling in her leg since undergoing a procedure earlier this year. She states, It has happened more since I've had this, referring to the procedure. The patient also mentions that she needs to keep her foot elevated quite often to manage the swelling, saying, I have to have it up quite a bit. The patient is currently taking Eliquis, a blood thinner medication. She denies taking any water pills. Ms. Moody reports that her leg swelling tends to worsen when she has had her foot in a dependent position for extended periods, stating, I've had my foot down... Well, I had it down. Related Data Home Medications ?Medication ?Instructions ?Recorded ?Confirmed vits,calcium no.78-iron 1 tab PO DAILY 11/05/19 05/08/25 fumarate-folic acid 29 mg-1 mg tablet (Prenatabs FA) acetaminophen 325 mg tablet 325 mg PO QID PRN Pain 02/11/20 05/08/25 bimatoprost 0.01 % eye drops 1 drp ophthalmic (eye) .at bedtime 03/21/21 05/08/25 (Lumigan) hydrocodone 10 mg-acetaminophen 1 tab PO BID PRN Pain 01/29/22 05/08/25 325 mg tablet ascorbic acid (vitamin C) 500 mg 500 mg PO BID 02/04/24 05/08/25 tablet (Vitamin C) cholecalciferol (vitamin D3) 50 5,000 unit PO DAILY 02/04/24 05/08/25 mcg (2,000 unit) capsule (Vitamin D3) carboxymethylcellulose sodium 0.5 1 drp ophthalmic (eye) DAILY PRN 06/02/24 05/08/25 % eye drops in a dropperette Dry Eyes (Lubricant Eye Drops) dextromethorphan-guaifenesin 10 10 ml PO Q4H PRN Cough 06/02/24 05/08/25 mg-100 mg/5 mL oral liquid (Diabetic Tussin DM) simethicone 80 mg chewable tablet 80 mg PO Q6H PRN Gas 06/02/24 05/08/25 (Gas Relief (simethicone)) Lactobacillus rhamnosus GG 20 30 cell PO BID 06/24/24 05/08/25 billion cell capsule (Probiotic Digestive Care) calcium 600 mg (as carbonate)-vit 1 tab PO DAILY 06/24/24 05/08/25 D3 20 mcg (800 unit) chewable tablet (Caltrate plus D) anastrozole 1 mg tablet 1 mg PO DAILY 01/09/25 05/08/25 Previous Rx's ?Medication ?Instructions ?Recorded amiodarone 200 mg tablet 400 mg (2 x 200 mg) PO DAILY #180 12/02/24 tabs lidocaine 5 % topical patch 2 patch topical DAILY #180 ea 12/31/24 nystatin 100,000 unit/gram topical 1 applic topical QID PRN yeast #60 12/31/24 powder grams T4528 XL pull up #120 ea 01/23/25 diltiazem HCl 120 mg 120 mg PO BID #60 caps 02/04/25 capsule,extended release 24 hr (Cartia XT) T4528 XL pull up underwear #120 ea 02/22/25 allopurinol 300 mg tablet 300 mg PO DAILY #90 tabs 03/28/25 apixaban 2.5 mg tablet (Eliquis) 2.5 mg PO BID #180 tabs 03/28/25 atorvastatin 20 mg tablet 20 mg PO BEDTIME #90 tabs 03/28/25 duloxetine 60 mg capsule,delayed 60 mg PO BID #180 caps 03/28/25 release gabapentin 300 mg capsule 600 mg (2 x 300 mg) PO TID 90 days 03/28/25 #540 caps pantoprazole 20 mg tablet,delayed 20 mg PO BID #180 tabs 03/28/25 release potassium chloride 10 mEq 10 meq PO BID #180 caps 03/28/25 capsule,extended release semaglutide 1 mg/dose (4 mg/3 mL) 1 mg (0.75 mL) SUBCUT .weekly #9 mL 03/28/25 subcutaneous pen injector (Ozempic) sucralfate 1 gram tablet (Carafate) 1 g PO .COMPLEX #360 tabs 03/28/25 trazodone 50 mg tablet 50 mg PO BEDTIME #90 tabs 03/28/25 Allergies Allergy/AdvReac Type Severity Reaction Status Date / Time chlorthalidone Allergy Unknown Unknown,ADR-Cramping Unverified 05/06/25 10:12 of the Muscles metformin AdvReac Severe ADR-Diarrhe Verified 05/06/25 10:12 a celecoxib (From Celebrex) AdvReac GI Verified 05/06/25 10:12 Review of Systems General: Reports: 10 or more systems reviewed and unremarkable except in HPI and below PFS ED PFS: Medical History (Updated 05/08/25 @ 16:01 by Mukul Frank DO) Mixed incontinence urge and stress PAD (peripheral artery disease) Controlled diabetes mellitus with hyperglycemia, without long-term current use of insulin AF (atrial fibrillation) UTI (urinary tract infection) Hyperkalemia Acute kidney injury Atrial fibrillation with RVR Acute encephalopathy Aortic stenosis Thrombocytopenia Hyperkalemia Acute kidney injury Hypoxia Difficulty sleeping Gastroparesis due to secondary diabetes Myofascial pain syndrome Bronchospasm History of nonmelanoma skin cancer Neuropathic pain Adverse effect of drug or medicament Vasovagal near syncope Acute respiratory failure with hypoxia Lives in assisted living facility Generalized abdominal tenderness Obstructive sleep apnea CPAP Aspiration pneumonia Arteriosclerotic coronary artery disease Vitamin D insufficiency Chronic GERD Essential (primary) hypertension Dyslipidemia Irritable bowel syndrome with diarrhea Thais infection Surgical History History of lumpectomy of right breast 2022 [facility] History of thyroid cancer TSH 2.56 07/2019 History of colonoscopy 2017 at [facility] History of arthroplasty of right knee History of amputation of left foot H/O left mastectomy H/O partial thyroidectomy LEFT SIDE History of total left hip arthroplasty Family History Other CAD (coronary artery disease) Cancer Chronic kidney disease (CKD) Diabetes History of thyroid cancer Social History Smoking and tobacco/nicotine status: never used tobacco/nicotine Second hand smoke exposure: No Alcohol intake: never Substance/Drug Use: never Adopted: No Caregiver/support person: Yes Lives independently: No Household members: other Housing: Assisted Living Facility Marital status: / Number of children: 2 service: No Current occupational status: retired Pets and animals: No Do you think of yourself as: Straight/Heterosexual Current gender identity: Female Physical Exam Const: COMMON NORMALS: no acute distress, patient oriented x3, healthy appearing, alert and well nourished HENMT: COMMON NORMALS: normocephalic HEAD & SCALP: normocephalic Eye: COMMON NORMALS: EOMs intact bilaterally Neck/C-Spine: COMMON NORMALS: full ROM and supple Resp: COMMON NORMALS: normal respiratory effort, No retractions and clear to auscultation bilaterally AUSCULTATION: clear to auscultation bilaterally Cardio: COMMON NORMALS: regular rate, regular rhythm, No gallops present (Cardio) and No murmurs present (Cardio) RATE: regular rate RHYTHM: regular rhythm GI: COMMON NORMALS: Soft to palpation and non-tender PALPATION: Yes Soft to palpation Extremity: GENERAL: Yes normal exam except as noted and Yes edema (Right lower extremity +1 pitting edema to mid camacho) Neuro: COMMON NORMALS: patient oriented x3 SENSORIUM/ORIENTATION: Yes alert Skin: COMMON NORMALS: no rashes or lesions noted GENERAL SKIN EXAM: no rashes or lesions noted Course Vital Signs: Vital signs: Vital Signs Temperature 98.3 F 05/08/25 12:12 Pulse Rate 68 05/08/25 16:11 Respiratory Rate 18 05/08/25 12:12 Blood Pressure 128/76 05/08/25 16:11 Pulse Oximetry 98 05/08/25 16:11 Oxygen Delivery Me thod Room Air 05/08/25 12:12 MDM - Extremity (Nontraumatic) Medical Decision Making Leg swelling and discomfort: Patient reports swelling and discomfort in the leg. On examination, there is a small amount of swelling noted, but the area is not significantly red or hot. The patient is currently on Eliquis (apixaban), which reduces the likelihood of a deep vein thrombosis (DVT). The presentation is not consistent with cellulitis. The swelling may be related to normal edema, possibly exacerbated by recent periods of dependency. Patient reports a history of prior leg issues, which may have disrupted venous drainage, contributing to the current symptoms. - Lower extremity venous Doppler ruled out DVT - Continue current Eliquis regimen - Educate patient on leg elevation to manage edema - Reassure patient that findings are likely due to normal edema, possibly related to prior leg issues affecting venous drainage Lab Data Radiology Impressions Venous Duplex 05/08/25 12:50 IMPRESSION: No sonographic evidence of deep vein thrombosis. All radiology interpretation(s) finalized by discharge Discharge Plan Discharge Patient Disposition: Home Clinical Impression: Localized swelling of right lower extremity Condition: Stable Prescriptions: No Action Prenatabs FA 29-1 mg tablet 1 tab PO DAILY Lumigan 0.01 % drops 1 drp ophthalmic (eye) .at bedtime hydrocodone-acetaminophen 10-325 mg tablet 1 tab PO BID PRN (Reason: Pain) carboxymethylcellulose sodium [Lubricant Eye Drops] 0.5 % dropperette 1 drp ophthalmic (eye) DAILY PRN (Reason: Dry Eyes) dextromethorphan-guaifenesin [Diabetic Tussin DM] 10-100 mg/5 mL liquid 10 ml PO Q4H PRN (Reason: Cough) simethicone [Gas Relief (simethicone)] 80 mg tablet,chewable 80 mg PO Q6H PRN (Reason: Gas) lidocaine 5 % adhesive patch,medicated 2 patch topical DAILY Qty: 180 1RF Rx Instructions: leave on most painful area for up to 12 hrs nystatin 100,000 unit/gram powder 1 applic TOPICAL QID PRN (Reason: yeast) Qty: 60 2RF (DME) T4528 XL pull up See Rx Instructions .Route .MEDSUPPLY Qty: 120 12RF Rx Instructions: As directed (DME) T4528 XL pull up underwear See Rx Instructions .Route .MEDSUPPLY Qty: 120 11RF Rx Instructions: As directed allopurinol 300 mg tablet 300 mg PO DAILY Qty: 90 1RF Eliquis 2.5 mg tablet 2.5 mg PO BID Qty: 180 1RF atorvastatin 20 mg tablet 20 mg PO BEDTIME Qty: 90 1RF duloxetine 60 mg capsule,delayed release(DR/EC) 60 mg PO BID Qty: 180 1RF gabapentin 300 mg capsule 600 mg PO TID 90 Days Qty: 540 1RF pantoprazole 20 mg tablet,delayed release (DR/EC) 20 mg PO BID Qty: 180 1RF potassium chloride 10 mEq capsule, extended release 10 meq PO BID Qty: 180 1RF Ozempic 1 mg/dose (4 mg/3 mL) pen injector 1 mg SUBCUT .weekly Qty: 9 1RF sucralfate [Carafate] 1 gram tablet 1 g PO .COMPLEX Qty: 360 1RF Rx Instructions: 1 g PO before meals and bedtime; trazodone 50 mg tablet 50 mg PO BEDTIME Qty: 90 1RF amiodarone 200 mg tablet 400 mg PO DAILY Qty: 180 3RF diltiazem HCl [Cartia XT] 120 mg capsule,extended release 24hr 120 mg PO BID Qty: 60 6RF acetaminophen 325 mg Tablet 325 mg PO QID PRN (Reason: Pain) ascorbic acid (vitamin C) [Vitamin C] 500 mg Tablet 500 mg PO BID cholecalciferol (vitamin D3) [Vitamin D3] 50 mcg (2,000 unit) Capsule 5,000 unit PO DAILY Caltrate 600 plus D 600 mg-20 mcg (800 unit) Tablet,Chewable 1 tab PO DAILY Probiotic Digestive Care 20 billion cell capsule 30 cell PO BID anastrozole 1 mg tablet 1 mg PO DAILY Rx Instructions: TAKE ONE TABLET BY MOUTH DAILY Discharge Orders: Discharge ED (Routine); Ordered 05/08/25 Ordered By: Mukul Law Referrals: Rose Lester, [facility] [Primary Care Provider, Family Practice] Discharge Diet: Advance as tolerated Discharge Activity: Resume usual activity Patient Instructions: Opioid Safety, Pain Management, Patient Portal & Krystal Instructions Activity Restrictions/Additional Instructions: Please follow-up with your primary care physician for further management of your right lower extremity swelling. Return to the emergency department with any new or worsening symptoms. Print Language: Irish Coding Level of Care Code ED Molder Vacuum for Tracy Jerry
== END 2025-05-08 16:11 | disposition home or self-care (01) ==
PROVIDERS: Emergency Provider General Practice; PCP Nurse Practitioner
DX: M79.89 Other specified soft tissue disorders (principal)
CPT/HCPCS: 93971; 99284

== ENCOUNTER 2025-06-30 10:44 | Oncology outpatient (recurring) (ONCR) | payer MEDICARE, OTHER, SELFPAY ==
[2025-06-30 11:26] LABS: Hematocrit 40.3 % (36-47); Hemoglobin 13.00 g/dL (11.27-16.99); Mean Corpuscular HGB Conc 32.3 g/dL (30-55); Mean Corpuscular Hemoglobin 29.2 pg (27-33); Mean Corpuscular Volume 90.6 fl (85-98); Nucleated Red Blood Cells % 0 %; Platelet Count 161 10^3/cmm (157-399); Red Blood Count 4.45 10^6/uL (3.85-5.65); White Blood Count 6.40 10^3/uL (3.29-11.43)
[2025-06-30 11:38] LABS: Estmated Average Glucose 128; Hemoglobin A1C 6.1 % (4.0-6.0)
[2025-06-30 11:55] LABS: Alanine Aminotransferase 50 U/L (0-33); Albumin Level 3.4 g/dL (3.5-5.2); Alkaline Phosphatase 144 U/L (35-105); Anion Gap 11.1 (5-19); Aspartate Amino Transferase 59 U/L (0-32); Blood Urea Nitrogen 13 mg/dL (8-23); Calcium 8.7 mg/dL (8.5-10.5); Carbon Dioxide 31 mmol/L (22-29); Chloride 99 mmol/L (98-107); Cholesterol 117 mg/dL (0-200); Globulin 2.5 g/dL (1.3-4.6); Glucose 117 mg/dL (65-115); HDL Cholesterol 50 mg/dL (60-100); Osmolality Calculated 285 mOsm/kg (285-295); Potassium 4.1 mmol/L (3.5-5.1); Sodium 137 mmol/L (136-145); Thyroid Stimulating Hormone 2.39 uIU/mL (0.27-4.20); Total Protein 5.9 g/dL (6.6-8.7); Triglycerides 63 mg/dL (0-150); VLDL Cholestrol Calculation 13 mg/dL (0-30)
== END 2025-07-19 23:59 | disposition home or self-care (01) ==
PROVIDERS: Nurse Practitioner Family; PCP Nurse Practitioner; Visit Provider Nurse Practitioner
DX: C50.911 Malignant neoplasm of unspecified site of right female breast (principal); Z17.0 Estrogen receptor positive status [ER+]; I10 Essential (primary) hypertension; E11.65 Type 2 diabetes mellitus with hyperglycemia; Z85.3 Personal history of malignant neoplasm of breast; Z90.12 Acquired absence of left breast and nipple; Z79.899 Other long term (current) drug therapy
CPT/HCPCS: 36415; 80053; 80061; 83036; 84443; 85025; 99213

== ENCOUNTER → 2025-07-18 12:04 | Outpatient (BNVA) | payer MEDICARE, OTHER, MEDICAID, SELFPAY | PROVIDERS: PCP Nurse Practitioner; Visit Provider Nurse Practitioner | DX: E11.65 Type 2 diabetes mellitus with hyperglycemia (principal) | CPT/HCPCS: 82043 ==

== ENCOUNTER → 2025-08-11 09:26 | Outpatient (BNVA) | payer MEDICARE, OTHER, SELFPAY | PROVIDERS: PCP Nurse Practitioner; Visit Provider Thoracic Surgery (Cardiothoracic Vascular Surgery) | DX: E11.52 Type 2 diabetes mellitus with diabetic peripheral angiopathy with gangrene (principal); E11.621 Type 2 diabetes mellitus with foot ulcer; L97.511 Non-pressure chronic ulcer of other part of right foot limited to breakdown of skin | CPT/HCPCS: 97597; 99213 ==

== ENCOUNTER → 2025-08-18 09:24 | Outpatient (BNVA) | payer MEDICARE, OTHER, SELFPAY | PROVIDERS: PCP Nurse Practitioner; Visit Provider Thoracic Surgery (Cardiothoracic Vascular Surgery) | DX: E11.52 Type 2 diabetes mellitus with diabetic peripheral angiopathy with gangrene (principal); E11.621 Type 2 diabetes mellitus with foot ulcer; L97.511 Non-pressure chronic ulcer of other part of right foot limited to breakdown of skin | CPT/HCPCS: 97597 ==

== ENCOUNTER → 2025-08-24 13:45 | Outpatient (BNVA) | payer MEDICARE, OTHER, SELFPAY | PROVIDERS: PCP Nurse Practitioner; Visit Provider Thoracic Surgery (Cardiothoracic Vascular Surgery) | DX: Z09 Encounter for follow-up examination after completed treatment for conditions other than malignant neoplasm (principal); Z87.2 Personal history of diseases of the skin and subcutaneous tissue | CPT/HCPCS: 99212 ==

== ENCOUNTER → 2025-09-06 10:01 | Outpatient (BNVA) | payer MEDICARE, OTHER, SELFPAY | PROVIDERS: PCP Nurse Practitioner; Visit Provider Nurse Practitioner | DX: M25.50 Pain in unspecified joint (principal); M25.80 Other specified joint disorders, unspecified joint | CPT/HCPCS: 73030; 73080 ==

== ENCOUNTER → 2025-10-04 10:32 | Outpatient (BNVA) | payer MEDICARE, OTHER, SELFPAY | PROVIDERS: PCP Nurse Practitioner; Visit Provider Nurse Practitioner | DX: K59.00 Constipation, unspecified (principal); I10 Essential (primary) hypertension; E87.6 Hypokalemia; E11.65 Type 2 diabetes mellitus with hyperglycemia; E55.9 Vitamin D deficiency, unspecified | CPT/HCPCS: 74018; 80053; 80061; 82306; 84443; 85025 ==

== ENCOUNTER 2025-10-06 12:47 | Emergency (ER) | payer MEDICARE, OTHER, SELFPAY ==
[2025-10-06 12:53] VITALS: BP 121/56; PULSE 71; RESP 16; TEMP 36.9; O2SAT 93; BMI 30.9
--- NOTE | 2025-10-06 13:00 | XR_ITS ---
WS: [id number] Abdomen series, Flat and upright 10/06/2025 Clinical Data: constipation; r/o obstruction Comparison: KUB, 10/04/2025 Findings: No free air is seen beneath the diaphragms. No abnormal intra- abdominal masses are seen. There is splenic artery and other vascular calcification. There is a large amount of air and fecal material within the colon. There may be a fecal impaction. 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 There is a left hip arthroplasty. Monitor leads are on the abdominal wall. XR/XR abdomen min 2V 03128 Impression: Colonic ileus from fecal impaction.
[2025-10-06 13:13] LABS: Hematocrit 40.2 % (36-47); Hemoglobin 13.10 g/dL (11.27-16.99); Mean Corpuscular HGB Conc 32.6 g/dL (30-55); Mean Corpuscular Hemoglobin 29.2 pg (27-33); Mean Corpuscular Volume 89.7 fl (85-98); Nucleated Red Blood Cells % 0 %; Platelet Count 147 10^3/cmm (157-399); Red Blood Count 4.48 10^6/uL (3.85-5.65); White Blood Count 6.00 10^3/uL (3.29-11.43)
--- NOTE | 2025-10-06 13:29 | W.ED.ABDPA2 ---
HPI - Abdominal Pain General: Chief Complaint: Abdominal Pain Stated Complaint: ABD PAIN Time Seen by Provider: 10/06/25 13:00 Source: patient Mode of arrival: ambulatory Limitations: no limitations History of Present Illness: Patient is an 85-year-old female who presents to ED today with a complaint of constipation and abdominal pain. Patient states she has not had a bowel movement in 7 days. She feels like this is secondary to Ozempic that she started earlier this month for weight loss (has since stopped this medication). She states she is not vomiting. She does complain of diffuse abdominal pain and bloating. No previous abdominal surgeries. No history of bowel obstruction. MD elicited complaint: abdominal pain Pertinent past history: constipation Onset (ago): day(s) Pain Consistency: constant Location: Diffuse Severity: moderate Quality: fullness and other (bloating) Radiation: none Migration to: no migration Exacerbating factors: nothing Relieving factors: nothing Associated Symptoms: Reports no associated symptoms, bloating and constipation; Denies chills, GI cramping, dysuria, fever(s), hematochezia, hematemesis, melena, nausea and vomiting Related Data Home Medications ?Medication ?Instructions ?Recorded ?Confirmed vits,calcium no.78-iron 1 tab PO DAILY 11/05/19 10/04/25 fumarate-folic acid 29 mg-1 mg tablet (Prenatabs FA) acetaminophen 325 mg tablet 325 mg PO QID PRN Pain 02/11/20 10/04/25 bimatoprost 0.01 % eye drops 1 drp ophthalmic (eye) .at bedtime 03/21/21 10/04/25 (Lumigan) hydrocodone 10 mg-acetaminophen 1 tab PO BID PRN Pain 01/29/22 10/04/25 325 mg tablet ascorbic acid (vitamin C) 500 mg 500 mg PO BID 02/04/24 10/04/25 tablet (Vitamin C) cholecalciferol (vitamin D3) 50 5,000 unit PO DAILY 02/04/24 10/04/25 mcg (2,000 unit) capsule (Vitamin D3) carboxymethylcellulose sodium 0.5 1 drp ophthalmic (eye) DAILY PRN 06/02/24 10/04/25 % eye drops in a dropperette Dry Eyes (Lubricant Eye Drops) dextromethorphan-guaifenesin 10 10 ml PO Q4H PRN Cough 06/02/24 10/04/25 mg-100 mg/5 mL oral liquid (Diabetic Tussin DM) simethicone 80 mg chewable tablet 80 mg PO Q6H PRN Gas 06/02/24 10/04/25 (Gas Relief (simethicone)) Lactobacillus rhamnosus GG 20 30 cell PO BID 06/24/24 10/04/25 billion cell capsule (Probiotic Digestive Care) calcium 600 mg (as carbonate)-vit 1 tab PO DAILY 06/24/24 10/04/25 D3 20 mcg (800 unit) chewable tablet (Caltrate plus D) sennosides 8.6 mg-docusate sodium 1 tab-cap PO DAILY 05/27/25 10/04/25 50 mg tablet (Senokot-S) spironolactone 25 mg tablet 12.5 mg PO DAILY 05/27/25 10/04/25 Previous Rx's ?Medication ?Instructions ?Recorded amiodarone 200 mg tablet 400 mg (2 x 200 mg) PO DAILY #180 12/02/24 tabs lidocaine 5 % topical patch 2 patch topical DAILY #180 ea 12/31/24 nystatin 100,000 unit/gram topical 1 applic topical QID PRN yeast #60 12/31/24 powder grams T4528 XL pull up #120 ea 01/23/25 T4528 XL pull up underwear #120 ea 02/22/25 diabetic shoes #2 ea 05/10/25 budesonide 0.5 mg/2 mL suspension 0.5 mg (2 mL) inhalation BID PRN 05/27/25 for nebulization cough or wheeze #60 mL multivitamin with iron (Hair 1 tab PO .2 times day #1 tab 05/27/25 Vitamins tablet) anastrozole 1 mg tablet 1 mg PO DAILY #90 tabs 07/04/25 allopurinol 300 mg tablet 300 mg PO DAILY #90 tabs 09/06/25 apixaban 2.5 mg tablet (Eliquis) 2.5 mg PO DAILY #90 tabs 09/06/25 atorvastatin 20 mg tablet 20 mg PO BEDTIME #90 tabs 09/06/25 buspirone 10 mg tablet 10 mg PO BID #180 tabs 09/06/25 duloxetine 60 mg capsule,delayed 60 mg PO BID #180 caps 09/06/25 release furosemide 40 mg tablet (Lasix) See Rx Instructions PO .COMPLEX 09/06/25 #90 tabs gabapentin 300 mg capsule 600 mg (2 x 300 mg) PO TID 90 days 09/06/25 #540 caps pantoprazole 20 mg tablet,delayed 20 mg PO BID #180 tabs 09/06/25 release potassium chloride 10 mEq 10 meq PO BID #180 caps 09/06/25 capsule,extended release sucralfate 1 gram tablet (Carafate) 1 g PO .COMPLEX #360 tabs 09/06/25 trazodone 50 mg tablet 50 mg PO BEDTIME #90 tabs 09/06/25 cephalexin 500 mg capsule 500 mg PO TID #30 caps 09/13/25 diltiazem HCl 120 mg 120 mg PO BID #180 caps 10/04/25 capsule,extended release 24 hr (Cartia XT) magnesium hydroxide 400 mg/5 mL 30 ml PO BID constipation 2 days 10/04/25 oral suspension (Milk of Magnesia) #120 mL lactulose 10 gram/15 mL oral 30 g (45 mL) PO DAILY PRN 10/06/25 solution constipation #1,200 mL Allergies Allergy/AdvReac Type Severity Reaction Status Date / Time chlorthalidone Allergy Unknown Unknown,ADR-Cramping Verified 10/06/25 12:59 of the Muscles metformin AdvReac Severe ADR-Diarrhe Verified 10/06/25 12:59 a celecoxib (From Celebrex) AdvReac GI Verified 10/06/25 12:59 Review of Systems Const: Denies: fever(s), chills, body aches, fatigue or malaise Card: Denies: chest pain Resp: Denies: dyspnea GI: Reports: abdominal pain, constipation and bloating; Denies: nausea, vomiting, hematemesis, GI cramping, hematochezia or melena : Denies: flank pain, difficulty voiding, dysuria, urinary frequency, urinary urgency or urinary hesitancy Musc: Denies: neck pain, back pain, extremity pain, extremity swelling, joint pain, joint swelling or joint redness Skin/Breast: Denies: rash Neuro: Denies: headache(s), numbness in extremities, weakness in extremities, sensory changes or dizziness PFSH ED PFSH: Medical History Mixed incontinence urge and stress PAD (peripheral artery disease) Controlled diabetes mellitus with hyperglycemia, without long-term current use of insulin AF (atrial fibrillation) UTI (urinary tract infection) Hyperkalemia Acute kidney injury Atrial fibrillation with RVR Acute encephalopathy Aortic stenosis Thrombocytopenia Hyperkalemia Acute kidney injury Hypoxia Difficulty sleeping Gastroparesis due to secondary diabetes Myofascial pain syndrome Bronchospasm History of nonmelanoma skin cancer Neuropathic pain Adverse effect of drug or medicament Vasovagal near syncope Acute respiratory failure with hypoxia Lives in assisted living facility Generalized abdominal tenderness Obstructive sleep apnea CPAP Aspiration pneumonia Arteriosclerotic coronary artery disease Vitamin D insufficiency Chronic GERD Essential (primary) hypertension Dyslipidemia Irritable bowel syndrome with diarrhea Thais infection Surgical History History of lumpectomy of right breast 2022 [facility] History of thyroid cancer TSH 2.56 07/2019 History of colonoscopy 2017 at [facility] History of arthroplasty of right knee History of amputation of left foot H/O left mastectomy H/O partial thyroidectomy LEFT SIDE History of total left hip arthroplasty Family History Other CAD (coronary artery disease) Cancer Chronic kidney disease (CKD) Diabetes History of thyroid cancer Social History Smoking and tobacco/nicotine status: never used tobacco/nicotine Second hand smoke exposure: No Alcohol intake: never Substance/Drug Use: never Adopted: No Caregiver/support person: Yes Lives independently: No Household members: other Housing: Assisted Living Facility Marital status: / Number of children: 2 service: No Current occupational status: retired Pets and animals: No Do you think of yourself as: Straight/Heterosexual Current gender identity: Female Physical Exam Const: COMMON NORMALS: no acute distress, average body habitus, patient oriented x3, no limitations, healthy appearing, alert and well nourished GENERAL APPEARANCE: cooperative Resp: COMMON NORMALS: normal respiratory effort and clear to auscultation bilaterally AUSCULTATION: clear to auscultation bilaterally Cardio: COMMON NORMALS: regular rate and regular rhythm RATE: regular rate RHYTHM: regular rhythm GI: COMMON NORMALS: Soft to palpation INSPECTION: Yes normal to inspection AUSCULTATION: Yes Hypoactive bowel sounds present PALPATION: Yes Soft to palpation, Yes Tenderness to palpation present (GI) (diffuse), No Guarding due to palpation present (GI) and No Rigid due to palpation : COMMON NORMALS: Yes no CVA tenderness BLADDER/KIDNEY EXAM: Yes no CVA tenderness Back/Pelvis: COMMON NORMALS: no CVA tenderness Neuro: COMMON NORMALS: patient oriented x3 SENSORIUM/ORIENTATION: Yes alert Course Vital Signs: Vital signs: Vital Signs Temperature 98.1 F 10/06/25 16:50 Pulse Rate 81 10/06/25 16:50 Respiratory Rate 16 10/06/25 16:50 Blood Pressure 129/88 10/06/25 16:50 Pulse Oximetry 96 10/06/25 16:50 Oxygen Delivery Me thod Room Air 10/06/25 15:34 MDM - Abdominal Pain Medical Decision Making Patient here for abdominal bloating and fullness as well as constipation after starting Ozempic. She has since stopped this medication. She has not had a bowel movement in [address] scan does show a diffuse ileus. No obstruction. She is not vomiting. She was given a Fleet enema here and had an extremely large bowel movement. She does report feeling improvement. She will continue lactulose at home as well as bowel rest with a clear liquid diet with directions for advancement. She was given strict instructions on when she would need to return to the emergency department. Blood work here showing a normal white count. Chemistry with hyponatremia (asymptomatic/somewhat chronic), elevations to liver enzymes which have been present since Jun, and a UA that does not appear overly infected. She will be allowed discharge back to her senior living. Recommend follow-up with primary care early next week for reevaluation. Differential Diagnosis Likely abdominal pain and small bowel obstruction Medical Records I reviewed the patient's medical records. Lab Data I reviewed the patient's lab results. 10/06/25 13:07 10/06/25 13:07 Labs/Radiology: Radiology Impressions Abdomen X-Ray 10/06/25 13:00 Impression: Colonic ileus from fecal impaction. Abdomen/Pelvis CT 10/06/25 13:36 IMPRESSION: Fluid distention of the stomach with air-fluid levels. Fluid distended small bowel. Fecal retention and fluid distention of the colon. Air-fluid levels in the transverse colon. No transition points. Findings most compatible with diffuse ileus. Laboratory Results WBC 6.00 10^3/uL (3.29-11.43) 10/06/25 13:07 RBC 4.48 10^6/uL (3.85-5.65) 10/06/25 13:07 Hgb 13.10 g/dL (11.27-16.99) 10/06/25 13:07 Hct 40.2 % (36-47) 10/06/25 13:07 MCV 89.7 fl (85-98) 10/06/25 13:07 MCH 29.2 pg (27-33) 10/06/25 13:07 MCHC 32.6 g/dL (30-55) 10/06/25 13:07 RDW 13.8 % (12.1-15.1) 10/06/25 13:07 Plt Count 147 10^3/cmm (157-399) L 10/06/25 13:07 MPV 10.3 fL (7.4-10.4) 10/06/25 13:07 Neut % (Auto) 70.3 % 10/06/25 13:07 Lymph % (Auto) 19.8 % 10/06/25 13:07 Beadle % (Auto) 9.0 % 10/06/25 13:07 Eos % (Auto) 0.3 % 10/06/25 13:07 Baso % (Auto) 0.3 % 10/06/25 13:07 Neut # (Auto) 4.21 10^3/uL (1.8-7.7) 10/06/25 13:07 Lymph # (Auto) 1.2 10^3/uL (0.8-4.8) 10/06/25 13:07 Beadle # (Auto) 0.5 10^3/uL (0.2-0.9) 10/06/25 13:07 Eos # (Auto) 0.0 10^3/uL (0.0-0.8) 10/06/25 13:07 Baso # (Auto) 0.0 10^3/uL (0.0-0.1) 10/06/25 13:07 Nucleated RBC % (auto) 0 % 10/06/25 13:07 Nucleated RBCs # 0.0 /100WBC 10/06/25 13:07 Sodium 123 mmol/L (136-145) L 10/06/25 13:07 Potassium 4.7 mmol/L (3.5-5.1) 10/06/25 13:07 Chloride 84 mmol/L (98-107) L 10/06/25 13:07 Carbon Dioxide 32 mmol/L (22-29) H 10/06/25 13:07 Anion Gap 11.7 (5-19) 10/06/25 13:07 BUN 13 mg/dL (8-23) 10/06/25 13:07 Creatinine 0.8 mg/dL (0.5-0.9) 10/06/25 13:07 GFR Calculation Not Reportable 10/06/25 13:07 Glucose 134 mg/dL (65-115) H 10/06/25 13:07 Calculated Osmolality 258 mOsm/kg (285-295) L 10/06/25 13:07 Calcium 8.8 mg/dL (8.5-10.5) 10/06/25 13:07 Total Bilirubin 0.7 mg/dL (0.15-1.2) 10/06/25 13:07 AST 131 U/L (0-32) H 10/06/25 13:07 ALT 95 U/L (0-33) H 10/06/25 13:07 Alkaline Phosphatase 155 U/L (35-105) H 10/06/25 13:07 Total Protein 5.8 g/dL (6.6-8.7) L 10/06/25 13:07 Albumin 3.4 g/dL (3.5-5.2) L 10/06/25 13:07 Globulin 2.4 g/dL (1.3-4.6) 10/06/25 13:07 Lipase 15 U/L (13-60) 10/06/25 13:07 Urine Color Yellow (Yellow) 10/06/25 15:04 Urine Appearance Clear (CLEAR) 10/06/25 15:04 Urine pH 8.0 (5-7) A 10/06/25 15:04 Ur Specific [place] 1.034 (1.005-1.030) H 10/06/25 15:04 Urine Protein Negative (Negative) 10/06/25 15:04 Urine Glucose (UA) Negative (Normal) 10/06/25 15:04 Urine Ketones Negative (Negative) 10/06/25 15:04 Urine Blood Negative (Negative) 10/06/25 15:04 Urine Nitrate Negative (Negative) 10/06/25 15:04 Urine Bilirubin Negative (Negative) 10/06/25 15:04 Urine Urobilinogen 1.0 mg/dL (Negative) 10/06/25 15:04 Ur Leukocyte Esterase 1+ (Negative) A 10/06/25 15:04 Urine RBC 0-2 /hpf (0-2) 10/06/25 15:04 Urine WBC 6-10 /hpf (0-5) 10/06/25 15:04 Ur Squamous Epith Cells 0-5 /hpf (0-5) 10/06/25 15:04 Amorphous Sediment Not Reportable 10/06/25 15:04 Urine Bacteria None seen /hpf (NONE) 10/06/25 15:04 Hyaline Casts 0.40 /lpf 10/06/25 15:04 All radiology interpretation(s) finalized by discharge Discharge Plan Discharge Patient Disposition: Home Clinical Impression: Ileus Constipation Qualifiers: Constipation type: other constipation type Qualified Code(s): K59.09 - Other constipation Condition: Stable Prescriptions: New lactulose 10 gram/15 mL solution 30 g PO DAILY PRN (Reason: constipation) Qty: 1200 0RF No Action Prenatabs FA 29-1 mg tablet 1 tab PO DAILY Lumigan 0.01 % drops 1 drp ophthalmic (eye) .at bedtime hydrocodone-acetaminophen 10-325 mg tablet 1 tab PO BID PRN (Reason: Pain) carboxymethylcellulose sodium [Lubricant Eye Drops] 0.5 % dropperette 1 drp ophthalmic (eye) DAILY PRN (Reason: Dry Eyes) dextromethorphan-guaifenesin [Diabetic Tussin DM] 10-100 mg/5 mL liquid 10 ml PO Q4H PRN (Reason: Cough) simethicone [Gas Relief (simethicone)] 80 mg tablet,chewable 80 mg PO Q6H PRN (Reason: Gas) lidocaine 5 % adhesive patch,medicated 2 patch topical DAILY Qty: 180 1RF Rx Instructions: leave on most painful area for up to 12 hrs nystatin 100,000 unit/gram powder 1 applic TOPICAL QID PRN (Reason: yeast) Qty: 60 2RF (DME) T4528 XL pull up See Rx Instructions .Route .MEDSUPPLY Qty: 120 12RF Rx Instructions: As directed (DME) T4528 XL pull up underwear See Rx Instructions .Route .MEDSUPPLY Qty: 120 11RF Rx Instructions: As directed magnesium hydroxide [Milk of Magnesia] 400 mg/5 mL suspension 30 ml PO BID 2 Days Qty: 120 0RF (DME) diabetic shoes See Rx Instructions .Route .MEDSUPPLY Qty: 2 0RF Rx Instructions: As directed for DM care of foot. Hst of left foot amputation, bunion, decreased sensation sennosides-docusate sodium [Senokot-S] 8.6-50 mg tablet 1 tab-cap PO DAILY budesonide 0.5 mg/2 mL suspension for nebulization 0.5 mg inhalation BID PRN (Reason: cough or wheeze) Qty: 60 0RF Rx Instructions: NO medication needed please change on EMR spironolactone 25 mg tablet 12.5 mg PO DAILY multivitamin with iron [Hair Vitamins] Tablet 1 tab PO .2 times day Qty: 1 0RF Rx Instructions: Put on EMR please duloxetine 60 mg capsule,delayed release(DR/EC) 60 mg PO BID Qty: 180 1RF allopurinol 300 mg tablet 300 mg PO DAILY Qty: 90 1RF Eliquis 2.5 mg tablet 2.5 mg PO DAILY Qty: 90 1RF atorvastatin 20 mg tablet 20 mg PO BEDTIME Qty: 90 1RF buspirone 10 mg tablet 10 mg PO BID Qty: 180 1RF furosemide [Lasix] 40 mg tablet See Rx Instructions PO .COMPLEX Qty: 90 1RF Rx Instructions: 20mg on S,T,TH,S; 40mg M,W,F orally; Please update EMR gabapentin 300 mg capsule 600 mg PO TID 90 Days Qty: 540 1RF pantoprazole 20 mg tablet,delayed release (DR/EC) 20 mg PO BID Qty: 180 1RF potassium chloride 10 mEq capsule, extended release 10 meq PO BID Qty: 180 1RF sucralfate [Carafate] 1 gram tablet 1 g PO .COMPLEX Qty: 360 1RF Rx Instructions: 1 g PO before meals and bedtime; trazodone 50 mg tablet 50 mg PO BEDTIME Qty: 90 1RF amiodarone 200 mg tablet 400 mg PO DAILY Qty: 180 3RF anastrozole 1 mg tablet 1 mg PO DAILY Qty: 90 3RF Rx Instructions: TAKE ONE TABLET BY MOUTH DAILY cephalexin 500 mg capsule 500 mg PO TID Qty: 30 0RF Rx Instructions: of axilla diltiazem HCl [Cartia XT] 120 mg capsule,extended release 24hr 120 mg PO BID Qty: 180 4RF acetaminophen 325 mg Tablet 325 mg PO QID PRN (Reason: Pain) ascorbic acid (vitamin C) [Vitamin C] 500 mg Tablet 500 mg PO BID cholecalciferol (vitamin D3) [Vitamin D3] 50 mcg (2,000 unit) Capsule 5,000 unit PO DAILY Caltrate 600 plus D 600 mg-20 mcg (800 unit) Tablet,Chewable 1 tab PO DAILY Probiotic Digestive Care 20 billion cell capsule 30 cell PO BID Discharge Orders: Discharge ED (Routine); Ordered 10/06/25 Ordered By: Rita Mccarthy Referrals: Rose Lester, DEMO SPECIALIST-C [Primary Care Provider, Family Practice] Patient Instructions: Constipation (DC), Ileus (ED), Patient Portal & Krystal Instructions Activity Restrictions/Additional Instructions: As we discussed, CT imaging did not show any bowel obstruction. You do have a diffuse ileus which is an overall slowing of your bowel. You will need to be on a completely clear liquid diet over the next 48 hours (no solid food whatsoever) and then you can slowly advance to soft foods if abdominal pain is improving and you are passing gas/stool. You can from there slowly advance to a regular diet. Given your prescription for lactulose to be taken daily to help stimulate bowel movements. You may require an additional enema/suppository to be given at your senior living. You need to return to the emergency department for worsening abdominal pain, repetitive episodes of vomiting, inability to pass gas or stool, or any other concerns you may have. Print Language: Kyrgyz Coding Level of Care Code ED Marketing Segment Manager for Tracy Jerry
--- NOTE | 2025-10-06 13:36 | CT_ITS ---
WS: [id number] CT ABDOMEN PELVIS TECHNIQUE: Contrast-enhanced CT of the abdomen and pelvis with coronal and sagittal reformatted images. CLINICAL INFORMATION: constipation/abdominal pain COMPARISON: 04/06/2024 DLP: 934.[address] scans at [facility] use at least one of these dose optimization techniques: automated exposure control; mA and/or kV adjustment per patient size (includes targeted exams where dose is matched to clinical indication); or iterative reconstruction. FINDINGS: Subsegmental ectasis in the lung bases. Cholelithiasis. Normal portal vein and splenic vein. Tiny esophageal hiatal hernia. Splenic artery calcifications. Fatty atrophy of the pancreas. Adrenal glands are normal. Mild RIGHT renal atrophy. Normal renal parenchymal enhancement. No hydronephrosis. Normal caliber abdominal aorta. Dense aortic calcification. LEFT HEYDI. Small esophageal hiatal hernia. Fluid distended stomach with air-fluid levels. Mild fluid distention of small bowel loops. Fecal retention and fluid in the colon with air-fluid levels in the transverse colon. No area of transition or obstruction. Findings likely due to diffuse ileus. No free fluid in the abdomen or pelvis. Advanced spondylitic changes lumbar spine with osteopenia. CT/CT abdomen pelvis w con* [id number] IMPRESSION: Fluid distention of the stomach with air-fluid levels. Fluid distended small katia wel. Fecal retention and fluid distention of the colon. Air-fluid levels in the transverse colon. No transition points. Findings most compatible with diffuse ileus.
--- OUTSIDE RECORDS SUMMARY | 2025-10-06 13:37 | XMS_ITS | Encounter Summary ---
Author Organization [facility] Address [address] [place] [address] Care Team Providers Care Abalone Sheller Name Role Phone Nguyễn Lua MD Primary Care Provider [phone] Reason for Visit * Reason Onset Date Comments Referral 07/06/2024 Encounter Details Date Type Department Care Team (Late st Contact Info) Description 07/06/2024 Telephone [facility] [address] [facility] [address] [place] [address] Provider, Abstract NO ADDRESS ON FILE Referral Social History Tobacco Use Types Packs/Day Years Used Date Smoking Tobacco: Never Smokeless Tobacco: Never Alcohol Use Standard Drinks/Week Comments No 0 (1 standard drink = 0.6 oz pur e alcohol) Feeling Safe Answer Date Recorded Are you in a relationship wi th someone who hurts you emotionally and/or physically? No 07/07/2024 Comments No Sex and Gender Information Value Date Recorded Sex Assigned at Not on file Legal Sex Female 2:14 AM SENIOR DESIGN ENGINEERING SPECIALIST Gender Identity Not on file Sexual Orientation Not on file documented as of this encounter Miscellaneous Notes * Telephone Encounter - Mary Kay Orlando - 07/06/2024 9:47 AM CDT Called and let her know we have not received the referral the fax number was given . * Telephone Encounter - Silvana Doran - 07/06/2024 9:15 AM CDT [facility] Communications Provider: Consult , daughter Savanah SANABRIA yes MESSAGE Ready to schedule Cardiology Commercial Manager: Silvana Doran, PSR documented in this encounter Plan of Treatment Upcoming Encounters Date Type Department Care Team (Late st Contact Info) Description 11/08/2025 12:20 PM SENIOR DESIGN ENGINEERING SPECIALIST Appointment [facility] [address] [place] [address] Mando Pagan MD [address] [place] [address] 11/08/2025 2:20 PM SENIOR DESIGN ENGINEERING SPECIALIST Office Visit [facility] Breast Surgery [address] [place] [address] Sharron Jackson NP [address] [place] [phone] 12/01/2025 1:00 PM SENIOR DESIGN ENGINEERING SPECIALIST Office Visit [facility] Int Med-Lloyd Coffe[address] [place] [address] Nguyễn Lua MD [address] [place] [address] 01/24/2026 1:15 PM CDT Office Visit [facility] Neurology - [place] [address] [place] [address] Kristel Martinez MD [address] [place] [address] 07/13/2026 11:20 AM CDT Office Visit [facility] [address] [place] [phone] Bertha Swenson MD [address] [place] [address] documented as of this encounter Visit Diagnoses Not on filedocumented in this encounter Additional Health Concerns Infection Onset Date Last Indicated Resolved Time R/O COVID-19 07/07/2024 07/07/2024 07/07/2024 11:1 0 AM CDT documented as of this encounter Care Teams Abalone Sheller Relationship Specialty Start Date End Date Nguyễn Lua MD [address] [place] [address] PCP - General Internal Medicine 10/21/24 documented as of this encounter
--- OUTSIDE RECORDS SUMMARY | 2025-10-06 13:37 | XMS_ITS | Patient Health Record ---
Author Organization [facility] Address [address] [place] [address] Care Team Providers Care Tool Grinder Operator Surface Name Role Phone Rose Lester APRN Primary Care Provider Unav janice PiñaSandra andrea Unavailable [phone] DarrenArik Unavailable Unavailable Brigette Davis Unavailable Results Component Value Reference Range Flag Notes [facility] Saliva Drug Screen Reviewed date:07/13/2025 01:18:43 PM Interpretation: Performing Lab: Notes/Report: [facility] Saliva Drug Screen Reviewed date:10/05/2025 04:02:22 PM Interpretation: Performing Lab: Notes/Report: Urine Drug Screen (cup read) - [id number] Reviewed date:05/17/2025 03:20:01 PM Interpretation: Performing Lab: Notes/Report: OPI + OXY + MAMP + Urine Confirmation Panel (in strument) - [id number] Reviewed date:06/03/2025 10:01:47 AM Interpretation: Performing Lab: Notes/Report: 6-Acetylmorphine 0 <6 ng/mL N This roe t was developed and its performance characteristics determined by [facility]. It has not been cleared or approved by the U.S. Food and Drug Administration. 7-Aminoclonazepam 0 <60 ng/mL N This te st was developed and its performance characteristics determined by [facility]. It has not been cleared or approved by the U.S. Food and Drug Administration. Alprazolam 0 <60 ng/mL N This test was developed and its performance characteristics determined by [facility]. It has not been cleared or approved by the U.S. Food and Drug Administration. Amphetamine 0 <75 ng/mL N This test was developed and its performance characteristics determined by [facility]. It has not been cleared or approved by the U.S. Food and Drug Administration. aOH-Alprazolam 0 <60 ng/mL N This test was developed and its performance characteristics determined by [facility]. It has not been cleared or approved by the U.S. Food and Drug Administration. Buprenorphine 0.0 <7.5 ng/mL N This test w as developed and its performance characteristics determined by [facility]. It has not been cleared or approved by the U.S. Food and Drug Administration. Norbuprenorphine 0.0 <37.5 ng/mL N This te st was developed and its performance characteristics determined by [facility]. It has not been cleared or approved by the U.S. Food and Drug Administration. Carisoprodol 0 <75 ng/mL N This test wa s developed and its performance characteristics determined by [facility]. It has not been cleared or approved by the U.S. Food and Drug Administration. Codeine 0 <75 ng/mL N This test was developed and its performance characteristics determined by [facility]. It has not been cleared or approved by the U.S. Food and Drug Administration. EDDP 0 <75 ng/mL N This test was developed and its performance characteristics determined by [facility]. It has not been cleared or approved by the U.S. Food and Drug Administration. Fentanyl 0 <6 ng/mL N This test was developed and its performance characteristics determined by [facility]. It has not been cleared or approved by the U.S. Food and Drug Administration. Hydrocodone >5000 <75 ng/mL > This test was developed and its performance characteristics determined by [facility]. It has not been cleared or approved by the U.S. Food and Drug Administration. Hydromorphone 396 <75 ng/mL H This test w as developed and its performance characteristics determined by [facility]. It has not been cleared or approved by the U.S. Food and Drug Administration. Lorazepam 0 <60 ng/mL N This test was developed and its performance characteristics determined by [facility]. It has not been cleared or approved by the U.S. Food and Drug Administration. MDMA 0 <75 ng/mL N This test was developed and its performance characteristics determined by [facility]. It has not been cleared or approved by the U.S. Food and Drug Administration. Meperidine 0.0 <37.5 ng/mL N This test was developed and its performance characteristics determined by [facility]. It has not been cleared or approved by the U.S. Food and Drug Administration. Meprobamate 0 <75 ng/mL N This test was developed and its performance characteristics determined by [facility]. It has not been cleared or approved by the U.S. Food and Drug Administration. Methamphetamine 0 <75 ng/mL N This test was developed and its performance characteristics determined by [facility]. It has not been cleared or approved by the U.S. Food and Drug Administration. Methadone 0 <75 ng/mL N This test was developed and its performance characteristics determined by [facility]. It has not been cleared or approved by the U.S. Food and Drug Administration. Morphine 0 <75 ng/mL N This test was developed and its performance characteristics determined by [facility]. It has not been cleared or approved by the U.S. Food and Drug Administration. Nordiazepam 0 <60 ng/mL N This test was developed and its performance characteristics determined by [facility]. It has not been cleared or approved by the U.S. Food and Drug Administration. Norfentanyl 0 <6 ng/mL N This test was developed and its performance characteristics determined by [facility]. It has not been cleared or approved by the U.S. Food and Drug Administration. Normeperidine 0.0 <37.5 ng/mL N This test was developed and its performance characteristics determined by [facility]. It has not been cleared or approved by the U.S. Food and Drug Administration. O-desmethyltramadol 0 <75 ng/mL N This test was developed and its performance characteristics determined by [facility]. It has not been cleared or approved by the U.S. Food and Drug Administration. Oxazepam 0 <60 ng/mL N This test was developed and its performance characteristics determined by [facility]. It has not been cleared or approved by the U.S. Food and Drug Administration. Oxycodone 0.0 <37.5 ng/mL N This test was developed and its performance characteristics determined by [facility]. It has not been cleared or approved by the U.S. Food and Drug Administration. Oxymorphone 0 <75 ng/mL N This test was developed and its performance characteristics determined by [facility]. It has not been cleared or approved by the U.S. Food and Drug Administration. Phencyclidine 0.0 <7.5 ng/mL N This test w as developed and its performance characteristics determined by [facility]. It has not been cleared or approved by the U.S. Food and Drug Administration. Tapentadol 0.0 <37.5 ng/mL N This test was developed and its performance characteristics determined by [facility]. It has not been cleared or approved by the U.S. Food and Drug Administration. Temazepam 0 <60 ng/mL N This test was developed and its performance characteristics determined by [facility]. It has not been cleared or approved by the U.S. Food and Drug Administration. Tramadol 0 <75 ng/mL N This test was developed and its performance characteristics determined by [facility]. It has not been cleared or approved by the U.S. Food and Drug Administration. Norhydrocodone 989 <75 ng/mL H This test was developed and its performance characteristics determined by [facility]. It has not been cleared or approved by the U.S. Food and Drug Administration. Noroxycodone 0 <38 ng/mL N This test wa s developed and its performance characteristics determined by [facility]. It has not been cleared or approved by the U.S. Food and Drug Administration. Pregabalin 0 <225 ng/mL N This test was developed and its performance characteristics determined by [facility]. It has not been cleared or approved by the U.S. Food and Drug Administration. Gabapentin >27291 <225 ng/mL > This test was developed and its performance characteristics determined by [facility]. It has not been cleared or approved by the U.S. Food and Drug Administration. Benzoylecgonine 0.0 <37.5 ng/mL N This roe t was developed and its performance characteristics determined by [facility]. It has not been cleared or approved by the U.S. Food and Drug Administration. 4-Hydroxy Xylazine 0 <25 ng/mL N This t est was developed and its performance characteristics determined by [facility]. It has not been cleared or approved by the U.S. Food and Drug Administration. Tox Results Reviewed date:06/03/2025 02:51:07 PM Interpretation: Performing Lab: Notes/Report: Reason For Referral Reason Evaluation for possi ble treatment Diagnosis 1 Spinal stenosis, lum bar region with neurogenic claudication (M48.062) Diagnosis 2 Spondylosis without myelopathy or radiculopathy, lumbar region (M47.816) Diagnosis 3 Vertebrogenic low ba ck pain (M54.51) Referring Provider First Name Arik Referring Provider Last Name Darren Referring Provider Speciality Pain Medic ine Referred Organization [facility] Referred Provider Cedric Davis Referred Address [address] [facility],[address], Referred Provider Specialty Pain Medicin e General Notes Rosario Rosas 11:30:22 AM >mailed npp, pt will call me after seeing Dr Banks 03/08/25 to see how many refills is prescribing her. Then we will scheduled her an ov here. Referral Priority Routine Medications Medication SIG (Take, Route, Frequency, Duration) Notes Start Date End Date Status traZODone HCl 50 MG Tablet 1 tablet at bedtime as needed Orally Once a day Active Vitamin C 500 MG Capsule as directed Orally Active Culturelle - Capsule as directed Orally Active dilTIAZem HCl ER 120 MG Capsule Extended Release 24 Hour 1 capsule Orally Once a day Active Vitamin D3 Active DULoxetine HCl 60 MG Capsule Delayed Release Particles 1 capsule Orally Once a day Active Eliquis 2.5 MG Tablet as directed Orally Active Furosemide 40 MG Tablet 1 tablet Orally Once a day Active HYDROcodone-Acetaminoph en 10-325 MG Tablet 1 tablet Orally every 6 hrs; Duration: 30 days As needed Not to exceed 4 per day Fill on 10/29/2024 09/12/2025 10/08/2025 Active Acetaminophen 325 MG Tablet 1 tablet as needed Orally every 6 hrs Active Lidocaine 5 % Patch 1 patch remove after 12 hours Externally Once a day Active Albuterol Active Lumigan 0.01 % Solution 1 drop into affe cted eye in the evening Ophthalmic Once a day Active Ozempic (1 MG/DOSE) 4 MG/3ML Solution Pen-injector as directed Subcutaneous Active Pantoprazole Sodium 20 MG Tablet Delayed Release 1 tablet 1/2 to 1 hour before morning meal Orally Once a day Active PEG 3350 17 GM/SCOOP Powder 1 gram mixed with 8 ounces of fluid Orally Once a day Active Allopurinol 300 MG Tablet 1 tablet Orally Once a day Active Amiodarone HCl 200 MG Tablet 1 tablet Orally Once a day Active Anastrozole 1 MG Tablet 1 tablet Orally Once a day Active Carboxymethylcell-Glyce rin PF 0.5-0.9 % Solution as directed Ophthalmic Active Atorvastatin Calcium 20 MG Tablet 1 tablet Orally Once a day Active Budesonide 0.5 MG/2ML Suspension 1 mL Inhalation Twice a day Active Diabetic Tussin Acti ve Potassium Chloride 10 MEQ Packet 1 packet with food Orally Twice a day Active Caltrate 600+D3 Soft 600-20 MG-MCG Tablet Chewable 1 tablet with a meal Orally Once a day Active Docusate Sodium 100 MG Capsule 1 capsule as needed Orally Once a day Active Prenatabs FA 29-1 MG Tablet 1 tablet Orally Once a day Active HYDROcodone-Acetaminoph en 10-325 MG Tablet 1 tablet as needed Orally every 6 hrs Active Spironolactone 25 MG Tablet 1 tablet Orally Once a day Active Linzess 290 MCG Capsule [address] 30 minutes before the first meal of the day on an empty stomach Orally Once a day Active Stool Softener Activ e Simethicone 80 MG Tablet Chewable 1 tablet after meals and at bedtime as needed Orally Four times a day Active Sucralfate 1 GM Tablet 1 tablet on an em pty stomach Orally Twice a day Active HYDROcodone-Acetaminoph en 10-325 MG Tablet 1 tablet Orally every 6 hrs; Duration: 30 days As needed Not to exceed 4 per day Fill on 09/29/2025 09/12/2025 10/29/2025 Active Social History Tobacco Use: Social History Observation Description Date Details (start date - stop date) Never Smoker NA - NA Social History Tobacco Use: Social Info Question Answer Notes Tobacco Control (Standard) Tobacco use: Nonsmoker Additional Details Category Social Info Options Details Miscellaneous: Sexually active: no Sexual abuse: no Drugs/Alcohol: Do you smoke marijuana? De nies Do you drink alcohol? No Problems Problem Type SNOMED Code ICD Code Onset Dates Problem Status W/U Status Risk Notes Problem Chronic pain syndrome (131967083) Chronic pain syndrome (G89.4) Active confirmed Problem Lumbosacral spondylosis without myelopathy (92316217) Spondylosis without myelopathy or radiculopathy, lumbar region (M47.816) Active confirmed Problem High risk drug monitoring status (857807529) care home (current) use of opiate analgesic (Z79.891) Active confirmed Problem Neurogenic claudication (808374659) Spinal stenosis, lumbar region with neurogenic claudication (M48.062) Active confirmed Problem Phantom limb (155357998) Phantom limb pain (G54.6) Active confirmed Problem Amputated below knee (147515567) Left below-knee amputee (Z89.512) Active confirmed Problem Lumbosacral spondylosis (136440165) Lumbosacral spondylosis (M47.817) Active confirmed Vital Signs Weight-kg 85.28 kg 09/08/2025 Weight 188 lbs 09/08/2025 Encounters Encounter Location Date Provider Diagnosis [facility] [address] [address] 09/08/2025 Sandra Griffith Chronic pain syndrome G89.4 ; Lumbosacral spondylosis M47.817 ; Phantom limb pain G54.6 ; Left below-knee amputee Z89.512 and care home (current) use of opiate analgesic Z79.891 [facility] [address] [address] 07/07/2025 Sandra Griffith Chronic pain syndrome G89.4 ; Lumbosacral spondylosis M47.817 ; Phantom limb pain G54.6 ; Left below-knee amputee Z89.512 and local intermodal truck driver (current) use of opiate analgesic Z79.891 [facility] [address] [address] 05/17/2025 Brigette Dillonsyainsley-Pric e Chronic pain syndrome G89.4 ; Lumbosacral spondylosis M47.817 ; Phantom limb pain G54.6 ; Left below-knee amputee Z89.512 and care home (current) use of opiate analgesic Z79.891 [facility] [address] [address] 09/08/2025 Brigette Dillonsyainsley-Pric e Lumbosacral spondylosis M47.817 [facility] [address] [address] 07/07/2025 [facility] Lumbosacral spondylosis M47.817 Assessments Encounter Date Diagnosis (ICD Code) Assessment Notes Treatment Notes Treatment Clinical Notes Section Notes 07/07/2025 Chronic pain syndrome (ICD-10 - G89.4) I had a nice discussion with the patient today regarding her chronic pain complaints. She continues with lower back pain and phantom limb pain. She does state that she got a new socket for her BKA and feels it is doing much better since it fits properly. She did take a fall a couple of weeks ago and still has quite a bit of bruising on her face. She states she did not go to the ER to get checked out. I did encourage her to go to the ER if this ever happens again and she hits her head. She feels she is doing reasonably well on her current medication regimen. She also continues with gabapentin through her PCP. She denies any other changes since we last seen her any untoward side effects of medication. I did discuss lifestyle modifications as well as a bowel regimen. She will continue her medication at present level and return to clinic in 2 months to monitor for treatment effectiveness and compliance. The patient continues with chronic pain requiring treatment to help restore function and improve quality of life. Risks of opioid therapy as well as interaction of opioids with alcohol, illicit drugs, muscle relaxers, and other sedative medications are reviewed briefly with patient again today. The patient has trialed all other reasonable treatment options and uses the medication to alleviate pain in order to remain active and rest with less pain. No clinically relevant medication side effects are noted. Last UDS and [place] MAKE UP OPERATOR HELPER reviewed today. Patient is advised that best long-term goals include increased activity, core strengthening, proper weight management, coping strategies, avoidance of painful triggers, and targeted interventional therapy. We will see the patient for routine follow up in accordance with all clinic policies. We did remind patient today of current guidelines to decrease opioid when possible. We will continue to stress nonopioid treatment. RECOMMEND SALIVA TESTING TODAY Saliva drug screening will be performed today to ensure compliance with opioid therapy, as well as screen for any illicit or nonprescribed medications/drugs. Sample will be sent for quantitative analysis to test for all prescribed medications. Patient has been made aware of this policy and agrees to abide by our saliva testing policy. 09/08/2025 Chronic pain syndrome (ICD-10 - G89.4) I had a nice discussion with the patient today regarding her chronic pain complaints. She states she has been doing reasonably well on her current medication regimen. She continues with lower back pain and phantom limb pain but feels things are doing pretty well for her overall lately. She does state a couple of days ago she was lifting a box and her shoulder has been bothering her since. She is hoping this will subside on its own. She denies any changes in her health since we last seen her any untoward side effects of the medication. I did discuss lifestyle modifications as well as a bowel regimen. She will continue her medication at present level and return to clinic in 2 months to monitor for treatment effectiveness and compliance. The patient continues with chronic pain requiring treatment to help restore function and improve quality of life. Risks of opioid therapy as well as interaction of opioids with alcohol, illicit drugs, muscle relaxers, and other sedative medications are reviewed briefly with patient again today. The patient has trialed all other reasonable treatment options and uses the medication to alleviate pain in order to remain active and rest with less pain. No clinically relevant medication side effects are noted. Last UDS and [place] MAKE UP OPERATOR HELPER reviewed today. Patient is advised that best long-term goals include increased activity, core strengthening, proper weight management, coping strategies, avoidance of painful triggers, and targeted interventional therapy. We will see the patient for routine follow up in accordance with all clinic policies. We did remind patient today of current guidelines to decrease opioid when possible. We will continue to stress nonopioid treatment. RECOMMEND SALIVA TESTING TODAY Saliva drug screening will be performed today to ensure compliance with opioid therapy, as well as screen for any illicit or nonprescribed medications/drugs. Sample will be sent for quantitative analysis to test for all prescribed medications. Patient has been made aware of this policy and agrees to abide by our saliva testing policy. 09/08/2025 Lumbosacral spondylosis (ICD-10 - M47.817) 07/07/2025 Lumbosacral spondylosis (ICD-10 - M47.817) 05/17/2025 Chronic pain syndrome (ICD-10 - G89.4) Ms. Gordon is a very pleasant patient with lumbosacral spondylosis, myalgia mediated pain, phantom pain secondary to left BKA. That one is managed well with Gabopentin. We will continue this with her primary care physician as per her request. She is due for a new socket as her left leg has shrunk compared to when the socket was made. Additionally, I'll take over her Hydrocodone prescription. PDMP reviewed with no untoward events. We will obtain a UDS confirmation at today's visit. 05/17/2025 Lumbosacral spondylosis (ICD-10 - M47.817) 07/07/2025 Lumbosacral spondylosis (ICD-10 - M47.817) 09/08/2025 Lumbosacral spondylosis (ICD-10 - M47.817) 05/17/2025 Phantom limb pain (ICD-10 - G54.6) 05/17/2025 Left below-knee amputee (ICD-10 - Z89.512) 09/08/2025 Phantom limb pain (ICD-10 - G54.6) 07/07/2025 Phantom limb pain (ICD-10 - G54.6) 07/07/2025 Left below-knee amputee (ICD-10 - Z89.512) 09/08/2025 Left below-knee amputee (ICD-10 - Z89.512) 05/17/2025 local intermodal truck driver (current) use of opiate analgesic (ICD-10 - Z79.891) 09/08/2025 local intermodal truck driver (current) use of opiate analgesic (ICD-10 - Z79.891) 07/07/2025 care home (current) use of opiate analgesic (ICD-10 - Z79.891) 05/17/2025 Other Aylin Blanca, am scribing for Dr. Yanes. Dr. Joaquín Blanca, personally performed the services described in this documentation, as scribed by Aylin Person, and it is both accurate and complete. RECOMMEND URINE TESTING TODAY Urine drug screening will be performed today to monitor compliance with opioid therapy or to serve as a baseline screen for a patient who may be a candidate for opioid therapy in the future, pending UDS results. We will monitor with in-office testing (rapid testing) today and review the results prior to dispensing prescription. All positive results will be sent for quantitative analysis to ensure accuracy and quantify amounts. Any expected positive results that return negative will also be sent for quantitative analysis. Any questionable read or any medication we cannot test for in the office confidently will be sent for quantitative analysis, as well. Patient has been made aware of this policy and agrees to abide by our urine testing policy. Plan Of Treatment Next Appt Details Provider Name:Brigette Sarabia, 11/22/2025 01:00:00 PM, [address] [place], [address], Insurance Providers Payer Name Payer Address Payer Phone Subscriber Number Group Number Insured Name Patient Relationship to Insured Coverage Start Date Coverage End Date [place] [address] [address] [place] [phone] [id number] Nicole Gordon Self - patient is the insured [facility] Insurance [address] [address] [place] [phone] [id number] Nicole Gordon Self - patient is the insured Medical (General) History Medical History History ICD Code High Blood Pressure Diabetes bronchitis Stomach Ulcer glaucoma Cancer Arthritis constipation kidney infection Swelling of multiple joints Thyroid disease Blood thinners Surgical History Surgery Date(Month/Year) septoplasty 1983 right knee replacement 1995 bilateral mastectomy 1998 left hip replacement 2009 left below the knee amputation 2016 left femur repair 2018 excision of cancer; right leg 2023 thyroidectomy; partial 2009
--- OUTSIDE RECORDS SUMMARY | 2025-10-06 13:37 | XMS_ITS | Encounter Summary ---
Author Organization [facility] Address [address] [place] [address] Care Team Providers Care Ore Mixer Name Role Phone Nguyễn Lua MD Primary Care Provider [phone] Reason for Visit * Reason Onset Date Comments Needs Appointment 07/08/2024 Encounter Details Date Type Department Care Team (Late st Contact Info) Description 07/08/2024 Telephone 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 * Telephone Encounter - Steven Flores - 07/08/2024 10:27 AM CDT [facility] Communications Consult (Provider) Caller: Savanah Relation to Patient: Daughter PHI (Y/N): y MESSAGE Calling to schedule referral Cardiology Lawyers: [place] documented in this encounter Plan of Treatment Upcoming Encounters Date Type Department Care Team (Late st Contact Info) Description 11/08/2025 12:20 PM PHARMACY TEACHER Appointment [facility] [address] [place] [address] Mando Pagan MD [address] [place] [address] 11/08/2025 2:20 PM PHARMACY TEACHER Office Visit [facility] Breast Surgery [address] [place] [address] Sharron Jackson NP [address] [place] [address] 12/01/2025 1:00 PM PHARMACY TEACHER Office Visit [facility] Int [facility] [address] [place] [address] Nguyễn Lua MD [address] [place] [address] 01/24/2026 1:15 PM CDT Office Visit [facility] Neurology - [place] [address] [place] [address] Kristel Martinez MD [address] [place] [address] 07/13/2026 11:20 AM CDT Office Visit [facility] Endocrinology [facility] [address] [place] [address] Bertha Swenson MD [address] [place] [address] documented as of this encounter Visit Diagnoses Not on filedocumented in this encounter Care Teams Ore Mixer Relationship Specialty Start Date End Date Nguyễn Lua MD [address] [place] [address] PCP - General Internal Medicine 10/21/24 documented as of this encounter
--- OUTSIDE RECORDS SUMMARY | 2025-10-06 13:37 | XMS_ITS | Clinical Summary ---
Author Organization [facility] Address [address] [place] [address] Phone Care Team Providers Care Under Ground Miner Name Role Phone Nguyễn Lua MD Primary Care Provider [phone] Allergies Active Allergy Reactions Criticality Noted Date [...] hours as needed for Cough. 1 Active pfnbi-3-SXR-EPA- fish oil 1,000 mg Capsule Take by mouth daily. 1 Active PNV Comb No.38-Wbgh-Uxskq Acid (Prenatabs FA) 29-1 mg Tablet Take [...] mouth daily. 90 Tablet 1 1 Active metoclopramide HCl (REGLAN) 5 mg tabletIndication s:Abdominal distension (gaseous),Early satiety TAKE ONE TABLET BY MOUTH TWICE DAILY BEFORE MEALS. DO NOT TAKE FOR 7 DAYS BEFORE YOUR GASTRIC EMPTY STUDY 60 Tablet 3 1 Active Advanced Probiotic 625 mg (10 billion cell) CapsuleIndicatio ns:Constipation, unspecified TAKE TWO CAPSULES BY MOUTH DAILY 60 Capsule 3 1 Active DULoxetine (CYMBALTA) 60 mg Capsule, Delayed Release(E.C.) Take 1 Capsule (60 mg) by mouth daily. 90 Capsule 1 1 Active Additional Information Patient taking differently:60 mg OralTWO TIMES DAILY, Reported on 05/19/2025 docusate sodium (COLACE) 100 mg capsule Take 200 mg by mouth 2 times daily. 7 Active Miscellaneous Medical SupplyIndication s:Status post below knee amputation of left lower extremity polysomnography tech sock evaluate and adjustments. 1 Each 0 [...] mcg by mouth daily . 6 Active Additional Information Patient not taking.Reported on 05/19/2025 glipiZIDE (GLUCOTROL) 5 mg tablet Take 5 [...] GLUCONATE ORAL Take by mouth. Activ e busPIRone (BUSPAR) 5 mg tablet Take 5 mg by mouth two times daily, before breakfast and bedtime. 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 () 07/08/2023 Cancer Staging:Clinical stage from 07/08/2023:Stage IA(cT1c, cN0, cM0, G2, ER+, CA+, HER2-) - Signed by Mando Pagan MD on 07/08/2023 A-fib 04/01/2019 Periprosthetic fracture of femur at tip of prost hesis left 04/01/2019 S/P BKA (below knee amputation) unilateral, left 09/17/2017 Obesity (BMI 30.0-34.9) 08/27/2017 Chronic constipation 08/27/2017 Preoperative general physical examination 2016 GOLDIE on CPAP 08/27/2017 Gastroesophageal reflux disease 08/27/2017 Dyslipidemia 08/27/2017 Essential hypertension 08/27/2017 Hallux valgus of right foot 07/09/2014 Heel [...] with type 2 diabetes mellitus 11/14/2015 10/23/2024 Cellulitis of foot, right 11/08/2015 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/2015 10/23/2024 Neuropathy in diabetes 06/24/201410/23 Encounters Date Type Department Care Team Description 07/13/2025 11:00 AM CDT Office Visit [facility] Endocrinology [facility] [address] [place] [address] [place] Swenson MD Nontoxic multinodular goiter (Primary Dx); Hoarseness of voice; Left thyroid nodule; S/P partial thyroidectomy 07/08/2025 Telephone [facility] Int [facility] [place] [address] Nguyễn Lua MD Information from Last 3 Months Immunizations Immunization Administration [...] Name Comments Colon Cancer Brother Healthy Daughter [place] Heart Disease Father Breast Cancer Mother Heart Disease Mother Breast Cancer Paternal Grandmother unk ag e Breast Cancer Sister Ovarian Cancer Neg Hx Pancreatic Cancer Neg Hx Uterine or Endometrial Cance r, Not Including Cervical Neg Hx Relation Name Status Comments Brother Daughter [place] Alive Father Mother Paternal Grandfather Paternal Grandmother [...] on file Legal Sex Female 2:14 AM DIGITAL MARKETING EXECUTIVE Gender Identity Not on file Sexual Orientation Not on file Last Filed Vital Signs Vital Sign Reading Time Taken Comments Blood Pressure 120/50 07/13/2025 11:02 AM CDT Pulse 64 07/13/2025 11:02 AM CDT Temperature 36.7 C (98 F) 07/07/2024 10:20 AM CDT Respiratory Rate 16 07/07/2024 5:15 PM CDT Oxygen Saturation 95% 05/19/2025 9:57 AM CDT Inhaled Oxygen Concentration - - Weight 84.4 kg (186 lb) 07/13/2025 11:02 AM CDT Height 165.1 cm (5' 5 ) 07/13/2025 11:02 AM CDT Body Mass Index 30.95 07/13/2025 11:02 AM CDT Plan of Treatment Upcoming Encounters Date Type Department Care Team (Late st Contact Info) Description 11/08/2025 12:20 PM DIGITAL MARKETING EXECUTIVE Appointment [facility] [address] [place] [address] Mando Pagan MD [address] [place] [address] 11/08/2025 2:20 PM DIGITAL MARKETING EXECUTIVE Office Visit [facility] Breast Surgery [address] [place] [address] Sharron Jackson NP [address] [place] [address] 12/01/2025 1:00 PM DIGITAL MARKETING EXECUTIVE Office Visit [facility] Int [place] [place] [address] Nguyễn Lua MD [address] [place] [address] 01/24/2026 1:15 PM CDT Office Visit [facility] Neurology - [place] [address] [place] [address] Kristel Martinez MD [address] [place] [address] 07/13/2026 11:20 AM CDT Office Visit [facility] Endocrinology [facility] [address] [place] [address] [place]tha Swenson MD [address] [place] [address] Health Maintenance Due Date Last Done Comments [...] EXAM 11/14/2016 11/14/2015 COLORECTAL SCREENING 2022 2017 INFLUENZA VACCINE (#1) 2025 3, 07/26/2021, 08/05/2019 COVID-19 Vaccine (4 - 2024-2 6 season) 2025 06/14/2022, 11/27/2020, 10/30/2020 DIABETES HBA1C Q 6 MONTHS 07/14/20252024, 10/15/2024, 07/19/2024, Additional history exists DIABETES ANNUAL RETINAL EXAM 08/16/2025, 01/29/2022, 01/22/2021, Additional history exists DIABETES: A1C (Auto Order) 01/11/202601/11, 10/15/2024, 07/19/2024, Additional history exists LDL CHOLESTEROL ANNUAL 06/29/2026 , 06/29/2025, 07/19/2024 OSTEOPOROSIS SCREENING 11/12/2028 11/12/2023, 2013 Medical Devices Implanted Type Area Coke Oven Patcher Device Identifier Shelf Expiration Date Model / Serial / Lot Cable W/Crimp Ss 1.7 X 750mm 298.801.01s - [id number] Implanted:Qty: 1 on 04/02/2019 by Rodriguez Be MD Cable Left: Leg SYNTHES STRATEC 08/19/2023 298.801. 0 1S / / [id number] Cable W/Crimp Ss 1.7 X 750mm 298.801.01s - [id number] Implanted:Qty: 1 on 04/02/2019 by Rodriguez Be MD Cable Left: Leg [employer]ES [employer]AT[employer] 06/19/2023 298.801. 0 1S / / [id number] Cable W/Crimp Ss 1.7 X 750mm 298.801.01s - [id number] Implanted:Qty: 1 on 04/02/2019 by Rodriguez Be MD Cable Left: Leg [employer]AT[employer] 06/19/2023 298.801. 0 1S / / [id number] Cable W/Crimp Ss 1.7 X 750mm 298.801.01s - [id number] Implanted:Qty: 1 on 04/02/2019 by Rodriguez Be MD Cable Left: Leg [employer]AT[employer] 07/19/2023 298.801. 0 1S / / [id number] Clip Ligating Horizon Med Ti 195835 - Csc - [id number] Implanted:Qty: 1 on 08/15/2023 by Mando Pagan MD at [facility] Clip Right: Breast TELEFLEX- WECK CLOSURE SYS [id number] 04/14/2028 [id number] / / [id number] 7 Pin Cerclage Threaded 4.5mm 298.803s - [id number] Implanted:Qty: 1 on 04/02/2019 by Rodriguez Be MD Pin Left: Leg [employer]ES [employer]ATEC 02/16/2025 298.803S / / [id number] Plate Lcp Brd Crv 20h 4.5mm 226.702s - [id number] Implanted:Qty: 1 on 04/02/2019 by Rodriguez Be MD Plate Left: Leg [employer]ATEC 07/19/2027 226.702S / / [id number] Screw St Loc 5.0x38mm 212.213 - [id number] Implanted:Qty: 1 on 04/02/2019 by Rodriguez Be MD Screw Left: Leg SYNTHES [employer]ATEC 212.213 / / [id number] Loc 5.0x40mm 212.214 - [id number] Implanted:Qty: 1 on 04/02/2019 by Rodriguez Be MD Screw Left: Leg [employer]ES [employer]ATEC 212.214 / / [id number] Loc 5.0x55mm 212.220 - [id number] Implanted:Qty: 2 on 04/02/2019 by Rodriguez Be MD Screw Left: Leg [employer]NTHES [employer]ATEC 212.220 / / [id number] 4.5x40mm 214.840 - [id number] Implanted:Qty: 2 on 04/02/2019 by Rodriguez Be MD Screw Left: Leg [employer]ATEC 214.840 / / [id number] 4.5x56mm 214.856 - [id number] Implanted:Qty: 1 on 04/02/2019 by Rodriguez Be MD Screw Left: Leg [employer]ES [employer]ATEC 214.856 / / [id number] Procedures Procedure Name Priority Date/Time Associated Diagnosis Comments LIPID PANEL Routine 06/29/2025 11:30 AM CDT Dyslipidemia HEMOGLOBIN A1C Routine 07/19/2024 from Last 3 Months or Most Recently Relevant to Health Maintenance Results * (ABNORMAL) LIPID PANEL (06/29/2025 11:30 AM CDT) CHOLESTEROL 124 <200 mg/dL [facility] HDL 48(L) > OR = 50 mg/dL [facility] TRIGLYCERIDE 89 <150 mg/dL [facility] LDL CALCULATED 59 mg/dL (calc) [facility] Comment: Reference range: <100 Desirable range <100 mg/dL for primary prevention; <70 mg/dL for patients with CHD or diabetic patients with > or = 2 CHD risk factors. LDL-C is now calculated using the Andrew-Gusman calculation, which is a validated novel method providing better accuracy than the Friedewald equation in the estimation of LDL-C. Andrew SS et al. NEHA. 2013;310(19): 8182-5439 (http://education.[employer]/faq/FYN560) CHOL/HDL RATIO 2.6 <5.0 (calc) [facility] NON-HDL CHOLESTEROL 76 <130 mg/dL (calc) [facility] Comment: For patients with diabetes plus 1 major ASCVD risk factor, treating to a non-HDL-C goal of <100 mg/dL (LDL-C of <70 mg/dL) is considered a therapeutic option. Test Performed at: [facility] [address] [place] [id number] Anderson Lucas MD Blood 06/29/2025 11:3 0 AM CDT 06/30/2025 12:33 PM CDT Nguyễn Lua MD CHEMISTRY ORDERABLES Final Res ult [facility] [phone] [facility] [address] * HEMOGLOBIN A1C (07/19/2024) ABSTRACTED HGB A1C 7.0 % Blood 07/19/2024 Rose Lester NP CHEMISTRY ORDERABLES Final Result from Last 3 Months or Most Recently Relevant to Health Maintenance Insurance [employer] [place] [id number] MEDICARE PART A AND B Advance Directives For more information, please contact: [phone] Documents on File Type Date Recorded Patient [employer] Hr[employer] Developer Expl anation Advance Directive POA 06/01/2021 10:28 AM Advance Directive POA * Full Code (Latest Code Status on File) Date Activated Date Inactivated Comments 05/31/2021 8:13 AM 05/31/2021 2:18 PM Care Teams Under Ground Miner Relationship Specialty Start Date End Date Nguyễn Lua MD [address] [facility] [address] [place] [address] PCP - General Internal Medicine 10/21/24
[2025-10-06 13:38] LABS: Alanine Aminotransferase 95 U/L (0-33); Albumin Level 3.4 g/dL (3.5-5.2); Alkaline Phosphatase 155 U/L (35-105); Anion Gap 11.7 (5-19); Aspartate Amino Transferase 131 U/L (0-32); Blood Urea Nitrogen 13 mg/dL (8-23); Calcium 8.8 mg/dL (8.5-10.5); Carbon Dioxide 32 mmol/L (22-29); Chloride 84 mmol/L (98-107); Globulin 2.4 g/dL (1.3-4.6); Glucose 134 mg/dL (65-115); Lipase 15 U/L (13-60); Osmolality Calculated 258 mOsm/kg (285-295); Potassium 4.7 mmol/L (3.5-5.1); Sodium 123 mmol/L (136-145); Total Protein 5.8 g/dL (6.6-8.7)
[2025-10-06] MEDS: iohexol 350 mg/mL 500 mL Btl (per mL) IV (13:55)
[2025-10-06 14:00] VITALS: BP 139/93; PULSE 69; RESP 18; O2SAT 96
[2025-10-06 15:22] LABS: Glucose Urine UA Negative (Normal); Nitrate Urine Negative (Negative)
[2025-10-06 15:27] LABS: Add Urine Microscopic? YES
[2025-10-06 15:34] VITALS: BP 130/70; PULSE 72; RESP 17; O2SAT 91
[2025-10-06 15:59] LABS: Specific Gravity, Urine 1.034 (1.005-1.030)
[2025-10-06] MEDS: Fleet Enema 133 mL Enema PR (16:16)
[2025-10-06 16:50] VITALS: BP 129/88; PULSE 81; RESP 16; TEMP 36.7; O2SAT 96
--- NOTE | 2025-10-06 17:00 | PC.NURSE ---
pt had large bowel movement following enema, pt reported relief
== END 2025-10-06 17:02 | disposition home or self-care (01) ==
PROVIDERS: Emergency Provider Physician Assistant; PCP Nurse Practitioner
DX: K56.7 Ileus, unspecified (principal); K59.09 Other constipation; Z79.01 Long term (current) use of anticoagulants; Z85.828 Personal history of other malignant neoplasm of skin; I25.10 Atherosclerotic heart disease of native coronary artery without angina pectoris; E78.5 Hyperlipidemia, unspecified; I10 Essential (primary) hypertension
CPT/HCPCS: 74019; 74177; 80053; 81001; 83690; 85025; 87077; 87086; 87186; 99285; J9999